=== PATIENT | female | born 1995 | race Caucasian/White ===

== ENCOUNTER 2017-02-07 13:16 | Emergency (ER) | payer MEDICAID ==
[~2017-02-07] VITALS: Ht 160 cm; Wt 93.4 kg
[~2017-02-07 13:16] MED LIST: BACL10TA PO; CEFD300C16 PO; CYCL-97 PO; DIPH25TA82; HYDR-3812 PO; IBP600T1 PO; IBUP-1773 PO; KETO-22 PO; NAPR-248 PO; NAPR550T PO; NIFE30TA82 PO; NITR-65 PO; ONDAN4ODT PO; PHEN200T27 PO; PREN1TAB19 PO; PREN1TAB86 PO; PRO AIR; SERT50TA PO
--- OUTSIDE RECORDS SUMMARY | 2017-02-07 13:24 | XMS REPORT ---
Author Author JENNIFER DOVE [facility] eClinicalWorks Address Unknown Phone Unavailable Care Team Providers Care Circle Cutting Saw Operator Name Role Phone JENNIFER DOVE CP Unavailable Allergies No Known Allergies Problems Problem Type Condition Code Onset Dates Condition Status Problem Normal in multigravida in second trimester Z34.82 Active Problem care, subsequent in first trimester Z34.81 Active Problem Normal in multigravida in third trimester Z34.83 Active Medications No Known Medications Results No Known Results Summary Purpose eClinicalWorks Submission
--- OUTSIDE RECORDS SUMMARY | 2017-02-07 13:26 | XMS REPORT ---
Author Author DARREN RICHARDS [facility] eClinicalWorks Address Unknown Phone Unavailable Care Team Providers Care Toll Test Worker Name Role Phone DARREN RICHARDS CP Unavailable Allergies No Known Allergies Problems Problem Type Condition Code Onset Dates Condition Status Problem Unspecified contraceptive management V25.9 Active Problem Anxiety state, unspecified 300.00 Active Problem examination or test, positive result V72.42 Active Problem care, subsequent in first trimester Z34.81 Active Problem Excessive or frequent menstruation 626.2 Active Problem Supervision of normal first V22.0 Active Problem Acute bronchitis 466.0 Active Problem Acute upper respiratory infections of unspecified site 465.9 Active Problem Normal in multigravida in second trimester Z34.82 Active Problem Uterine size date discrepancy, unspecified as to episode of care or not applicable 649.60 Active Problem Nondependent amphetamine or related acting sympathomimetic abuse, 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 Problem Screening of Streptococcus B V28.6 Active Problem DTAP TEST V06.1 Active Problem Depressive disorder, not elsewhere classified 311 Active Problem 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 Problem Other malaise and fatigue 780.79 Active Problem Need for prophylactic vaccination and inoculation, Influenza V04.81 Active Problem Dysuria 788.1 Active Problem Urinary tract infection, site not specified 599.0 Active Problem Oligohydramnios, unspecified as to episode of care 658.00 Active Problem Threatened premature labor, unspecified as to episode of care 644.00 Active Problem Abdominal pain, other specified site 789.09 Active Problem Encounter for long-term (current) use of other medications V58.69 Active Medications No Known Medications Results No Known Results Summary Purpose eClinicalWorks Submission
--- OUTSIDE RECORDS SUMMARY | 2017-02-07 13:27 | XMS REPORT ---
Author Author JENNIFER DOVE [facility] eClinicalWorks Address Unknown Phone Unavailable Care Team Providers Care Baking Factory Worker Name Role Phone JENNIFER DOVE CP Unavailable [...]
--- NOTE | 2017-02-07 13:28 | ED EENT ---
History of Present Illness General Chief Complaint: Dental Problems/Pain Stated Complaint: L SIDE TOOTH POSS INFECTION Source: patient Exam Limitations: no limitations History of Present Illness Time seen by provider: 13:24 Initial Comments To ER with left upper molar pain for the past 3-4 days. She has a bad taste in her mouth and states that she is able to squeeze a foul-smelling material out when she presses next to the tooth which is very tender. There is no swelling to the face. She has not sought care with her dentist. Timing/Duration: gradual Severity: moderate Location: dental Associated Symptoms: denies symptoms Allergies and Home Medications Allergies Coded Allergies: No Known Drug Allergies (Unverified , 04/22/15) Home Medications Amoxicillin 500 Mg Capsule, 500 MG PO TID, #21 Prescribed by: CHILANGO KOCH on 02/07/17 1329 Hydrocodone/Acetaminophen 1 Each Tablet, 1 EACH PO Q6H PRN for BREAKTHROUGH PAIN , #5 Prescribed by: CHILANGO KOCH on 02/07/17 1329 Review of Systems Constitutional: see HPI Eyes: No Symptoms Reported Ears: No Symptoms Reported Nose: no symptoms reported Mouth: see HPI, pain Throat: no symptoms reported Respiratory: no symptoms reported Cardiovascular: no symptoms reported Past Sxuuoyn-Litdyt-Qqtlze Hx Patient Social History Alcohol Use: Denies Use Recreational Drug Use: No Type Used: Cigarettes Recent Foreign Travel: No Contact w/Someone Who Travel: No Recent Hopitalizations: No Immunizations Up To Date Tetanus Booster (TDap): Less than 5yrs Date of Influenza Vaccine: Jan 02, 2016 Seasonal Allergies Seasonal Allergies: No Surgeries History of Surgeries: No Respiratory History of Respiratory Disorde: No Cardiovascular History of Cardiac Disorders: No Neurological History of Neurological Disord: No Reproductive System Hx Reproductive Disorders: Yes Sexually Transmitted Disease: No HIV/AIDS: No Female Reproductive Disorders: Menstrual Problems Gastrointestinal History of Gastrointestinal Di: No Musculoskeletal History of Musculoskeletal Dis: No Endocrine History of Endocrine Disorders: No Cancer History of Cancer: No Psychosocial History of Psychiatric Problem: No Behavioral Health Disorders: Anxiety, Depression Integumentary History of Skin or Integumenta: No Blood Transfusions History of Blood Disorders: No Adverse Reaction to a Blood Tr: No Family Medical History Significant Family History: No Pertinent Family Hx Family Medial History: Patient reports no known family medical history. Physical Exam Vital Signs Vital Sign - Last 12Hours 02/07/17 13:23 Temp 98.5 Pulse 97 Resp 16 B/P (MAP) 132/88 Pulse Ox 98 O2 Delivery Room Air General Appearance: WD/WN, no apparent distress Eyes: bilateral eye normal inspection, bilateral eye PERRL, bilateral eye EOMI Ears: bilateral ear auricle normal, bilateral ear canal normal, bilateral ear TM normal Mouth/Throat: normal mouth inspection, dental tenderness (there is no fluctuant buccal or gingival abscess) Neck: non-tender, full range of motion Cardiovascular: regular rate, rhythm, no murmur Respiratory: normal breath sounds, no respiratory distress, no accessory muscle use Gastrointestinal: normal bowel sounds, non tender Neurologic/Psychiatric: alert, normal mood/affect, oriented x 3 There is no facial swelling Progress/Results/Core Measures Results/Orders Vital Signs/I&O Vital Sign - Last 12Hours 02/07/17 13:23 Temp 98.5 Pulse 97 Resp 16 B/P (MAP) 132/88 Pulse Ox 98 O2 Delivery Room Air Departure Impression Impression: Primary Impression: Dental caries Disposition: HOME, SELF-CARE Condition: Stable Departure-Patient Inst. Decision time for Depature: 13:27 Referrals: [facility] (PCP) Primary Care Physician DARREN RICHARDS DO (Family) Primary Care Physician Patient Instructions: Dental Pain (DC) Add. Discharge Instructions: 1. Return to ER for any concerns 2. Call your dentist on Thursday morning to make an appointment to be seen 3. All discharge instructions reviewed with patient and/or family. Voiced understanding. Scripts Amoxicillin (Amoxicillin) 500 Mg Capsule 500 MG PO TID, #21 CAP Prov: CHILANGO KOCH CORPORATE AUDITOR 02/07/17 Hydrocodone/Acetaminophen ([place] 5-325 Tablet) 1 Each Tablet 1 EACH PO Q6H Y for BREAKTHROUGH PAIN, #5 TAB Prov: CHILANGO KOCH CORPORATE AUDITOR 02/07/17 CHILANGO KOCH CORPORATE AUDITOR Feb 07, 2017 13:28
[2017-02-07] MEDS ORDERED: HYDR-757 PO (13:29)
[2017-02-07] MEDS ORDERED: AMOX500C2 PO (13:29)
--- OUTSIDE RECORDS SUMMARY | 2017-02-07 13:29 | XMS REPORT ---
Author Author JENNIFER DOVE [facility] Address [address] [place] [address] Care Team Providers Care Store Person Name Role Phone JENNIFER DOVE Unavailable PROBLEMS Type Condition ICD9-CM Code [id number] Code Onset Dates Condition Status SNOMED Code Problem Normal in multigravida in third trimester Z34.83 Active 33068573 Problem Normal in multigravida in second trimester Z34.82 Active 62598493 Problem care, subsequent in first trimester Z34.81 Active 966174664 ALLERGIES No Information SOCIAL HISTORY Never Assessed PLAN OF CARE VITAL SIGNS MEDICATIONS Unknown Medications RESULTS No Results PROCEDURES No Known procedures IMMUNIZATIONS No Known Immunizations MEDICAL (GENERAL) HISTORY Type Description Date Hospitalization History past child
--- OUTSIDE RECORDS SUMMARY | 2017-02-07 13:29 | XMS REPORT ---
Author Author DARREN RICHARDS Organization [facility] Address [address] [place] [address] Care Team Providers Care Health Diagnostics Teacher Name Role Phone RICHARDSDARREN Unavailable PROBLEMS Type Condition ICD9-CM Code [id number] Code Onset Dates Condition Status SNOMED Code Problem Normal in multigravida in third trimester Z34.83 Active 63208117 Problem Normal in multigravida in second trimester Z34.82 Active 85128011 Assessment 35 weeks gestation of Z3A.35 14 Dec, 2015 Active 47746128 Assessment screening for streptococcus B Z36 14 Dec, 2015 Active 198614857 Problem care, subsequent in first trimester Z34.81 Active 525225797 Assessment Normal in multigravida in third trimester Z34.83 14 Dec, 2015 Active 86844623 ALLERGIES Substance Reaction Event Type Date Status Depo-provera 150 Mg/ml Suspension Unknown Non Drug Allergy Dec, Active SOCIAL HISTORY No smoking Hx information available PLAN OF CARE VITAL SIGNS Height 64 in 2015-12-26 Weight 218.5 lbs 2015-12-26 Heart Rate 92 bpm 2015-12-26 Respiratory Rate 22 2015-12-26 BMI 37.505 kg/m2 2015-12-26 Blood pressure systolic 104 mmHg 2015-12-26 Blood pressure diastolic 80 mmHg 2015-12-26 MEDICATIONS Medication Instructions Dosage Frequency Start Date End Date Duration Status 28-0.8 MG Orally daily 1 24h Jun, Active Keflex ... Active RESULTS Name Result Date Reference Range UA OB DIP (IN HOUSE) 2015-12-26 Glucose negative Protein trace CULTURE, GROUP B STREP (VAGINAL) 2015-12-26 Strep Gp B Culture Positive Negative PROCEDURES Procedure Date Ordered Related Diagnosis Body Site LAB NOT BILLED BY [facility] Dec 26, 2015 Office Visit, Est Pt., Level 3 Dec 26, 2015 URINE-NO MICRO Dec 26, 2015 IMMUNIZATIONS No Known Immunizations
[2017-02-07 13:32] VITALS: BP 132/88
--- OUTSIDE RECORDS SUMMARY | 2017-02-07 13:32 | XMS REPORT ---
Author Author DARREN RICHARDS [facility] Address [address] [place] [address] Care Team Providers Care Home Appliance Installer Name Role Phone DARREN RICHARDS Unavailable PROBLEMS Type Condition ICD9-CM Code [id number] Code Onset Dates Condition Status SNOMED Code Problem Normal in multigravida in third trimester Z34.83 Active 32686183 Problem Normal in multigravida in second trimester Z34.82 Active 18253574 Problem care, subsequent in first trimester Z34.81 Active 988402552 ALLERGIES Unknown Allergies SOCIAL HISTORY No smoking Hx information available PLAN OF CARE VITAL SIGNS MEDICATIONS Unknown Medications RESULTS No Results PROCEDURES No Known procedures IMMUNIZATIONS No Known Immunizations
--- OUTSIDE RECORDS SUMMARY | 2017-02-07 13:32 | XMS REPORT ---
Author DARREN Hsieh [facility] eClinicalWorks Address Unknown Phone Unavailable Care Team Providers Care Vice President Payment Name Role Phone DARREN RICHARDS CP Unavailable [...]
--- OUTSIDE RECORDS SUMMARY | 2017-02-07 13:32 | XMS REPORT ---
Author DARREN Hsieh [facility] eClinicalWorks Address Unknown Phone Unavailable Care Team Providers Care Turkey Egg Gatherer Name Role Phone DARREN RICHARDS CP Unavailable Allergies No Known Allergies Problems Problem Type Condition Code Onset Dates Condition Status Assessment 27 weeks gestation of Z3A.27 Active Problem Encounter for long-term (current) use of other medications V58.69 Active Assessment Normal in multigravida in third trimester Z34.83 Active Problem Unspecified contraceptive management V25.9 Active Problem Acute upper respiratory infections of unspecified site 465.9 Active Problem examination or test, positive result V72.42 Active Problem Nondependent amphetamine or related acting sympathomimetic abuse, 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 Problem Anxiety state, unspecified 300.00 Active Problem Normal in multigravida in second trimester Z34.82 Active Problem care, subsequent in first trimester Z34.81 Active Problem Other malaise and fatigue 780.79 Active Problem Excessive or frequent menstruation 626.2 Active Problem Normal in multigravida in third trimester Z34.83 Active Problem Acute bronchitis 466.0 Active Problem DTAP TEST V06.1 Active Problem Uterine size date discrepancy, unspecified as to episode of care or not applicable 649.60 Active Problem Supervision of normal first V22.0 Active Problem Screening of Streptococcus B V28.6 Active Problem 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 Problem Oligohydramnios, unspecified as to episode of care 658.00 Active Problem Need for prophylactic vaccination and inoculation, Influenza V04.81 Active Problem Depressive disorder, not elsewhere classified 311 Active Problem Urinary tract infection, site not specified 599.0 Active Problem Threatened premature labor, unspecified as to episode of care 644.00 Active Problem Abdominal pain, other specified site 789.09 Active Problem Dysuria 788.1 Active Medications Medication Code System Code Instructions Start Date End Date Status Dosage [facility] 2001 [id number] 28-0.8 MG Orally daily July 02, 2015 1 Procedures Procedure Coding System Code Date Office Visit, Est Pt., Level 3 CPT-4 35654 October 29, 2015 URINE-NO MICRO CPT-4 87768 October 29, [address] [facility] C[facility]-4 NOBLL October 29, 2015 VENIPUNCT, ROUTINE* CPT-4 14941 October 29, 2015 Vital Signs Date/Time: October 29, 2015 Cardiac Monitoring Heart Rate 72 bpm Weight 204.4 lbs Height 64 in Blood Pressure Diastolic 76 mmHg Blood Pressure Systolic 120 mmHg Results No Known Results Summary Purpose eClinicalWorks Submission
--- OUTSIDE RECORDS SUMMARY | 2017-02-07 13:34 | XMS REPORT ---
Author DARREN Hsieh [facility] eClinicalWorks Address Unknown Phone Unavailable Care Team Providers Care Cash Shortage Investigator Name Role Phone DARREN RICHARDS CP Unavailable [...]
--- OUTSIDE RECORDS SUMMARY | 2017-02-07 13:34 | XMS REPORT ---
Author DARREN Hsieh [facility] eClinicalWorks Address Unknown Phone Unavailable Care Team Providers Care Ambulance Mechanic Name Role Phone DARREN RICHARDS CP Unavailable Allergies, Adverse Reactions, Alerts Substance Reaction Event Type Depo-provera 150 Mg/ml Suspension Info Not Available Non Drug Allergy Problems Problem Type Condition Code Onset Dates Condition Status Problem Normal in multigravida in second trimester Z34.82 Active Problem care, subsequent in first trimester Z34.81 Active Problem Normal in multigravida in third trimester Z34.83 Active Assessment 31 weeks gestation of Z3A.31 Active Assessment Encounter for immunization Z23 Active Assessment Normal in multigravida in third trimester Z34.83 Active Assessment Normal in multigravida in second trimester Z34.82 Active Medications Medication Code System Code Instructions Start Date End Date Status Dosage [facility] [address] 28-0.8 MG Orally daily July 02, 2015 1 Procedures Procedure Coding System Code Date URINE-NO MICRO CPT-4 45579 Nov 26, 2015 TDAP (BOOSTRIX) CPT-4 58503 Nov 26, 2015 Office Visit, Est Pt., Level 3 CPT-4 49564 Nov 26, 2015 SINGLE IMMUNIZATION ADMIN CPT-4 01573 Nov 26, 2015 Vital Signs Date/Time: Nov 26, 2015 Cardiac Monitoring Heart Rate 76 bpm Weight 208.7 lbs Height 64 in BMI 35.823 Index Blood Pressure Diastolic 68 mmHg Blood Pressure Systolic 112 mmHg Results No Known Results Immunizations Vaccine Administration Date TDAP (BOOSTRIX) Nov 26, 2015 Summary Purpose eClinicalWorks Submission
--- OUTSIDE RECORDS SUMMARY | 2017-02-07 13:36 | XMS REPORT ---
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 Problem Anxiety state, unspecified 300.00 Active Problem Normal in multigravida in second trimester Z34.82 Active Problem Other malaise and fatigue 780.79 Active Problem care, subsequent in first trimester Z34.81 Active Problem Excessive or frequent menstruation 626.2 Active Problem Acute bronchitis 466.0 Active Problem Normal in multigravida in third trimester Z34.83 Active Problem DTAP TEST V06.1 Active Problem [...] (current) use of other medications V58.69 Active Problem Acute upper respiratory infections of unspecified site 465.9 Active Problem Dysuria 788.1 Active Problem Unspecified contraceptive management V25.9 Active Medications No Known Medications Results No Known Results Summary Purpose eClinicalWorks Submission
--- OUTSIDE RECORDS SUMMARY | 2017-02-07 13:36 | XMS REPORT ---
Author Author DARREN RICHARDS [facility] eClinicalWorks Address Unknown Phone Unavailable Care Team Providers Care Edger Automatic Name Role Phone DARREN RICHARDS CP Unavailable [...]
--- OUTSIDE RECORDS SUMMARY | 2017-02-07 13:36 | XMS REPORT ---
Author Author KATHY LUJAN Organization [facility] Address [address] [place] [address] Care Team Providers Care Concrete Mixing Truck Driver Name Role Phone KATHY LUJAN Unavailable PROBLEMS Type Condition ICD9-CM Code [id number] Code Onset Dates Condition Status SNOMED Code Problem Normal in multigravida in third trimester Z34.83 Active 17574082 Problem Normal in multigravida in second trimester Z34.82 Active 85529809 Problem care, subsequent in first trimester Z34.81 Active 032511396 ALLERGIES Substance Reaction Event Type Date Status Depo-provera 150 Mg/ml Suspension Unknown Non Drug Allergy Apr, Active SOCIAL HISTORY No smoking Hx information available PLAN OF CARE Activity Details Follow Up prn with PCP Jamie Reason: VITAL SIGNS Height 64 in 2016-04-22 Weight 202 lbs 2016-04-22 Temperature 98.1 degrees Fahrenheit 2016-04-22 Heart Rate 90 bpm 2016-04-22 Respiratory Rate 20 2016-04-22 BMI 34.67 kg/m2 2016-04-22 Blood pressure systolic 96 mmHg 2016-04-22 Blood pressure diastolic 64 mmHg 2016-04-22 MEDICATIONS Unknown Medications RESULTS No Results PROCEDURES Procedure Date Ordered Related Diagnosis Body Site Office Visit, Est Pt., Level 3 Apr 22, 2016 IMMUNIZATIONS No Known Immunizations
--- OUTSIDE RECORDS SUMMARY | 2017-02-07 13:38 | XMS REPORT ---
Author Author DARREN RICHARDS [facility] eClinicalWorks Address Unknown Phone Unavailable Care Team Providers Care Lead Refiner Name Role Phone DARREN RICHARDS CP Unavailable [...]
--- OUTSIDE RECORDS SUMMARY | 2017-02-07 13:38 | XMS REPORT ---
Author Author DARREN RICHARDS [facility] Address [address] [place] [address] Care Team Providers Care Family Resource Management Specialist Name Role Phone DARREN RICHARDS Unavailable PROBLEMS Type Condition ICD9-CM Code [id number] Code Onset Dates Condition Status SNOMED Code Problem Normal in multigravida in third trimester Z34.83 Active 62393678 Problem Normal in multigravida in second trimester Z34.82 Active 81599338 Problem care, subsequent in first trimester Z34.81 Active 190535449 ALLERGIES Unknown Allergies SOCIAL HISTORY No smoking Hx information available PLAN OF CARE VITAL SIGNS MEDICATIONS Unknown Medications RESULTS No Results PROCEDURES No Known procedures IMMUNIZATIONS No Known Immunizations
--- OUTSIDE RECORDS SUMMARY | 2017-02-07 13:38 | XMS REPORT ---
Author DARREN Hsieh [facility] eClinicalWorks Address Unknown Phone Unavailable Care Team Providers Care Game Designer/Creative Director Name Role Phone DARREN RICHARDS CP Unavailable [...] Z34.83 Active Assessment Normal in multigravida in third trimester Z34.83 Active Assessment 33 weeks gestation of Z3A.33 Active Medications Medication Code System Code Instructions Start Date End Date Status Dosage [facility] [id number] 28-0.8 MG Orally daily July 02, 2015 1 Procedures Procedure Coding System Code Date URINE-NO MICRO CPT-4 07992 Dec 10, 2015 Office Visit, Est Pt., Level 3 CPT-4 59502 Dec 10, 2015 Vital Signs Date/Time: Dec 10, 2015 Cardiac Monitoring Heart Rate 90 bpm Weight 212.7 lbs Height 64 in BMI 36.51 Index Blood Pressure Diastolic 70 mmHg Blood Pressure Systolic 110 mmHg Results No Known Results Summary Purpose eClinicalWorks Submission
--- OUTSIDE RECORDS SUMMARY | 2017-02-07 13:38 | XMS REPORT ---
Author Author DARREN RICHARDS [facility] Address [address] [place] [address] Care Team Providers Care Vacuum Drier Operator Name Role Phone RICHARDSDARREN Unavailable PROBLEMS Type Condition ICD9-CM Code [id number] Code Onset Dates Condition Status SNOMED Code Problem Normal in multigravida in third trimester Z34.83 Active 28539085 Problem Normal in multigravida in second trimester Z34.82 Active 50213374 Assessment 36 weeks gestation of Z3A.36 Dec, Active 12599721 Assessment Encounter for immunization Z23 Dec, Active 275455819 Problem care, subsequent in first trimester Z34.81 Active 026560619 Assessment Normal in multigravida in third trimester Z34.83 Dec, Active 30009010 ALLERGIES Unknown Allergies SOCIAL HISTORY No smoking Hx information available PLAN OF CARE VITAL SIGNS Height 64 in 2016-01-02 Weight 256.6 lbs 2016-01-02 Heart Rate 82 bpm 2016-01-02 Respiratory Rate 20 2016-01-02 BMI 44.045 kg/m2 2016-01-02 Blood pressure systolic 120 mmHg 2016-01-02 Blood pressure diastolic 68 mmHg 2016-01-02 MEDICATIONS Medication Instructions Dosage Frequency Start Date End Date Duration Status 28-0.8 MG Orally daily 1 24h Jun, Active RESULTS Name Result Date Reference Range UA OB DIP (IN HOUSE) 2016-01-02 Glucose negative Protein trace PROCEDURES Procedure Date Ordered Related Diagnosis Body Site URINE-NO MICRO Jan 02, 2016 Office Visit, Est Pt., Level 3 Jan 02, 2016 SINGLE IMMUNIZATION ADMIN Jan 02, 2016 FLUARIX QUAD P-FREE 3 AND UP .50 2016 Jan 02, 2016 IMMUNIZATIONS Vaccine Route Administration Date Status FLUARIX QUAD P-FREE 3 AND UP .50 2015 IM Intramuscular Jan 02, 2016 Administered
--- OUTSIDE RECORDS SUMMARY | 2017-02-07 13:40 | XMS REPORT ---
Author Author RICKIE ADAMS [facility] eClinicalWorks Address Unknown Phone Unavailable Care Team Providers Care Hvac Field Service Technician Name Role Phone RICKIE ADAMS CP Unavailable Allergies No Known Allergies Problems Problem Type Condition ICD-9 Code Onset Dates Condition Status Problem Threatened premature labor, unspecified as to episode of care 644.00 Active Problem Unspecified contraceptive management V25.9 Active Problem Encounter for long-term (current) use of other medications V58.69 Active Problem Screening of Streptococcus B V28.6 Active Problem Acute upper respiratory infections of unspecified site 465.9 Active Problem DTAP TEST V06.1 Active Assessment Dental examination V72.2 Active Problem Supervision of normal first V22.0 Active Problem Anxiety state, unspecified 300.00 Active Problem examination or test, positive result V72.42 Active Problem Uterine size date discrepancy, unspecified as to episode of care or not applicable 649.60 Active Problem Nondependent amphetamine or related acting sympathomimetic abuse, 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 Problem Other malaise and fatigue 780.79 Active Problem Need for prophylactic vaccination and inoculation, Influenza V04.81 Active Problem Acute bronchitis 466.0 Active Problem Excessive or frequent menstruation 626.2 Active Problem Oligohydramnios, unspecified as to episode of care 658.00 Active Problem Abdominal pain, other specified site 789.09 Active Problem Depressive disorder, not elsewhere classified 311 Active Problem Dysuria 788.1 Active Problem 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
--- OUTSIDE RECORDS SUMMARY | 2017-02-07 13:40 | XMS REPORT ---
Author Author JENNIFER DOVE [facility] eClinical[employer] Address Unknown Phone Unavailable Care Team Providers Care Frozen Pie Maker Name Role Phone JENNIFER DOVE CP Unavailable [...]
--- OUTSIDE RECORDS SUMMARY | 2017-02-07 13:40 | XMS REPORT ---
Author DARREN Hsieh [facility] e[employer] Address Unknown Phone Unavailable Care Team Providers Care Correctional Case Manager Name Role Phone DARREN RICHARDS CP Unavailable [...]
== END 2017-02-07 13:31 | disposition home or self-care (01) ==
LOC: EDUNIT# 13:16 → ER 13:19
DX: K02.9 Dental caries, unspecified (principal); F41.9 Anxiety disorder, unspecified; F32.9 Major depressive disorder, single episode, unspecified
CPT/HCPCS: 99282

== ENCOUNTER 2017-09-28 17:39 | Emergency (ER) | payer MEDICAID ==
[~2017-09-28] VITALS: Ht 160 cm; Wt 77.6 kg
[~2017-09-28 17:39] MED LIST changes: +ACHD5005 PO; +AMOX500C2 PO; -HYDR-3812 PO; +HYDR-757 PO
--- OUTSIDE RECORDS SUMMARY | 2017-09-28 17:45 | XMS REPORT ---
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 Name Role Phone RADHA FINNEGAN Unavailable PROBLEMS Type Condition ICD9-CM Code EOX42-AK Code Onset Dates Condition Status SNOMED Code Problem Normal in multigravida in third trimester Z34.83 Active 47509895 Problem Normal in multigravida in second trimester Z34.82 Active 81858642 Problem care, subsequent in first trimester Z34.81 Active [id number] ALLERGIES No Information ENCOUNTERS Encounter Location Date Diagnosis [facility] [id number] [place] [address] 50243- 3076 Apr, [facility] [id number] [place] [address] 18655- 7560 Jan, Encounter for immunization Z23 [facility] [address] [address]85- 5335 Jul, [facility] [id number] [place] [address] 94907- 4395 Apr, [facility] [id number] [place] [address] 44875- 3776 Apr, Left ear pain H92.02 [facility] [id number] [place] [address] 53733- 6303 Mar, [facility] [address] [address]- 0096 Feb, [facility] [id number] [place] [address] 18799- 4521 Jan, [facility] [id number] [place] [address] 07256- 1726 Jan, [facility] [address] [id number] [address] 6326 Jan, [facility] [address], [place] [address] 89[address] Dec, [facility] [address], [place] [address] 7727 Dec, Normal in multigravida in third trimester Z34.83 ; 36 weeks gestation of Z3A.36 and Encounter for immunization Z23 [facility] [address], [place] [address] 6[address] Dec, [facility] [address] [place] [address] 48974- 0926 Dec, Normal in multigravida in third trimester Z34.83 ; 35 weeks gestation of Z3A.35 and screening for streptococcus B Z36 [address], [place] [address] 8[address] Dec, [facility] [address], [place] [address] 8423 Nov, Normal in multigravida in third trimester Z34.83 and 33 weeks gestation of Z3A.33 [facility] [place] [address] [id number] [place] [address] Nov [facility] [address], [place] [address] 9[address] Nov, [facility] [address] [id number], [place] [address] 8391 Nov, Normal in multigravida in third trimester Z34.83 ; Normal in multigravida in second trimester Z34.82 ; 31 weeks gestation of Z3A.31 and Encounter for immunization Z23 [facility] [address] [id number], [place] [address] 0841 Oct, ENDY [place] [address] [id number] [place] [address] Oct [address] [address], [place] [address] 6104 Oct, Normal in multigravida in third trimester Z34.83 and 27 weeks gestation of Z3A.27 [facility] [address] [id number] [place] [address] Sep [place] [id number] [place] [address] 06647- 6803 Sep, Normal in multigravida in second trimester Z34.82 and 23 weeks gestation of Z3A.23 [facility] [address] [id number] [place] [address] August [address] [address] [place] [address] 24584- 2637 August, Normal in multigravida in second trimester Z34.82 and 18 weeks gestation of Z3A.18 [facility] [address] [id number] [place] [address] Jul [facility] [address] [place] [address] 83567 -8643 Jul, Nausea R11.0 [address] [address] [place] [address] 34015- 8778 Jul, [facility] [address] [id number] [place] [address] Jun [facility] [address] [place] [address] 84630- 3709 Jun, with 10 completed weeks gestation Z3A.10 ; Encounter for immunization Z23 ; care, subsequent in first trimester Z34.81 ; BMI 35.0-35.9,adult Z68.35 ; Tobacco use affecting in first trimester, antepartum O99.331 ; Nausea R11.0 and Supervision of normal first teen in first trimester Z34.01 [address] [address] [place] [address] 54506- 7680 May, test positive Z32.01 [facility] [address] [id number] [id number] Oct, Dental examination V72.2 [facility] [address] [id number] [address] Oct, [facility] [address] [facility] [id number], [place] [address] 3551 Jul, [facility] [address] [id number], [place] [address] 3249 Jul, [facility] [address] [facility] [id number] [place] [address] 30302- 4241 Apr, [facility] [address] [id number], [place] [address] 6007 Apr, [facility] [address], [place] [address] 5054 Jan, [facility] [address] [facility] [id number], [place] [address]- 2843 Jan, [facility] [address], [place] [address]- 9537 Jan, [facility] [id number], [place] [address] 3484 August, [facility] [address] [facility] [id number], [place] [address] 2818 August, [facility] [address] [facility] [id number], [place] [address] 8478 August, [facility] [address] [facility] [id number] 6320 August, [facility] [address] [facility] [id number], [place] [address]- 5288 May, [facility] [address] [id number], [place] [address] May, [facility] [place] [facility] [address] [id number] [place] [address]- 5435 Feb, [facility] [place] [facility] [address] [id number] [place] [address]- 4044 Feb, [facility] [place] [facility] [address] [id number] [place] [address]- 0144 Feb, [facility] [place] [facility] [address] [id number] [place] [address]- 2519 Feb, [facility] [place] [facility] [address] [id number] [place] [address]- 0762 Jan, [facility] [place] [facility] [address] [id number] [place] [address]- 2726 Jan, [facility] [place] [facility] [address] [id number] [place] [address]- 9128 Dec, [facility] [place] [facility] [address] [id number] [place] [address]- 0105 Dec, [facility] [place] [facility] [address] [id number] [place] [address]- 9773 Dec, [facility] [place] [facility] [address] [id number] [place] [address]- 9034 Dec, [facility] [place] [facility] [address] [id number], [place] [address]- 6552 Dec, [facility] [place] [facility] [address] [id number], [place] [address]- 4274 Nov, [facility] [place] [facility] [address] [id number] [place] [address]- 9295 Sep, [facility] [place] [facility] [address] [id number], [place] [address]- 8126 Sep, [facility] [place] [facility] [address] [id number] [place] [address]- 9999 August, [facility] [place] [facility] [address] [id number] [place] [address]- 4342 29 Aug, 2012 [facility] [address] [id number] [place] [address]- 9945 16 Aug, 2012 [facility] [address] [id number] [place] [address]- 6321 25 Jul, 2012 [facility] [address] [id number] [place] [address]- 2106 Jul, [facility] [address] [id number] [place] [address]- 3599 18 Jul, 2012 [facility] [address] [id number] [place] [address]- 0993 Jul, [facility] [address] [id number] [place] [address]- 4060 10 Jul, 2012 [facility] [address] [id number] [place] [address]- 7060 08 Jul, 2012 [facility] [address] [id number] [place] [address]- 0390 06 Jul, 2012 [facility] [address] [id number] [place] [address]- 0398 03 Jul, 2012 [facility] [address] [id number] [place] [address]- 6013 26 Jun, 2012 [facility] [address] [id number] [place] [address]- 7769 20 Jun, 2012 [facility] [address] [id number] [place] [address]- 8709 20 Jun, 2012 [facility] [address] [id number] [place] [address]- 4573 19 Jun, 2012 [facility] [address] [id number] [place] [address]- 8686 18 Jun, 2012 [facility] [address] [id number] [place] [address]- 1597 15 Jun, 2012 [facility] [address] [id number] [place] [address]- 0214 14 Jun, 2012 [facility] [place] [facility] [address] [id number] [place] [address]- 0555 07 Jun, 2012 [facility] [place] [facility] [address] [id number] [place] [address]- 9147 06 Jun, 2012 [facility] [place] [facility] [address] [id number] [place] [address]- 2070 06 Jun, 2012 [facility] [place] [facility] [address] [id number] [place] [address]- 0221 May, [facility] [place] [facility] [address] [id number] [place] [address]- 3324 06 May, 2012 [facility] [address] [id number] [place] [address]- 3516 May, [facility] [place] [facility] [address] [id number] [place] [address]- 5528 Apr, [facility] [place] [facility] [address] [id number] [place] [address]- 3654 Apr, [facility] [place] [facility] [address] [id number] [place] [address]- 8682 17 Apr, 2012 [facility] [place] [facility] [address] [id number] [place] [address]- 4843 16 Apr, 2012 [facility] [place] [facility] [address] [id number] [place] [address]- 1623 16 Apr, 2012 [facility] [place] [facility] [address] [id number] [place] [address]- 1137 Apr, [facility] [place] [facility] [address] [id number] [place] [address]- 0254 09 Apr, 2012 [facility] [place] [facility] [address] [id number] [place] [address]- 1179 27 Mar, 2012 [facility] [place] [facility] [address] [id number] [place] [address]- 5013 Mar, [facility] [place] [facility] [address] [id number] [place] [address]- 3288 Feb, [facility] [place] [facility] [address] [id number] [place] [address]- 1836 Feb, [facility] [place] [facility] [address] [id number] [place] [address]- 1018 Feb, [facility] [place] [facility] [address] [id number] [place] [address]- 7775 Feb, [facility] [place] [facility] [address] [id number] [place] [address]- 3172 Feb, [facility] [place] [facility] [address] [id number] [place] [address]- 6235 Feb, [facility] [place] [facility] [address] [id number] [place] [address]- 1402 Feb, [facility] [place] [facility] [address] [id number] [place] [address]- 8817 Jan, [facility] [place] [facility] [address] [id number] [place] [address]- 2110 Jan, [facility] [place] [facility] [address] [id number] [place] [address]- 1120 Jan, [facility] [place] [facility] [address] [id number], [place] [address]- 9370 Jan, [facility] [place] [facility] [address] [id number], [place] [address]- 1054 Jan, [facility] [place] [facility] [address] [id number] [place] [address]- 5075 Jan, [facility] [place] [facility] [address] [id number] [place] [address]- 1764 Jan, [facility] [place] [facility] [address] [id number] [place] [address]- 4432 Jan, [facility] [place] [facility] [address] [id number] [place] [address]- 3232 Jan, [facility] [place] [facility] [address] [id number] [place] [address]- 4284 Jan, [facility] [place] [facility] [address] [id number] [place] [address]- 0656 Jan, [facility] [place] [facility] [address] [id number] [place] [address]- 8933 Jan, [facility] [place] [facility] [address] [id number] [place] [address]- 8626 Jan, [facility] [place] [facility] [address] [id number] [place] [address]- 7988 Jan, [facility] [place] [facility] [address] [id number] [place] [address]- 2001 Dec, [facility] [place] [facility] [address] [id number] [place] [address]- 0526 16 May, 2011 [facility] [place] [facility] [address] [id number] [place] [address]- 8689 May, [facility] [place] [facility] [address] [id number] [place] [address]- 5650 Mar, [facility] [place] [facility] [address] [facility] [id number] [place] [address]- 4711 16 Mar, 2011 [facility] [place] [facility] [address] [id number] [place] [address]- 6004 16 Mar, 2011 [facility] [place] [facility] [address] [id number] [place] [address]- 2457 14 Mar, 2011 [facility] [place] [facility] [address] [id number] [place] [address]- 4320 Feb, [facility] [place] [facility] [address] [facility] [id number] [place] [address]- 2546 Feb, [facility] [place] [facility] [address] [id number] [place] [address]- 2875 Feb, [facility] [place] [facility] [address] [id number] [place] [address]- 4325 07 Feb, 2011 [facility] [place] [facility] [address] [id number] [place] [address]- 7154 14 Dec, 2010 [facility] [place] [facility] [address] [id number] [place] [address]- 2899 16 Aug, 2010 [facility] [place] [facility] [address] [id number] [place] [address]- 6347 12 Jul, 2010 [facility] [place] [facility] [address] [id number] [place] [address]- 1787 14 Jun, 2010 [facility] [place] [facility] [address] [id number] [place] [address]- 8238 20 Feb, 2010 [facility] [place] [facility] [address] [id number] [place] [address]- 9000 18 Feb, 2010 [facility] [place] [facility] [address] [id number] [place] [address]- 0820 18 Feb, 2010 [facility] [place] [facility] [address] [id number] [place] [address]- 9224 10 Feb, 2010 [facility] [place] [facility] [address] [id number] [place] [address]- 8024 10 Feb, 2010 [facility] [place] [facility] [address] [id number] [place] [address]- 5836 21 Jan, 2010 [facility] [place] [facility] [address] [id number] [place] [address]- 7334 16 Jul, 2009 [facility] [place] [facility] [address] [id number] [place] [address]- 3211 12 Jul, 2009 [facility] [place] [facility] [address] [id number] [place] [address]- 8582 12 Jun, 2009 [facility] [place] [facility] [address] [id number] [place] [address]- 0921 11 Jun, 2009 [facility] [place] [facility] [address] [facility] [id number] [place] [address]98 Mar, [facility] [address] [facility] [id number] [place] [address]- 1898 Nov, IMMUNIZATIONS Vaccine Route Administration Date Status FLUARIX QUAD (3 AND UP) 2017 IM Intramuscular Jan 21, 2017 Administered SOCIAL HISTORY Never Assessed REASON FOR VISIT Flu shot PLAN OF CARE VITAL SIGNS MEDICATIONS Unknown Medications RESULTS No Results PROCEDURES Procedure Date Ordered Result Body Site FLUARIX QUAD (3 & UP)-GSK-2014Jan 21, 2017 SINGLE IMMUNIZATION ADMIN Jan 21, 2017 INSTRUCTIONS MEDICATIONS ADMINISTERED No Known Medications MEDICAL (GENERAL) HISTORY Type Description Date Hospitalization History past child
--- OUTSIDE RECORDS SUMMARY | 2017-09-28 17:50 | XMS REPORT | Continuity of Care Document ---
Author Author [facility] Address Unknown Phone Unavailable Allergies Active Description Code Type Severity Reaction Onset Reported/Identified Relationship to Patient Clinical Status Yes codeine Drug Allergy 07/15/2010 Yes codeine Drug Allergy N/A N/A 07/15/2010 Yes Depo-Provera 150 mg/mL Suspension Drug Allergy N/A N/A 05/24/2013 Yes codeine [id number] Drug Allergy Moderate N/A 09/26/2013 Yes No Known Drug Allergies [id number] Drug Allergy Unknown N/A 04/22/2015 Medications There is no data. Problems Date Dx Coded Attending Type Code Diagnosis Diagnosed By 02/09/2008 DARREN RICHARDS DO 782.1 Rash 02/09/2008 DARREN RICHARDS DO 919.4 Insect Bite Nonvenomous Of Other Multiple And Unspecified Sites Without Infection 02/09/2008 782.1 Rash 02/09/2008 919.4 Insect Bite Nonvenomous Of Other Multiple And Unspecified Sites Without Infection 02/09/2008 782.1 Rash 02/09/2008 919.4 Insect Bite Nonvenomous Of Other Multiple And Unspecified Sites Without Infection 02/09/2008 DARREN RICHARDS DO 782.1 Rash 02/09/2008 DARREN RICHARDS DO 919.4 Insect Bite Nonvenomous Of Other Multiple And Unspecified Sites Without Infection 02/09/2008 782.1 Rash 02/09/2008 919.4 Insect Bite Nonvenomous Of Other Multiple And Unspecified Sites Without Infection 02/09/2008 782.1 Rash 02/09/2008 919.4 Insect Bite Nonvenomous Of Other Multiple And Unspecified Sites Without Infection 02/09/2008 782.1 Rash 02/09/2008 919.4 Insect Bite Nonvenomous Of Other Multiple And Unspecified Sites Without Infection 02/09/2008 782.1 Rash 02/09/2008 919.4 Insect Bite Nonvenomous Of Other Multiple And Unspecified Sites Without Infection 02/09/2008 JASMIN DELOEN APRNIDI A 782.1 Rash 02/09/2008 JASMIN DELEON APRNIDI A 919.4 Insect Bite Nonvenomous Of Other Multiple And Unspecified Sites Without Infection 02/09/2008 RICHARDS DO DARREN K 782.1 Rash 02/09/2008 RICHARDS DO DARREN K 919.4 Insect Bite Nonvenomous Of Other Multiple And Unspecified Sites Without Infection 02/09/2008 782.1 Rash 02/09/2008 919.4 Insect Bite Nonvenomous Of Other Multiple And Unspecified Sites Without Infection 02/09/2008 RICHARDS DO DARREN K 782.1 Rash 02/09/2008 RICHARDS DO DARREN K 919.4 Insect Bite Nonvenomous Of Other Multiple And Unspecified Sites Without Infection 02/09/2008 782.1 Rash 02/09/2008 919.4 Insect Bite Nonvenomous Of Other Multiple And Unspecified Sites Without Infection 02/09/2008 782.1 Rash 02/09/2008 919.4 Insect Bite Nonvenomous Of Other Multiple And Unspecified Sites Without Infection 02/09/2008 782.1 Rash 02/09/2008 919.4 Insect Bite Nonvenomous Of Other Multiple And Unspecified Sites Without Infection 02/09/2008 782.1 Rash 02/09/2008 919.4 Insect Bite Nonvenomous Of Other Multiple And Unspecified Sites Without Infection 02/09/2008 782.1 Rash 02/09/2008 919.4 Insect Bite Nonvenomous Of Other Multiple And Unspecified Sites Without Infection 02/09/2008 782.1 Rash 02/09/2008 919.4 Insect Bite Nonvenomous Of Other Multiple And Unspecified Sites Without Infection 02/09/2008 782.1 Rash 02/09/2008 919.4 Insect Bite Nonvenomous Of Other Multiple And Unspecified Sites Without Infection 02/09/2008 ELADIO WARD APRN 782.1 Rash 02/09/2008 ELADIO WARD APRN 919.4 Insect Bite Nonvenomous Of Other Multiple And Unspecified Sites Without Infection 02/09/2008 ELADIO WARD APRN 782.1 Rash 02/09/2008 ELADIO WARD APRN 919.4 Insect Bite Nonvenomous Of Other Multiple And Unspecified Sites Without Infection 02/09/2008 DARREN RICHARDS DO K 782.1 Rash 02/09/2008 DARREN RICHARDS DO K 919.4 Insect Bite Nonvenomous Of Other Multiple And Unspecified Sites Without Infection 02/09/2008 PANCHO LOCATION ANALYST, MANNY A 782.1 Rash 02/09/2008 PANCHO LOCATION ANALYST, MANNY A 919.4 Insect Bite Nonvenomous Of Other Multiple And Unspecified Sites Without Infection 02/09/2008 PANCHO LOCATION ANALYST, MANNY A 782.1 Rash 02/09/2008 PANCHO LOCATION ANALYST, MANNY A 919.4 Insect Bite Nonvenomous Of Other Multiple And Unspecified Sites Without Infection 02/09/2008 PANCHO LOCATION ANALYST, MANNY A 782.1 Rash 02/09/2008 PANCHO LOCATION ANALYST, MANNY A 919.4 Insect Bite Nonvenomous Of Other Multiple And Unspecified Sites Without Infection 02/09/2008 PANCHO LOCATION ANALYST, MANNY A 782.1 Rash 02/09/2008 PANCHO LOCATION ANALYST, MANNY A 919.4 Insect Bite Nonvenomous Of Other Multiple And Unspecified Sites Without Infection 07/10/2008 DARREN RICHARDS DO 719.47 Ankle Joint Pain 07/10/2008 719.47 Ankle Joint Pain 07/10/2008 719.47 Ankle Joint Pain 07/10/2008 DARREN RICHARDS DO 719.47 Ankle Joint Pain 07/10/2008 719.47 Ankle Joint Pain 07/10/2008 719.47 Ankle Joint Pain 07/10/2008 719.47 Ankle Joint Pain 07/10/2008 719.47 Ankle Joint Pain 07/10/2008 PANCHO VICTOR MANNY A 719.47 Ankle Joint Pain 07/10/2008 DARREN RICHARDS DO 719.47 Ankle Joint Pain 07/10/2008 719.47 Ankle Joint Pain 07/10/2008 DARREN RICHARDS DO 719.47 Ankle Joint Pain 07/10/2008 719.47 Ankle Joint Pain 07/10/2008 719.47 Ankle Joint Pain 07/10/2008 719.47 Ankle Joint Pain 07/10/2008 719.47 Ankle Joint Pain 07/10/2008 719.47 Ankle Joint Pain 07/10/2008 719.47 Ankle Joint Pain 07/10/2008 719.47 Ankle Joint Pain 07/10/2008 ELADIO WARD APRN 719.47 Ankle Joint Pain 07/10/2008 ELADIO WARD APRN 719.47 Ankle Joint Pain 07/10/2008 DARREN RICHARDS DO 719.47 Ankle Joint Pain 07/10/2008 MANNY DELEON APRN A 719.47 Ankle Joint Pain 07/10/2008 MANNY DELEON APRN A 719.47 Ankle Joint Pain 07/10/2008 MANNY DELEON APRN A 719.47 Ankle Joint Pain 07/10/2008 MANNY DELEON APRN A 719.47 Ankle Joint Pain 07/18/2008 DARREN RICHARDS DO 845.00 Ankle Strain 07/18/2008 845.00 Ankle Strain 07/18/2008 845.00 Ankle Strain 07/18/2008 DARREN RICHARDS DO 845.00 Ankle Strain 07/18/2008 845.00 Ankle Strain 07/18/2008 845.00 Ankle Strain 07/18/2008 845.00 Ankle Strain 07/18/2008 845.00 Ankle Strain 07/18/2008 MANNY DELEON APRN A 845.00 Ankle Strain 07/18/2008 DARREN RICHARDS DO 845.00 Ankle Strain 07/18/2008 845.00 Ankle Strain 07/18/2008 DARREN RICHARDS DO 845.00 Ankle Strain 07/18/2008 845.00 Ankle Strain 07/18/2008 845.00 Ankle Strain 07/18/2008 845.00 Ankle Strain 07/18/2008 845.00 Ankle Strain 07/18/2008 845.00 Ankle Strain 07/18/2008 845.00 Ankle Strain 07/18/2008 845.00 Ankle Strain 07/18/2008 ELADIO WARD APRN 845.00 Ankle Strain 07/18/2008 ELADIO WARD APRN 845.00 Ankle Strain 07/18/2008 DARREN RICHARDS DO 845.00 Ankle Strain 07/18/2008 MANNY DELEON APRN A 845.00 Ankle Strain 07/18/2008 PANCHO VICTOR, MANNY A 845.00 Ankle Strain 07/18/2008 MANNY DELEON APRN A 845.00 Ankle Strain 07/18/2008 PANCHO VICTOR, MANNY A 845.00 Ankle Strain 09/08/2008 DARREN RICHARDS DO 845.03 TIBIOFIBULAR (LIGAMENT) SPRAIN DISTAL 09/08/2008 845.03 TIBIOFIBULAR (LIGAMENT) SPRAIN DISTAL 09/08/2008 845.03 TIBIOFIBULAR (LIGAMENT) SPRAIN DISTAL 09/08/2008 DARREN RICHARDS DO 845.03 TIBIOFIBULAR (LIGAMENT) SPRAIN DISTAL 09/08/2008 845.03 TIBIOFIBULAR (LIGAMENT) SPRAIN DISTAL 09/08/2008 845.03 TIBIOFIBULAR (LIGAMENT) SPRAIN DISTAL 09/08/2008 845.03 TIBIOFIBULAR (LIGAMENT) SPRAIN DISTAL 09/08/2008 845.03 TIBIOFIBULAR (LIGAMENT) SPRAIN DISTAL 09/08/2008 MANNY DELEON APRN A 845.03 TIBIOFIBULAR (LIGAMENT) SPRAIN DISTAL 09/08/2008 DARREN RICHARDS DO 845.03 TIBIOFIBULAR (LIGAMENT) SPRAIN DISTAL 09/08/2008 845.03 TIBIOFIBULAR (LIGAMENT) SPRAIN DISTAL 09/08/2008 DARREN RICHARDS DO 845.03 TIBIOFIBULAR (LIGAMENT) SPRAIN DISTAL 09/08/2008 845.03 TIBIOFIBULAR (LIGAMENT) SPRAIN DISTAL 09/08/2008 845.03 TIBIOFIBULAR (LIGAMENT) SPRAIN DISTAL 09/08/2008 845.03 TIBIOFIBULAR (LIGAMENT) SPRAIN DISTAL 09/08/2008 845.03 TIBIOFIBULAR (LIGAMENT) SPRAIN DISTAL 09/08/2008 845.03 TIBIOFIBULAR (LIGAMENT) SPRAIN DISTAL 09/08/2008 845.03 TIBIOFIBULAR (LIGAMENT) SPRAIN DISTAL 09/08/2008 845.03 TIBIOFIBULAR (LIGAMENT) SPRAIN DISTAL 09/08/2008 ELADIO WARD APRN 845.03 TIBIOFIBULAR (LIGAMENT) SPRAIN DISTAL 09/08/2008 SYLVIA ELADIO VICTOR 845.03 TIBIOFIBULAR (LIGAMENT) SPRAIN DISTAL 09/08/2008 DARREN RICHARDS DO 845.03 TIBIOFIBULAR (LIGAMENT) SPRAIN DISTAL 09/08/2008 PANCHO LOCATION ANALYST, MANNY A 845.03 TIBIOFIBULAR (LIGAMENT) SPRAIN DISTAL 09/08/2008 PANCHO LOCATION ANALYST, MANNY A 845.03 TIBIOFIBULAR (LIGAMENT) SPRAIN DISTAL 09/08/2008 PANCHO LOCATION ANALYST, MANNY A 845.03 TIBIOFIBULAR (LIGAMENT) SPRAIN DISTAL 09/08/2008 PANCHO LOCATION ANALYST, MANNY A 845.03 TIBIOFIBULAR (LIGAMENT) SPRAIN DISTAL 11/29/2008 DARREN RICHARDS DO V03.89 MENINGOCOCCAL, OTHER SPECIFIED SINGLE BACTERIAL DISEASE 11/29/2008 DARREN RICHARDS DO V05.3 HEPATITIS VIRAL/ALL 11/29/2008 DARREN RICHARDS DO V06.5 DT, TETANUS-DIPHTHERIA [Td] ,TDAP 11/29/2008 DARREN RICHARDS DO V20.2 Preventive Medicine Establ. Patient Checkup Adolescent 12-17 11/29/2008 V03.89 MENINGOCOCCAL , OTHER SPECIFIED SINGLE BACTERIAL DISEASE 11/29/2008 V05.3 HEPATITIS VIRAL/ALL 11/29/2008 V06.5 DT, TETANUS- DIPHTHERIA [Td] ,TDAP 11/29/2008 V20.2 Preventive Medicine Establ. Patient Checkup Adolescent 12-17 11/29/2008 V03.89 MENINGOCOCCAL , OTHER SPECIFIED SINGLE BACTERIAL DISEASE 11/29/2008 V05.3 HEPATITIS VIRAL/ALL 11/29/2008 V06.5 DT, TETANUS- DIPHTHERIA [Td] ,TDAP 11/29/2008 V20.2 Preventive Medicine Establ. Patient Checkup Adolescent 12-17 11/29/2008 DARREN RICHARDS DO V03.89 MENINGOCOCCAL, OTHER SPECIFIED SINGLE BACTERIAL DISEASE 11/29/2008 DARREN RICHARDS DO V05.3 HEPATITIS VIRAL/ALL 11/29/2008 DARREN RICHARDS DO V06.5 DT, TETANUS-DIPHTHERIA [Td] ,TDAP 11/29/2008 DARREN RICHARDS DO V20.2 Preventive Medicine Establ. Patient Checkup Adolescent 12-17 11/29/2008 V03.89 MENINGOCOCCAL , OTHER SPECIFIED SINGLE BACTERIAL DISEASE 11/29/2008 V05.3 HEPATITIS VIRAL/ALL 11/29/2008 V06.5 DT, TETANUS- DIPHTHERIA [Td] ,TDAP 11/29/2008 V20.2 Preventive Medicine Establ. Patient Checkup Adolescent 12-17 11/29/2008 V03.89 MENINGOCOCCAL , OTHER SPECIFIED SINGLE BACTERIAL DISEASE 11/29/2008 V05.3 HEPATITIS VIRAL/ALL 11/29/2008 V06.5 DT, TETANUS- DIPHTHERIA [Td] ,TDAP 11/29/2008 V20.2 Preventive Medicine Establ. Patient Checkup Adolescent 12-17 11/29/2008 V03.89 MENINGOCOCCAL , OTHER SPECIFIED SINGLE BACTERIAL DISEASE 11/29/2008 V05.3 HEPATITIS VIRAL/ALL 11/29/2008 V06.5 DT, TETANUS- DIPHTHERIA [Td] ,TDAP 11/29/2008 V20.2 Preventive Medicine Establ. Patient Checkup Adolescent 12-17 11/29/2008 V03.89 MENINGOCOCCAL , OTHER SPECIFIED SINGLE BACTERIAL DISEASE 11/29/2008 V05.3 HEPATITIS VIRAL/ALL 11/29/2008 V06.5 DT, TETANUS- DIPHTHERIA [Td] ,TDAP 11/29/2008 V20.2 Preventive Medicine Establ. Patient Checkup Adolescent 12-17 11/29/2008 PANCHO LOCATION ANALYST, MANNY A V03.89 MENINGOCOCCAL, OTHER SPECIFIED SINGLE BACTERIAL DISEASE 11/29/2008 PANCHO LOCATION ANALYST, MANNY A V05.3 HEPATITIS VIRAL/ALL 11/29/2008 PANCHO LOCATION ANALYST, MANNY A V06.5 DT, TETANUS-DIPHTHERIA [Td] ,TDAP 11/29/2008 PANCHO LOCATION ANALYST, MANNY A V20.2 Preventive Medicine Establ. Patient Checkup Adolescent 12-17 11/29/2008 DARREN RICHARDS DO V03.89 MENINGOCOCCAL, OTHER SPECIFIED SINGLE BACTERIAL DISEASE 11/29/2008 DARREN RICHARDS DO V05.3 HEPATITIS VIRAL/ALL 11/29/2008 DARREN RICHARDS DO V06.5 DT, TETANUS-DIPHTHERIA [Td] ,TDAP 11/29/2008 DARREN RICHARDS DO V20.2 Preventive Medicine Establ. Patient Checkup Adolescent 12-17 11/29/2008 V03.89 MENINGOCOCCAL , OTHER SPECIFIED SINGLE BACTERIAL DISEASE 11/29/2008 V05.3 HEPATITIS VIRAL/ALL 11/29/2008 V06.5 DT, TETANUS- DIPHTHERIA [Td] ,TDAP 11/29/2008 V20.2 Preventive Medicine Establ. Patient Checkup Adolescent 12-17 11/29/2008 DARREN RICHARDS DO V03.89 MENINGOCOCCAL, OTHER SPECIFIED SINGLE BACTERIAL DISEASE 11/29/2008 DARREN RICHARDS DO V05.3 HEPATITIS VIRAL/ALL 11/29/2008 DARREN RICHARDS DO V06.5 DT, TETANUS-DIPHTHERIA [Td] ,TDAP 11/29/2008 DARREN RICHARDS DO V20.2 Preventive Medicine Establ. Patient Checkup Adolescent 12-17 11/29/2008 V03.89 MENINGOCOCCAL , OTHER SPECIFIED SINGLE BACTERIAL DISEASE 11/29/2008 V05.3 HEPATITIS VIRAL/ALL 11/29/2008 V06.5 DT, TETANUS- DIPHTHERIA [Td] ,TDAP 11/29/2008 V20.2 Preventive Medicine Establ. Patient Checkup Adolescent 12-17 11/29/2008 V03.89 MENINGOCOCCAL , OTHER SPECIFIED SINGLE BACTERIAL DISEASE 11/29/2008 V05.3 HEPATITIS VIRAL/ALL 11/29/2008 V06.5 DT, TETANUS- DIPHTHERIA [Td] ,TDAP 11/29/2008 V20.2 Preventive Medicine Establ. Patient Checkup Adolescent 12-17 11/29/2008 V03.89 MENINGOCOCCAL , OTHER SPECIFIED SINGLE BACTERIAL DISEASE 11/29/2008 V05.3 HEPATITIS VIRAL/ALL 11/29/2008 V06.5 DT, TETANUS- DIPHTHERIA [Td] ,TDAP 11/29/2008 V20.2 Preventive Medicine Establ. Patient Checkup Adolescent 12-17 11/29/2008 V03.89 MENINGOCOCCAL , OTHER SPECIFIED SINGLE BACTERIAL DISEASE 11/29/2008 V05.3 HEPATITIS VIRAL/ALL 11/29/2008 V06.5 DT, TETANUS- DIPHTHERIA [Td] ,TDAP 11/29/2008 V20.2 Preventive Medicine Establ. Patient Checkup Adolescent 12-17 11/29/2008 V03.89 MENINGOCOCCAL , OTHER SPECIFIED SINGLE BACTERIAL DISEASE 11/29/2008 V05.3 HEPATITIS VIRAL/ALL 11/29/2008 V06.5 DT, TETANUS- DIPHTHERIA [Td] ,TDAP 11/29/2008 V20.2 Preventive Medicine Establ. Patient Checkup Adolescent 12-17 11/29/2008 V03.89 MENINGOCOCCAL , OTHER SPECIFIED SINGLE BACTERIAL DISEASE 11/29/2008 V05.3 HEPATITIS VIRAL/ALL 11/29/2008 V06.5 DT, TETANUS- DIPHTHERIA [Td] ,TDAP 11/29/2008 V20.2 Preventive Medicine Establ. Patient Checkup Adolescent 12-17 11/29/2008 V03.89 MENINGOCOCCAL , OTHER SPECIFIED SINGLE BACTERIAL DISEASE 11/29/2008 V05.3 HEPATITIS VIRAL/ALL 11/29/2008 V06.5 DT, TETANUS- DIPHTHERIA [Td] ,TDAP 11/29/2008 V20.2 Preventive Medicine Establ. Patient Checkup Adolescent 12-17 11/29/2008 ELADIO WARD APRN V03.89 MENINGOCOCCAL, OTHER SPECIFIED SINGLE BACTERIAL DISEASE 11/29/2008 ELADIO WARD APRN V05.3 HEPATITIS VIRAL/ALL 11/29/2008 ELADIO WARD APRN V06.5 DT, TETANUS-DIPHTHERIA [Td] ,TDAP 11/29/2008 ELADIO WARD APRN V20.2 Preventive Medicine Establ. Patient Checkup Adolescent 12-17 11/29/2008 ELADIO WARD APRN V03.89 MENINGOCOCCAL, OTHER SPECIFIED SINGLE BACTERIAL DISEASE 11/29/2008 ELADIO WARD APRN V05.3 HEPATITIS VIRAL/ALL 11/29/2008 ELADIO WARD APRN V06.5 DT, TETANUS-DIPHTHERIA [Td] ,TDAP 11/29/2008 ELADIO WARD APRN V20.2 Preventive Medicine Establ. Patient Checkup Adolescent 12-17 11/29/2008 DARREN RICHARDS DO V03.89 MENINGOCOCCAL, OTHER SPECIFIED SINGLE BACTERIAL DISEASE 11/29/2008 DARREN RICHARDS DO V05.3 HEPATITIS VIRAL/ALL 11/29/2008 DARREN RICHARDS DO V06.5 DT, TETANUS-DIPHTHERIA [Td] ,TDAP 11/29/2008 DARREN RICHARDS DO V20.2 Preventive Medicine Establ. Patient Checkup Adolescent 12-17 11/29/2008 MANNY DELEON APRN A V03.89 MENINGOCOCCAL, OTHER SPECIFIED SINGLE BACTERIAL DISEASE 11/29/2008 JASMIN DELEON APRNIDI A V05.3 HEPATITIS VIRAL/ALL 11/29/2008 JASMIN DELEON APRNIDI A V06.5 DT, TETANUS-DIPHTHERIA [Td] ,TDAP 11/29/2008 PANCHO VICTOR, MANNY A V20.2 Preventive Medicine Establ. Patient Checkup Adolescent 12-17 11/29/2008 MANNY DELEON APRN A V03.89 MENINGOCOCCAL, OTHER SPECIFIED SINGLE BACTERIAL DISEASE 11/29/2008 PACNHO VICTOR, MANNY A V05.3 HEPATITIS VIRAL/ALL 11/29/2008 PANCHO VICTOR, MANNY A V06.5 DT, TETANUS-DIPHTHERIA [Td] ,TDAP 11/29/2008 PANCHO VICTOR MANNY A V20.2 Preventive Medicine Establ. Patient Checkup Adolescent 12-17 11/29/2008 MANNY DELEON APRN A V03.89 MENINGOCOCCAL, OTHER SPECIFIED SINGLE BACTERIAL DISEASE 11/29/2008 JASMIN DELEON APRNIDI A V05.3 HEPATITIS VIRAL/ALL 11/29/2008 PANCHO RAYN, MANNY A V06.5 DT, TETANUS-DIPHTHERIA [Td] ,TDAP 11/29/2008 PANCHO VICTOR MANNY A V20.2 Preventive Medicine Establ. Patient Checkup Adolescent 12-17 11/29/2008 JASMIN DELEON APRNIDI A V03.89 MENINGOCOCCAL, OTHER SPECIFIED SINGLE BACTERIAL DISEASE 11/29/2008 PANCHO RAYN, MANNY A V05.3 HEPATITIS VIRAL/ALL 11/29/2008 PANCHO RAYN, MANNY A V06.5 DT, TETANUS-DIPHTHERIA [Td] ,TDAP 11/29/2008 PANCHO VICTOR MANNY A V20.2 Preventive Medicine Establ. Patient Checkup Adolescent 12-17 12/13/2008 DARREN RICHRADS DO 079.99 VIRAL SYNDROME 12/13/2008 079.99 VIRAL SYNDROME 12/13/2008 079.99 VIRAL SYNDROME 12/13/2008 RICHARDS DARREN GONZALEZ 079.99 VIRAL SYNDROME 12/13/2008 079.99 VIRAL SYNDROME 12/13/2008 079.99 VIRAL SYNDROME 12/13/2008 079.99 VIRAL SYNDROME 12/13/2008 079.99 VIRAL SYNDROME 12/13/2008 MANNY DELEON APRN A 079.99 VIRAL SYNDROME 12/13/2008 SUSIE GONZALEZDARREN K 079.99 VIRAL SYNDROME 12/13/2008 079.99 VIRAL SYNDROME 12/13/2008 SUSIE GONZALEZDARREN K 079.99 VIRAL SYNDROME 12/13/2008 079.99 VIRAL SYNDROME 12/13/2008 079.99 VIRAL SYNDROME 12/13/2008 079.99 VIRAL SYNDROME 12/13/2008 079.99 VIRAL SYNDROME 12/13/2008 079.99 VIRAL SYNDROME 12/13/2008 079.99 VIRAL SYNDROME 12/13/2008 079.99 VIRAL SYNDROME 12/13/2008 ELADIO WARD APRN 079.99 VIRAL SYNDROME 12/13/2008 ELADIO WARD APRN 079.99 VIRAL SYNDROME 12/13/2008 RICHARDS DARREN GONZALEZ K 079.99 VIRAL SYNDROME 12/13/2008 PANCHO VICTOR, MANNY A 079.99 VIRAL SYNDROME 12/13/2008 PANCHO VICTOR, MANNY A 079.99 VIRAL SYNDROME 12/13/2008 PANCHO VICTOR, MANNY A 079.99 VIRAL SYNDROME 12/13/2008 PANCHO VICTOR MANNY A 079.99 VIRAL SYNDROME 03/19/2009 DARREN RICHARDS DO 465.9 ACUTE UPPER RESPIRATORY INFECTIONS OF UNSPECIFIED SITE 03/19/2009 465.9 ACUTE UPPER RESPIRATORY INFECTIONS OF UNSPECIFIED SITE 03/19/2009 465.9 ACUTE UPPER RESPIRATORY INFECTIONS OF UNSPECIFIED SITE 03/19/2009 DARREN RICHARDS DO 465.9 ACUTE UPPER RESPIRATORY INFECTIONS OF UNSPECIFIED SITE 03/19/2009 465.9 ACUTE UPPER RESPIRATORY INFECTIONS OF UNSPECIFIED SITE 03/19/2009 465.9 ACUTE UPPER RESPIRATORY INFECTIONS OF UNSPECIFIED SITE 03/19/2009 465.9 ACUTE UPPER RESPIRATORY INFECTIONS OF UNSPECIFIED SITE 03/19/2009 465.9 ACUTE UPPER RESPIRATORY INFECTIONS OF UNSPECIFIED SITE 03/19/2009 PANCHO LOCATION ANALYST, MANNY A 465.9 ACUTE UPPER RESPIRATORY INFECTIONS OF UNSPECIFIED SITE 03/19/2009 RICHARDS DO, DARREN K 465.9 ACUTE UPPER RESPIRATORY INFECTIONS OF UNSPECIFIED SITE 03/19/2009 465.9 ACUTE UPPER RESPIRATORY INFECTIONS OF UNSPECIFIED SITE 03/19/2009 RICHARDS DO, DARREN K 465.9 ACUTE UPPER RESPIRATORY INFECTIONS OF UNSPECIFIED SITE 03/19/2009 465.9 ACUTE UPPER RESPIRATORY INFECTIONS OF UNSPECIFIED SITE 03/19/2009 465.9 ACUTE UPPER RESPIRATORY INFECTIONS OF UNSPECIFIED SITE 03/19/2009 465.9 ACUTE UPPER RESPIRATORY INFECTIONS OF UNSPECIFIED SITE 03/19/2009 465.9 ACUTE UPPER RESPIRATORY INFECTIONS OF UNSPECIFIED SITE 03/19/2009 465.9 ACUTE UPPER RESPIRATORY INFECTIONS OF UNSPECIFIED SITE 03/19/2009 465.9 ACUTE UPPER RESPIRATORY INFECTIONS OF UNSPECIFIED SITE 03/19/2009 465.9 ACUTE UPPER RESPIRATORY INFECTIONS OF UNSPECIFIED SITE 03/19/2009 ELADIO WARD APRN 465.9 ACUTE UPPER RESPIRATORY INFECTIONS OF UNSPECIFIED SITE 03/19/2009 ELADIO WARD APRN 465.9 ACUTE UPPER RESPIRATORY INFECTIONS OF UNSPECIFIED SITE 03/19/2009 EDDA RICHARDS DOA K 465.9 ACUTE UPPER RESPIRATORY INFECTIONS OF UNSPECIFIED SITE 03/19/2009 PANCHO VICTOR MANNY A 465.9 ACUTE UPPER RESPIRATORY INFECTIONS OF UNSPECIFIED SITE 03/19/2009 JASMIN DELEON APRNIDI A 465.9 ACUTE UPPER RESPIRATORY INFECTIONS OF UNSPECIFIED SITE 03/19/2009 PANCHO VICTOR MANNY A 465.9 ACUTE UPPER RESPIRATORY INFECTIONS OF UNSPECIFIED SITE 03/19/2009 JASMIN DELEON APRNIDI A 465.9 ACUTE UPPER RESPIRATORY INFECTIONS OF UNSPECIFIED SITE 05/16/2009 EDDA RICHARDS DOA K 486 Pneumonia Unspecified 05/16/2009 486 Pneumonia Unspecified 05/16/2009 486 Pneumonia Unspecified 05/16/2009 RICHARDS DO DARREN K 486 Pneumonia Unspecified 05/16/2009 486 Pneumonia Unspecified 05/16/2009 486 Pneumonia Unspecified 05/16/2009 486 Pneumonia Unspecified 05/16/2009 486 Pneumonia Unspecified 05/16/2009 PANCHO VICTOR MANNY A 486 Pneumonia Unspecified 05/16/2009 SUSIE GONZALEZ DARREN K 486 Pneumonia Unspecified 05/16/2009 486 Pneumonia Unspecified 05/16/2009 SUSIE GONZALEZ DARREN K 486 Pneumonia Unspecified 05/16/2009 486 Pneumonia Unspecified 05/16/2009 486 Pneumonia Unspecified 05/16/2009 486 Pneumonia Unspecified 05/16/2009 486 Pneumonia Unspecified 05/16/2009 486 Pneumonia Unspecified 05/16/2009 486 Pneumonia Unspecified 05/16/2009 486 Pneumonia Unspecified 05/16/2009 ELADIO WARD APRN 486 Pneumonia Unspecified 05/16/2009 ELADIO WARD APRN 486 Pneumonia Unspecified 05/16/2009 DARREN RICHARDS DO 486 Pneumonia Unspecified 05/16/2009 PANCHO LOCATION ANALYST, MANNY A 486 Pneumonia Unspecified 05/16/2009 PANCHO LOCATION ANALYST, MANNY A 486 Pneumonia Unspecified 05/16/2009 PANCHO LOCATION ANALYST, MANNY A 486 Pneumonia Unspecified 05/16/2009 PANCHO LOCATION ANALYST, MANNY A 486 Pneumonia Unspecified 06/21/2009 DARREN RICHARDS DO 133.0 SCABIES 06/21/2009 133.0 SCABIES 06/21/2009 133.0 SCABIES 06/21/2009 DARREN RICHARDS DO 133.0 SCABIES 06/21/2009 133.0 SCABIES 06/21/2009 133.0 SCABIES 06/21/2009 133.0 SCABIES 06/21/2009 133.0 SCABIES 06/21/2009 MANNY DELEON APRN A 133.0 SCABIES 06/21/2009 DARREN RICHARDS DO 133.0 SCABIES 06/21/2009 133.0 SCABIES 06/21/2009 DARREN RICHARDS DO 133.0 SCABIES 06/21/2009 133.0 SCABIES 06/21/2009 133.0 SCABIES 06/21/2009 133.0 SCABIES 06/21/2009 133.0 SCABIES 06/21/2009 133.0 SCABIES 06/21/2009 133.0 SCABIES 06/21/2009 133.0 SCABIES 06/21/2009 ELADIO WARD APRN 133.0 SCABIES 06/21/2009 ELADIO WARD APRN 133.0 SCABIES 06/21/2009 DARERN RICHARDS DO 133.0 SCABIES 06/21/2009 PANCHO LOCATION ANALYST, MANNY A 133.0 SCABIES 06/21/2009 PANCHO LOCATION ANALYST, MANNY A 133.0 SCABIES 06/21/2009 PANCHO LOCATION ANALYST, MANNY A 133.0 SCABIES 06/21/2009 PANCHO LOCATION ANALYST, MANNY A 133.0 SCABIES 06/22/2009 DARREN RICHARDS DO 719.43 Joint Pain, Localized In The Wrist 06/22/2009 719.43 Joint Pain, Localized In The Wrist 06/22/2009 719.43 Joint Pain, Localized In The Wrist 06/22/2009 DARREN RICHARDS DO 719.43 Joint Pain, Localized In The Wrist 06/22/2009 719.43 Joint Pain, Localized In The Wrist 06/22/2009 719.43 Joint Pain, Localized In The Wrist 06/22/2009 719.43 Joint Pain, Localized In The Wrist 06/22/2009 719.43 Joint Pain, Localized In The Wrist 06/22/2009 MANNY DELEON APRN A 719.43 Joint Pain, Localized In The Wrist 06/22/2009 DARREN RICHARDS DO K 719.43 Joint Pain, Localized In The Wrist 06/22/2009 719.43 Joint Pain, Localized In The Wrist 06/22/2009 DARREN RICHARDS DO K 719.43 Joint Pain, Localized In The Wrist 06/22/2009 719.43 Joint Pain, Localized In The Wrist 06/22/2009 719.43 Joint Pain, Localized In The Wrist 06/22/2009 719.43 Joint Pain, Localized In The Wrist 06/22/2009 719.43 Joint Pain, Localized In The Wrist 06/22/2009 719.43 Joint Pain, Localized In The Wrist 06/22/2009 719.43 Joint Pain, Localized In The Wrist 06/22/2009 719.43 Joint Pain, Localized In The Wrist 06/22/2009 ELADIO WARD APRN 719.43 Joint Pain, Localized In The Wrist 06/22/2009 ELADIO WARD APRN 719.43 Joint Pain, Localized In The Wrist 06/22/2009 DARREN RICHARDS DO 719.43 Joint Pain, Localized In The Wrist 06/22/2009 MANNY DELEON APRN A 719.43 Joint Pain, Localized In The Wrist 06/22/2009 PANCHO LOCATION ANALYST, MANNY A 719.43 Joint Pain, Localized In The Wrist 06/22/2009 PANCHO LOCATION ANALYST, MANNY A 719.43 Joint Pain, Localized In The Wrist 06/22/2009 PANCHO LOCATION ANALYST, MANNY A 719.43 Joint Pain, Localized In The Wrist 07/06/2009 DARREN RICHARDS DO 382.00 Otitis Media Acute Without Spontaneous Rupture Eardrum 07/06/2009 382.00 Otitis Media Acute Without Spontaneous Rupture Eardrum 07/06/2009 382.00 Otitis Media Acute Without Spontaneous Rupture Eardrum 07/06/2009 DARREN RICHARDS DO 382.00 Otitis Media Acute Without Spontaneous Rupture Eardrum 07/06/2009 382.00 Otitis Media Acute Without Spontaneous Rupture Eardrum 07/06/2009 382.00 Otitis Media Acute Without Spontaneous Rupture Eardrum 07/06/2009 382.00 Otitis Media Acute Without Spontaneous Rupture Eardrum 07/06/2009 382.00 Otitis Media Acute Without Spontaneous Rupture Eardrum 07/06/2009 PANCHO VICTOR, MANNY A 382.00 Otitis Media Acute Without Spontaneous Rupture Eardrum 07/06/2009 DARREN RICHARDS DO 382.00 Otitis Media Acute Without Spontaneous Rupture Eardrum 07/06/2009 382.00 Otitis Media Acute Without Spontaneous Rupture Eardrum 07/06/2009 DARREN RICHARDS DO 382.00 Otitis Media Acute Without Spontaneous Rupture Eardrum 07/06/2009 382.00 Otitis Media Acute Without Spontaneous Rupture Eardrum 07/06/2009 382.00 Otitis Media Acute Without Spontaneous Rupture Eardrum 07/06/2009 382.00 Otitis Media Acute Without Spontaneous Rupture Eardrum 07/06/2009 382.00 Otitis Media Acute Without Spontaneous Rupture Eardrum 07/06/2009 382.00 Otitis Media Acute Without Spontaneous Rupture Eardrum 07/06/2009 382.00 Otitis Media Acute Without Spontaneous Rupture Eardrum 07/06/2009 382.00 Otitis Media Acute Without Spontaneous Rupture Eardrum 07/06/2009 ELADIO WARD APRN 382.00 Otitis Media Acute Without Spontaneous Rupture Eardrum 07/06/2009 ELADIO WARD APRN 382.00 Otitis Media Acute Without Spontaneous Rupture Eardrum 07/06/2009 DARREN RICHARDS DO 382.00 Otitis Media Acute Without Spontaneous Rupture Eardrum 07/06/2009 PANCHO LOCATION ANALYST, MANNY A 382.00 Otitis Media Acute Without Spontaneous Rupture Eardrum 07/06/2009 PANCHO LOCATION ANALYST, MANNY A 382.00 Otitis Media Acute Without Spontaneous Rupture Eardrum 07/06/2009 PANCHO LOCATION ANALYST, MANNY A 382.00 Otitis Media Acute Without Spontaneous Rupture Eardrum 07/06/2009 PANCHO LOCATION ANALYST, MANNY A 382.00 Otitis Media Acute Without Spontaneous Rupture Eardrum 07/17/2009 DARREN RICHARDS DO V05.4 VARICELLA, CHICKENPOX 07/17/2009 V05.4 VARICELLA, CHICKENPOX 07/17/2009 V05.4 VARICELLA, CHICKENPOX 07/17/2009 DARREN RICHARDS DO V05.4 VARICELLA, CHICKENPOX 07/17/2009 V05.4 VARICELLA, CHICKENPOX 07/17/2009 V05.4 VARICELLA, CHICKENPOX 07/17/2009 V05.4 VARICELLA, CHICKENPOX 07/17/2009 V05.4 VARICELLA, CHICKENPOX 07/17/2009 [facility] VALENT[facility], MANNY A V05.4 VARICELLA, CHICKENPOX 07/17/2009 DARREN RICHARDS DO V05.4 VARICELLA, CHICKENPOX 07/17/2009 V05.4 VARICELLA, CHICKENPOX 07/17/2009 DARREN RICHARDS DO V05.4 VARICELLA, CHICKENPOX 07/17/2009 V05.4 VARICELLA, CHICKENPOX 07/17/2009 V05.4 VARICELLA, CHICKENPOX 07/17/2009 V05.4 VARICELLA, CHICKENPOX 07/17/2009 V05.4 VARICELLA, CHICKENPOX 07/17/2009 V05.4 VARICELLA, CHICKENPOX 07/17/2009 V05.4 VARICELLA, CHICKENPOX 07/17/2009 V05.4 VARICELLA, CHICKENPOX 07/17/2009 ELADIO WARD APRN V05.4 VARICELLA, CHICKENPOX 07/17/2009 ELADIO WARD APRN V05.4 VARICELLA, CHICKENPOX 07/17/2009 DARREN RICHARDS DO V05.4 VARICELLA, CHICKENPOX 07/17/2009 [facility] LOCATION ANALYST, MANNY A V05.4 VARICELLA, CHICKENPOX 07/17/2009 PANCHO VICTOR, MANNY A V05.4 VARICELLA, CHICKENPOX 07/17/2009 PANCHO VICTOR, MANNY A V05.4 VARICELLA, CHICKENPOX 07/17/2009 PANCHO VICTOR, MANNY A V05.4 VARICELLA, CHICKENPOX 07/23/2009 DARREN RICHARDS DO 780.4 Dizziness 07/23/2009 DARREN RICHARDS DO 780.79 Feelings Of Weakness 07/23/2009 780.4 Dizziness 07/23/2009 780.79 Feelings Of Weakness 07/23/2009 780.4 Dizziness 07/23/2009 780.79 Feelings Of Weakness 07/23/2009 DARREN RICHARDS DO 780.4 Dizziness 07/23/2009 DARREN RICHARDS DO 780.79 Feelings Of Weakness 07/23/2009 780.4 Dizziness 07/23/2009 780.79 Feelings Of Weakness 07/23/2009 780.4 Dizziness 07/23/2009 780.79 Feelings Of Weakness 07/23/2009 780.4 Dizziness 07/23/2009 780.79 Feelings Of Weakness 07/23/2009 780.4 Dizziness 07/23/2009 780.79 Feelings Of Weakness 07/23/2009 PANCHO VICTOR MANNY A 780.4 Dizziness 07/23/2009 PANCHO VICTOR MANNY A 780.79 Feelings Of Weakness 07/23/2009 DARREN RICHARDS DO 780.4 Dizziness 07/23/2009 DARREN RICHARDS DO 780.79 Feelings Of Weakness 07/23/2009 780.4 Dizziness 07/23/2009 780.79 Feelings Of Weakness 07/23/2009 DARREN RICHARDS DO 780.4 Dizziness 07/23/2009 DARREN RICHARDS DO 780.79 Feelings Of Weakness 07/23/2009 780.4 Dizziness 07/23/2009 780.79 Feelings Of Weakness 07/23/2009 780.4 Dizziness 07/23/2009 780.79 Feelings Of Weakness 07/23/2009 780.4 Dizziness 07/23/2009 780.79 Feelings Of Weakness 07/23/2009 780.4 Dizziness 07/23/2009 780.79 Feelings Of Weakness 07/23/2009 780.4 Dizziness 07/23/2009 780.79 Feelings Of Weakness 07/23/2009 780.4 Dizziness 07/23/2009 780.79 Feelings Of Weakness 07/23/2009 780.4 Dizziness 07/23/2009 780.79 Feelings Of Weakness 07/23/2009 ELADIO WARD APRN 780.4 Dizziness 07/23/2009 ELADIO WARD APRN 780.79 Feelings Of Weakness 07/23/2009 ELADIO WARD APRN 780.4 Dizziness 07/23/2009 ELADIO WARD APRN 780.79 Feelings Of Weakness 07/23/2009 DARREN RICHARDS DO 780.4 Dizziness 07/23/2009 DARREN RICHARDS DO 780.79 Feelings Of Weakness 07/23/2009 PANCHO LOCATION ANALYST, MANNY A 780.4 Dizziness 07/23/2009 PANCHO LOCATION ANALYST, MANNY A 780.79 Feelings Of Weakness 07/23/2009 PANCHO LOCATION ANALYST, MANNY A 780.4 Dizziness 07/23/2009 PANCHO LOCATION ANALYST, MANNY A 780.79 Feelings Of Weakness 07/23/2009 PANCHO LOCATION ANALYST, MANNY A 780.4 Dizziness 07/23/2009 PANCHO LOCATION ANALYST, MANNY A 780.79 Feelings Of Weakness 07/23/2009 PANCHO LOCATION ANALYST, MANNY A 780.4 Dizziness 07/23/2009 PANCHO LOCATION ANALYST, MANNY A 780.79 Feelings Of Weakness 07/27/2009 DARREN RICHARDS DO 251.1 HYPERINSULINISM 07/27/2009 251.1 HYPERINSULINISM 07/27/2009 251.1 HYPERINSULINISM 07/27/2009 DARREN RICHARDS DO 251.1 HYPERINSULINISM 07/27/2009 251.1 HYPERINSULINISM 07/27/2009 251.1 HYPERINSULINISM 07/27/2009 251.1 HYPERINSULINISM 07/27/2009 251.1 HYPERINSULINISM 07/27/2009 PANCHO VICTOR, MANNY A 251.1 HYPERINSULINISM 07/27/2009 DARREN RICHARDS DO 251.1 HYPERINSULINISM 07/27/2009 251.1 HYPERINSULINISM 07/27/2009 DARREN RICHARDS DO 251.1 HYPERINSULINISM 07/27/2009 251.1 HYPERINSULINISM 07/27/2009 251.1 HYPERINSULINISM 07/27/2009 251.1 HYPERINSULINISM 07/27/2009 251.1 HYPERINSULINISM 07/27/2009 251.1 HYPERINSULINISM 07/27/2009 251.1 HYPERINSULINISM 07/27/2009 251.1 HYPERINSULINISM 07/27/2009 SYLVIA RAYELADIO Ford 251.1 HYPERINSULINISM 07/27/2009 SYLVIA RAYELADIO Ford 251.1 HYPERINSULINISM 07/27/2009 RICHARDS DO, DARREN K 251.1 HYPERINSULINISM 07/27/2009 PANCHO LOCATION ANALYST, MANNY A 251.1 HYPERINSULINISM 07/27/2009 PANCHO LOCATION ANALYST, MANNY A 251.1 HYPERINSULINISM 07/27/2009 PANCHO LOCATION ANALYST, MANNY A 251.1 HYPERINSULINISM 07/27/2009 PANCHO LOCATION ANALYST, MANNY A 251.1 HYPERINSULINISM 12/11/2009 RICHARDS DO, DARRNE K 787.91 Diarrhea 12/11/2009 RICHARDS DO, DARREN K 789.00 Abdominal Pain Unspecified Site 12/11/2009 787.91 Diarrhea 12/11/2009 789.00 Abdominal Pain Unspecified Site 12/11/2009 787.91 Diarrhea 12/11/2009 789.00 Abdominal Pain Unspecified Site 12/11/2009 RICHARDS DO, DARREN K 787.91 Diarrhea 12/11/2009 RICHARDS DO, DARREN K 789.00 Abdominal Pain Unspecified Site 12/11/2009 787.91 Diarrhea 12/11/2009 789.00 Abdominal Pain Unspecified Site 12/11/2009 787.91 Diarrhea 12/11/2009 789.00 Abdominal Pain Unspecified Site 12/11/2009 787.91 Diarrhea 12/11/2009 789.00 Abdominal Pain Unspecified Site 12/11/2009 787.91 Diarrhea 12/11/2009 789.00 Abdominal Pain Unspecified Site 12/11/2009 PANCHOKODAK VICTOR, MANNY A 787.91 Diarrhea 12/11/2009 PANCHOKODAK RAYN, MANNY A 789.00 Abdominal Pain Unspecified Site 12/11/2009 RICHARDS DO, DARREN K 787.91 Diarrhea 12/11/2009 RICHARDS DO, DARREN K 789.00 Abdominal Pain Unspecified Site 12/11/2009 787.91 Diarrhea 12/11/2009 789.00 Abdominal Pain Unspecified Site 12/11/2009 RICHARDS DO, DARREN K 787.91 Diarrhea 12/11/2009 RICHARDS DO, DARREN K 789.00 Abdominal Pain Unspecified Site 12/11/2009 787.91 Diarrhea 12/11/2009 789.00 Abdominal Pain Unspecified Site 12/11/2009 787.91 Diarrhea 12/11/2009 789.00 Abdominal Pain Unspecified Site 12/11/2009 787.91 Diarrhea 12/11/2009 789.00 Abdominal Pain Unspecified Site 12/11/2009 787.91 Diarrhea 12/11/2009 789.00 Abdominal Pain Unspecified Site 12/11/2009 787.91 Diarrhea 12/11/2009 789.00 Abdominal Pain Unspecified Site 12/11/2009 787.91 Diarrhea 12/11/2009 789.00 Abdominal Pain Unspecified Site 12/11/2009 787.91 Diarrhea 12/11/2009 789.00 Abdominal Pain Unspecified Site 12/11/2009 ELADIO WARD APRN 787.91 Diarrhea 12/11/2009 ELADIO WARD APRN 789.00 Abdominal Pain Unspecified Site 12/11/2009 ELADIO WARD APRN 787.91 Diarrhea 12/11/2009 ELADIO WARD APRN 789.00 Abdominal Pain Unspecified Site 12/11/2009 DARREN RICHARDS DO K 787.91 Diarrhea 12/11/2009 EDDA RICHARDS DOA K 789.00 Abdominal Pain Unspecified Site 12/11/2009 PANCHO LOCATION ANALYST, MANNY A 787.91 Diarrhea 12/11/2009 PANCHO LOCATION ANALYST, MANNY A 789.00 Abdominal Pain Unspecified Site 12/11/2009 PANCHO LOCATION ANALYST, MANNY A 787.91 Diarrhea 12/11/2009 PANCHO LOCATION ANALYST, MANNY A 789.00 Abdominal Pain Unspecified Site 12/11/2009 PANCHO LOCATION ANALYST, MANNY A 787.91 Diarrhea 12/11/2009 PANCHO LOCATION ANALYST, MANNY A 789.00 Abdominal Pain Unspecified Site 12/11/2009 PANCHO LOCATION ANALYST, MANNY A 787.91 Diarrhea 12/11/2009 PANCHO LOCATION ANALYST, MANNY A 789.00 Abdominal Pain Unspecified Site 12/14/2009 Ot 599.0 12/14/2009 Ot 789.09 01/31/2010 DARREN RICHARDS DO K 461.9 Sinusitis Acute 01/31/2010 461.9 Sinusitis Acute 01/31/2010 461.9 Sinusitis Acute 01/31/2010 DARREN RICHARDS DO K 461.9 Sinusitis Acute 01/31/2010 461.9 Sinusitis Acute 01/31/2010 461.9 Sinusitis Acute 01/31/2010 461.9 Sinusitis Acute 01/31/2010 461.9 Sinusitis Acute 01/31/2010 PANCHOKODAK VICTOR, MANNY A 461.9 Sinusitis Acute 01/31/2010 DARREN RICHARDS DO K 461.9 Sinusitis Acute 01/31/2010 461.9 Sinusitis Acute 01/31/2010 RICHARDS DARREN GONZALEZ K 461.9 Sinusitis Acute 01/31/2010 461.9 Sinusitis Acute 01/31/2010 461.9 Sinusitis Acute 01/31/2010 461.9 Sinusitis Acute 01/31/2010 461.9 Sinusitis Acute 01/31/2010 461.9 Sinusitis Acute 01/31/2010 461.9 Sinusitis Acute 01/31/2010 461.9 Sinusitis Acute 01/31/2010 ELADIO WARD APRN 461.9 Sinusitis Acute 01/31/2010 ELADIO WARD APRN D 461.9 Sinusitis Acute 01/31/2010 DARREN RICHARDS DO K 461.9 Sinusitis Acute 01/31/2010 PANCHO LOCATION ANALYST, MANNY A 461.9 Sinusitis Acute 01/31/2010 PANCHO LOCATION ANALYST, MANNY A 461.9 Sinusitis Acute 01/31/2010 PANCHO LOCATION ANALYST, MANNY A 461.9 Sinusitis Acute 01/31/2010 PANCHO LOCATION ANALYST, MANNY A 461.9 Sinusitis Acute 02/20/2010 DARREN RICHARDS DO K 692.9 DERMATITIS CONTACT UNSPECIFIED 02/20/2010 692.9 DERMATITIS CONTACT UNSPECIFIED 02/20/2010 692.9 DERMATITIS CONTACT UNSPECIFIED 02/20/2010 DARREN RICHARDS DO K 692.9 DERMATITIS CONTACT UNSPECIFIED 02/20/2010 692.9 DERMATITIS CONTACT UNSPECIFIED 02/20/2010 692.9 DERMATITIS CONTACT UNSPECIFIED 02/20/2010 692.9 DERMATITIS CONTACT UNSPECIFIED 02/20/2010 692.9 DERMATITIS CONTACT UNSPECIFIED 02/20/2010 PANCHO LOCATION ANALYST, MANNY A 692.9 DERMATITIS CONTACT UNSPECIFIED 02/20/2010 DARREN RICHARDS DO 692.9 DERMATITIS CONTACT UNSPECIFIED 02/20/2010 692.9 DERMATITIS CONTACT UNSPECIFIED 02/20/2010 DARREN RICHARDS DO K 692.9 DERMATITIS CONTACT UNSPECIFIED 02/20/2010 692.9 DERMATITIS CONTACT UNSPECIFIED 02/20/2010 692.9 DERMATITIS CONTACT UNSPECIFIED 02/20/2010 692.9 DERMATITIS CONTACT UNSPECIFIED 02/20/2010 692.9 DERMATITIS CONTACT UNSPECIFIED 02/20/2010 692.9 DERMATITIS CONTACT UNSPECIFIED 02/20/2010 692.9 DERMATITIS CONTACT UNSPECIFIED 02/20/2010 692.9 DERMATITIS CONTACT UNSPECIFIED 02/20/2010 GARTON LOCATION ANALYSTELADIO Ford D 692.9 DERMATITIS CONTACT UNSPECIFIED 02/20/2010 FAVIOTON LEANN VICTORZABETH D 692.9 DERMATITIS CONTACT UNSPECIFIED 02/20/2010 DARREN RICHARDS DO 692.9 DERMATITIS CONTACT UNSPECIFIED 02/20/2010 PANCHO LOCATION ANALYST, MANNY A 692.9 DERMATITIS CONTACT UNSPECIFIED 02/20/2010 PANCHO LOCATION ANALYST, MANNY A 692.9 DERMATITIS CONTACT UNSPECIFIED 02/20/2010 PANCHO LOCATION ANALYST, MANNY A 692.9 DERMATITIS CONTACT UNSPECIFIED 02/20/2010 PANCHO LOCATION ANALYST, MANNY A 692.9 DERMATITIS CONTACT UNSPECIFIED 02/28/2010 DARREN RICHARDS DO V25.40 visit for: contraceptive surveillance 02/28/2010 DARREN RICHARDS DO V72.31 Pelvic Exam (internal) 02/28/2010 DARREN RICHARDS DO V74.5 Visit For: Screening Exam Bact/spirochetal Venereal Disease 02/28/2010 V25.40 visit for: contraceptive surveillance 02/28/2010 V72.31 Pelvic Exam ( internal) 02/28/2010 V74.5 Visit For: Screening Exam Bact/spirochetal Venereal Disease 02/28/2010 V25.40 visit for: contraceptive surveillance 02/28/2010 V72.31 Pelvic Exam ( internal) 02/28/2010 V74.5 Visit For: Screening Exam Bact/spirochetal Venereal Disease 02/28/2010 DARREN RICHARDS DO V25.40 visit for: contraceptive surveillance 02/28/2010 DARREN RICHARDS DO V72.31 Pelvic Exam (internal) 02/28/2010 DARREN RICHARDS DO V74.5 Visit For: Screening Exam Bact/spirochetal Venereal Disease 02/28/2010 V25.40 visit for: contraceptive surveillance 02/28/2010 V72.31 Pelvic Exam ( internal) 02/28/2010 V74.5 Visit For: Screening Exam Bact/spirochetal Venereal Disease 02/28/2010 V25.40 visit for: contraceptive surveillance 02/28/2010 V72.31 Pelvic Exam ( internal) 02/28/2010 V74.5 Visit For: Screening Exam Bact/spirochetal Venereal Disease 02/28/2010 V25.40 visit for: contraceptive surveillance 02/28/2010 V72.31 Pelvic Exam ( internal) 02/28/2010 V74.5 Visit For: Screening Exam Bact/spirochetal Venereal Disease 02/28/2010 V25.40 visit for: contraceptive surveillance 02/28/2010 V72.31 Pelvic Exam ( internal) 02/28/2010 V74.5 Visit For: Screening Exam Bact/spirochetal Venereal Disease 02/28/2010 MANNY DELEON APRN A V25.40 visit for: contraceptive surveillance 02/28/2010 MANNY DELEON APRN A V72.31 Pelvic Exam (internal) 02/28/2010 JASMIN DELEON APRNIDI A V74.5 Visit For: Screening Exam Bact/spirochetal Venereal Disease 02/28/2010 DARREN RICHARDS DO V25.40 visit for: contraceptive surveillance 02/28/2010 DARREN RICHARDS DO V72.31 Pelvic Exam (internal) 02/28/2010 DARREN RICHARDS DO V74.5 Visit For: Screening Exam Bact/spirochetal Venereal Disease 02/28/2010 V25.40 visit for: contraceptive surveillance 02/28/2010 V72.31 Pelvic Exam ( internal) 02/28/2010 V74.5 Visit For: Screening Exam Bact/spirochetal Venereal Disease 02/28/2010 DARREN RICHARDS DO V25.40 visit for: contraceptive surveillance 02/28/2010 DARREN RICHARDS DO V72.31 Pelvic Exam (internal) 02/28/2010 DARREN RICHARDS DO V74.5 Visit For: Screening Exam Bact/spirochetal Venereal Disease 02/28/2010 V25.40 visit for: contraceptive surveillance 02/28/2010 V72.31 Pelvic Exam ( internal) 02/28/2010 V74.5 Visit For: Screening Exam Bact/spirochetal Venereal Disease 02/28/2010 V25.40 visit for: contraceptive surveillance 02/28/2010 V72.31 Pelvic Exam ( internal) 02/28/2010 V74.5 Visit For: Screening Exam Bact/spirochetal Venereal Disease 02/28/2010 V25.40 visit for: contraceptive surveillance 02/28/2010 V72.31 Pelvic Exam ( internal) 02/28/2010 V74.5 Visit For: Screening Exam Bact/spirochetal Venereal Disease 02/28/2010 V25.40 visit for: contraceptive surveillance 02/28/2010 V72.31 Pelvic Exam ( internal) 02/28/2010 V74.5 Visit For: Screening Exam Bact/spirochetal Venereal Disease 02/28/2010 V25.40 visit for: contraceptive surveillance 02/28/2010 V72.31 Pelvic Exam ( internal) 02/28/2010 V74.5 Visit For: Screening Exam Bact/spirochetal Venereal Disease 02/28/2010 V25.40 visit for: contraceptive surveillance 02/28/2010 V72.31 Pelvic Exam ( internal) 02/28/2010 V74.5 Visit For: Screening Exam Bact/spirochetal Venereal Disease 02/28/2010 V25.40 visit for: contraceptive surveillance 02/28/2010 V72.31 Pelvic Exam ( internal) 02/28/2010 V74.5 Visit For: Screening Exam Bact/spirochetal Venereal Disease 02/28/2010 ELADIO WARD APRN V25.40 visit for: contraceptive surveillance 02/28/2010 ELADIO WARD APRN V72.31 Pelvic Exam (internal) 02/28/2010 ELADIO WARD APRN V74.5 Visit For: Screening Exam Bact/spirochetal Venereal Disease 02/28/2010 ELADIO WARD APRN V25.40 visit for: contraceptive surveillance 02/28/2010 ELADIO WARD APRN V72.31 Pelvic Exam (internal) 02/28/2010 ELADIO WARD APRN V74.5 Visit For: Screening Exam Bact/spirochetal Venereal Disease 02/28/2010 DARREN RICHARDS DO V25.40 visit for: contraceptive surveillance 02/28/2010 DARREN RICHARDS DO V72.31 Pelvic Exam (internal) 02/28/2010 DARREN RICHARDS DO V74.5 Visit For: Screening Exam Bact/spirochetal Venereal Disease 02/28/2010 PANCHO VICTOR MANNY A V25.40 visit for: contraceptive surveillance 02/28/2010 PANCHO VICTOR MANNY A V72.31 Pelvic Exam (internal) 02/28/2010 JASMIN DELEON APRNIDI A V74.5 Visit For: Screening Exam Bact/spirochetal Venereal Disease 02/28/2010 PANCHO VICTOR MANNY A V25.40 visit for: contraceptive surveillance 02/28/2010 PANCHO VICTOR MANNY A V72.31 Pelvic Exam (internal) 02/28/2010 PANCHO VICTOR MANNY A V74.5 Visit For: Screening Exam Bact/spirochetal Venereal Disease 02/28/2010 PANCHO VICTOR MANNY A V25.40 visit for: contraceptive surveillance 02/28/2010 PANCHO VICTOR MANNY A V72.31 Pelvic Exam (internal) 02/28/2010 PANCHO VICTOR MANNY A V74.5 Visit For: Screening Exam Bact/spirochetal Venereal Disease 02/28/2010 PANCHO VICTOR MANNY A V25.40 visit for: contraceptive surveillance 02/28/2010 PANCHO VICTOR MANNY A V72.31 Pelvic Exam (internal) 02/28/2010 PANCHO VICTOR MANNY A V74.5 Visit For: Screening Exam Bact/spirochetal Venereal Disease 05/30/2010 DARREN RICHARDS DO V25.49 Surveillance Of Other Contraceptive Method 05/30/2010 V25.49 Surveillance Of Other Contraceptive Method 05/30/2010 V25.49 Surveillance Of Other Contraceptive Method 05/30/2010 DARREN RICHARDS DO V25.49 Surveillance Of Other Contraceptive Method 05/30/2010 V25.49 Surveillance Of Other Contraceptive Method 05/30/2010 V25.49 Surveillance Of Other Contraceptive Method 05/30/2010 V25.49 Surveillance Of Other Contraceptive Method 05/30/2010 V25.49 Surveillance Of Other Contraceptive Method 05/30/2010 MANNY DELEON APRN A V25.49 Surveillance Of Other Contraceptive Method 05/30/2010 DARREN RICHARDS DO V25.49 Surveillance Of Other Contraceptive Method 05/30/2010 V25.49 Surveillance Of Other Contraceptive Method 05/30/2010 DARREN RICHARDS DO V25.49 Surveillance Of Other Contraceptive Method 05/30/2010 V25.49 Surveillance Of Other Contraceptive Method 05/30/2010 V25.49 Surveillance Of Other Contraceptive Method 05/30/2010 V25.49 Surveillance Of Other Contraceptive Method 05/30/2010 V25.49 Surveillance Of Other Contraceptive Method 05/30/2010 V25.49 Surveillance Of Other Contraceptive Method 05/30/2010 V25.49 Surveillance Of Other Contraceptive Method 05/30/2010 V25.49 Surveillance Of Other Contraceptive Method 05/30/2010 ELADIO WARD APRN V25.49 Surveillance Of Other Contraceptive Method 05/30/2010 ELADIO WARD APRN V25.49 Surveillance Of Other Contraceptive Method 05/30/2010 DARREN RICHARDS DO V25.49 Surveillance Of Other Contraceptive Method 05/30/2010 JASMIN DELEON APRNIDI A V25.49 Surveillance Of Other Contraceptive Method 05/30/2010 JASIMN DELEON APRNIDI A V25.49 Surveillance Of Other Contraceptive Method 05/30/2010 JASMIN DELEON APRNIDI A V25.49 Surveillance Of Other Contraceptive Method 05/30/2010 PANCHO VALENTE MANNY A V25.49 Surveillance Of Other Contraceptive Method 06/15/2010 DARREN RICHARDS DO 788.41 Urinary Frequency 06/15/2010 788.41 Urinary Frequency 06/15/2010 788.41 Urinary Frequency 06/15/2010 DARREN RICHARDS DO 788.41 Urinary Frequency 06/15/2010 788.41 Urinary Frequency 06/15/2010 788.41 Urinary Frequency 06/15/2010 788.41 Urinary Frequency 06/15/2010 788.41 Urinary Frequency 06/15/2010 PANCHO LOCATION ANALYST, MANNY A 788.41 Urinary Frequency 06/15/2010 RICHARDS DO, DARREN K 788.41 Urinary Frequency 06/15/2010 788.41 Urinary Frequency 06/15/2010 RICHARDS DO, DARREN K 788.41 Urinary Frequency 06/15/2010 788.41 Urinary Frequency 06/15/2010 788.41 Urinary Frequency 06/15/2010 788.41 Urinary Frequency 06/15/2010 788.41 Urinary Frequency 06/15/2010 788.41 Urinary Frequency 06/15/2010 788.41 Urinary Frequency 06/15/2010 788.41 Urinary Frequency 06/15/2010 ELADIO WARD APRN 788.41 Urinary Frequency 06/15/2010 ELADIO WARD APRN 788.41 Urinary Frequency 06/15/2010 RICHARDS EDDA GONZALEZA K 788.41 Urinary Frequency 06/15/2010 PANCHO VICTOR, MANNY A 788.41 Urinary Frequency 06/15/2010 PANCHO VICTOR MANNY A 788.41 Urinary Frequency 06/15/2010 PANCHO VICTOR MANNY A 788.41 Urinary Frequency 06/15/2010 PANCHO APRN, MANNY A 788.41 Urinary Frequency 06/24/2010 RICHARDS DOEDDAA K 724.2 Lumbago/ Low Back Pain 06/24/2010 724.2 Lumbago/ Low Back Pain 06/24/2010 724.2 Lumbago/ Low Back Pain 06/24/2010 EDDA RICHARDS DOA K 724.2 Lumbago/ Low Back Pain 06/24/2010 724.2 Lumbago/ Low Back Pain 06/24/2010 724.2 Lumbago/ Low Back Pain 06/24/2010 724.2 Lumbago/ Low Back Pain 06/24/2010 724.2 Lumbago/ Low Back Pain 06/24/2010 JASMIN DELEON APRNIDI A 724.2 Lumbago/ Low Back Pain 06/24/2010 RICHARDS DOEDDAA K 724.2 Lumbago/ Low Back Pain 06/24/2010 724.2 Lumbago/ Low Back Pain 06/24/2010 RICHARDS DOEDDAA K 724.2 Lumbago/ Low Back Pain 06/24/2010 724.2 Lumbago/ Low Back Pain 06/24/2010 724.2 Lumbago/ Low Back Pain 06/24/2010 724.2 Lumbago/ Low Back Pain 06/24/2010 724.2 Lumbago/ Low Back Pain 06/24/2010 724.2 Lumbago/ Low Back Pain 06/24/2010 724.2 Lumbago/ Low Back Pain 06/24/2010 724.2 Lumbago/ Low Back Pain 06/24/2010 ELADIO WARD APRN 724.2 Lumbago/ Low Back Pain 06/24/2010 ELADIO WARD APRN 724.2 Lumbago/ Low Back Pain 06/24/2010 DARREN RICHARDS DO 724.2 Lumbago/ Low Back Pain 06/24/2010 MANNY DELEON APRN A 724.2 Lumbago/ Low Back Pain 06/24/2010 MANNY DELEON APRN A 724.2 Lumbago/ Low Back Pain 06/24/2010 MANNY DELEON APRN A 724.2 Lumbago/ Low Back Pain 06/24/2010 MANNY DELEON APRN A 724.2 Lumbago/ Low Back Pain 07/15/2010 DARREN RICHARDS DO 564.00 Constipation 07/15/2010 564.00 Constipation 07/15/2010 564.00 Constipation 07/15/2010 DARREN RICHARDS DO 564.00 Constipation 07/15/2010 564.00 Constipation 07/15/2010 564.00 Constipation 07/15/2010 564.00 Constipation 07/15/2010 564.00 Constipation 07/15/2010 MANNY DELEON APRN 564.00 Constipation 07/15/2010 DARREN RICHARDS DO 564.00 Constipation 07/15/2010 564.00 Constipation 07/15/2010 DARREN RICHARDS DO 564.00 Constipation 07/15/2010 564.00 Constipation 07/15/2010 564.00 Constipation 07/15/2010 564.00 Constipation 07/15/2010 564.00 Constipation 07/15/2010 564.00 Constipation 07/15/2010 564.00 Constipation 07/15/2010 564.00 Constipation 07/15/2010 ELADIO WARD APRN 564.00 Constipation 07/15/2010 ELADIO WARD APRN 564.00 Constipation 07/15/2010 DARREN RICHARDS DO 564.00 Constipation 07/15/2010 PANCHO APRN, MANNY A 564.00 Constipation 07/15/2010 PANCHO LOCATION ANALYST, MANNY A 564.00 Constipation 07/15/2010 PANCHO VALENTE, MANNY A 564.00 Constipation 07/15/2010 PANCHO APRN, MANNY A 564.00 Constipation 07/23/2010 DARREN RICHARDS DO 009.1 Gastroenteritis Infect 07/23/2010 009.1 Gastroenteritis Infect 07/23/2010 009.1 Gastroenteritis Infect 07/23/2010 DARREN RICHARDS DO 009.1 Gastroenteritis Infect 07/23/2010 009.1 Gastroenteritis Infect 07/23/2010 009.1 Gastroenteritis Infect 07/23/2010 009.1 Gastroenteritis Infect 07/23/2010 009.1 Gastroenteritis Infect 07/23/2010 MANNY DELEON APRN A 009.1 Gastroenteritis Infect 07/23/2010 DARREN RICHARDS DO 009.1 Gastroenteritis Infect 07/23/2010 009.1 Gastroenteritis Infect 07/23/2010 DARREN RICHARDS DO 009.1 Gastroenteritis Infect 07/23/2010 009.1 Gastroenteritis Infect 07/23/2010 009.1 Gastroenteritis Infect 07/23/2010 009.1 Gastroenteritis Infect 07/23/2010 009.1 Gastroenteritis Infect 07/23/2010 009.1 Gastroenteritis Infect 07/23/2010 009.1 Gastroenteritis Infect 07/23/2010 009.1 Gastroenteritis Infect 07/23/2010 ELADIO WARD APRN 009.1 Gastroenteritis Infect 07/23/2010 ELADIO WARD APRN 009.1 Gastroenteritis Infect 07/23/2010 DARREN RICHARDS DO 009.1 Gastroenteritis Infect 07/23/2010 MANNY DELEON APRN A 009.1 Gastroenteritis Infect 07/23/2010 MANNY DELEON APRN A 009.1 Gastroenteritis Infect 07/23/2010 MANNY DELEON APRN A 009.1 Gastroenteritis Infect 07/23/2010 MANNY DELEON APRN A 009.1 Gastroenteritis Infect 08/26/2010 DARREN RICHARDS DO 682.6 CELLULITIS AND ABSCESS OF LEG EXCEPT FOOT 08/26/2010 682.6 CELLULITIS AND ABSCESS OF LEG EXCEPT FOOT 08/26/2010 682.6 CELLULITIS AND ABSCESS OF LEG EXCEPT FOOT 08/26/2010 DARREN RICHARDS DO 682.6 CELLULITIS AND ABSCESS OF LEG EXCEPT FOOT 08/26/2010 682.6 CELLULITIS AND ABSCESS OF LEG EXCEPT FOOT 08/26/2010 682.6 CELLULITIS AND ABSCESS OF LEG EXCEPT FOOT 08/26/2010 682.6 CELLULITIS AND ABSCESS OF LEG EXCEPT FOOT 08/26/2010 682.6 CELLULITIS AND ABSCESS OF LEG EXCEPT FOOT 08/26/2010 MANNY DELEON APRN A 682.6 CELLULITIS AND ABSCESS OF LEG EXCEPT FOOT 08/26/2010 DARREN RICHARDS DO 682.6 CELLULITIS AND ABSCESS OF LEG EXCEPT FOOT 08/26/2010 682.6 CELLULITIS AND ABSCESS OF LEG EXCEPT FOOT 08/26/2010 DARREN RICHARDS DO 682.6 CELLULITIS AND ABSCESS OF LEG EXCEPT FOOT 08/26/2010 682.6 CELLULITIS AND ABSCESS OF LEG EXCEPT FOOT 08/26/2010 682.6 CELLULITIS AND ABSCESS OF LEG EXCEPT FOOT 08/26/2010 682.6 CELLULITIS AND ABSCESS OF LEG EXCEPT FOOT 08/26/2010 682.6 CELLULITIS AND ABSCESS OF LEG EXCEPT FOOT 08/26/2010 682.6 CELLULITIS AND ABSCESS OF LEG EXCEPT FOOT 08/26/2010 682.6 CELLULITIS AND ABSCESS OF LEG EXCEPT FOOT 08/26/2010 682.6 CELLULITIS AND ABSCESS OF LEG EXCEPT FOOT 08/26/2010 ELADIO WARD APRN 682.6 CELLULITIS AND ABSCESS OF LEG EXCEPT FOOT 08/26/2010 ELADIO WARD APRN 682.6 CELLULITIS AND ABSCESS OF LEG EXCEPT FOOT 08/26/2010 DARREN RICHARDS DO 682.6 CELLULITIS AND ABSCESS OF LEG EXCEPT FOOT 08/26/2010 JASMIN DELEON APRNIDI A 682.6 CELLULITIS AND ABSCESS OF LEG EXCEPT FOOT 08/26/2010 PANCHO VICTOR MANNY A 682.6 CELLULITIS AND ABSCESS OF LEG EXCEPT FOOT 08/26/2010 JASMIN DELEON APRNIDI A 682.6 CELLULITIS AND ABSCESS OF LEG EXCEPT FOOT 08/26/2010 JASMIN DELEON APRNIDI A 682.6 CELLULITIS AND ABSCESS OF LEG EXCEPT FOOT 11/25/2010 RICHARDS DARREN GONZALEZ V72.41 TEST NEGATIVE RESULT 11/25/2010 V72.41 TEST NEGATIVE RESULT 11/25/2010 V72.41 TEST NEGATIVE RESULT 11/25/2010 RICHARDS DARREN GONZALEZ K V72.41 TEST NEGATIVE RESULT 11/25/2010 V72.41 TEST NEGATIVE RESULT 11/25/2010 V72.41 TEST NEGATIVE RESULT 11/25/2010 V72.41 TEST NEGATIVE RESULT 11/25/2010 V72.41 TEST NEGATIVE RESULT 11/25/2010 PANCHO LOCATION ANALYSTMANNY Ford A V72.41 TEST NEGATIVE RESULT 11/25/2010 RICHARDS DARREN GONZALEZ K V72.41 TEST NEGATIVE RESULT 11/25/2010 V72.41 TEST NEGATIVE RESULT 11/25/2010 RICHARDS DARREN GONZALEZ K V72.41 TEST NEGATIVE RESULT 11/25/2010 V72.41 TEST NEGATIVE RESULT 11/25/2010 V72.41 TEST NEGATIVE RESULT 11/25/2010 V72.41 TEST NEGATIVE RESULT 11/25/2010 V72.41 TEST NEGATIVE RESULT 11/25/2010 V72.41 TEST NEGATIVE RESULT 11/25/2010 V72.41 TEST NEGATIVE RESULT 11/25/2010 V72.41 TEST NEGATIVE RESULT 11/25/2010 ELADIO WARD APRN V72.41 TEST NEGATIVE RESULT 11/25/2010 ELADIO WARD APRN V72.41 TEST NEGATIVE RESULT 11/25/2010 RICHARDS DARREN GONZALEZ K V72.41 TEST NEGATIVE RESULT 11/25/2010 PANCHO VICTOR MANNY A V72.41 TEST NEGATIVE RESULT 11/25/2010 PANCHO LOCATION ANALYSTMANNY Ford A V72.41 TEST NEGATIVE RESULT 11/25/2010 PANCHO LOCATION ANALYSTMANNY Ford A V72.41 TEST NEGATIVE RESULT 11/25/2010 PANCHO VICTOR MANNY A V72.41 TEST NEGATIVE RESULT 12/24/2010 Ot 845.00 12/24/2010 Ot 959.7 12/24/2010 Ot E000.8 12/24/2010 Ot E849.0 12/24/2010 Ot E927.0 01/15/2011 DARREN RICHARDS DO 309.81 AN PTSD 01/15/2011 309.81 AN PTSD 01/15/2011 309.81 AN PTSD 01/15/2011 DARREN RICHARDS DO 309.81 AN PTSD 01/15/2011 309.81 AN PTSD 01/15/2011 309.81 AN PTSD 01/15/2011 309.81 AN PTSD 01/15/2011 309.81 AN PTSD 01/15/2011 MANNY DELEON APRN A 309.81 AN PTSD 01/15/2011 DARREN RICHARDS DO 309.81 AN PTSD 01/15/2011 309.81 AN PTSD 01/15/2011 DARREN RICHARDS DO 309.81 AN PTSD 01/15/2011 309.81 AN PTSD 01/15/2011 309.81 AN PTSD 01/15/2011 309.81 AN PTSD 01/15/2011 309.81 AN PTSD 01/15/2011 309.81 AN PTSD 01/15/2011 309.81 AN PTSD 01/15/2011 309.81 AN PTSD 01/15/2011 ELADIO WARD APRN 309.81 AN PTSD 01/15/2011 ELADIO WARD APRN 309.81 AN PTSD 01/15/2011 DARREN RICHARDS DO 309.81 AN PTSD 01/15/2011 MANNY DELEON APRN A 309.81 AN PTSD 01/15/2011 MANNY DELEON APRN A 309.81 AN PTSD 01/15/2011 MANNY DELEON APRN A 309.81 AN PTSD 01/15/2011 MANNY DELEON APRN A 309.81 AN PTSD 02/21/2011 DARREN RICHARDS DO V25.01 Contraception - Oral Contraception 02/21/2011 DARREN RICHARDS DO V65.45 Std Counseling 02/21/2011 V25.01 Contraception - Oral Contraception 02/21/2011 V65.45 Std Counseling 02/21/2011 V25.01 Contraception - Oral Contraception 02/21/2011 V65.45 Std Counseling 02/21/2011 DARREN RICHARDS DO V25.01 Contraception - Oral Contraception 02/21/2011 DARREN RICHARDS DO V65.45 Std Counseling 02/21/2011 V25.01 Contraception - Oral Contraception 02/21/2011 V65.45 Std Counseling 02/21/2011 V25.01 Contraception - Oral Contraception 02/21/2011 V65.45 Std Counseling 02/21/2011 V25.01 Contraception - Oral Contraception 02/21/2011 V65.45 Std Counseling 02/21/2011 V25.01 Contraception - Oral Contraception 02/21/2011 V65.45 Std Counseling 02/21/2011 MANNY DELEON APRN A V25.01 Contraception - Oral Contraception 02/21/2011 MANNY DELEON APRN A V65.45 Std Counseling 02/21/2011 DARREN RICHARDS DO V25.01 Contraception - Oral Contraception 02/21/2011 DARREN RICHARDS DO V65.45 Std Counseling 02/21/2011 V25.01 Contraception - Oral Contraception 02/21/2011 V65.45 Std Counseling 02/21/2011 DARREN RICHARDS DO V25.01 Contraception - Oral Contraception 02/21/2011 DARREN RICHARDS DO V65.45 Std Counseling 02/21/2011 V25.01 Contraception - Oral Contraception 02/21/2011 V65.45 Std Counseling 02/21/2011 V25.01 Contraception - Oral Contraception 02/21/2011 V65.45 Std Counseling 02/21/2011 V25.01 Contraception - Oral Contraception 02/21/2011 V65.45 Std Counseling 02/21/2011 V25.01 Contraception - Oral Contraception 02/21/2011 V65.45 Std Counseling 02/21/2011 V25.01 Contraception - Oral Contraception 02/21/2011 V65.45 Std Counseling 02/21/2011 V25.01 Contraception - Oral Contraception 02/21/2011 V65.45 Std Counseling 02/21/2011 V25.01 Contraception - Oral Contraception 02/21/2011 V65.45 Std Counseling 02/21/2011 ELADIO WARD APRN V25.01 Contraception - Oral Contraception 02/21/2011 ELADIO WARD APRN V65.45 Std Counseling 02/21/2011 ELADIO WARD APRN V25.01 Contraception - Oral Contraception 02/21/2011 ELADIO WARD APRN V65.45 Std Counseling 02/21/2011 DARREN RICHARDS DO V25.01 Contraception - Oral Contraception 02/21/2011 DARREN RICHARDS DO V65.45 Std Counseling 02/21/2011 PANCHO LOCATION ANALYST, MANNY A V25.01 Contraception - Oral Contraception 02/21/2011 PANCHO LOCATION ANALYST, MANNY A V65.45 Std Counseling 02/21/2011 PANCHO LOCATION ANALYST, MANNY A V25.01 Contraception - Oral Contraception 02/21/2011 PANCHO LOCATION ANALYST, MANNY A V65.45 Std Counseling 02/21/2011 PANCHO LOCATION ANALYST, MANNY A V25.01 Contraception - Oral Contraception 02/21/2011 PANCHO LOCATION ANALYST, MANNY A V65.45 Std Counseling 02/21/2011 PANCHO LOCATION ANALYST, MANNY A V25.01 Contraception - Oral Contraception 02/21/2011 PANCHO RAYN, MANNY A V65.45 Std Counseling 04/28/2011 Ot 723.1 05/28/2011 DARREN RICHARDS DO 599.0 Urinary Tract Infection 05/28/2011 DARREN RICHARDS DO 788.1 Dysuria 05/28/2011 599.0 Urinary Tract Infection 05/28/2011 788.1 Dysuria 05/28/2011 599.0 Urinary Tract Infection 05/28/2011 788.1 Dysuria 05/28/2011 DARREN RICHARDS DO 599.0 Urinary Tract Infection 05/28/2011 DARREN RICHARDS DO 788.1 Dysuria 05/28/2011 599.0 Urinary Tract Infection 05/28/2011 788.1 Dysuria 05/28/2011 599.0 Urinary Tract Infection 05/28/2011 788.1 Dysuria 05/28/2011 599.0 Urinary Tract Infection 05/28/2011 788.1 Dysuria 05/28/2011 599.0 Urinary Tract Infection 05/28/2011 788.1 Dysuria 05/28/2011 PANCHO MANNY VICTOR A 599.0 Urinary Tract Infection 05/28/2011 PANCHO MANNY VICTOR A 788.1 Dysuria 05/28/2011 DARREN RICHARDS DO 599.0 Urinary Tract Infection 05/28/2011 DARREN RICHARDS DO 788.1 Dysuria 05/28/2011 599.0 Urinary Tract Infection 05/28/2011 788.1 Dysuria 05/28/2011 RICHARDS DO, DARREN K 599.0 Urinary Tract Infection 05/28/2011 SUSIE GONZALEZ, DARREN K 788.1 Dysuria 05/28/2011 599.0 Urinary Tract Infection 05/28/2011 788.1 Dysuria 05/28/2011 599.0 Urinary Tract Infection 05/28/2011 788.1 Dysuria 05/28/2011 599.0 Urinary Tract Infection 05/28/2011 788.1 Dysuria 05/28/2011 599.0 Urinary Tract Infection 05/28/2011 788.1 Dysuria 05/28/2011 599.0 Urinary Tract Infection 05/28/2011 788.1 Dysuria 05/28/2011 599.0 Urinary Tract Infection 05/28/2011 788.1 Dysuria 05/28/2011 599.0 Urinary Tract Infection 05/28/2011 788.1 Dysuria 05/28/2011 ELADIO WARD APRN 599.0 Urinary Tract Infection 05/28/2011 ELADIO WARD APRN 788.1 Dysuria 05/28/2011 ELADIO WARD APRN 599.0 Urinary Tract Infection 05/28/2011 ELADIO WARD APRN 788.1 Dysuria 05/28/2011 SUSIE DARREN GONZALEZ K 599.0 Urinary Tract Infection 05/28/2011 SUSIE GONZALEZDARREN K 788.1 Dysuria 05/28/2011 PANCHO LOCATION ANALYST, MANNY A 599.0 Urinary Tract Infection 05/28/2011 PANCHO LOCATION ANALYST, MANNY A 788.1 Dysuria 05/28/2011 PANCHO LOCATION ANALYST, MANYN A 599.0 Urinary Tract Infection 05/28/2011 PANCHO LOCATION ANALYST, MANNY A 788.1 Dysuria 05/28/2011 PANCHO LOCATION ANALYST, MANNY A 599.0 Urinary Tract Infection 05/28/2011 PANCHO LOCATION ANALYST, MANNY A 788.1 Dysuria 05/28/2011 PANCHO LOCATION ANALYST, MANNY A 599.0 Urinary Tract Infection 05/28/2011 PANCHO LOCATION ANALYST, MANNY A 788.1 Dysuria 09/18/2011 Ot 724.2 LUMBAGO 10/09/2011 Ot 590.80 PYELONEPHRITIS NOS 10/09/2011 Ot 595.9 CYSTITIS NOS 10/09/2011 Ot 788.1 DYSURIA 12/25/2011 SUSIE GONZALEZDARREN V72.42 Test Positive Result 12/25/2011 V72.42 Test Positive Result 12/25/2011 V72.42 Test Positive Result 12/25/2011 SUSIE GONZALEZDARREN V72.42 Test Positive Result 12/25/2011 V72.42 Test Positive Result 12/25/2011 V72.42 Test Positive Result 12/25/2011 V72.42 Test Positive Result 12/25/2011 V72.42 Test Positive Result 12/25/2011 MANNY DELEON APRN A V72.42 Test Positive Result 12/25/2011 SUSIE GONZALEZDARREN V72.42 Test Positive Result 12/25/2011 V72.42 Test Positive Result 12/25/2011 SUSIE GONZALEZDARREN V72.42 Test Positive Result 12/25/2011 V72.42 Test Positive Result 12/25/2011 V72.42 Test Positive Result 12/25/2011 V72.42 Test Positive Result 12/25/2011 V72.42 Test Positive Result 12/25/2011 V72.42 Test Positive Result 12/25/2011 V72.42 Test Positive Result 12/25/2011 V72.42 Test Positive Result 12/25/2011 ELADIO WARD APRN V72.42 Test Positive Result 12/25/2011 ELADIO WARD APRN V72.42 Test Positive Result 12/25/2011 SUSIE DARREN GONZALEZ V72.42 Test Positive Result 12/25/2011 JASMIN DELEON APRNIDI A V72.42 Test Positive Result 12/25/2011 JASMIN DELEON APRNIDI A V72.42 Test Positive Result 12/25/2011 PANCHO VICTOR MANNY A V72.42 Test Positive Result 12/25/2011 PANCHO VICTOR MANNY A V72.42 Test Positive Result 01/12/2012 RICHARDS DARREN GONZALEZ V22.0 , NORMAL FIRST 01/12/2012 V22.0 , NORMAL FIRST 01/12/2012 V22.0 , NORMAL FIRST 01/12/2012 SUSIE GONZALEZ DARREN Davidson V22.0 , NORMAL FIRST 01/12/2012 V22.0 , NORMAL FIRST 01/12/2012 V22.0 , NORMAL FIRST 01/12/2012 V22.0 , NORMAL FIRST 01/12/2012 V22.0 , NORMAL FIRST 01/12/2012 PANCHO LOCATION ANALYST, MANNY A V22.0 , NORMAL FIRST 01/12/2012 SUSIE GONZALEZDARREN V22.0 , NORMAL FIRST 01/12/2012 V22.0 , NORMAL FIRST 01/12/2012 SUSIE GONZALEZ DARREN Davidson V22.0 , NORMAL FIRST 01/12/2012 V22.0 , NORMAL FIRST 01/12/2012 V22.0 , NORMAL FIRST 01/12/2012 V22.0 , NORMAL FIRST 01/12/2012 V22.0 , NORMAL FIRST 01/12/2012 V22.0 , NORMAL FIRST 01/12/2012 V22.0 , NORMAL FIRST 01/12/2012 V22.0 , NORMAL FIRST 01/12/2012 GARTON LOCATION ANALYST, ELADIO D V22.0 , NORMAL FIRST 01/12/2012 GARTON LOCATION ANALYST, ELADIO D V22.0 , NORMAL FIRST 01/12/2012 SUSIE DODARREN K V22.0 , NORMAL FIRST 01/12/2012 PANCHO LOCATION ANALYST, MANNY A V22.0 , NORMAL FIRST 01/12/2012 PANCHO LOCATION ANALYST, MANNY A V22.0 , NORMAL FIRST 01/12/2012 PANCHO LOCATION ANALYST, MANNY A V22.0 , NORMAL FIRST 01/12/2012 PANCHO LOCATION ANALYST, MANNY A V22.0 , NORMAL FIRST 02/02/2012 RICHARDS DODARREN V04.81 FLU SHOT 02/02/2012 V04.81 FLU SHOT 02/02/2012 V04.81 FLU SHOT 02/02/2012 RICHARDS DODARREN V04.81 FLU SHOT 02/02/2012 V04.81 FLU SHOT 02/02/2012 V04.81 FLU SHOT 02/02/2012 V04.81 FLU SHOT 02/02/2012 V04.81 FLU SHOT 02/02/2012 PANCHO LOCATION ANALYST, MANNY A V04.81 FLU SHOT 02/02/2012 DARREN RICHARDS DO V04.81 FLU SHOT 02/02/2012 V04.81 FLU SHOT 02/02/2012 DARREN RICHARDS DO V04.81 FLU SHOT 02/02/2012 V04.81 FLU SHOT 02/02/2012 V04.81 FLU SHOT 02/02/2012 V04.81 FLU SHOT 02/02/2012 V04.81 FLU SHOT 02/02/2012 V04.81 FLU SHOT 02/02/2012 V04.81 FLU SHOT 02/02/2012 V04.81 FLU SHOT 02/02/2012 FAVIOELADIO KOHLER APRN V04.81 FLU SHOT 02/02/2012 ELADIO WARD APRN V04.81 FLU SHOT 02/02/2012 DARREN RICHARDS DO V04.81 FLU SHOT 02/02/2012 PANCHO LOCATION ANALYST, MANNY A V04.81 FLU SHOT 02/02/2012 PANCHOKODAK RAYN, MANNY A V04.81 FLU SHOT 02/02/2012 PANCHOKODAK RAYN, MANNY A V04.81 FLU SHOT 02/02/2012 PANCHO LOCATION ANALYST, MANNY A V04.81 FLU SHOT 02/11/2012 DARREN RICHARDS DO 465.9 Upper Respiratory Infection 02/11/2012 465.9 Upper Respiratory Infection 02/11/2012 465.9 Upper Respiratory Infection 02/11/2012 DARREN RICHARDS DO 465.9 Upper Respiratory Infection 02/11/2012 465.9 Upper Respiratory Infection 02/11/2012 465.9 Upper Respiratory Infection 02/11/2012 465.9 Upper Respiratory Infection 02/11/2012 465.9 Upper Respiratory Infection 02/11/2012 PANCHOKODAK VICTOR, MANNY A 465.9 Upper Respiratory Infection 02/11/2012 DARREN RICHARDS DO 465.9 Upper Respiratory Infection 02/11/2012 465.9 Upper Respiratory Infection 02/11/2012 DARREN RICHARDS DO 465.9 Upper Respiratory Infection 02/11/2012 465.9 Upper Respiratory Infection 02/11/2012 465.9 Upper Respiratory Infection 02/11/2012 465.9 Upper Respiratory Infection 02/11/2012 465.9 Upper Respiratory Infection 02/11/2012 465.9 Upper Respiratory Infection 02/11/2012 465.9 Upper Respiratory Infection 02/11/2012 465.9 Upper Respiratory Infection 02/11/2012 ELADIO WARD APRN 465.9 Upper Respiratory Infection 02/11/2012 ELADIO WARD APRN 465.9 Upper Respiratory Infection 02/11/2012 SUSIE GONZALEZ DARREN Lety 465.9 Upper Respiratory Infection 02/11/2012 PANCHO LOCATION ANALYST, MANNY A 465.9 Upper Respiratory Infection 02/11/2012 PANCHO LOCATION ANALYST, MANNY A 465.9 Upper Respiratory Infection 02/11/2012 PANCHO LOCATION ANALYST, MANNY A 465.9 Upper Respiratory Infection 02/11/2012 PANCHO LOCATION ANALYST, MANNY A 465.9 Upper Respiratory Infection 04/21/2012 649.60 UTERINE SIZE DATE DISCREPANCY - LGA 04/21/2012 DARREN RICHARDS DO 649.60 UTERINE SIZE DATE DISCREPANCY - LGA 04/21/2012 649.60 UTERINE SIZE DATE DISCREPANCY - LGA 04/21/2012 649.60 UTERINE SIZE DATE DISCREPANCY - LGA 04/21/2012 649.60 UTERINE SIZE DATE DISCREPANCY - LGA 04/21/2012 649.60 UTERINE SIZE DATE DISCREPANCY - LGA 04/21/2012 JASMIN DELEON APRNIDI A 649.60 UTERINE SIZE DATE DISCREPANCY - LGA 04/21/2012 DARREN RICHARDS DO 649.60 UTERINE SIZE DATE DISCREPANCY - LGA 04/21/2012 649.60 UTERINE SIZE DATE DISCREPANCY - LGA 04/21/2012 RICHARDS DARREN GONZALEZ 649.60 UTERINE SIZE DATE DISCREPANCY - LGA 04/21/2012 649.60 UTERINE SIZE DATE DISCREPANCY - LGA 04/21/2012 649.60 UTERINE SIZE DATE DISCREPANCY - LGA 04/21/2012 649.60 UTERINE SIZE DATE DISCREPANCY - LGA 04/21/2012 649.60 UTERINE SIZE DATE DISCREPANCY - LGA 04/21/2012 649.60 UTERINE SIZE DATE DISCREPANCY - LGA 04/21/2012 649.60 UTERINE SIZE DATE DISCREPANCY - LGA 04/21/2012 649.60 UTERINE SIZE DATE DISCREPANCY - LGA 04/21/2012 ELADIO WARD APRN 649.60 UTERINE SIZE DATE DISCREPANCY - LGA 04/21/2012 ELADIO WARD APRN 649.60 UTERINE SIZE DATE DISCREPANCY - LGA 04/21/2012 DARREN RICHARDS DO 649.60 UTERINE SIZE DATE DISCREPANCY - LGA 04/21/2012 PANCHOLogan VICTOR MANNY A 649.60 UTERINE SIZE DATE DISCREPANCY - LGA 04/21/2012 PANCHO LOCATION ANALYST, MANNY A 649.60 UTERINE SIZE DATE DISCREPANCY - LGA 04/21/2012 PANCHO LOCATION ANALYST, MANNY A 649.60 UTERINE SIZE DATE DISCREPANCY - LGA 04/21/2012 PANCHO LOCATION ANALYST, MANNY A 649.60 UTERINE SIZE DATE DISCREPANCY - LGA 04/28/2012 DARREN RICHARDS DO 789.09 ABDOMINAL PAIN OTHER SPECIFIED SITE 04/28/2012 789.09 ABDOMINAL PAIN OTHER SPECIFIED SITE 04/28/2012 789.09 Abdominal Pain Other Specified Site 04/28/2012 789.09 Abdominal Pain Other Specified Site 04/28/2012 789.09 Abdominal Pain Other Specified Site 04/28/2012 MANNY DELEON APRN A 789.09 Abdominal Pain Other Specified Site 04/28/2012 DARREN RICHARDS DO 789.09 Abdominal Pain Other Specified Site 04/28/2012 789.09 Abdominal Pain Other Specified Site 04/28/2012 DARREN RICHARDS DO 789.09 Abdominal Pain Other Specified Site 04/28/2012 789.09 Abdominal Pain Other Specified Site 04/28/2012 789.09 Abdominal Pain Other Specified Site 04/28/2012 789.09 Abdominal Pain Other Specified Site 04/28/2012 789.09 Abdominal Pain Other Specified Site 04/28/2012 789.09 Abdominal Pain Other Specified Site 04/28/2012 789.09 Abdominal Pain Other Specified Site 04/28/2012 789.09 Abdominal Pain Other Specified Site 04/28/2012 ELADIO WARD APRN 789.09 Abdominal Pain Other Specified Site 04/28/2012 ELADIO WARD APRN 789.09 Abdominal Pain Other Specified Site 04/28/2012 DARREN RICHARDS DO 789.09 Abdominal Pain Other Specified Site 04/28/2012 JASMIN DELEON APRNIDI A 789.09 Abdominal Pain Other Specified Site 04/28/2012 PANCHOJASMIN CANDELARIO APRNIDI A 789.09 Abdominal Pain Other Specified Site 04/28/2012 PANCHOKODAK VICTOR MANNY A 789.09 Abdominal Pain Other Specified Site 04/28/2012 PANCHO LOCATION ANALYST, MANNY A 789.09 Abdominal Pain Other Specified Site 05/11/2012 466.0 BRONCHITIS, ACUTE 05/11/2012 466.0 Bronchitis, Acute 05/11/2012 466.0 Bronchitis, Acute 05/11/2012 466.0 Bronchitis, Acute 05/11/2012 PANCHOKODAK RAYN, MANNY A 466.0 Bronchitis, Acute 05/11/2012 DARREN RICHARDS DO 466.0 Bronchitis, Acute 05/11/2012 466.0 Bronchitis, Acute 05/11/2012 DARREN RICHARDS DO 466.0 Bronchitis, Acute 05/11/2012 466.0 Bronchitis, Acute 05/11/2012 466.0 Bronchitis, Acute 05/11/2012 466.0 Bronchitis, Acute 05/11/2012 466.0 Bronchitis, Acute 05/11/2012 466.0 Bronchitis, Acute 05/11/2012 466.0 Bronchitis, Acute 05/11/2012 466.0 Bronchitis, Acute 05/11/2012 ELADIO WARD APRN 466.0 Bronchitis, Acute 05/11/2012 ELADIO WARD APRN 466.0 Bronchitis, Acute 05/11/2012 DARREN RICHARDS DO 466.0 Bronchitis, Acute 05/11/2012 PANCHO RAYN, MANNY A 466.0 Bronchitis, Acute 05/11/2012 PANCHO LOCATION ANALYST, MANNY A 466.0 Bronchitis, Acute 05/11/2012 PANCHO LOCATION ANALYST, MANNY A 466.0 Bronchitis, Acute 05/11/2012 PANCHO LOCATION ANALYST, MANNY A 466.0 Bronchitis, Acute 05/19/2012 V06.1 TDAP DX 05/19/2012 V06.1 TDAP DX 05/19/2012 V06.1 TDAP DX 05/19/2012 PANCHO RAYN, MANNY A V06.1 TDAP DX 05/19/2012 DARREN RICHARDS DO V06.1 TDAP DX 05/19/2012 V06.1 TDAP DX 05/19/2012 RICHARDS DARREN GONZALEZ V06.1 TDAP DX 05/19/2012 V06.1 TDAP DX 05/19/2012 V06.1 TDAP DX 05/19/2012 V06.1 TDAP DX 05/19/2012 V06.1 TDAP DX 05/19/2012 V06.1 TDAP DX 05/19/2012 V06.1 TDAP DX 05/19/2012 V06.1 TDAP DX 05/19/2012 ELADIO WARD APRN V06.1 TDAP DX 05/19/2012 ELADIO WARD APRN V06.1 TDAP DX 05/19/2012 DARREN RICHARDS DO V06.1 TDAP DX 05/19/2012 PANCHO VICTOR, MANNY A V06.1 TDAP DX 05/19/2012 PANCHO VICTOR, MANNY A V06.1 TDAP DX 05/19/2012 JASMIN DELEON APRNIDI A V06.1 TDAP DX 05/19/2012 JASMIN DELEON APRNIDI A V06.1 TDAP DX 06/03/2012 311 DEPRESSIVE DISORDER NOT ELSEWHERE CLASSIFIED 06/03/2012 311 DEPRESSIVE DISORDER NOT ELSEWHERE CLASSIFIED 06/03/2012 MANNY DELEON APRN A 311 DEPRESSIVE DISORDER NOT ELSEWHERE CLASSIFIED 06/03/2012 DARREN RICHARDS DO 311 DEPRESSIVE DISORDER NOT ELSEWHERE CLASSIFIED 06/03/2012 311 DEPRESSIVE DISORDER NOT ELSEWHERE CLASSIFIED 06/03/2012 DARREN RICHARDS DO 311 DEPRESSIVE DISORDER NOT ELSEWHERE CLASSIFIED 06/03/2012 311 DEPRESSIVE DISORDER NOT ELSEWHERE CLASSIFIED 06/03/2012 311 DEPRESSIVE DISORDER NOT ELSEWHERE CLASSIFIED 06/03/2012 311 DEPRESSIVE DISORDER NOT ELSEWHERE CLASSIFIED 06/03/2012 311 DEPRESSIVE DISORDER NOT ELSEWHERE CLASSIFIED 06/03/2012 311 DEPRESSIVE DISORDER NOT ELSEWHERE CLASSIFIED 06/03/2012 311 DEPRESSIVE DISORDER NOT ELSEWHERE CLASSIFIED 06/03/2012 311 DEPRESSIVE DISORDER NOT ELSEWHERE CLASSIFIED 06/03/2012 ELADIO WARD APRN 311 DEPRESSIVE DISORDER NOT ELSEWHERE CLASSIFIED 06/03/2012 ELADIO WARD APRN 311 DEPRESSIVE DISORDER NOT ELSEWHERE CLASSIFIED 06/03/2012 DARREN RICHARDS DO 311 DEPRESSIVE DISORDER NOT ELSEWHERE CLASSIFIED 06/03/2012 MANNY DELEON APRN A 311 DEPRESSIVE DISORDER NOT ELSEWHERE CLASSIFIED 06/03/2012 MANNY DELEON APRN A 311 DEPRESSIVE DISORDER NOT ELSEWHERE CLASSIFIED 06/03/2012 MANNY DELEON APRN A 311 DEPRESSIVE DISORDER NOT ELSEWHERE CLASSIFIED 06/03/2012 JASMIN DELEON APRNIDI A 311 DEPRESSIVE DISORDER NOT ELSEWHERE CLASSIFIED 06/24/2012 DARREN RICHARDS DO Lety 644.00 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 06/24/2012 644.00 Threatened Premature Labor Unspecified As To Episode Of Care 06/24/2012 DARREN RICHARDS DO Lety 644.00 Threatened Premature Labor Unspecified As To Episode Of Care 06/24/2012 644.00 Threatened Premature Labor Unspecified As To Episode Of Care 06/24/2012 644.00 Threatened Premature Labor Unspecified As To Episode Of Care 06/24/2012 644.00 Threatened Premature Labor Unspecified As To Episode Of Care 06/24/2012 644.00 Threatened Premature Labor Unspecified As To Episode Of Care 06/24/2012 644.00 Threatened Premature Labor Unspecified As To Episode Of Care 06/24/2012 644.00 Threatened Premature Labor Unspecified As To Episode Of Care 06/24/2012 644.00 Threatened Premature Labor Unspecified As To Episode Of Care 06/24/2012 ELADIO WARD APRN 644.00 Threatened Premature Labor Unspecified As To Episode Of Care 06/24/2012 ELADIO WARD APRN 644.00 Threatened Premature Labor Unspecified As To Episode Of Care 06/24/2012 SUSIE GONZALEZ DARREN K 644.00 Threatened Premature Labor Unspecified As To Episode Of Care 06/24/2012 PANCHOMANNY CANDELARIO APRN A 644.00 Threatened Premature Labor Unspecified As To Episode Of Care 06/24/2012 PANCHO VICTOR, MANNY A 644.00 Threatened Premature Labor Unspecified As To Episode Of Care 06/24/2012 PANCHO VICTOR MANNY A 644.00 Threatened Premature Labor Unspecified As To Episode Of Care 06/24/2012 PANCHO VICTOR MANNY A 644.00 Threatened Premature Labor Unspecified As To Episode Of Care 07/02/2012 Ot 644.03 THRT SRIDHAR LABOR-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 07/02/2012 Ot 649.03 TOBACCO USE DISOR COMP PREG/CHILDBIRTH/P 07/14/2012 V28.6 GBS SCREENING 07/14/2012 V28.6 GBS SCREENING 07/14/2012 V28.6 Gbs Screening 07/14/2012 V28.6 Gbs Screening 07/14/2012 V28.6 Gbs Screening 07/14/2012 V28.6 Gbs Screening 07/14/2012 V28.6 Gbs Screening 07/14/2012 ELADIO WARD APRN V28.6 Gbs Screening 07/14/2012 ELADIO WARD APRN V28.6 Gbs Screening 07/14/2012 DARREN RICHARDS DO V28.6 Gbs Screening 07/14/2012 PANCHOKODAK VICTOR MANNY A V28.6 Gbs Screening 07/14/2012 PANCHOJASMIN CANDELARIO APRNIDI A V28.6 Gbs Screening 07/14/2012 PANCHOJASMIN CANDELARIO APRNIDI A V28.6 Gbs Screening 07/14/2012 JASMIN DELEON APRNIDI A V28.6 Gbs Screening 07/29/2012 658.00 OLIGOHYDRAMNIOS 07/29/2012 658.00 OLIGOHYDRAMNIOS 07/29/2012 658.00 OLIGOHYDRAMNIOS 07/29/2012 658.00 OLIGOHYDRAMNIOS 07/29/2012 ELADIO WARD APRN 658.00 OLIGOHYDRAMNIOS 07/29/2012 ELADIO WARD APRN 658.00 OLIGOHYDRAMNIOS 07/29/2012 DARREN RICHARDS DO 658.00 OLIGOHYDRAMNIOS 07/29/2012 JASMIN DELEON APRNIDI A 658.00 OLIGOHYDRAMNIOS 07/29/2012 JASMIN DELEON APRNIDI A 658.00 OLIGOHYDRAMNIOS 07/29/2012 MANNY DELEON APRN A 658.00 OLIGOHYDRAMNIOS 07/29/2012 MANNY DELEON APRN A 658.00 OLIGOHYDRAMNIOS 08/06/2012 DARREN RICHARDS DO Ot 649.01 TOBACCO USE DISORDER COMP PREG/CHILDBIRT 08/06/2012 DARREN RICHARDS DO Ot 664.01 DEL W 1 DEG LACERAT-DEL 08/06/2012 DARREN RICHARDS DO Ot V27.0 DELIVER-SINGLE LIVEBORN 11/24/2012 V25.9 CONTRACEPTION MANAGEMENT 11/24/2012 V58.69 LONG-TERM ( CURRENT) USE OF OTHER MEDICATIONS 11/24/2012 ELADIO WARD APRN V25.9 CONTRACEPTION MANAGEMENT 11/24/2012 ELADIO WARD APRN V58.69 LONG-TERM (CURRENT) USE OF OTHER MEDICATIONS 11/24/2012 ELADIO WARD APRN V25.9 CONTRACEPTION MANAGEMENT 11/24/2012 ELADIO WARD APRN V58.69 LONG-TERM (CURRENT) USE OF OTHER MEDICATIONS 11/24/2012 EDDA RICHARDS DOA K V25.9 CONTRACEPTION MANAGEMENT 11/24/2012 RICHARDS DOEDDAA K V58.69 LONG-TERM (CURRENT) USE OF OTHER MEDICATIONS 11/24/2012 PANCHO LOCATION ANALYST, MANNY A V25.9 CONTRACEPTION MANAGEMENT 11/24/2012 PANCHO LOCATION ANALYST, MANNY A V58.69 LONG-TERM (CURRENT) USE OF OTHER MEDICATIONS 11/24/2012 PANCHO LOCATION ANALYST, MANNY A V25.9 CONTRACEPTION MANAGEMENT 11/24/2012 PANCHO LOCATION ANALYST, MANNY A V58.69 LONG-TERM (CURRENT) USE OF OTHER MEDICATIONS 11/24/2012 PANCHO VALENTE, MANNY A V25.9 CONTRACEPTION MANAGEMENT 11/24/2012 PANCHO APRN, MANNY A V58.69 LONG-TERM (CURRENT) USE OF OTHER MEDICATIONS 11/24/2012 PANCHO LOCATION ANALYST, MANNY A V25.9 CONTRACEPTION MANAGEMENT 11/24/2012 PANCHO APRN, MANNY A V58.69 LONG-TERM (CURRENT) USE OF OTHER MEDICATIONS 12/23/2012 ELADIO WARD APRN 300.00 AN ANXIETY UNSPEC 12/23/2012 ELADIO WARD APRN 305.70 AMPHETA ABUSE 12/23/2012 ELADIO WARD APRN 300.00 AN ANXIETY UNSPEC 12/23/2012 ELADIO WARD APRN 305.70 AMPHETA ABUSE 12/23/2012 EDDA RICHARDS DOA K 300.00 AN ANXIETY UNSPEC 12/23/2012 EDDA RICHARDS DOA K 305.70 AMPHETA ABUSE 12/23/2012 PANCHO VICTOR MANNY A 300.00 AN ANXIETY UNSPEC 12/23/2012 PANCHO VICOTR MANNY A 305.70 AMPHETA ABUSE 12/23/2012 PANCHO VICTOR MANNY A 300.00 AN ANXIETY UNSPEC 12/23/2012 PANCHO VICTOR MANNY A 305.70 AMPHETA ABUSE 12/23/2012 PANCHO LOCATION ANALYST, MANNY A 300.00 AN ANXIETY UNSPEC 12/23/2012 PANCHO LOCATION ANALYST, MANNY A 305.70 AMPHETA ABUSE 12/23/2012 PANCHO LOCATION ANALYST, MANNY A 300.00 AN ANXIETY UNSPEC 12/23/2012 PANCHO LOCATION ANALYST, MANNY A 305.70 AMPHETA ABUSE 03/01/2013 PANCHO LOCATION ANALYST, MANNY A 708.0 ALLERGIC URTICARIA 03/01/2013 PANCHO LOCATION ANALYST, MANNY A 708.0 ALLERGIC URTICARIA 03/01/2013 PANCHO LOCATION ANALYST, MANNY A 708.0 ALLERGIC URTICARIA 03/01/2013 PANCHO LOCATION ANALYST, MANNY A 708.0 ALLERGIC URTICARIA 09/06/2013 PANCHO LOCATION ANALYST, MANNY A 626.2 EXCESSIVE OR FREQUENT MENSTRUATION 09/06/2013 PANCHO LOCATION ANALYST, MANNY A 780.79 OTHER MALAISE AND FATIGUE 09/06/2013 PANCHO LOCATION ANALYST, MANNY A 626.2 EXCESSIVE OR FREQUENT MENSTRUATION 09/06/2013 PANCHO LOCATION ANALYST, MANNY A 780.79 OTHER MALAISE AND FATIGUE 09/26/2013 CHILANGO KOCH LOCATION ANALYST Ot 620.2 OVARIAN CYST NEC/NOS 09/26/2013 CHILANGO KOCH LOCATION ANALYST Ot 626.8 MENSTRUAL DISORDER NEC 04/22/2015 Ot 649.63 04/22/2015 Ot V22.0 04/22/2015 Ot V28.81 04/22/2015 Ot 656.63 04/22/2015 Ot 656.63 04/22/2015 KUSH NIX Ot K04.7 PERIAPICAL ABSCESS WITHOUT SINUS 04/22/2015 KUSH NIX Ot K08.409 PARTIAL LOSS OF TEETH, UNSPECIFIED CAUSE 07/04/2015 Ot 649.63 07/04/2015 Ot V22.0 07/04/2015 Ot V28.81 07/04/2015 Ot 656.63 07/04/2015 Ot 656.63 07/05/2015 ABNER DUBON LOCATION ANALYST Ot Z34.81 07/19/2015 ABNER DUBON LOCATION ANALYST Ot Z34.81 09/04/2015 DARREN RICHARDS DO Ot Z34.82 ENCOUNTER FOR SUPRVSN OF NORMAL PREGNANC 09/04/2015 DARREN RICHARDS DO Ot Z36 ENCOUNTER FOR SCREENING OF MOT 09/06/2015 DARREN RICHARDS DO Ot Z34.82 ENCOUNTER FOR SUPRVSN OF NORMAL PREGNANC 09/06/2015 DARREN RICHARDS DO Ot Z36 ENCOUNTER FOR SCREENING OF MOT 09/17/2015 DARREN RICHARDS DO Ot Z34.82 ENCOUNTER FOR SUPRVSN OF NORMAL PREGNANC 09/17/2015 DARREN RICHARDS DO Ot Z36 ENCOUNTER FOR SCREENING OF MOT 11/06/2015 DARREN RICHARDS DO Ot Z34.83 ENCOUNTER FOR SUPRVSN OF NORMAL PREGNANC 11/23/2015 DARREN RICHARDS DO Ot Z34.83 ENCOUNTER FOR SUPRVSN OF NORMAL PREGNANC 12/04/2015 DARREN RICHARDS DO Ot O99.89 OTH DISEASES AND CONDITIONS COMPL PREG/C 12/04/2015 DARREN RICHARDS DO Ot R10.9 UNSPECIFIED ABDOMINAL PAIN 12/04/2015 DARREN RICHARDS DO Ot Z3A.32 32 WEEKS GESTATION OF 12/18/2015 DARREN RICHARDS DO Ot O47.03 FALSE LABOR BEFORE 37 COMPLETED WEEKS OF 12/18/2015 DARREN RICHARDS DO Ot Z3A.34 34 WEEKS GESTATION OF 12/30/2015 JENNIFER DOVE MD Ot O99.89 OTH DISEASES AND CONDITIONS COMPL PREG/C 12/30/2015 JENNIFER DOVE MD Ot R10.2 PELVIC AND PERINEAL PAIN 12/30/2015 JENNIFER DOVE MD Ot Z3A.36 36 WEEKS GESTATION OF 01/08/2016 JENNIFER DOVE MD Ot O99.89 OTH DISEASES AND CONDITIONS COMPL PREG/C 01/08/2016 JENNIFER DOVE MD Ot R10.2 PELVIC AND PERINEAL PAIN 01/08/2016 JENNIFER DOVE MD Ot Z3A.36 36 WEEKS GESTATION OF 01/08/2016 DARREN RICHARDS DO Ot F17.210 NICOTINE DEPENDENCE, CIGARETTES, UNCOMPL 01/08/2016 DARREN RICHARDS DO Ot O99.334 SMOKING (TOBACCO) COMPLICATING CHILDBIRT 01/08/2016 DARREN RICHARDS DO Ot O99.824 STREPTOCOCCUS B CARRIER STATE COMPLICATI 01/08/2016 DARREN RICHARDS DO Ot Z37.0 SINGLE LIVE 01/08/2016 DARREN RICHARDS DO Ot Z3A.37 37 WEEKS GESTATION OF 02/07/2017 CHILANGO KOCH APRN Ot F32.9 MAJOR DEPRESSIVE DISORDER, SINGLE EPISOD 02/07/2017 CHILANGO KOCH APRN Ot F41.9 ANXIETY DISORDER, UNSPECIFIED 02/07/2017 CHILANGO KOCH APRN Ot K02.9 DENTAL CARIES, UNSPECIFIED 02/07/2017 CHILANGO KOCH LOCATION ANALYST Ot K08.89 OTHER SPECIFIED DISORDERS OF TEETH AND S 02/07/2017 Ot 649.63 UTERINE SIZE DATE DISCREPANCY, ANTEPARTU 02/07/2017 Ot V22.0 SUPERVIS NORMAL 1ST PREG 02/07/2017 Ot V28.81 ENCOUNTER FOR ANATOMIC SURVEY 02/07/2017 Ot 656.63 EXCESS FET GRTH-ANTEPART 02/07/2017 Ot 656.63 EXCESS FET GRTH-ANTEPART 02/07/2017 ABNER DUBON APRN Ot Z34.81 ENCOUNTER FOR SUPRVSN OF NORMAL PREGNANC 02/07/2017 DARREN RICHARDS DO Ot Z34.82 ENCOUNTER FOR SUPRVSN OF NORMAL PREGNANC 02/07/2017 DARREN RICHARDS DO Ot Z36 ENCOUNTER FOR SCREENING OF MOT 02/07/2017 DARREN RICHARDS DO Ot Z34.83 ENCOUNTER FOR SUPRVSN OF NORMAL PREGNANC 02/07/2017 Ot 649.63 UTERINE SIZE DATE DISCREPANCY, ANTEPARTU 02/07/2017 Ot V22.0 SUPERVIS NORMAL 1ST PREG 02/07/2017 Ot V28.81 ENCOUNTER FOR ANATOMIC SURVEY 02/07/2017 Ot 656.63 EXCESS FET GRTH-ANTEPART 02/07/2017 Ot 656.63 EXCESS FET GRTH-ANTEPART 02/07/2017 ABNER DUBON APRN Ot Z34.81 ENCOUNTER FOR SUPRVSN OF NORMAL PREGNANC 02/07/2017 DARREN RICHARDS DO Ot Z34.82 ENCOUNTER FOR SUPRVSN OF NORMAL PREGNANC 02/07/2017 DARREN RICHARDS DO Ot Z36 ENCOUNTER FOR SCREENING OF MOT 02/07/2017 DARREN RICHARDS DO Ot Z34.83 ENCOUNTER FOR SUPRVSN OF NORMAL PREGNANC Procedures Code Description [place] [address] GC/CHLAM PROBE (STATE) 02/02/2012 04010 UA OB DIP 02/02/2012 06253 CULTURE UROGENITAL 02/05/2012 78925 UA OB DIP 02/11/2012 38350 US OB ULTRASOUND 02/12/2012 07686 US OB ULTRASOUND 03/09/2012 27160 UA OB DIP 03/09/2012 64926 US OB ULTRASOUND 03/09/2012 61412 UA OB DIP 04/21/2012 13748 ROUTINE VENIPUNCTURE 04/28/2012 25728 UA LONG DIP 04/28/2012 13104 CBC 04/28/2012 04254 GLUCOSE ARI 1 HOUR 04/28/2012 00178 STREP A (IN-HOUSE) 05/11/2012 01896 UA OB DIP 06/03/2012 65725 ROUTINE VENIPUNCTURE 06/16/2012 99076 UA LONG DIP 06/16/2012 34918 GLUCOSE ARI 1 HOUR 06/16/2012 87737 ROUTINE VENIPUNCTURE 06/17/2012 58106 CMP 06/17/2012 20481 NON-STRESS TEST 06/24/2012 66419 UA W/ CULTURE IF INDICATED 06/24/2012 53005 FIBRONECTIN 06/25/2012 73173 CULTURE UROGENITAL 06/25/2012 64596 UA OB DIP 06/30/2012 23411 UA OB DIP 07/14/2012 16886 CULTURE GROUP B STREP VAG 07/17/2012 85326 UA OB DIP 07/21/2012 05364 US OB - FOLLOW UP 07/26/2012 38822 NON-STRESS TEST 07/29/2012 17021 UA OB DIP 07/29/2012 56051 BIOPHYSICAL PROFILE () W/NST 08/02/2012 73.59 MANUAL ASSIST DELIV NEC 08/04/2012 12466 THERAPUTIC INJ SQ/IM 11/24/2012 J1050 DEPO PROVERA 11/24/2012 67231 URINE TEST (IN- HOUSE) 11/24/2012 88693 URINE DRUG SCREEN (IN-HOUSE ) 12/23/2012 62669 PSYCH DIAG EVAL W/MED SRVCS 01/02/2013 72454 THERAPUTIC INJ SQ/IM 02/22/2013 J1050 DEPO PROVERA 02/22/2013 01012 THERAPUTIC INJ SQ/IM 02/22/2013 J1050 DEPO PROVERA 02/22/2013 68754 URINE TEST (IN- HOUSE) 02/22/2013 31582 URINE TEST (IN- HOUSE) 02/22/2013 01854 TEST, URINE (IN- HOUSE) 05/24/2013 21233 ROUTINE VENIPUNCTURE 09/06/2013 29730 TEST, URINE (IN- HOUSE) 09/06/2013 60884 CBC 09/06/2013 39725 TSH 09/06/2013 [id number] DELIVERY OF PRODUCTS OF CONCEPTION, EXTE 01/07/2016 Results Test Result Range Complete urinalysis with reflex to culture - 12/04/15 11:25 Urine color determination YELLOW NRG Urine clarity determination CLEAR NRG Urine pH measurement by test strip 8 5-9 Specific gravity of urine by test strip 1.010 1.016- 1.022 Urine protein assay by test strip, semi-quantitative NEGATIVE NEGATIVE Urine glucose detection by automated test strip NEGATIVE NEGATIVE Erythrocytes detection in urine sediment by light microscopy NEGATIVE NEGATIVE Urine ketones detection by automated test strip NEGATIVE NEGATIVE Urine nitrite detection by test strip NEGATIVE NEGATIVE Urine total bilirubin detection by test strip NEGATIVE NEGATIVE Urine urobilinogen measurement by automated test strip (mass/volume) NORMAL NORMAL Urine leukocyte esterase detection by dipstick NEGATIVE NEGATIVE Automated urine sediment erythrocyte count by microscopy (number/high power field) NONE NRG Automated urine sediment leukocyte count by microscopy (number/high power field ) NONE NRG Bacteria detection in urine sediment by light microscopy NEGATIVE NRG Squamous epithelial cells detection in urine sediment by light microscopy 10-25 NRG Crystals detection in urine sediment by light microscopy NONE NRG Casts detection in urine sediment by light microscopy NONE NRG Mucus detection in urine sediment by light microscopy NEGATIVE NRG Complete urinalysis with reflex to culture NO NRG Bacterial urine culture - 12/04/15 11:25 URINE CULTURE RESULTS <10,000/ML NRG Complete urinalysis with reflex to culture - 12/18/15 14:05 Urine color determination YELLOW NRG Urine clarity determination SLIGHTLY CLOUDY NRG Urine pH measurement by test strip 7 5-9 Specific gravity of urine by test strip 1.015 1.016- 1.022 Urine protein assay by test strip, semi-quantitative NEGATIVE NEGATIVE Urine glucose detection by automated test strip NEGATIVE NEGATIVE Erythrocytes detection in urine sediment by light microscopy NEGATIVE NEGATIVE Urine ketones detection by automated test strip NEGATIVE NEGATIVE Urine nitrite detection by test strip NEGATIVE NEGATIVE Urine total bilirubin detection by test strip NEGATIVE NEGATIVE Urine urobilinogen measurement by automated test strip (mass/volume) 1 mg/dL NORMAL Urine leukocyte esterase detection by dipstick 1+ NEGATIVE Automated urine sediment erythrocyte count by microscopy (number/high power field) NONE NRG Automated urine sediment leukocyte count by microscopy (number/high power field ) [HPF] NRG Bacteria detection in urine sediment by light microscopy MODERATE NRG Squamous epithelial cells detection in urine sediment by light microscopy 25-50 NRG Crystals detection in urine sediment by light microscopy NONE NRG Casts detection in urine sediment by light microscopy NONE NRG Mucus detection in urine sediment by light microscopy NEGATIVE NRG Complete urinalysis with reflex to culture YES NRG Bacterial urine culture - 12/18/15 14:05 URINE CULTURE RESULTS <10,000/ML NRG Strep Gp B Culture - 12/26/15 12:56 Strep Gp B Culture Positive Negative Complete urinalysis with reflex to culture - 12/30/15 19:00 Urine color determination YELLOW NRG Urine clarity determination CLEAR NRG Urine pH measurement by test strip 6 5-9 Specific gravity of urine by test strip 1.025 1.016- 1.022 Urine protein assay by test strip, semi-quantitative 1+ NEGATIVE Urine glucose detection by automated test strip NEGATIVE NEGATIVE Erythrocytes detection in urine sediment by light microscopy NEGATIVE NEGATIVE Urine ketones detection by automated test strip NEGATIVE NEGATIVE Urine nitrite detection by test strip NEGATIVE NEGATIVE Urine total bilirubin detection by test strip NEGATIVE NEGATIVE Urine urobilinogen measurement by automated test strip (mass/volume) 8 mg/dL NORMAL Urine leukocyte esterase detection by dipstick 1+ NEGATIVE Automated urine sediment erythrocyte count by microscopy (number/high power field) NONE NRG Automated urine sediment leukocyte count by microscopy (number/high power field ) [HPF] NRG Bacteria detection in urine sediment by light microscopy TRACE NRG Squamous epithelial cells detection in urine sediment by light microscopy 25-50 NRG Crystals detection in urine sediment by light microscopy NONE NRG Casts detection in urine sediment by light microscopy NONE NRG Mucus detection in urine sediment by light microscopy SMALL NRG Complete urinalysis with reflex to culture NO NRG Complete urinalysis with reflex to culture - 01/06/16 21:55 Urine color determination YELLOW NRG Urine clarity determination CLEAR NRG Urine pH measurement by test strip 6.5 5-9 Specific gravity of urine by test strip 1.015 1.016- 1.022 Urine protein assay by test strip, semi-quantitative 1+ NEGATIVE Urine glucose detection by automated test strip NEGATIVE NEGATIVE Erythrocytes detection in urine sediment by light microscopy 1+ NEGATIVE Urine ketones detection by automated test strip NEGATIVE NEGATIVE Urine nitrite detection by test strip NEGATIVE NEGATIVE Urine total bilirubin detection by test strip NEGATIVE NEGATIVE Urine urobilinogen measurement by automated test strip (mass/volume) 8 mg/dL NORMAL Urine leukocyte esterase detection by dipstick 2+ NEGATIVE Automated urine sediment erythrocyte count by microscopy (number/high power field) [HPF] NRG Automated urine sediment leukocyte count by microscopy (number/high power field ) [HPF] NRG Bacteria detection in urine sediment by light microscopy MODERATE NRG Squamous epithelial cells detection in urine sediment by light microscopy 25-50 NRG Crystals detection in urine sediment by light microscopy NONE NRG Casts detection in urine sediment by light microscopy NONE NRG Mucus detection in urine sediment by light microscopy NEGATIVE NRG Complete urinalysis with reflex to culture YES NRG Bacterial urine culture - 01/06/16 21:55 URINE CULTURE RESULTS <10,000/ML NRG Complete blood count (CBC) with automated white blood cell (WBC) differential - 01/06/16 22:20 Blood leukocytes automated count (number/volume) 16.1 10*3/uL 4.3-11.0 Blood erythrocytes automated count (number/volume) 4.11 10*6/uL 4.35-5.85 Venous blood hemoglobin measurement (mass/volume) 12.1 g/dL 11.5-16.0 Blood hematocrit (volume fraction) 35 % 35-52 Automated erythrocyte mean corpuscular volume 86 [foz_us] 80-99 Automated erythrocyte mean corpuscular hemoglobin (mass per erythrocyte) 29 pg 25-34 Automated erythrocyte mean corpuscular hemoglobin concentration measurement ( mass/volume) 34 g/dL 32-36 Automated erythrocyte distribution width ratio 14.0 % 10.0-14.5 Automated blood platelet count (count/volume) 201 10*3/uL 130-400 Automated blood platelet mean volume measurement 11.3 [foz_us] 7.4-10.4 Automated blood neutrophils/100 leukocytes 70 % 42-75 Automated blood lymphocytes/100 leukocytes 20 % 12-44 Blood monocytes/100 leukocytes 8 % 0-12 Automated blood eosinophils/100 leukocytes 2 % 0-10 Automated blood basophils/100 leukocytes 0 % 0-10 Blood neutrophils automated count (number/volume) 11.3 10*3 1.8-7.8 Blood lymphocytes automated count (number/volume) 3.3 10*3 1.0-4.0 Blood monocytes automated count (number/volume) 1.2 10*3 0.0-1.0 Automated eosinophil count 0.3 10*3/uL 0.0-0.3 Automated blood basophil count (count/volume) 0.0 10*3/uL 0.0-0.1 Blood type T Indirect antibody screen panel - 01/06/16 22:20 ABO+Rh group BP NRG Transfusion band number [id number] NRG Blood group antibody screen NEGATIVE NRG Blood manual differential performed detection - 01/06/16 22:20 Blood monocytes/100 leukocytes 3 % NRG Manual blood segmented neutrophils/100 leukocytes 76 % NRG Blood band neutrophils/100 leukocytes 1 % NRG Manual blood lymphocytes/100 leukocytes 19 % NRG Manual eosinophils/100 leukocytes in nose 1 % NRG Blood erythrocyte morphology finding identification NORMAL NRG Complete blood count (CBC) with automated white blood cell (WBC) differential - 01/08/16 06:52 Blood leukocytes automated count (number/volume) 12.2 10*3/uL 4.3-11.0 Blood erythrocytes automated count (number/volume) 4.30 10*6/uL 4.35-5.85 Venous blood hemoglobin measurement (mass/volume) 12.8 g/dL 11.5-16.0 Blood hematocrit (volume fraction) 38 % 35-52 Automated erythrocyte mean corpuscular volume 88 [foz_us] 80-99 Automated erythrocyte mean corpuscular hemoglobin (mass per erythrocyte) 30 pg 25-34 Automated erythrocyte mean corpuscular hemoglobin concentration measurement ( mass/volume) 34 g/dL 32-36 Automated erythrocyte distribution width ratio 14.4 % 10.0-14.5 Automated blood platelet count (count/volume) 152 10*3/uL 130-400 Automated blood platelet mean volume measurement 11.3 [foz_us] 7.4-10.4 Automated blood neutrophils/100 leukocytes 69 % 42-75 Automated blood lymphocytes/100 leukocytes 23 % 12-44 Blood monocytes/100 leukocytes 6 % 0-12 Automated blood eosinophils/100 leukocytes 2 % 0-10 Automated blood basophils/100 leukocytes 0 % 0-10 Blood neutrophils automated count (number/volume) 8.4 10*3 1.8-7.8 Blood lymphocytes automated count (number/volume) 2.8 10*3 1.0-4.0 Blood monocytes automated count (number/volume) 0.7 10*3 0.0-1.0 Automated eosinophil count 0.2 10*3/uL 0.0-0.3 Automated blood basophil count (count/volume) 0.0 10*3/uL 0.0-0.1 Encounters ACCT No. Visit Date/Time Discharge Status Pt. Type Provider Facility Loc./Unit Complaint [id number] 09/06/2013 11:23:00 09/06/2013 23:59:59 CLS Outpatient PANCHOKODAK VICTOR MANNY A [id number] 09/06/2013 11:23:00 09/06/2013 23:59:59 CLS Outpatient MANNY DELEON APRN [id number] 05/24/2013 10:02:00 05/24/2013 23:59:59 CLS Outpatient MANNY DELEON APRN [id number] 03/01/2013 15:42:00 03/01/2013 23:59:59 CLS Outpatient MANNY DELEON APRN [id number] 02/22/2013 10:03:00 02/22/2013 23:59:59 CLS Outpatient DARREN RICHARDS DO [id number] 12/23/2012 10:54:00 12/23/2012 23:59:59 CLS Outpatient ELADIO WARD APRN [id number] 12/23/2012 10:54:00 12/23/2012 23:59:59 CLS Outpatient ELADIO WARD APRN [id number] 07/14/2012 15:36:00 07/14/2012 23:59:59 CLS Outpatient [id number] 06/30/2012 14:27:00 06/30/2012 23:59:59 CLS Outpatient [id number] 06/24/2012 15:48:00 06/24/2012 23:59:59 CLS Outpatient DARREN RICHARDS DO [id number] 06/17/2012 11:43:00 06/17/2012 23:59:59 CLS Outpatient PANCHOLogan VICTOR MANNY A [id number] 06/16/2012 09:38:00 06/16/2012 23:59:59 CLS Outpatient [id number] 06/16/2012 09:38:00 06/16/2012 23:59:59 CLS Outpatient [id number] 06/03/2012 10:44:00 06/03/2012 23:59:59 CLS Outpatient [id number] 06/03/2012 10:44:00 06/03/2012 23:59:59 CLS Outpatient SUSIE DARREN GONZALEZ [id number] 05/19/2012 14:41:00 05/19/2012 23:59:59 CLS Outpatient [id number] 05/11/2012 16:57:00 05/11/2012 23:59:59 CLS Outpatient [id number] 04/28/2012 10:36:00 04/28/2012 23:59:59 CLS Outpatient DARREN RICHARDS DO [id number] 04/21/2012 15:17:00 04/21/2012 23:59:59 CLS Outpatient [id number] 03/09/2012 14:18:00 03/09/2012 23:59:59 CLS Outpatient [id number] 02/11/2012 09:51:00 02/11/2012 23:59:59 CLS Outpatient DARREN RICHARDS DO [id number] 11/24/2012 11:07:00 Document Registration [id number] 09/07/2012 12:08:00 Document Registration [id number] 07/29/2012 10:51:00 Document Registration [id number] 07/26/2012 08:04:00 Document Registration [id number] 07/21/2012 14:55:00 Document Registration [id number] 12/29/2015 13:05:00 Document Registration [id number] 01/21/2017 14:20:00 01/21/2017 23:59:59 CLS Outpatient RADHA FINNEGAN APRN [facility] [id number] 02/07/2017 13:19:00 02/07/2017 13:31:00 DIS Emergency CHILANGO KOCH APRN [facility] ER L SIDE TOOTH POSS INFECTION [id number] 01/06/2016 22:17:00 01/08/2016 12:43:00 DIS Inpatient DARREN RICHARDS DO [facility] LD LABOR [id number] 12/30/2015 18:49:00 12/30/2015 20:15:00 DIS Outpatient PETTY RILEY, JENNIFER Ford [facility] WSo PRESSURE/CONTRACTIONS [id number] 12/18/2015 14:00:00 12/18/2015 16:30:00 DIS Outpatient DARREN RICHARDS DO [facility] WSo COMPLAINTS OF CONTRACTIONS [id number] 12/04/2015 11:02:00 12/04/2015 14:25:00 DIS [facility]RUSSO 32 WKS PREG [id number] 11/05/2015 14:02:00 11/05/2015 23:59:59 CLS Outpatient DARREN RICHARDS DO [facility] RAD Z34.83 [id number] 09/04/2015 13:44:00 09/04/2015 23:59:59 CLS Outpatient DARREN RICHARDS DO [facility] RAD SURVEY [id number] 07/04/2015 11:28:00 07/04/2015 23:59:59 CLS Outpatient ABNER DUBON LOCATION ANALYST [facility] RAD DATING [id number] 04/22/2015 18:42:00 04/22/2015 21:10:00 DIS Emergency KUSH NIX [facility] ER DENTAL PAIN/POSS ABSCESS [id number] 09/26/2013 12:26:00 09/26/2013 14:33:00 DIS Emergency CHILANGO KOCH LOCATION ANALYST [facility] ER VAG BLEEDING [id number] 08/04/2012 18:26:00 08/06/2012 11:30:00 DIS Inpatient DARREN RICHARDS DO [facility] WS LABOR [id number] 04/22/2015 18:42:00 Document Registration [id number] 07/28/2012 15:29:00 Document Registration [id number] 07/01/2012 23:10:00 Document Registration [id number] 05/26/2012 14:36:00 Document Registration [id number] 04/19/2012 10:46:00 Document Registration [id number] 03/30/2012 09:59:00 Document Registration [id number] 02/12/2012 11:10:00 Document Registration [id number] 10/09/2011 21:00:00 Document Registration [id number] 09/18/2011 17:01:00 Document Registration [id number] 04/28/2011 14:57:00 Document Registration [id number] 12/24/2010 19:56:00 Document Registration [id number] 12/13/2009 21:50:00 Document Registration
--- NOTE | 2017-09-28 18:23 | ED General ---
General Chief Complaint: Dizziness/Syncope Stated Complaint: DIZZINESS;SORE THROAT Nursing Triage Note: PT STATES DIZZINESS FOR ABOUT 3 DAYS, TIRED, OUT OF BREATH, AND CONGESTION. Nursing Sepsis Screen: No Definite Risk Source of Information: Patient Exam Limitations: No Limitations History of Present Illness Date Seen by Provider: Sep 28, 2017 Time Seen by Provider: 18:21 Initial Comments to ER with complaints of a three-day history of dizziness, nasal congestion, sore throat. She denies fevers or chills. Timing/Duration: 1-2 Days Severity: Moderate Associated Systoms: Cough, Headaches; No Nausea/Vomiting Allergies and Home Medications Allergies Coded Allergies: No Known Drug Allergies (Unverified , 04/22/15) Home Medications Amoxicillin 500 Mg Capsule, 500 MG PO TID Prescribed by: CHILANGO KOCH on 02/07/17 1329 Hydrocodone/Acetaminophen 1 Each Tablet, 1 EACH PO Q6H PRN for BREAKTHROUGH PAIN Prescribed by: CHILANGO KOCH on 02/07/17 1329 Sulfamethoxazole/Trimethoprim 1 Each Tablet, 1 EACH PO BID Prescribed by: CHILANGO KOCH on 09/28/17 1908 Patient Home Medication List Home Medication List Reviewed: Yes Review of Systems Constitutional: see HPI EENTM: see HPI Respiratory: no symptoms reported Cardiovascular: no symptoms reported Genitourinary: no symptoms reported Musculoskeletal: no symptoms reported Skin: no symptoms reported Psychiatric/Neurological: No Symptoms Reported Hematologic/Lymphatic: No Symptoms Reported Immunological/Allergic: no symptoms reported Past Mgabhmv-Ceimce-Qyrfqs Hx Patient Social History Alcohol Use: Denies Use Recreational Drug Use: No Smoking Status: Former Smoker Type Used: Cigarettes Former Smoker, Quit: Jul 12, 2017 2nd Hand Smoke Exposure: Yes Recent Foreign Travel: No Contact w/Someone Who Travel: No Recent Infectious Disease Expo: No Recent Hopitalizations: No Immunizations Up To Date Tetanus Booster (TDap): Less than 5yrs Date of Influenza Vaccine: Jan 02, 2016 Seasonal Allergies Seasonal Allergies: No Past Medical History Surgeries: No Respiratory: No Cardiac: No Neurological: No : No Last Menstrual Period: Sep 27, 2017 Reproductive Disorders: Yes Female Reproductive Disorders: Menstrual Problems Sexually Transmitted Disease: No HIV/AIDS: No Genitourinary: No Gastrointestinal: No Musculoskeletal: No Endocrine: No HEENT: No Cancer: No Psychosocial: Yes Anxiety, Depression Integumentary: No Blood Disorders: No Adverse Reaction/Blood Tranf: No Family Medical History Patient reports no known family medical history. No Pertinent Family Hx Physical Exam Vital Signs Vital Signs - First Documented 09/28/17 17:48 Temp 95.9 Pulse 106 Resp 20 B/P (MAP) 131/94 (106) Pulse Ox 100 O2 Delivery Room Air Capillary Refill : Less Than 3 Seconds General Appearance: No Apparent Distress, WD/WN Eyes: Bilateral Eye Normal Inspection, Bilateral Eye PERRL, Bilateral Eye EOMI HEENT: PERRL/EOMI, TMs Normal, Other (mild pharyngeal erythema) Respiratory: No Accessory Muscle Use, No Respiratory Distress Cardiovascular: Regular Rate, Rhythm, Normal Peripheral Pulses Gastrointestinal: Normal Bowel Sounds, Non Tender, Soft Extremity: Normal Capillary Refill, Normal Inspection Neurologic/Psychiatric: Alert, Oriented x3, No Motor/Sensory Deficits Skin: Normal Color, Warm/Dry, Other (multiple sores to her arms and legs in addition to small areas of bruising 2 arms and legs) Progress/Results/Core Measures Suspected Sepsis Recent Fever Within 48 Hours: No Infection Criteria Present: None New/Unexplained Altered Menta: No Sepsis Screen: No Definite Risk SIRS Temperature:95.9 Pulse: 106 Respiratory Rate: 20 Laboratory Tests 09/28/17 19:07: White Blood Count 9.6 Blood Pressure 131 /94 Mean: 106 Laboratory Tests 09/28/17 19:07: Creatinine 0.65, Platelet Count 252, Total Bilirubin 0.6 Results/Orders Lab Results Laboratory Tests Test 09/28/17 18:20 09/28/17 19:07 Range/Units Urine Color YELLOW Urine Clarity SLIGHTLY CLOUDY Urine pH 6 5-9 Urine Specific [place] 1.015 L 1.016-1.022 Urine Protein NEGATIVE NEGATIVE Urine Glucose (UA) NEGATIVE NEGATIVE Urine Ketones NEGATIVE NEGATIVE Urine Nitrite NEGATIVE NEGATIVE Urine Bilirubin NEGATIVE NEGATIVE Urine Urobilinogen 4 H NORMAL MG/DL Urine Leukocyte Esterase 2+ H NEGATIVE Urine RBC (Auto) 4+ H NEGATIVE Urine RBC 5-10 H /HPF Urine WBC 5-10 H /HPF Urine Squamous Epithelial Cells 10-25 H /HPF Urine Crystals NONE /LPF Urine Bacteria FEW H /HPF Urine Casts NONE /LPF Urine Mucus NEGATIVE /LPF Urine Culture Indicated YES Urine Test NEGATIVE NEGATIVE Urine Opiates Screen NEGATIVE NEGATIVE Urine Oxycodone Screen NEGATIVE NEGATIVE Urine Methadone Screen NEGATIVE NEGATIVE Urine Propoxyphene Screen NEGATIVE NEGATIVE Urine Barbiturates Screen NEGATIVE NEGATIVE Ur Tricyclic Antidepressants Screen NEGATIVE NEGATIVE Urine Phencyclidine Screen NEGATIVE NEGATIVE Urine Amphetamines Screen POSITIVE H NEGATIVE Urine Methamphetamines Screen POSITIVE H NEGATIVE Urine Benzodiazepines Screen NEGATIVE NEGATIVE Urine Cocaine Screen NEGATIVE NEGATIVE Urine Cannabinoids Screen NEGATIVE NEGATIVE White Blood Count 9.6 4.3-11.0 10^3/uL Red Blood Count 4.39 4.35-5.85 10^6/uL Hemoglobin 13.6 11.5-16.0 G/DL Hematocrit 38 35-52 % Mean Corpuscular Volume 86 80-99 FL Mean Corpuscular Hemoglobin 31 25-34 PG Mean Corpuscular Hemoglobin Concent 36 32-36 G/DL Red Cell Distribution Width 13.2 10.0-14.5 % Platelet Count 252 130-400 10^3/uL Mean Platelet Volume 10.4 7.4-10.4 FL Neutrophils (%) (Auto) 61 42-75 % Lymphocytes (%) (Auto) 30 12-44 % Monocytes (%) (Auto) 6 0-12 % Eosinophils (%) (Auto) 3 0-10 % Basophils (%) (Auto) 0 0-10 % Neutrophils # (Auto) 5.8 1.8-7.8 X 10^3 Lymphocytes # (Auto) 2.9 1.0-4.0 X 10^3 Monocytes # (Auto) 0.6 0.0-1.0 X 10^3 Eosinophils # (Auto) 0.3 0.0-0.3 10^3/uL Basophils # (Auto) 0.0 0.0-0.1 10^3/uL Sodium Level 141 135-145 MMOL/L Potassium Level 4.0 3.6-5.0 MMOL/L Chloride Level 108 H 98-107 MMOL/L Carbon Dioxide Level 27 21-32 MMOL/L Anion Gap 6 5-14 MMOL/L Blood Urea Nitrogen 7 7-18 MG/DL Creatinine 0.65 0.60-1.30 MG/DL Estimat Glomerular Filtration Rate > 60 BUN/Creatinine Ratio 11 Glucose Level 83 70-105 MG/DL Calcium Level 8.7 8.5-10.1 MG/DL Total Bilirubin 0.6 0.1-1.0 MG/DL Aspartate Amino Transf (AST/SGOT) 19 5-34 U/L Alanine Aminotransferase (ALT/SGPT) 27 0-55 U/L Alkaline Phosphatase 85 40-136 U/L Total Protein 6.7 6.4-8.2 GM/DL Albumin 3.8 3.2-4.5 GM/DL My Orders Orders - CHILANGO KOCH APRN Cbc With Automated Diff (09/28/17 18:16) Comprehensive Metabolic Panel (09/28/17 18:16) Ua Culture If Indicated (09/28/17 18:16) Drug Screen Stat (Urine) (09/28/17 18:16) Hcg,Qualitative Urine (09/28/17 18:16) Urine Culture (09/28/17 18:20) Vital Signs/I&O 09/28/17 09/28/17 17:48 19:28 Temp 95.9 96.9 Pulse 106 88 Resp 20 20 B/P (MAP) 131/94 (106) 124/88 (106) Pulse Ox 100 100 O2 Delivery Room Air Room Air Capillary Refill : Less Than 3 Seconds Blood Pressure Mean: 106 Departure Impression Primary Impression: Dizziness Additional Impressions: Sore throat Urinary tract infection Disposition: 01 HOME, SELF-CARE Condition: Stable Departure-Patient Inst. Decision time for Depature: 19:07 Referrals: [facility] (PCP) Primary Care Physician DARREN RICHARDS DO (Family) Primary Care Physician Patient Instructions: NO INSTRUCTIONS GIVEN Add. Discharge Instructions: 1. Follow-up with your doctor next week 2. Tylenol and Motrin for pain 3. Antibiotics as directedAll discharge instructions reviewed with patient and/ or family. Voiced understanding. Scripts Sulfamethoxazole/Trimethoprim (Bactrim Ds Tablet) 1 Each Tablet 1 EACH PO BID, #6 TAB Prov: CHILANGO KOCH APRN 09/28/17 CHILANGO KOCH APRN Sep 28, 2017 18:23
[2017-09-28 18:29] LABS: BILIRUBIN,URINE NEGATIVE (NEGATIVE); CLARITY,URINE SLIGHTLY CLOUDY; COLOR,URINE YELLOW; GLUCOSE, URINE (UA) NEGATIVE (NEGATIVE); HCG,QUALITATIVE URINE NEGATIVE (NEGATIVE); KETONES,URINE NEGATIVE (NEGATIVE); LEUKOCYTE ESTERASE ,URINE 2+ (NEGATIVE); NITRITE,URINE NEGATIVE (NEGATIVE); PH,URINE 6 (5-9); PROTEIN,URINE NEGATIVE (NEGATIVE); UROBILINOGEN,URINE 4 MG/DL (NORMAL)
[2017-09-28 18:36] LABS: BACTERIA,URINE FEW /HPF
[2017-09-28 18:37] LABS: AMPHETAMINE SCREEN, URINE POSITIVE (NEGATIVE); BARBITURATE SCREEN URINE NEGATIVE (NEGATIVE); BENZODIAZEPINES SCREEN URINE NEGATIVE (NEGATIVE); CANNABINOID SCREEN, URINE NEGATIVE (NEGATIVE); COCAINE SCREEN URINE NEGATIVE (NEGATIVE); METHADONE STAT NEGATIVE (NEGATIVE); METHAMPHETAMINE SCREEN URINE S POSITIVE (NEGATIVE); OPIATE SCREEN URINE NEGATIVE (NEGATIVE); OXYCODONE STAT NEGATIVE (NEGATIVE); PROPOXYPHENE STAT NEGATIVE (NEGATIVE); TRICYCLIC ANTIDEPRESSANTS SCRE NEGATIVE (NEGATIVE)
[2017-09-28] MEDS ORDERED: SULF1TAB35 PO (19:08)
[2017-09-28 19:19] LABS: BASOPHILS % (AUTO) 0 % (0-10); EOSINOPHILS # (AUTO) 0.3 10^3/uL (0.0-0.3); EOSINOPHILS % (AUTO) 3 % (0-10); HEMATOCRIT 38 % (35-52); HEMOGLOBIN 13.6 G/DL (11.5-16.0); LYMPHOCYTES # (AUTO) 2.9 X 10^3 (1.0-4.0); LYMPHOCYTES % (AUTO) 30 % (12-44); MEAN CORPUSCULAR HEMOGLOBIN 31 PG (25-34); MEAN CORPUSCULAR HGB CONC 36 G/DL (32-36); MEAN CORPUSCULAR VOLUME 86 FL (80-99); MEAN PLATELET VOLUME 10.4 FL (7.4-10.4); MONOCYTES # (AUTO) 0.6 X 10^3 (0.0-1.0); MONOCYTES % (AUTO) 6 % (0-12); NEUTROPHILS # (AUTO) 5.8 X 10^3 (1.8-7.8); NEUTROPHILS % (AUTO) 61 % (42-75); PLATELET COUNT 252 10^3/uL (130-400); RED BLOOD COUNT 4.39 10^6/uL (4.35-5.85); RED CELL DISTRIBUTION WIDTH 13.2 % (10.0-14.5); WHITE BLOOD COUNT 9.6 10^3/uL (4.3-11.0)
[2017-09-28 19:28] VITALS: BP 124/88
[2017-09-28 19:43] LABS: ALANINE AMINOTRANSFERASE 27 U/L (0-55); ALBUMIN 3.8 GM/DL (3.2-4.5); ALKALINE PHOSPHATASE 85 U/L (40-136); BILIRUBIN,TOTAL 0.6 MG/DL (0.1-1.0); BUN/CREATININE RATIO 11; CALCIUM 8.7 MG/DL (8.5-10.1); CARBON DIOXIDE 27 MMOL/L (21-32); CHLORIDE 108 MMOL/L (98-107); CREATININE SERUM 0.65 MG/DL (0.60-1.30); GFR ESTIMATED > 60; GLUCOSE 83 MG/DL (70-105); SODIUM 141 MMOL/L (135-145); TOTAL PROTEIN 6.7 GM/DL (6.4-8.2)
== END 2017-09-28 19:24 | disposition home or self-care (01) ==
LOC: EDUNIT# 17:39 → ER 17:41
DX: N39.0 Urinary tract infection, site not specified (principal); J02.9 Acute pharyngitis, unspecified; R42 Dizziness and giddiness; F41.9 Anxiety disorder, unspecified; F32.9 Major depressive disorder, single episode, unspecified; Z87.891 Personal history of nicotine dependence
CPT/HCPCS: 36415; 80053; 80306; 81000; 84703; 85025; 87088; 99283

== ENCOUNTER 2017-10-23 21:55 | Emergency (ER) | payer MEDICAID ==
[~2017-10-23] VITALS: Ht 160 cm; Wt 77.1 kg
[~2017-10-23 21:55] MED LIST changes: +SULF1TAB35 PO
[2017-10-23 21:59] VITALS: BP 133/90
[2017-10-24] MEDS ORDERED: METR500T PO (09:04)
[2017-10-24] MEDS ORDERED: CIPR-225 PO (09:04)
[2017-10-24] MEDS ORDERED: NAPR-915 PO (09:04)
== END 2017-10-23 22:14 | disposition left against medical advice (07) ==
LOC: EDUNIT# 21:55 → ER 21:56
DX: R10.9 Unspecified abdominal pain (principal); R51 Headache; F41.9 Anxiety disorder, unspecified; F32.9 Major depressive disorder, single episode, unspecified
CPT/HCPCS: 99282

== ENCOUNTER 2017-10-24 06:23 | Emergency (ER) | payer MEDICAID ==
[~2017-10-24] VITALS: Ht 167.6 cm; Wt 68.0 kg
[2017-10-24 06:42] LABS: BASOPHILS % (AUTO) 0 % (0-10); EOSINOPHILS # (AUTO) 0.2 10^3/uL (0.0-0.3); EOSINOPHILS % (AUTO) 1 % (0-10); HEMATOCRIT 39 % (35-52); HEMOGLOBIN 14.1 G/DL (11.5-16.0); LYMPHOCYTES # (AUTO) 3.9 X 10^3 (1.0-4.0); LYMPHOCYTES % (AUTO) 24 % (12-44); MEAN CORPUSCULAR HEMOGLOBIN 31 PG (25-34); MEAN CORPUSCULAR HGB CONC 36 G/DL (32-36); MEAN CORPUSCULAR VOLUME 85 FL (80-99); MEAN PLATELET VOLUME 10.7 FL (7.4-10.4); MONOCYTES # (AUTO) 0.7 X 10^3 (0.0-1.0); MONOCYTES % (AUTO) 5 % (0-12); NEUTROPHILS # (AUTO) 11.4 X 10^3 (1.8-7.8); NEUTROPHILS % (AUTO) 71 % (42-75); PLATELET COUNT 313 10^3/uL (130-400); RED CELL DISTRIBUTION WIDTH 13.1 % (10.0-14.5); WHITE BLOOD COUNT 16.2 10^3/uL (4.3-11.0)
[2017-10-24] MEDS ORDERED: LACTATED RINGERS 1,000 ML IV ONE (06:44)
[2017-10-24] MEDS ORDERED: ONDANSETRON 4 MG/2 ML (SDV) Z0FRAN IVP ONE (06:45)
--- NOTE | 2017-10-24 06:49 | ED Abdominal Pain ---
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 NO CONTROL. ( INCIDENTALLY, PT FIRST STATED SHE HAS NEVER BEEN , THEN LATER STATES SHE HAS HAD 2 CHILDREN ) DOES NOT KNOW IF SHE HAS HAD VAGINAL DISCHARGE OR NOT, BUT DENIES PAIN WITH INTERCOURSE PT WAS IN ER LAST PM FOR THIS SAME PROBLEM, THEN LEFT AMA SHORTLY AFTER ARRIVING IN ER PCP: [facility] Allergies and Home Medications Allergies Coded Allergies: No Known Drug Allergies (Unverified , 04/22/15) Home Medications Amoxicillin 500 Mg Capsule, 500 MG PO TID Prescribed by: CHILANGO KOCH on 02/07/17 1329 Ciprofloxacin HCl 500 Mg Tablet, 500 MG PO BID Prescribed by: CRISTINA CLAROS on 10/24/17 0904 Hydrocodone/Acetaminophen 1 Each Tablet, 1 EACH PO Q6H PRN for BREAKTHROUGH PAIN Prescribed by: CHILANGO KOCH on 02/07/17 1329 Metronidazole 500 Mg Tablet, 500 MG PO QID Prescribed by: CRISTINA CLAROS on 10/24/17 0904 Naproxen 500 Mg Tablet, 500 MG PO BID Prescribed by: CRISTINA CLAROS on 10/24/17 0904 Sulfamethoxazole/Trimethoprim 1 Each Tablet, 1 EACH PO BID Prescribed by: CHILANGO KOCH on 09/28/17 1908 Patient Home Medication List Home Medication List Reviewed: Yes Review of Systems Constitutional: no symptoms reported Respiratory: No Symptoms Reported Cardiovascular: No Symptoms Reported Gastrointestinal: See HPI, Abdominal Pain, Nausea; Denies Vomiting Genitourinary: See HPI Musculoskeletal: no symptoms reported Skin: no symptoms reported Psychiatric/Neurological: No Symptoms Reported Endocrine: No Symptoms Reported Hematologic/Lymphatic: No Symptoms Reported Past Cqxfdxw-Wetfaq-Pxpmdl Hx Patient Social History Alcohol Use: Occasionally Uses (HEAVY AT TIMES) Recreational Drug Use: Yes (THC, + IV METH) Drug of Choice: THC, + IV METH Smoking Status: Current Everyday Smoker (1 PPD) Type Used: Cigarettes 2nd Hand Smoke Exposure: Yes Recent Foreign Travel: No Contact w/Someone Who Travel: No Recent Infectious Disease Expo: No Recent Hopitalizations: No Immunizations Up To Date Tetanus Booster (TDap): Less than 5yrs Date of Influenza Vaccine: Jan 02, 2016 Seasonal Allergies Seasonal Allergies: No Past Medical History Surgeries: No Respiratory: No Cardiac: No Neurological: No Last Menstrual Period: Oct 20, 2017 Hx : 2 Hx Para: 2 Hx Total # of Abortions (Sp): 0 Reproductive Disorders: Yes Female Reproductive Disorders: Menstrual Problems Sexually Transmitted Disease: No HIV/AIDS: No Genitourinary: No Gastrointestinal: No Musculoskeletal: No Endocrine: No HEENT: Yes (POOR DENTITION) Cancer: No Psychosocial: Yes Anxiety, Depression Integumentary: No Blood Disorders: No Adverse Reaction/Blood Tranf: No Family Medical History Patient reports no known family medical history. Physical Exam Vital Signs Vital Signs - First Documented 10/24/17 06:30 Temp 96.9 Pulse 89 Resp 20 B/P (MAP) 125/87 (100) Pulse Ox 96 O2 Delivery Room Air Capillary Refill : Less Than 3 Seconds Height/Weight/BMI Height: 5'6.00" Weight: 150lbs. 0.0oz. 68.522638ov; 39.0 BMI Method:Estimated General Appearance: WD/WN, other (DIRTY, MALODOROUS, VERY DRAMATIC, WAILING, SOBBING--NO TEARS, MOVES SLOWLY AND DRAMATICALLY) HEENT: other (POOR DENTITION) Respiratory: normal breath sounds, no respiratory distress, no accessory muscle use Cardiovascular: regular rate, rhythm, no murmur Gastrointestinal: normal bowel sounds, soft, no organomegaly, no pulsatile mass , guarding (DIFFUSE), tenderness (DIFFUSE TENDERNESS, MOST TENDER IN LLQ); No hernia, No mass Genital/Rectal: other (PROFUSE, FROTHY, YELLOW DISCHARGE, + CMT-MARKED, DIFFUSE UTERINE AND BILATERAL ADNEXAL TENDERNESS) Extremities: normal range of motion, non-tender, normal capillary refill, other (+ TRACK SALAZAR IN AC SPACES) Back: normal inspection, no CVA tenderness 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, no motor/sensory deficits, alert, oriented x 3 Skin: normal color, warm/dry, tattoos/piercings, other (+ TRACK SALAZAR IN AC SPACES) Progress/Results/Core Measures Results/Orders Lab Results Laboratory Tests Test 10/24/17 06:35 10/24/17 06:45 10/24/17 08:57 Range/Units White Blood Count 16.2 H 4.3-11.0 10^3/uL Red Blood Count 4.60 4.35-5.85 10^6/uL Hemoglobin 14.1 11.5-16.0 G/DL Hematocrit 39 35-52 % Mean Corpuscular Volume 85 80-99 FL Mean Corpuscular Hemoglobin 31 25-34 PG Mean Corpuscular Hemoglobin Concent 36 32-36 G/DL Red Cell Distribution Width 13.1 10.0-14.5 % Platelet Count 313 130-400 10^3/uL Mean Platelet Volume 10.7 H 7.4-10.4 FL Neutrophils (%) (Auto) 71 42-75 % Lymphocytes (%) (Auto) 24 12-44 % Monocytes (%) (Auto) 5 0-12 % Eosinophils (%) (Auto) 1 0-10 % Basophils (%) (Auto) 0 0-10 % Neutrophils # (Auto) 11.4 H 1.8-7.8 X 10^3 Lymphocytes # (Auto) 3.9 1.0-4.0 X 10^3 Monocytes # (Auto) 0.7 0.0-1.0 X 10^3 Eosinophils # (Auto) 0.2 0.0-0.3 10^3/uL Basophils # (Auto) 0.0 0.0-0.1 10^3/uL Neutrophils % (Manual) 68 % Lymphocytes % (Manual) 24 % Monocytes % (Manual) 6 % Eosinophils % (Manual) 2 % Blood Morphology Comment NORMAL Sodium Level 135 135-145 MMOL/L Potassium Level 4.5 3.6-5.0 MMOL/L Chloride Level 103 98-107 MMOL/L Carbon Dioxide Level 22 21-32 MMOL/L Anion Gap 10 5-14 MMOL/L Blood Urea Nitrogen 10 7-18 MG/DL Creatinine 0.85 0.60-1.30 MG/DL Estimat Glomerular Filtration Rate > 60 BUN/Creatinine Ratio 12 Glucose Level 124 H 70-105 MG/DL Calcium Level 9.3 8.5-10.1 MG/DL Total Bilirubin 2.9 H 0.1-1.0 MG/DL Aspartate Amino Transf (AST/SGOT) 21 5-34 U/L Alanine Aminotransferase (ALT/SGPT) 14 0-55 U/L Alkaline Phosphatase 94 40-136 U/L Total Protein 7.8 6.4-8.2 GM/DL Albumin 4.1 3.2-4.5 GM/DL Amylase Level 20 L 25-125 U/L Lipase 7 L 8-78 U/L Serum Alcohol < 10 <10 MG/DL Urine Color YELLOW Urine Clarity SLIGHTLY CLOUDY Urine pH 7 5-9 Urine Specific [place] 1.010 L 1.016-1.022 Urine Protein 1+ H NEGATIVE Urine Glucose (UA) NEGATIVE NEGATIVE Urine Ketones NEGATIVE NEGATIVE Urine Nitrite NEGATIVE NEGATIVE Urine Bilirubin NEGATIVE NEGATIVE Urine Urobilinogen 8 H NORMAL MG/DL Urine Leukocyte Esterase 3+ H NEGATIVE Urine RBC (Auto) NEGATIVE NEGATIVE Urine RBC NONE /HPF Urine WBC 25-50 H /HPF Urine Squamous Epithelial Cells 5-10 /HPF Urine Crystals NONE /LPF Urine Bacteria TRACE /HPF Urine Casts NONE /LPF Urine Mucus NEGATIVE /LPF Urine Trichomonas FEW H /HPF Urine Culture Indicated YES Urine Opiates Screen NEGATIVE NEGATIVE Urine Oxycodone Screen NEGATIVE NEGATIVE Urine Methadone Screen NEGATIVE NEGATIVE Urine Propoxyphene Screen NEGATIVE NEGATIVE Urine Barbiturates Screen NEGATIVE NEGATIVE Ur Tricyclic Antidepressants Screen NEGATIVE NEGATIVE Urine Phencyclidine Screen NEGATIVE NEGATIVE Urine Amphetamines Screen POSITIVE H NEGATIVE Urine Methamphetamines Screen POSITIVE H NEGATIVE Urine Benzodiazepines Screen NEGATIVE NEGATIVE Urine Cocaine Screen NEGATIVE NEGATIVE Urine Cannabinoids Screen NEGATIVE NEGATIVE My Orders Orders - CRISTINA CLAROS DO Saline Lock/Iv-Start (10/24/17 06:36) Amylase (10/24/17 06:36) Cbc With Automated Diff (10/24/17 06:36) Comprehensive Metabolic Panel (10/24/17 06:36) Lipase (10/24/17 06:36) Ua Culture If Indicated (10/24/17 06:36) Urine Bedside (10/24/17 06:36) Ondansetron Injection (Zofran Injectio (10/24/17 06:45) Saline Lock/Iv-Start (10/24/17 06:44) Lactated Ringers (Lr 1000 Ml Iv Solution (10/24/17 06:44) Manual Differential (10/24/17 06:35) Ketorolac Injection (Toradol Injection) (10/24/17 07:00) Urine Culture (10/24/17 06:45) Ct Abd/Pelv W (Appendicitis) (10/24/17 07:08) Acute Abd Series (10/24/17 07:08) Alcohol (10/24/17 07:46) Drug Screen Stat (Urine) (10/24/17 07:46) Iohexol Injection (Omnipaque 350 Mg/Ml 1 (10/24/17 08:15) Ns (Ivpb) (Sodium Chloride 0.9%) (10/24/17 08:15) Ceftriaxone Injection (Rocephin Injectio (10/24/17 09:00) Azithromycin Tablet (Zithromax Tablet) (10/24/17 09:00) Neisseria Gonorrhea Swab (10/24/17 08:59) Chlam Dna Probe (10/24/17 08:59) Genital Culture (10/24/17 08:59) Wet Prep (10/24/17 08:59) Christiane Prep (10/24/17 08:59) Medications Given in ED Current Medications Medications Dose Ordered Sig/Camila Route Start Time Stop Time Status Last Admin Dose Admin Iohexol 100 ml ONCE ONCE IV 10/24/17 08:15 10/24/17 08:16 DC 10/24/17 08:32 100 ML Ketorolac Tromethamine 30 mg ONCE ONCE IVP 10/24/17 07:00 10/24/17 07:01 DC 10/24/17 07:11 30 MG Lactated Ringer's 1,000 ml @ 0 mls/hr Q0M ONCE IV 10/24/17 06:44 10/24/17 06:45 DC 10/24/17 06:53 0 MLS/HR Ondansetron HCl 4 mg ONCE ONCE IVP 10/24/17 06:45 10/24/17 06:46 DC 10/24/17 06:53 4 MG Sodium Chloride 250 ml ONCE ONCE IV 10/24/17 08:15 10/24/17 08:16 DC 10/24/17 08:32 80 ML Vital Signs/I&O 10/24/17 06:30 Temp 96.9 Pulse 89 Resp 20 B/P (MAP) 125/87 (100) Pulse Ox 96 O2 Delivery Room Air Blood Pressure Mean: 100 Progress Progress Note : Progress Note PAIN IMPROVED, PATIENT CALMER AFTER TORADOL Diagnostic Imaging Comments CT ABDOMEN/PELVIS--FLUID FILLED LOOPS OF SMALL AND LARGE BOWEL-POSSIBLE ENTERITIS, GAS-FILLED GALLSTONES--NO EVIDENCE OF ACUTE CHOLECYSTITIS ACUTE ABDOMEN XRAYS--FLUID FILLED LOOPS OF SMALL AND LARGE BOWEL, OTHERWISE NO ACUTE PROCESS PER RADIOLOGIST REPORTS @ 0914 Reviewed: Reviewed by Me Departure Impression Primary Impression: PID (pelvic inflammatory disease) Additional Impressions: Trichomonal vaginitis Illicit drug use UTI (urinary tract infection) Disposition: HOME, SELF-CARE Condition: Improved Departure-Patient Inst. Referrals: [facility] (PCP) Primary Care Physician DARREN RICHARDS DO (Family) Primary Care Physician Patient Instructions: Drug Abuse Treatment, Pelvic Inflammatory Disease (DC), Trichomoniasis (DC), Urinary Tract Infection, Adult (DC) Add. Discharge Instructions: NO INTERCOURSE UNTIL YOU ARE RECHECKED AND CLEARED YOUR PARTNER NEEDS TREATED FOLLOW UP WITH [facility] NEXT WEEK FOR RECHECK/FURTHER CARE All discharge instructions reviewed with patient and/or family. Voiced understanding. Scripts Naproxen (Naproxen) 500 Mg Tablet 500 MG PO BID, #20 TAB Prov: CRISTINA CLAROS DO 10/24/17 Metronidazole (Flagyl) 500 Mg Tablet 500 MG PO QID for FOR INFECTION, #40 TAB Prov: CRISTINA CLAROS DO 10/24/17 Ciprofloxacin HCl (Cipro) 500 Mg Tablet 500 MG PO BID, #20 TAB Prov: CRISTINA CLAROS DO 10/24/17 CRISTINA CLAROS DO Oct 24, 2017 06:49
[2017-10-24 06:53] LABS: BILIRUBIN,URINE NEGATIVE (NEGATIVE); CLARITY,URINE SLIGHTLY CLOUDY; COLOR,URINE YELLOW; GLUCOSE, URINE (UA) NEGATIVE (NEGATIVE); KETONES,URINE NEGATIVE (NEGATIVE); LEUKOCYTE ESTERASE ,URINE 3+ (NEGATIVE); NITRITE,URINE NEGATIVE (NEGATIVE); PH,URINE 7 (5-9); PROTEIN,URINE 1+ (NEGATIVE); UROBILINOGEN,URINE 8 MG/DL (NORMAL)
[2017-10-24] MEDS ORDERED: KETOROLAC 30 MG/ML VIAL IVP ONE (07:00)
[2017-10-24 07:04] LABS: ALANINE AMINOTRANSFERASE 14 U/L (0-55); ALBUMIN 4.1 GM/DL (3.2-4.5); ALKALINE PHOSPHATASE 94 U/L (40-136); AMYLASE 20 U/L (25-125); BILIRUBIN,TOTAL 2.9 MG/DL (0.1-1.0); BUN/CREATININE RATIO 12; CALCIUM 9.3 MG/DL (8.5-10.1); CARBON DIOXIDE 22 MMOL/L (21-32); CHLORIDE 103 MMOL/L (98-107); CREATININE SERUM 0.85 MG/DL (0.60-1.30); GFR ESTIMATED > 60; GLUCOSE 124 MG/DL (70-105); LIPASE 7 U/L (8-78); POTASSIUM 4.5 MMOL/L (3.6-5.0); SODIUM 135 MMOL/L (135-145); TOTAL PROTEIN 7.8 GM/DL (6.4-8.2)
[2017-10-24 07:05] LABS: BACTERIA,URINE TRACE /HPF; TRICHOMONAS,URINE FEW /HPF; WBC,URINE 25-50 /HPF
[2017-10-24 07:24] LABS: EOSINOPHILS % (MANUAL) 2 %; LYMPHOCYTES % (MANUAL) 24 %; MONOCYTES % (MANUAL) 6 %; NEUTROPHILS % (MANUAL) 68 %; RBC MORPH NORMAL
[2017-10-24 08:05] LABS: AMPHETAMINE SCREEN, URINE POSITIVE (NEGATIVE); BARBITURATE SCREEN URINE NEGATIVE (NEGATIVE); BENZODIAZEPINES SCREEN URINE NEGATIVE (NEGATIVE); CANNABINOID SCREEN, URINE NEGATIVE (NEGATIVE); COCAINE SCREEN URINE NEGATIVE (NEGATIVE); METHADONE STAT NEGATIVE (NEGATIVE); METHAMPHETAMINE SCREEN URINE S POSITIVE (NEGATIVE); OPIATE SCREEN URINE NEGATIVE (NEGATIVE); OXYCODONE STAT NEGATIVE (NEGATIVE); PROPOXYPHENE STAT NEGATIVE (NEGATIVE); TRICYCLIC ANTIDEPRESSANTS SCRE NEGATIVE (NEGATIVE)
[2017-10-24] MEDS ORDERED: NS 250 ML (IVPB) BAG IV ONE (08:15)
[2017-10-24] MEDS ORDERED: IOHEXOL 350 MG/ML 100 ML (OMNIPAQUE 350) VIAL IV ONE (08:15)
[2017-10-24] MEDS ORDERED: cefTRIAXone INJECTION 1,000 MG in NS (IVPB) 50 ML IV ONE (09:00)
[2017-10-24] MEDS ORDERED: AZITHROMYCIN 250 MG TAB (ZITHROMAX) PO SCH (09:00)
--- NOTE | 2017-10-24 09:00 | Diagnostic Imaging Report ---
EXAMINATION: Abdominal series and PA chest. INDICATION: Abdominal pain. Correlation is made with CT examination the same day. FINDINGS: The lungs appear clear without focal infiltrate or evidence of an effusion. There is no pneumothorax. Heart size and mediastinal contours appear appropriate. Pulmonary vascularity appears within normal limits. No acute osseous abnormality demonstrated. IMPRESSION: The bowel gas pattern appears nonobstructed. There is gas demonstrated throughout the colon. There are no dilated loops of small bowel but the central bowel is relatively gasless compatible with fluid-filled loops of bowel. IMPRESSION: 1. No radiographic evidence of an acute cardio pulmonary process. 2. No evidence of bowel obstruction. Known fluid-filled loops of small bowel on CT are not apparent but there is no evidence to suggest small bowel dilation. Dictated by: Dictated on workstation # [id number]
[2017-10-24] MEDS ORDERED: NAPR-915 PO (09:04)
[2017-10-24] MEDS ORDERED: CIPR-225 PO (09:04)
[2017-10-24] MEDS ORDERED: METR500T PO (09:04)
--- NOTE | 2017-10-24 09:10 | Diagnostic Imaging Report ---
PROCEDURE: CT abdomen and pelvis with contrast, rule out appendicitis. TECHNIQUE: Multiple contiguous axial images were obtained through the abdomen and pelvis after the administration of intravenous contrast. INDICATION: Abdominal pain and nausea. Findings: The visualized lung bases appear clear without infiltrate or evidence of an effusion. The liver demonstrates no evidence of a focal intrahepatic abnormality. There is some gas filled stones present in the gallbladder. There is no evidence of biliary dilatation. Spleen demonstrates no focal abnormality. The pancreas appears unremarkable. There is no adrenal mass. Kidneys enhance normally and appear nonobstructed. Small and large bowel appear normal in caliber without abnormal dilation to suggest obstruction. There are however multiple fluid-filled loops of small bowel. There also appears to be liquid stool within the colon. There appears to be some small bowel mucosal hyperenhancement. Underlying enteritis would be the primary consideration. The appendix is normal. Urinary bladder, uterus and adnexa unremarkable. There is no free fluid. There is no free air or evidence of abscess. No pathologically enlarged lymph nodes. Aorta is normal in caliber. There is no acute or suspicious osseous abnormality. IMPRESSION: 1. Numerous fluid-filled loops of nondilated small bowel as well as liquid stool within the proximal segments of the colon. Findings suggest an underlying enteritis. There is no bowel obstruction. The appendix appears normal. There is no free fluid, free air or abscess. 2. Gas containing gallstones without evidence of biliary dilatation or gallbladder distention. Dictated by: Dictated on workstation # [id number]
[2017-10-24 09:52] VITALS: BP 125/78
== END 2017-10-24 09:52 | disposition home or self-care (01) ==
LOC: EDUNIT# 06:23 → ER 06:26
DX: N73.9 Female pelvic inflammatory disease, unspecified (principal); A59.01 Trichomonal vulvovaginitis; N39.0 Urinary tract infection, site not specified; F41.9 Anxiety disorder, unspecified; F15.10 Other stimulant abuse, uncomplicated; F32.9 Major depressive disorder, single episode, unspecified; F17.210 Nicotine dependence, cigarettes, uncomplicated
CPT/HCPCS: 36415; 74022; 74177; 80053; 80306; 80320; 81000; 82150; 83690; 84703; 85007; 85027; 87070; 87077; 87088; 87210; 87491; 87591; 96365; 96375

== ENCOUNTER 2017-11-26 12:09 | Emergency (ER) | payer MEDICAID ==
[~2017-11-26] VITALS: Ht 160 cm; Wt 77.1 kg
[~2017-11-26 12:09] MED LIST changes: +CIPR-225 PO; +METR500T PO; +NAPR-915 PO
--- NOTE | 2017-11-26 12:30 | ED Abdominal Pain ---
General Stated Complaint: ABD PAIN Source of Information: Patient Exam Limitations: No Limitations History of Present Illness Date Seen by Provider: Nov 26, 2017 Time Seen by Provider: 12:27 Initial Comments To ER with c/o suprapubic abdominal pain and vaginal discharge. She states that her pain today is similar to the pain that she had about a month ago when she was here for PID. She states that she was told she had gonorrhea. She did receive an injection during that visit of Rocephin +1g of azithromycin orally. She was then given prescription for Cipro and Flagyl in the outpatient setting. Timing/Duration: 1 Week, Getting Worse Severity/Quality: Moderate Location: Suprapubic Radiation: No Radiation Activities at Onset: None Associated Symptoms: No Fever/Chills, No Nausea/Vomiting Allergies and Home Medications Allergies Coded Allergies: No Known Drug Allergies (Unverified , 04/22/15) Home Medications Amoxicillin 500 Mg Capsule, 500 MG PO TID Prescribed by: CHILANGO KOCH on 02/07/17 1329 Ciprofloxacin HCl 500 Mg Tablet, 500 MG PO BID Prescribed by: CRISTINA CLAROS on 10/24/17 0904 Doxycycline Monohydrate 100 Mg Tablet, 100 MG PO BID Prescribed by: CHILANGO KOCH on 11/26/17 1305 Hydrocodone/Acetaminophen 1 Each Tablet, 1 EACH PO Q6H PRN for BREAKTHROUGH PAIN Prescribed by: CHILANGO KOCH on 02/07/17 1329 Metronidazole 500 Mg Tablet, 500 MG PO QID Prescribed by: CRISTINA CLAROS on 10/24/17 0904 Naproxen 500 Mg Tablet, 500 MG PO BID Prescribed by: CRISTINA CLAROS on 10/24/17 0904 Sulfamethoxazole/Trimethoprim 1 Each Tablet, 1 EACH PO BID Prescribed by: CHILANGO KOCH on 09/28/17 1908 Review of Systems Constitutional: see HPI; No chills, No fever EENTM: No Symptoms Reported Respiratory: No Symptoms Reported Cardiovascular: No Symptoms Reported Gastrointestinal: See HPI, Abdominal Pain; Denies Constipated, Denies Diarrhea , Denies Nausea, Denies Vomiting Genitourinary: See HPI, Discharge Musculoskeletal: no symptoms reported Skin: no symptoms reported Psychiatric/Neurological: No Symptoms Reported Endocrine: No Symptoms Reported Hematologic/Lymphatic: No Symptoms Reported Past Xybyfcn-Nedehb-Hjjqed Hx Patient Social History Drug of Choice: THC, + IV METH Type Used: Cigarettes 2nd Hand Smoke Exposure: Yes Recent Foreign Travel: No Contact w/Someone Who Travel: No Recent Hopitalizations: No Immunizations Up To Date Tetanus Booster (TDap): Less than 5yrs Date of Influenza Vaccine: Jan 02, 2016 Seasonal Allergies Seasonal Allergies: No Past Medical History Surgeries: No Respiratory: No Cardiac: No Neurological: No Reproductive Disorders: Yes Female Reproductive Disorders: Menstrual Problems Sexually Transmitted Disease: No HIV/AIDS: No Genitourinary: No Gastrointestinal: No Musculoskeletal: No Endocrine: No HEENT: Yes (POOR DENTITION) Cancer: No Psychosocial: Yes Anxiety, Depression Integumentary: No Blood Disorders: No Adverse Reaction/Blood Tranf: No Family Medical History Patient reports no known family medical history. Physical Exam Vital Signs Vital Signs - First Documented 11/26/17 12:16 Temp 98.4 Pulse 116 Resp 18 B/P (MAP) 116/79 (91) Pulse Ox 98 O2 Delivery Room Air Capillary Refill : Height/Weight/BMI Height: 5'6.00" Weight: 150lbs. 0.0oz. [id number]; 39.0 BMI Method:Estimated General Appearance: WD/WN, no apparent distress HEENT: PERRL/EOMI, normal ENT inspection Neck: non-tender, full range of motion Respiratory: normal breath sounds, no respiratory distress, no accessory muscle use Cardiovascular: regular rate, rhythm, no murmur Gastrointestinal: normal bowel sounds, soft, tenderness (suprapubic) Extremities: normal range of motion, non-tender Pelvic: normal external exam, discharge, tender w/ cervical motion (pelvic exam done with RN at the bedside. She does have purulent greenish yellow discharge from the cervix. She was tested positive for gonorrhea 3 weeks ago. There is cervical motion tenderness.) Neurologic/Psychiatric: alert, normal mood/affect, oriented x 3 Skin: normal color, warm/dry Progress/Results/Core Measures Results/Orders Lab Results Laboratory Tests Test 11/26/17 12:35 11/26/17 12:38 Range/Units White Blood Count 11.9 H 4.3-11.0 10^3/uL Red Blood Count 4.87 4.35-5.85 10^6/uL Hemoglobin 14.5 11.5-16.0 G/DL Hematocrit 42 35-52 % Mean Corpuscular Volume 86 80-99 FL Mean Corpuscular Hemoglobin 30 25-34 PG Mean Corpuscular Hemoglobin Concent 35 32-36 G/DL Red Cell Distribution Width 14.0 10.0-14.5 % Platelet Count 254 130-400 10^3/uL Mean Platelet Volume 10.7 H 7.4-10.4 FL Neutrophils (%) (Auto) 71 42-75 % Lymphocytes (%) (Auto) 21 12-44 % Monocytes (%) (Auto) 5 0-12 % Eosinophils (%) (Auto) 2 0-10 % Basophils (%) (Auto) 0 0-10 % Neutrophils # (Auto) 8.4 H 1.8-7.8 X 10^3 Lymphocytes # (Auto) 2.5 1.0-4.0 X 10^3 Monocytes # (Auto) 0.6 0.0-1.0 X 10^3 Eosinophils # (Auto) 0.3 0.0-0.3 10^3/uL Basophils # (Auto) 0.0 0.0-0.1 10^3/uL Sodium Level 137 135-145 MMOL/L Potassium Level 3.5 L 3.6-5.0 MMOL/L Chloride Level 104 98-107 MMOL/L Carbon Dioxide Level 24 21-32 MMOL/L Anion Gap 9 5-14 MMOL/L Blood Urea Nitrogen 7 7-18 MG/DL Creatinine 0.67 0.60-1.30 MG/DL Estimat Glomerular Filtration Rate > 60 BUN/Creatinine Ratio 10 Glucose Level 108 H 70-105 MG/DL Calcium Level 9.7 8.5-10.1 MG/DL Corrected Calcium 9.4 8.5-10.1 MG/DL Total Bilirubin 1.1 H 0.1-1.0 MG/DL Aspartate Amino Transf (AST/SGOT) 9 5-34 U/L Alanine Aminotransferase (ALT/SGPT) 13 0-55 U/L Alkaline Phosphatase 97 40-136 U/L Total Protein 8.1 6.4-8.2 GM/DL Albumin 4.4 3.2-4.5 GM/DL Serum Test, Qualitative NEGATIVE NEGATIVE Urine Color YELLOW Urine Clarity SLIGHTLY CLOUDY Urine pH 6 5-9 Urine Specific [place] 1.020 1.016-1.022 Urine Protein 1+ H NEGATIVE Urine Glucose (UA) NEGATIVE NEGATIVE Urine Ketones NEGATIVE NEGATIVE Urine Nitrite NEGATIVE NEGATIVE Urine Bilirubin NEGATIVE NEGATIVE Urine Urobilinogen 4 H NORMAL MG/DL Urine Leukocyte Esterase 3+ H NEGATIVE Urine RBC (Auto) 2+ H NEGATIVE Urine RBC 2-5 H /HPF Urine WBC >100 H /HPF Urine Squamous Epithelial Cells 10-25 H /HPF Urine Crystals NONE /LPF Urine Bacteria MODERATE H /HPF Urine Casts NONE /LPF Urine Mucus MODERATE H /LPF Urine Trichomonas FEW H /HPF Urine Culture Indicated YES My Orders Orders - CHILANGO KOCH INFORMATION TECHNOLOGY INSTRUCTOR Cbc With Automated Diff (11/26/17 12:23) Comprehensive Metabolic Panel (11/26/17 12:23) Hcg,Qualitative Serum (11/26/17 12:23) Wet Prep (11/26/17 12:23) Neisseria Gonorrhea Swab (11/26/17 12:23) Genital Culture (11/26/17 12:23) Ua Culture If Indicated (11/26/17 12:23) Chlamydia Trachomatis Swab (11/26/17 12:23) Ceftriaxone Injection (Rocephin Injectio (11/26/17 13:15) Azithromycin Tablet (Zithromax Tablet) (11/26/17 13:15) Urine Culture (11/26/17 12:38) Vital Signs/I&O 11/26/17 12:16 Temp 98.4 Pulse 116 Resp 18 B/P (MAP) 116/79 (91) Pulse Ox 98 O2 Delivery Room Air Departure Impression Primary Impression: PID (acute pelvic inflammatory disease) Additional Impression: Urinary tract infection Disposition: HOME, SELF-CARE Condition: Stable Departure-Patient Inst. Decision time for Depature: 13:04 Referrals: [facility]/ (PCP) Primary Care Physician DARREN RICHARDS DO (Family) Primary Care Physician Patient Instructions: Pelvic Inflammatory Disease (DC), Urinary Tract Infection , Adult (DC) Add. Discharge Instructions: 1. Follow-up with your doctor within 3 days for recheck 2. Return to ER for any worsening symptoms such as high fevers 3. Antibiotics as directed starting today. Scripts Metronidazole (Metronidazole) 500 Mg Tablet 2 GM PO ONCE, #4 TAB Prov: CHILANGO KOCH INFORMATION TECHNOLOGY INSTRUCTOR 11/26/17 Doxycycline Monohydrate (Doxycycline Monohydrate) 100 Mg Tablet 100 MG PO BID, #14 TAB Prov: CHILANGO KOCH APRN 11/26/17 CHILANGO KOCH APRN Nov 26, 2017 12:30
[2017-11-26 12:49] LABS: BASOPHILS % (AUTO) 0 % (0-10); EOSINOPHILS # (AUTO) 0.3 10^3/uL (0.0-0.3); EOSINOPHILS % (AUTO) 2 % (0-10); HEMATOCRIT 42 % (35-52); HEMOGLOBIN 14.5 G/DL (11.5-16.0); LYMPHOCYTES # (AUTO) 2.5 X 10^3 (1.0-4.0); LYMPHOCYTES % (AUTO) 21 % (12-44); MEAN CORPUSCULAR HEMOGLOBIN 30 PG (25-34); MEAN CORPUSCULAR HGB CONC 35 G/DL (32-36); MEAN CORPUSCULAR VOLUME 86 FL (80-99); MEAN PLATELET VOLUME 10.7 FL (7.4-10.4); MONOCYTES # (AUTO) 0.6 X 10^3 (0.0-1.0); MONOCYTES % (AUTO) 5 % (0-12); NEUTROPHILS # (AUTO) 8.4 X 10^3 (1.8-7.8); NEUTROPHILS % (AUTO) 71 % (42-75); PLATELET COUNT 254 10^3/uL (130-400); RED BLOOD COUNT 4.87 10^6/uL (4.35-5.85); WHITE BLOOD COUNT 11.9 10^3/uL (4.3-11.0)
[2017-11-26 12:49] LABS: BILIRUBIN,URINE NEGATIVE (NEGATIVE); CLARITY,URINE SLIGHTLY CLOUDY; COLOR,URINE YELLOW; GLUCOSE, URINE (UA) NEGATIVE (NEGATIVE); KETONES,URINE NEGATIVE (NEGATIVE); LEUKOCYTE ESTERASE ,URINE 3+ (NEGATIVE); NITRITE,URINE NEGATIVE (NEGATIVE); PH,URINE 6 (5-9); PROTEIN,URINE 1+ (NEGATIVE); UROBILINOGEN,URINE 4 MG/DL (NORMAL)
[2017-11-26 13:03] LABS: WBC,URINE >100 /HPF
[2017-11-26 13:04] LABS: BACTERIA,URINE MODERATE /HPF; TRICHOMONAS,URINE FEW /HPF
[2017-11-26 13:05] LABS: ALANINE AMINOTRANSFERASE 13 U/L (0-55); ALBUMIN 4.4 GM/DL (3.2-4.5); ALKALINE PHOSPHATASE 97 U/L (40-136); BILIRUBIN,TOTAL 1.1 MG/DL (0.1-1.0); BUN/CREATININE RATIO 10; CALCIUM 9.7 MG/DL (8.5-10.1); CARBON DIOXIDE 24 MMOL/L (21-32); CHLORIDE 104 MMOL/L (98-107); CREATININE SERUM 0.67 MG/DL (0.60-1.30); GFR ESTIMATED > 60; GLUCOSE 108 MG/DL (70-105); POTASSIUM 3.5 MMOL/L (3.6-5.0); SODIUM 137 MMOL/L (135-145); TOTAL PROTEIN 8.1 GM/DL (6.4-8.2)
[2017-11-26] MEDS ORDERED: DOXY100T19 PO (13:05)
[2017-11-26] MEDS ORDERED: METR500T21 PO (13:08)
[2017-11-26] MEDS ORDERED: AZITHROMYCIN 250 MG TAB (ZITHROMAX) PO SCH (13:15)
[2017-11-26] MEDS ORDERED: cefTRIAXone FOR IV USE 1,000 MG in NS (IVPB) 50 ML IV ONE (13:15)
[2017-11-26] MEDS ORDERED: ONDANSETRON 4 MG/2 ML (SDV) Z0FRAN ONE (13:20)
[2017-11-26] MEDS ORDERED: ONDANSETRON 4 MG/2 ML (SDV) Z0FRAN IVP ONE (13:30)
[2017-11-26 13:34] VITALS: BP 112/90
--- OUTSIDE RECORDS SUMMARY | 2017-11-27 11:16 | XMS REPORT | Continuity of Care Document ---
Author Author [facility]ly [facility] Address Unknown Phone Unavailable Allergies Active Description Code Type Severity Reaction Onset Reported/Identified Relationship to Patient Clinical Status Yes codeine Drug Allergy 07/15/2010 Yes codeine Drug Allergy N/A N/A 07/15/2010 Yes Depo-Provera 150 mg/mL Suspension Drug Allergy N/A N/A 05/24/2013 Yes codeine [id number] Drug Allergy Moderate N/A 09/26/2013 Yes No Known Drug Allergies [id number] Drug Allergy Unknown N/A 04/22/2015 Medications There [...] And Unspecified Sites Without Infection 02/09/2008 JASMIN DELEON APRNIDI A 782.1 Rash 02/09/2008 JASMIN DELEON [...] And Unspecified Sites Without Infection 02/09/2008 PANCHO COCONUT BOILER, MANNY A 782.1 Rash 02/09/2008 PANCHO COCONUT BOILER, MANNY A 919.4 Insect Bite Nonvenomous Of Other Multiple And Unspecified Sites Without Infection 02/09/2008 PANCHO COCONUT BOILER, MANNY A 782.1 Rash 02/09/2008 APNCHO COCONUT BOILER, MANNY A 919.4 Insect Bite Nonvenomous Of Other Multiple And Unspecified Sites Without Infection 02/09/2008 PANCHO COCONUT BOILER, MANNY A 782.1 Rash 02/09/2008 PANCHO COCONUT BOILER, MANNY A 919.4 Insect Bite Nonvenomous Of Other Multiple And Unspecified Sites Without Infection 02/09/2008 PANCHO COCONUT BOILER, MANNY A 782.1 Rash 02/09/2008 PANCHO COCONUT BOILER, MANNY A 919.4 Insect Bite Nonvenomous Of Other Multiple And Unspecified Sites Without Infection 07/10/2008 DARREN RICHARDS DO 719.47 Ankle Joint Pain 07/10/2008 719.47 Ankle Joint Pain 07/10/2008 719.47 Ankle Joint Pain 07/10/2008 DARREN RICAHRDS DO 719.47 Ankle Joint Pain 07/10/2008 719.47 [...] 845.03 TIBIOFIBULAR (LIGAMENT) SPRAIN DISTAL 09/08/2008 PANCHO COCONUT BOILER, MANNY A 845.03 TIBIOFIBULAR (LIGAMENT) SPRAIN DISTAL 09/08/2008 PANCHO COCONUT BOILER, MANNY A 845.03 TIBIOFIBULAR (LIGAMENT) SPRAIN DISTAL 09/08/2008 PANCHO COCONUT BOILER, MANNY A 845.03 TIBIOFIBULAR (LIGAMENT) SPRAIN DISTAL 09/08/2008 PANCHO COCONUT BOILER, MANNY A 845.03 TIBIOFIBULAR (LIGAMENT) SPRAIN DISTAL [...] Establ. Patient Checkup Adolescent 12-17 11/29/2008 PANCHO COCONUT BOILER, MANNY A V03.89 MENINGOCOCCAL, OTHER SPECIFIED SINGLE BACTERIAL DISEASE 11/29/2008 PANCHO COCONUT BOILER, MANNY A V05.3 HEPATITIS VIRAL/ALL 11/29/2008 PANCHO COCONUT BOILER, MANNY A V06.5 DT, TETANUS-DIPHTHERIA [Td] ,TDAP 11/29/2008 PANCHO COCONUT BOILER, MANYN A V20.2 Preventive Medicine Establ. Patient Checkup [...] Medicine Establ. Patient Checkup Adolescent 12-17 11/29/2008 ELADOI WARD APRN V03.89 MENINGOCOCCAL, OTHER SPECIFIED SINGLE [...] OTHER SPECIFIED SINGLE BACTERIAL DISEASE 11/29/2008 PANCHO VICTOR, MANNY A V05.3 HEPATITIS VIRAL/ALL 11/29/2008 [...] Establ. Patient Checkup Adolescent 12-17 12/13/2008 DARREN RICHARDS DO 079.99 VIRAL SYNDROME 12/13/2008 079.99 VIRAL [...] RESPIRATORY INFECTIONS OF UNSPECIFIED SITE 03/19/2009 PANCHO COCONUT BOILER, MANNY A 465.9 ACUTE UPPER RESPIRATORY INFECTIONS [...] RICHARDS DO 486 Pneumonia Unspecified 05/16/2009 PANCHO COCONUT BOILER, MANNY A 486 Pneumonia Unspecified 05/16/2009 PANCHO COCONUT BOILER, MANNY A 486 Pneumonia Unspecified 05/16/2009 PANCHO COCONUT BOILER, MANNY A 486 Pneumonia Unspecified 05/16/2009 PANCHO COCONUT BOILER, MANNY A 486 Pneumonia Unspecified 06/21/2009 DARREN [...] 06/21/2009 ELADIO WARD APRN 133.0 SCABIES 06/21/2009 DARREN RICHARDS DO 133.0 SCABIES 06/21/2009 PANCHO COCONUT BOILER, MANNY A 133.0 SCABIES 06/21/2009 PANCHO COCONUT BOILER, MANNY A 133.0 SCABIES 06/21/2009 PANCHO COCONUT BOILER, MANNY A 133.0 SCABIES 06/21/2009 PANCHO COCONUT BOILER, MANNY A 133.0 SCABIES 06/22/2009 DARREN RICHARDS [...] Pain, Localized In The Wrist 06/22/2009 PANCHO COCONUT BOILER, MANNY A 719.43 Joint Pain, Localized In The Wrist 06/22/2009 PANCHO COCONUT BOILER, MANNY A 719.43 Joint Pain, Localized In The Wrist 06/22/2009 PANCHO COCONUT BOILER, MANNY A 719.43 Joint Pain, Localized In [...] Acute Without Spontaneous Rupture Eardrum 07/06/2009 PANCHO COCONUT BOILER, MANNY A 382.00 Otitis Media Acute Without Spontaneous Rupture Eardrum 07/06/2009 PANCHO COCONUT BOILER, MANNY A 382.00 Otitis Media Acute Without Spontaneous Rupture Eardrum 07/06/2009 PANCHO COCONUT BOILER, MANNY A 382.00 Otitis Media Acute Without Spontaneous Rupture Eardrum 07/06/2009 PANCHO COCONUT BOILER, MANNY A 382.00 Otitis Media Acute Without Spontaneous Rupture Eardrum 07/17/2009 DARREN RICHARDS DO V05.4 VARICELLA, CHICKENPOX 07/17/2009 V05.4 VARICELLA, CHICKENPOX 07/17/2009 V05.4 VARICELLA, CHICKENPOX 07/17/2009 DARREN RICHARDS DO V05.4 VARICELLA, CHICKENPOX 07/17/2009 V05.4 VARICELLA, CHICKENPOX 07/17/2009 V05.4 VARICELLA, CHICKENPOX 07/17/2009 V05.4 VARICELLA, CHICKENPOX 07/17/2009 V05.4 VARICELLA, CHICKENPOX 07/17/2009 [facility], MANNY A V05.4 VARICELLA, CHICKENPOX 07/17/2009 [...] DARREN RICHARDS DO V05.4 VARICELLA, CHICKENPOX 07/17/2009 [facility] BOILER, MANNY A V05.4 VARICELLA, CHICKENPOX 07/17/2009 PANCHO [...] DO 780.79 Feelings Of Weakness 07/23/2009 PANCHO COCONUT BOILER, MANNY A 780.4 Dizziness 07/23/2009 PANCHO COCONUT BOILER, MANNY A 780.79 Feelings Of Weakness 07/23/2009 PANCHO COCONUT BOILER, MANNY A 780.4 Dizziness 07/23/2009 PANCHO COCONUT BOILER, MANNY A 780.79 Feelings Of Weakness 07/23/2009 PANCHO COCONUT BOILER, MANNY A 780.4 Dizziness 07/23/2009 PANCHO COCONUT BOILER, MANNY A 780.79 Feelings Of Weakness 07/23/2009 PANCHO COCONUT BOILER, MANNY A 780.4 Dizziness 07/23/2009 PANCHO COCONUT BOILER, MANNY A 780.79 Feelings Of Weakness 07/27/2009 [...] DO, DARREN K 251.1 HYPERINSULINISM 07/27/2009 PANCHO COCONUT BOILER, MANNY A 251.1 HYPERINSULINISM 07/27/2009 PANCHO COCONUT BOILER, MANNY A 251.1 HYPERINSULINISM 07/27/2009 PANCHO COCONUT BOILER, MANNY A 251.1 HYPERINSULINISM 07/27/2009 PANCHO COCONUT BOILER, MANNY A 251.1 HYPERINSULINISM 12/11/2009 RICHARDS DO, DARREN K 787.91 Diarrhea [...] 789.00 Abdominal Pain Unspecified Site 12/11/2009 PANCHO COCONUT BOILER, MANNY A 787.91 Diarrhea 12/11/2009 PANCHO COCONUT BOILER, MANNY A 789.00 Abdominal Pain Unspecified Site 12/11/2009 PANCHO COCONUT BOILER, MANNY A 787.91 Diarrhea 12/11/2009 PANCHO COCONUT BOILER, MANNY A 789.00 Abdominal Pain Unspecified Site 12/11/2009 PANCHO COCONUT BOILER, MANNY A 787.91 Diarrhea 12/11/2009 PANCHO COCONUT BOILER, MANNY A 789.00 Abdominal Pain Unspecified Site 12/11/2009 PANCHO COCONUT BOILER, MANNY A 787.91 Diarrhea 12/11/2009 PANCHO COCONUT BOILER, MANNY A 789.00 Abdominal Pain Unspecified Site [...] DO K 461.9 Sinusitis Acute 01/31/2010 PANCHO COCONUT BOILER, MANNY A 461.9 Sinusitis Acute 01/31/2010 PANCHO COCONUT BOILER, MANNY A 461.9 Sinusitis Acute 01/31/2010 PANCHO COCONUT BOILER, MANNY A 461.9 Sinusitis Acute 01/31/2010 PANCHO COCONUT BOILER, MANNY A 461.9 Sinusitis Acute 02/20/2010 DARREN RICHARDS DO K 692.9 DERMATITIS CONTACT UNSPECIFIED 02/20/2010 692.9 DERMATITIS CONTACT UNSPECIFIED 02/20/2010 692.9 DERMATITIS CONTACT UNSPECIFIED 02/20/2010 DARREN RICHARDS DO K 692.9 DERMATITIS CONTACT UNSPECIFIED 02/20/2010 692.9 DERMATITIS CONTACT UNSPECIFIED 02/20/2010 692.9 DERMATITIS CONTACT UNSPECIFIED 02/20/2010 692.9 DERMATITIS CONTACT UNSPECIFIED 02/20/2010 692.9 DERMATITIS CONTACT UNSPECIFIED 02/20/2010 PANCHO COCONUT BOILER, MANNY A 692.9 DERMATITIS CONTACT UNSPECIFIED 02/20/2010 [...] 02/20/2010 692.9 DERMATITIS CONTACT UNSPECIFIED 02/20/2010 GARTON COCONUT BOILERELADIO Ford D 692.9 DERMATITIS CONTACT UNSPECIFIED 02/20/2010 FAVIOTON LEANN VICTORZABETH D 692.9 DERMATITIS CONTACT UNSPECIFIED 02/20/2010 DARREN RICHARDS DO 692.9 DERMATITIS CONTACT UNSPECIFIED 02/20/2010 PANCHO COCONUT BOILER, MANNY A 692.9 DERMATITIS CONTACT UNSPECIFIED 02/20/2010 PANCHO COCONUT BOILER, MANNY A 692.9 DERMATITIS CONTACT UNSPECIFIED 02/20/2010 PANCHO COCONUT BOILER, MANNY A 692.9 DERMATITIS CONTACT UNSPECIFIED 02/20/2010 PANCHO COCONUT BOILER, MANNY A 692.9 DERMATITIS CONTACT UNSPECIFIED 02/28/2010 [...] Frequency 06/15/2010 788.41 Urinary Frequency 06/15/2010 PANCHO COCONUT BOILER, MANNY A 788.41 Urinary Frequency 06/15/2010 RICHARDS [...] APRN, MANNY A 564.00 Constipation 07/15/2010 PANCHO COCONUT BOILER, MANNY A 564.00 Constipation 07/15/2010 PANCHO VALENTE, [...] 11/25/2010 V72.41 TEST NEGATIVE RESULT 11/25/2010 PANCHO COCONUT BOILERMANNY Ford A V72.41 TEST NEGATIVE RESULT 11/25/2010 [...] A V72.41 TEST NEGATIVE RESULT 11/25/2010 PANCHO COCONUT BOILERMANNY Ford A V72.41 TEST NEGATIVE RESULT 11/25/2010 PANCHO COCONUT BOILERMANNY Ford A V72.41 TEST NEGATIVE RESULT 11/25/2010 [...] RICHARDS DO V65.45 Std Counseling 02/21/2011 PANCHO COCONUT BOILER, MANNY A V25.01 Contraception - Oral Contraception 02/21/2011 PANCHO COCONUT BOILER, MANNY A V65.45 Std Counseling 02/21/2011 PANCHO COCONUT BOILER, MANNY A V25.01 Contraception - Oral Contraception 02/21/2011 PANCHO COCONUT BOILER, MANNY A V65.45 Std Counseling 02/21/2011 PANCHO COCONUT BOILER, MANNY A V25.01 Contraception - Oral Contraception 02/21/2011 PANCHO COCONUT BOILER, MANNY A V65.45 Std Counseling 02/21/2011 PANCHO COCONUT BOILER, MANNY A V25.01 Contraception - Oral Contraception [...] SUSIE GONZALEZDARREN K 788.1 Dysuria 05/28/2011 PANCHO COCONUT BOILER, MANNY A 599.0 Urinary Tract Infection 05/28/2011 PANCHO COCONUT BOILER, MANNY A 788.1 Dysuria 05/28/2011 PANCHO COCONUT BOILER, MANNY A 599.0 Urinary Tract Infection 05/28/2011 PANCHO COCONUT BOILER, MANNY A 788.1 Dysuria 05/28/2011 PANCHO COCONUT BOILER, MANNY A 599.0 Urinary Tract Infection 05/28/2011 PANCHO COCONUT BOILER, MANNY A 788.1 Dysuria 05/28/2011 PANCHO COCONUT BOILER, MANNY A 599.0 Urinary Tract Infection 05/28/2011 PANCHO COCONUT BOILER, MANNY A 788.1 Dysuria 09/18/2011 Ot 724.2 [...] 01/12/2012 V22.0 , NORMAL FIRST 01/12/2012 PANCHO COCONUT BOILER, MANNY A V22.0 , NORMAL FIRST 01/12/2012 [...] 01/12/2012 V22.0 , NORMAL FIRST 01/12/2012 GARTON COCONUT BOILER, ELADIO D V22.0 , NORMAL FIRST 01/12/2012 GARTON COCONUT BOILER, ELADIO D V22.0 , NORMAL FIRST 01/12/2012 SUSIE DODARREN K V22.0 , NORMAL FIRST 01/12/2012 PANCHO COCONUT BOILER, MANNY A V22.0 , NORMAL FIRST 01/12/2012 PANCHO COCONUT BOILER, MANNY A V22.0 , NORMAL FIRST 01/12/2012 PANCHO COCONUT BOILER, MANNY A V22.0 , NORMAL FIRST 01/12/2012 PANCHO COCONUT BOILER, MANNY A V22.0 , NORMAL FIRST 02/02/2012 RICHARDS DODARREN V04.81 FLU SHOT 02/02/2012 V04.81 FLU SHOT 02/02/2012 V04.81 FLU SHOT 02/02/2012 RICHARDS DODARREN V04.81 FLU SHOT 02/02/2012 V04.81 FLU SHOT 02/02/2012 V04.81 FLU SHOT 02/02/2012 V04.81 FLU SHOT 02/02/2012 V04.81 FLU SHOT 02/02/2012 PANCHO COCONUT BOILER, MANNY A V04.81 FLU SHOT 02/02/2012 DARREN [...] RICHARDS DO V04.81 FLU SHOT 02/02/2012 PANCHO COCONUT BOILER, MANNY A V04.81 FLU SHOT 02/02/2012 PANCHOKODAK RAYN, MANNY A V04.81 FLU SHOT 02/02/2012 PANCHOKODAK RAYN, MANNY A V04.81 FLU SHOT 02/02/2012 PANCHO COCONUT BOILER, MANNY A V04.81 FLU SHOT 02/11/2012 DARREN [...] Lety 465.9 Upper Respiratory Infection 02/11/2012 PANCHO COCONUT BOILER, MANNY A 465.9 Upper Respiratory Infection 02/11/2012 PANCHO COCONUT BOILER, MANNY A 465.9 Upper Respiratory Infection 02/11/2012 PANCHO COCONUT BOILER, MANNY A 465.9 Upper Respiratory Infection 02/11/2012 PANCHO COCONUT BOILER, MANNY A 465.9 Upper Respiratory Infection 04/21/2012 [...] SIZE DATE DISCREPANCY - LGA 04/21/2012 PANCHO COCONUT BOILER, MANNY A 649.60 UTERINE SIZE DATE DISCREPANCY - LGA 04/21/2012 PANCHO COCONUT BOILER, MANNY A 649.60 UTERINE SIZE DATE DISCREPANCY - LGA 04/21/2012 PANCHO COCONUT BOILER, MANNY A 649.60 UTERINE SIZE DATE DISCREPANCY [...] 789.09 Abdominal Pain Other Specified Site 04/28/2012 DARERN RICHARDS DO 789.09 Abdominal Pain Other Specified [...] Abdominal Pain Other Specified Site 04/28/2012 PANCHO COCONUT BOILER, MANNY A 789.09 Abdominal Pain Other Specified [...] MANNY A 466.0 Bronchitis, Acute 05/11/2012 PANCHO COCONUT BOILER, MANNY A 466.0 Bronchitis, Acute 05/11/2012 PANCHO COCONUT BOILER, MANNY A 466.0 Bronchitis, Acute 05/11/2012 PANCHO COCONUT BOILER, MANNY A 466.0 Bronchitis, Acute 05/19/2012 V06.1 [...] (CURRENT) USE OF OTHER MEDICATIONS 11/24/2012 PANCHO COCONUT BOILER, MANNY A V25.9 CONTRACEPTION MANAGEMENT 11/24/2012 PANCHO COCONUT BOILER, MANNY A V58.69 LONG-TERM (CURRENT) USE OF OTHER MEDICATIONS 11/24/2012 PANCHO COCONUT BOILER, MANNY A V25.9 CONTRACEPTION MANAGEMENT 11/24/2012 PANCHO COCONUT BOILER, MANNY A V58.69 LONG-TERM (CURRENT) USE OF OTHER MEDICATIONS 11/24/2012 PANCHO VALENTE, MANNY A V25.9 CONTRACEPTION MANAGEMENT 11/24/2012 PANCHO APRN, MANNY A V58.69 LONG-TERM (CURRENT) USE OF OTHER MEDICATIONS 11/24/2012 PANCHO COCONUT BOILER, MANNY A V25.9 CONTRACEPTION MANAGEMENT 11/24/2012 PANCHO APRN, MANNY A V58.69 LONG-TERM (CURRENT) USE OF OTHER MEDICATIONS 12/23/2012 ELADIO WARD APRN 300.00 AN ANXIETY UNSPEC 12/23/2012 ELADIO WARD APRN 305.70 AMPHETA ABUSE 12/23/2012 ELADIO AWRD APRN 300.00 AN ANXIETY UNSPEC 12/23/2012 ELADIO [...] MANNY A 305.70 AMPHETA ABUSE 12/23/2012 PANCHO COCONUT BOILER, MANNY A 300.00 AN ANXIETY UNSPEC 12/23/2012 PANCHO COCONUT BOILER, MANNY A 305.70 AMPHETA ABUSE 12/23/2012 PANCHO COCONUT BOILER, MANNY A 300.00 AN ANXIETY UNSPEC 12/23/2012 PANCHO COCONUT BOILER, MANNY A 305.70 AMPHETA ABUSE 03/01/2013 PANCHO COCONUT BOILER, MANNY A 708.0 ALLERGIC URTICARIA 03/01/2013 PANCHO COCONUT BOILER, MANNY A 708.0 ALLERGIC URTICARIA 03/01/2013 PANCHO COCONUT BOILER, MANNY A 708.0 ALLERGIC URTICARIA 03/01/2013 PANCHO COCONUT BOILER, MANNY A 708.0 ALLERGIC URTICARIA 09/06/2013 PANCHO COCONUT BOILER, MANNY A 626.2 EXCESSIVE OR FREQUENT MENSTRUATION 09/06/2013 PANCHO COCONUT BOILER, MANNY A 780.79 OTHER MALAISE AND FATIGUE 09/06/2013 PANCHO COCONUT BOILER, MANNY A 626.2 EXCESSIVE OR FREQUENT MENSTRUATION 09/06/2013 PANCHO COCONUT BOILER, MANNY A 780.79 OTHER MALAISE AND FATIGUE 09/26/2013 CHILANGO KOCH COCONUT BOILER Ot 620.2 OVARIAN CYST NEC/NOS 09/26/2013 CHILANGO KOCH COCONUT BOILER Ot 626.8 MENSTRUAL DISORDER NEC 04/22/2015 Ot 649.63 04/22/2015 Ot V22.0 04/22/2015 Ot V28.81 04/22/2015 Ot 656.63 04/22/2015 Ot 656.63 04/22/2015 KUSH NIX Ot K04.7 PERIAPICAL ABSCESS WITHOUT SINUS 04/22/2015 KUSH NIX Ot K08.409 PARTIAL LOSS OF TEETH, UNSPECIFIED CAUSE 07/04/2015 Ot 649.63 07/04/2015 Ot V22.0 07/04/2015 Ot V28.81 07/04/2015 Ot 656.63 07/04/2015 Ot 656.63 07/05/2015 ABNER DUBON COCONUT BOILER Ot Z34.81 07/19/2015 ABNER DUBON COCONUT BOILER Ot Z34.81 09/04/2015 DARREN RICHARDS DO Ot [...] K02.9 DENTAL CARIES, UNSPECIFIED 02/07/2017 CHILANGO KOCH APRN Ot K08.89 OTHER SPECIFIED DISORDERS OF TEETH [...] Z34.83 ENCOUNTER FOR SUPRVSN OF NORMAL PREGNANC 09/28/2017 Ot V28.81 ENCOUNTER FOR ANATOMIC SURVEY 09/28/2017 Ot 656.63 EXCESS FET GRTH-ANTEPART 09/28/2017 Ot 656.63 EXCESS FET GRTH-ANTEPART 09/28/2017 ABNER DUBON APRN Ot Z34.81 ENCOUNTER FOR SUPRVSN OF NORMAL PREGNANC 09/28/2017 DARREN RICHARDS DO Ot Z34.82 ENCOUNTER FOR SUPRVSN OF NORMAL PREGNANC 09/28/2017 RICHARDS DARREN GONZALEZ Ot Z36 ENCOUNTER FOR SCREENING OF MOT 09/28/2017 DARREN RICHARDS DO Ot Z34.83 ENCOUNTER FOR SUPRVSN OF NORMAL PREGNANC 09/28/2017 CHILANGO KOCH APRN Ot F32.9 MAJOR DEPRESSIVE DISORDER, SINGLE EPISOD 09/28/2017 CHILANGO KOCH C[employer]ONUT BOILER Ot F41.9 ANXIETY DISORDER, UNSPECIFIED 09/28/2017 CHILANGO KOCH APRN Ot J02.9 ACUTE PHARYNGITIS, UNSPECIFIED 09/28/2017 CHILANGO KOCH APRN Ot N39.0 URINARY TRACT INFECTION, SITE NOT SPECIF 09/28/2017 CHILANGO KOCH COCONUT BOILER Ot R42 DIZZINESS AND GIDDINESS 09/28/2017 CHILANGO KOCH COCONUT BOILER Ot Z87.891 PERSONAL HISTORY OF NICOTINE DEPENDENCE 09/30/2017 CHILANGO KOCH APRN Ot F32.9 MAJOR DEPRESSIVE DISORDER, SINGLE EPISOD 09/30/2017 CHILANGO KOCH COCONUT BOILER Ot F41.9 ANXIETY DISORDER, UNSPECIFIED 09/30/2017 CHILANGO KOCH COCONUT BOILER Ot J02.9 ACUTE PHARYNGITIS, UNSPECIFIED 09/30/2017 CHILANGO KOCH COCONUT BOILER Ot N39.0 URINARY TRACT INFECTION, SITE NOT SPECIF 09/30/2017 CHILANGO KOCH COCONUT BOILER Ot R42 DIZZINESS AND GIDDINESS 09/30/2017 CHILANGO KOCH COCONUT BOILER Ot Z87.891 PERSONAL HISTORY OF NICOTINE DEPENDENCE 10/23/2017 KATERINA RILEY, TANVIR Naqvi Ot F32.9 MAJOR DEPRESSIVE DISORDER, SINGLE EPISOD 10/23/2017 KATERINA RILEY, TANVIR Naqvi Ot F41.9 ANXIETY DISORDER, UNSPECIFIED 10/23/2017 KATERINA RILEY, TANVIR Naqvi Ot R10.9 UNSPECIFIED ABDOMINAL PAIN 10/23/2017 KATERINA RILEY, TANVIR Naqvi Ot R51 HEADACHE 10/24/2017 CRISTINA CLAROS DO Ot 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 10/24/2017 HARLAN GONZALEZ CRISTINA Lety Ot F15.10 OTHER STIMULANT ABUSE, UNCOMPLICATED 10/24/2017 CRISTINA CLAROS DO Ot F17.210 NICOTINE DEPENDENCE, CIGARETTES, UNCOMPL 10/24/2017 HARLAN GONZALEZ CRISTINA Davidson Ot F32.9 MAJOR DEPRESSIVE DISORDER, SINGLE EPISOD 10/24/2017 HARLAN CRISTINA K Ot F41.9 ANXIETY DISORDER, UNSPECIFIED 10/24/2017 HARLAN GONZALEZ CRISTINA Davidson Ot N39.0 URINARY TRACT INFECTION, SITE NOT SPECIF 10/24/2017 HARLAN GONZALEZ CRISTINA Lety Ot N73.9 FEMALE PELVIC INFLAMMATORY DISEASE, UNSP 10/24/2017 HARLAN GONZALEZ CRISTINA Lety Ot R10.32 LEFT LOWER QUADRANT PAIN 10/26/2017 KATERINA RILEY, TANVIR Naqvi Ot F32.9 MAJOR DEPRESSIVE DISORDER, SINGLE EPISOD 10/26/2017 KATERINA RILEY, TANVIR Naqvi Ot F41.9 ANXIETY DISORDER, UNSPECIFIED 10/26/2017 KATERINA RILEY, TANVIR Naqvi Ot R10.9 UNSPECIFIED ABDOMINAL PAIN 10/26/2017 KATERINA RILEY, TANVIR Naqvi Ot R51 HEADACHE Procedures Code Description [place] [address] GC/CHLAM PROBE (STATE) 02/02/2012 74202 UA OB DIP 02/02/2012 81335 CULTURE UROGENITAL 02/05/2012 08069 UA OB DIP 02/11/2012 62912 US OB ULTRASOUND 02/12/2012 72395 US OB ULTRASOUND 03/09/2012 52714 UA OB DIP 03/09/2012 04048 US OB ULTRASOUND 03/09/2012 30912 UA OB DIP 04/21/2012 73432 ROUTINE VENIPUNCTURE 04/28/2012 22735 UA LONG DIP 04/28/2012 69006 CBC 04/28/2012 58893 GLUCOSE ARI 1 HOUR 04/28/2012 61835 STREP A (IN-HOUSE) 05/11/2012 67179 UA OB DIP 06/03/2012 62867 ROUTINE VENIPUNCTURE 06/16/2012 67357 UA LONG DIP 06/16/2012 24943 GLUCOSE ARI 1 HOUR 06/16/2012 23325 ROUTINE VENIPUNCTURE 06/17/2012 69578 CMP 06/17/2012 77531 NON-STRESS TEST 06/24/2012 61481 UA W/ CULTURE IF INDICATED 06/24/2012 62664 FIBRONECTIN 06/25/2012 81344 CULTURE UROGENITAL 06/25/2012 44970 UA OB DIP 06/30/2012 74555 UA OB DIP 07/14/2012 89164 CULTURE GROUP B STREP VAG 07/17/2012 78610 UA OB DIP 07/21/2012 99338 OB - FOLLOW UP 07/26/2012 51057 NON-STRESS TEST 07/29/2012 84651 UA OB DIP 07/29/2012 49307 BIOPHYSICAL PROFILE () W/NST 08/02/2012 73.59 MANUAL ASSIST DELIV NEC 08/04/2012 77565 THERAPUTIC INJ SQ/IM 11/24/2012 J1050 DEPO PROVERA 11/24/2012 43448 URINE TEST (IN- HOUSE) 11/24/2012 64228 URINE DRUG SCREEN (IN-HOUSE ) 12/23/2012 76427 PSYCH DIAG EVAL W/MED SRVCS 01/02/2013 96512 THERAPUTIC INJ SQ/IM 02/22/2013 J1050 DEPO PROVERA 02/22/2013 36971 THERAPUTIC INJ SQ/IM 02/22/2013 J1050 DEPO PROVERA 02/22/2013 55573 URINE TEST (IN- HOUSE) 02/22/2013 18082 URINE TEST (IN- HOUSE) 02/22/2013 02826 TEST, URINE (IN- HOUSE) 05/24/2013 93266 ROUTINE VENIPUNCTURE 09/06/2013 14484 TEST, URINE (IN- HOUSE) 09/06/2013 02910 CBC 09/06/2013 18946 TSH 09/06/2013 [id number] DELIVERY OF PRODUCTS OF CONCEPTION, EXTE 01/07/2016 [...] ABO+Rh group BP NRG Transfusion band number [id number] NRG Blood group antibody screen NEGATIVE NRG [...] blood basophil count (count/volume) 0.0 10*3/uL 0.0-0.1 Urine beta human chorionic gonadotropin (hCG) measurement - 09/28/17 18:20 Urine beta human chorionic gonadotropin (hCG) measurement NEGATIVE NEGATIVE Complete urinalysis with reflex to culture - 09/28/17 18:20 Urine color determination YELLOW NRG Urine clarity determination SLIGHTLY CLOUDY NRG Urine pH measurement by test strip 6 5-9 Specific gravity of urine by test strip 1.015 1.016- 1.022 Urine protein assay by test strip, semi-quantitative NEGATIVE NEGATIVE Urine glucose detection by automated test strip NEGATIVE NEGATIVE Erythrocytes detection in urine sediment by light microscopy 4+ NEGATIVE Urine ketones detection by automated test strip NEGATIVE NEGATIVE Urine nitrite detection by test strip NEGATIVE NEGATIVE Urine total bilirubin detection by test strip NEGATIVE NEGATIVE Urine urobilinogen measurement by automated test strip (mass/volume) 4 mg/dL NORMAL Urine leukocyte esterase detection by dipstick 2+ NEGATIVE Automated urine sediment erythrocyte count by microscopy (number/high power field) [HPF] NRG Automated urine sediment leukocyte count by microscopy (number/high power field ) [HPF] NRG Bacteria detection in urine sediment by light microscopy FEW NRG Squamous epithelial cells detection in urine sediment by light microscopy 10-25 NRG Crystals detection in urine sediment by light microscopy NONE NRG Casts detection in urine sediment by light microscopy NONE NRG Mucus detection in urine sediment by light microscopy NEGATIVE NRG Complete urinalysis with reflex to culture YES NRG Urine drug screening test - 09/28/17 18:20 Urine phencyclidine detection by screening method NEGATIVE NEGATIVE Urine benzodiazepines detection by screening method NEGATIVE NEGATIVE Urine cocaine detection NEGATIVE NEGATIVE Urine amphetamines detection by screening method POSITIVE NEGATIVE Urine methamphetamine detection by screening method POSITIVE NEGATIVE Urine cannabinoids detection by screening method NEGATIVE NEGATIVE Urine opiates detection by screening method NEGATIVE NEGATIVE Urine barbiturates detection NEGATIVE NEGATIVE Screening urine tricyclic antidepressants detection NEGATIVE NEGATIVE Urine methadone detection by screening method NEGATIVE NEGATIVE Urine oxycodone detection NEGATIVE NEGATIVE Urine propoxyphene detection NEGATIVE NEGATIVE Bacterial urine culture - 09/28/17 18:20 Bacterial urine culture SEE COMMEN NRG COLONY COUNT . NRG Complete blood count (CBC) with automated white blood cell (WBC) differential - 09/28/17 19:07 Blood leukocytes automated count (number/volume) 9.6 10*3/uL 4.3-11.0 Blood erythrocytes automated count (number/volume) 4.39 10*6/uL 4.35-5.85 Venous blood hemoglobin measurement (mass/volume) 13.6 g/dL 11.5-16.0 Blood hematocrit (volume fraction) 38 % 35-52 Automated erythrocyte mean corpuscular volume 86 [foz_us] 80-99 Automated erythrocyte mean corpuscular hemoglobin (mass per erythrocyte) 31 pg 25-34 Automated erythrocyte mean corpuscular hemoglobin concentration measurement ( mass/volume) 36 g/dL 32-36 Automated erythrocyte distribution width ratio 13.2 % 10.0-14.5 Automated blood platelet count (count/volume) 252 10*3/uL 130-400 Automated blood platelet mean volume measurement 10.4 [foz_us] 7.4-10.4 Automated blood neutrophils/100 leukocytes 61 % 42-75 Automated blood lymphocytes/100 leukocytes 30 % 12-44 Blood monocytes/100 leukocytes 6 % 0-12 Automated blood eosinophils/100 leukocytes 3 % 0-10 Automated blood basophils/100 leukocytes 0 % 0-10 Blood neutrophils automated count (number/volume) 5.8 10*3 1.8-7.8 Blood lymphocytes automated count (number/volume) 2.9 10*3 1.0-4.0 Blood monocytes automated count (number/volume) 0.6 10*3 0.0-1.0 Automated eosinophil count 0.3 10*3/uL 0.0-0.3 Automated blood basophil count (count/volume) 0.0 10*3/uL 0.0-0.1 Comprehensive metabolic panel - 09/28/17 19:07 Serum or plasma sodium measurement (moles/volume) 141 mmol/L 135-145 Serum or plasma potassium measurement (moles/volume) 4.0 mmol/L 3.6-5.0 Serum or plasma chloride measurement (moles/volume) 108 mmol/L 98-107 Carbon dioxide 27 mmol/L 21-32 Serum or plasma anion gap determination (moles/volume) 6 mmol/L 5-14 Serum or plasma urea nitrogen measurement (mass/volume) 7 mg/dL 7-18 Serum or plasma creatinine measurement (mass/volume) 0.65 mg/dL 0.60-1.30 Serum or plasma urea nitrogen/creatinine mass ratio 11 NRG Serum or plasma creatinine measurement with calculation of estimated glomerular filtration rate > NRG Serum or plasma glucose measurement (mass/volume) 83 mg/dL 70-105 Serum or plasma calcium measurement (mass/volume) 8.7 mg/dL 8.5-10.1 Serum or plasma total bilirubin measurement (mass/volume) 0.6 mg/dL 0.1-1.0 Serum or plasma alkaline phosphatase measurement (enzymatic activity/volume) 85 U/L 40-136 Serum or plasma aspartate aminotransferase measurement (enzymatic activity/ volume) 19 U/L 5-34 Serum or plasma alanine aminotransferase measurement (enzymatic activity/volume ) 27 U/L 0-55 Serum or plasma protein measurement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
== END 2017-11-26 13:34 | disposition home or self-care (01) ==
LOC: EDUNIT# 12:09 → ER 12:13
DX: N73.9 Female pelvic inflammatory disease, unspecified (principal); N39.0 Urinary tract infection, site not specified; F41.9 Anxiety disorder, unspecified; F32.9 Major depressive disorder, single episode, unspecified; F12.10 Cannabis abuse, uncomplicated; F15.10 Other stimulant abuse, uncomplicated; Z77.22 Contact with and (suspected) exposure to environmental tobacco smoke (acute) (chronic)
CPT/HCPCS: 36415; 80053; 81000; 84703; 85025; 87070; 87077; 87088; 87210; 87491; 87591; 99284

== ENCOUNTER 2017-12-25 11:44 | Emergency (ER) | payer MEDICAID ==
[~2017-12-25] VITALS: Ht 160 cm; Wt 77.1 kg
[~2017-12-25 11:44] MED LIST changes: +DOXY100T19 PO; +HYDR-4226 PO; -HYDR-757 PO; +METR500T21 PO
[2017-12-25] MEDS ORDERED: TETANUS,DIPTH,PERTUSS P/F (BOOSTRIX) 0.5 ML VIAL IM ONE (12:15)
[2017-12-25] MEDS ORDERED: LIDOCAINE 1% INJ 20 ML 20 ML VIAL INJ ONE (12:15)
[2017-12-25] MEDS ORDERED: L.E.T. SYRINGE 5 ML TOP ONE (12:15)
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
[2017-12-25] MEDS ORDERED: ALPRAZolam 0.25 MG (XANAX) TAB PO ONE (12:30)
[2017-12-25] MEDS ORDERED: SULF1TAB35 PO (13:19)
[2017-12-25 13:50] VITALS: BP 128/63
== END 2017-12-25 13:48 | disposition home or self-care (01) ==
LOC: EDUNIT# 11:44 → ER 11:45
DX: S61.211A Laceration without foreign body of left index finger without damage to nail, initial encounter (principal); F41.9 Anxiety disorder, unspecified; F32.9 Major depressive disorder, single episode, unspecified; F12.10 Cannabis abuse, uncomplicated; F15.10 Other stimulant abuse, uncomplicated; Z87.891 Personal history of nicotine dependence; W26.0XXA Contact with knife, initial encounter
CPT/HCPCS: 12001; 90471; 90715

== ENCOUNTER 2018-03-17 23:25 | Emergency (ER) | payer MEDICAID ==
[~2018-03-17] VITALS: Ht 160 cm; Wt 77.1 kg
[~2018-03-17 23:25] MED LIST changes: +METR-197 PO; -METR500T21 PO
[2018-03-18 00:01] LABS: CLARITY,URINE SL CLOUDY; COLOR,URINE YELLOW; GLUCOSE, URINE (UA) NEGATIVE (NEGATIVE); KETONES,URINE 1+ (NEGATIVE); LEUKOCYTE ESTERASE ,URINE 3+ (NEGATIVE); NITRITE,URINE POSITIVE (NEGATIVE); PH,URINE 5 (5-9); PROTEIN,URINE 2+ (NEGATIVE); UROBILINOGEN,URINE 8 MG/DL (NORMAL)
[2018-03-18] MEDS ORDERED: KETOROLAC 60 MG/2 ML VIAL IM STA (00:01)
[2018-03-18] MEDS ORDERED: AZITHROMYCIN 250 MG TAB (ZITHROMAX) PO STA (00:01)
[2018-03-18 00:02] LABS: AMPHETAMINE SCREEN, URINE POSITIVE (NEGATIVE); BACTERIA,URINE LARGE /HPF; BARBITURATE SCREEN URINE NEGATIVE (NEGATIVE); BENZODIAZEPINES SCREEN URINE NEGATIVE (NEGATIVE); BILIRUBIN,URINE 1+ (NEGATIVE); CANNABINOID SCREEN, URINE NEGATIVE (NEGATIVE); COCAINE SCREEN URINE NEGATIVE (NEGATIVE); METHADONE STAT NEGATIVE (NEGATIVE); METHAMPHETAMINE SCREEN URINE S POSITIVE (NEGATIVE); OPIATE SCREEN URINE NEGATIVE (NEGATIVE); OXYCODONE STAT NEGATIVE (NEGATIVE); PROPOXYPHENE STAT NEGATIVE (NEGATIVE); RBC,URINE RARE /HPF; TRICYCLIC ANTIDEPRESSANTS SCRE NEGATIVE (NEGATIVE); WBC,URINE 25-50 /HPF
[2018-03-18] MEDS ORDERED: LIDOCAINE 1% INJ 20 ML 20 ML VIAL INJ ONE (00:15)
[2018-03-18] MEDS ORDERED: cefTRIAXone 250 MG/2.5 ML for IV (ROCEPHIN) IM ONE (00:15)
--- NOTE | 2018-03-18 00:18 | ED GU-Female ---
General Chief Complaint: Abdominal/GI Problems Stated Complaint: ABD PAIN Nursing Triage Note: lower abdominal pain Nursing Sepsis Screen: No Definite Risk Source: patient Exam Limitations: no limitations History of Present Illness Date Seen by Provider: Mar 17, 2018 Time Seen by Provider: 22:55 Initial Comments Here with report of vaginal discharge and lower abdominal pain and feels like when she had PID. She was sexually active with her ex who has known case of chlamydia 2 weeks ago. Symptoms have started after that. Does have history of gonorrhea with similar symptoms a few months ago from the same joseph. Timing/Duration: yesterday, getting worse Severity/Quality: burning Location: vaginal, urethral Radiation: suprapubic Activities at Onset: sexual activity Prior Genitourinary Problems: recent trauma Sexual [place] History: less than 2 months ago, single partner Modifying Factors: Improves With Resting; Worsens With Urinating Associated Symptoms: dysuria; No fever/chills, No lower back pain, No nausea/ vomiting; urinary frequency Allergies and Home Medications Allergies Coded Allergies: No Known Drug Allergies (Unverified , 12/25/17) Home Medications No Active Prescriptions or Reported Meds Patient Home Medication List Home Medication List Reviewed: Yes Review of Systems Review of Systems Constitutional: see HPI; No chills, No fever Respiratory: no symptoms reported Cardiovascular: no symptoms reported Gastrointestinal: see HPI; No diarrhea, No vomiting Genitourinary: see HPI : No Musculoskeletal: no symptoms reported Past [id number]-Hpauta-[id number] Hx Past Med/Social Hx: Reviewed Nursing Past Med/Soc Hx Patient Social History Alcohol Use: Denies Use Recreational Drug Use: Yes Drug of Choice: THC, + IV METH Smoking Status: Former Smoker Type Used: Cigarettes Former Smoker, Quit: Jul 12, 2017 2nd Hand Smoke Exposure: Yes Recent Foreign Travel: No Contact w/Someone Who Travel: No Recent Infectious Disease Expo: No Recent Hopitalizations: No Immunizations Up To Date Tetanus Booster (TDap): Unknown Date of Influenza Vaccine: Jan 02, 2016 Seasonal Allergies Seasonal Allergies: No Past Medical History Surgeries: No Respiratory: No Cardiac: No Neurological: No : No Reproductive Disorders: Yes Female Reproductive Disorders: Menstrual Problems, Pelvic Inflammatory Dis Sexually Transmitted Disease: Yes HIV/AIDS: No Genitourinary: No Gastrointestinal: No Musculoskeletal: No Endocrine: No HEENT: Yes (POOR DENTITION) Cancer: No Psychosocial: Yes Anxiety, Depression Integumentary: No Blood Disorders: No Adverse Reaction/Blood Tranf: No Family Medical History Reviewed Nursing Family Hx Patient reports no known family medical history. Physical Exam Vital Signs Vital Signs - First Documented 03/17/18 23:30 Temp 97.5 Pulse 132 Resp 18 B/P (MAP) 119/85 (96) Pulse Ox 100 O2 Delivery Room Air Capillary Refill : Less Than 3 Seconds Height, Weight, BMI Height: 5'3.00" Weight: 170lbs. 0.0oz. [id number]; 39.0 BMI Method:Stated General Appearance: WD/WN, no apparent distress Cardiovascular: no murmur, tachycardia Respiratory: lungs clear, normal breath sounds Gastrointestinal: non tender, soft Extremities: non-tender, normal inspection Neurologic/Psychiatric: alert, oriented x 3 Procedures/Interventions Suture Size: 5-0 Progress/Results/Core Measures Suspected Sepsis Recent Fever Within 48 Hours: No Infection Criteria Present: None New/Unexplained Altered Menta: No Sepsis Screen: No Definite Risk SIRS Temperature:97.5 Pulse: 132 Respiratory Rate: 18 Blood Pressure 119 /85 Mean: 96 Results/Orders Lab Results Laboratory Tests Test 03/17/18 23:35 Range/Units Urine Color YELLOW Urine Clarity SL CLOUDY Urine pH 5 5-9 Urine Specific [place] 1.015 L 1.016-1.022 Urine Protein 2+ H NEGATIVE Urine Glucose (UA) NEGATIVE NEGATIVE Urine Ketones 1+ H NEGATIVE Urine Nitrite POSITIVE H NEGATIVE Urine Bilirubin 1+ H NEGATIVE Urine Urobilinogen 8 H NORMAL MG/DL Urine Leukocyte Esterase 3+ H NEGATIVE Urine RBC (Auto) 2+ H NEGATIVE Urine RBC RARE /HPF Urine WBC 25-50 H /HPF Urine Squamous Epithelial Cells 10-25 H /HPF Urine Crystals NONE /LPF Urine Bacteria LARGE H /HPF Urine Casts NONE /LPF Urine Mucus SMALL H /LPF Urine Culture Indicated YES Urine Opiates Screen NEGATIVE NEGATIVE Urine Oxycodone Screen NEGATIVE NEGATIVE Urine Methadone Screen NEGATIVE NEGATIVE Urine Propoxyphene Screen NEGATIVE NEGATIVE Urine Barbiturates Screen NEGATIVE NEGATIVE Ur Tricyclic Antidepressants Screen NEGATIVE NEGATIVE Urine Phencyclidine Screen NEGATIVE NEGATIVE Urine Amphetamines Screen POSITIVE H NEGATIVE Urine Methamphetamines Screen POSITIVE H NEGATIVE Urine Benzodiazepines Screen NEGATIVE NEGATIVE Urine Cocaine Screen NEGATIVE NEGATIVE Urine Cannabinoids Screen NEGATIVE NEGATIVE My Orders Orders - JORDY LANTIGUA MD Ua Culture If Indicated (03/17/18 23:36) Drug Screen Stat (Urine) (03/17/18 23:36) Urine Bedside (03/17/18 23:41) Ketorolac Injection (Toradol Injection) (03/18/18 00:01) Ceftriaxone For Iv Use (Rocephin For I (03/18/18 00:15) Azithromycin Tablet (Zithromax Tablet) (03/18/18 00:01) Lidocaine 1% Inj 20 Ml (Xylocaine 1% Inj (03/18/18 00:15) Neis Adam Dna Urine Test (03/18/18 00:02) Chlamydia Trachomatis Urine (03/18/18 00:02) Urine Culture (03/17/18 23:35) Vital Signs/I&O 03/17/18 23:30 Temp 97.5 Pulse 132 Resp 18 B/P (MAP) 119/85 (96) Pulse Ox 100 O2 Delivery Room Air Capillary Refill : Less Than 3 Seconds Blood Pressure Mean: 96 Point of Care Testing Urine -Bedside: Negative Progress Note : Progress Note Seen and evaluated. UA ordered. Due to history of sexual contact with person positive for chlamydia we will go I treat. Rocephin 250 mg IM and Zithromax 1 g by mouth. 1215: UA positive so we will treat urinary tract infection as well. Patient did receive ketorolac 60 mg IM for pain. Discharged home with return precautions. Patient verbalize understanding instructions and agreement with plan. Departure Impression Primary Impression: Urinary tract infection Qualified Codes: N30.00 - Acute cystitis without hematuria Additional Impression: STI (sexually transmitted infection) Disposition: 01 HOME, SELF-CARE Condition: Stable Departure-Patient Inst. Decision time for Depature: 00:18 Referrals: [facility] (PCP) Primary Care Physician DARREN RICHARDS DO (Family) Primary Care Physician Patient Instructions: Pelvic Inflammatory Disease (DC), Urinary Tract Infection , Adult (DC), Acute Abdomen (Belly Pain), Adult (DC) Add. Discharge Instructions: All discharge instructions reviewed with patient and/or family. Voiced understanding. You may take ibuprofen 800 mg every 8 hours as needed for fever or pain. You may take Tylenol/acetaminophen 1000 mg every 8 hours as needed for fever or pain. Follow-up with your DrCarolina in a few days for recheck and for test of cure. Return for worse pain, fever, vomiting, weakness, breathing problems or other concerns as needed. Drink plenty of fluids. Scripts Cephalexin (Cephalexin) 500 Mg Tablet 500 MG PO BID, #14 TAB 0 Refills Prov: JORDY LANTIGUA MD 03/18/18 JORDY LANTIGUA MD Mar 18, 2018 00:18
[2018-03-18] MEDS ORDERED: CEPH500T PO (00:21)
[2018-03-18 00:29] VITALS: BP 119/85
== END 2018-03-18 00:28 | disposition home or self-care (01) ==
LOC: EDUNIT# 23:25 → ER 23:26
DX: N39.0 Urinary tract infection, site not specified (principal); A64 Unspecified sexually transmitted disease; F41.9 Anxiety disorder, unspecified; F32.9 Major depressive disorder, single episode, unspecified; F15.10 Other stimulant abuse, uncomplicated; F12.10 Cannabis abuse, uncomplicated; Z87.891 Personal history of nicotine dependence; Z87.448 Personal history of other diseases of urinary system
CPT/HCPCS: 80306; 81000; 84703; 87088; 99284

== ENCOUNTER 2018-04-13 18:28 | Emergency (ER) | payer MEDICAID ==
[~2018-04-13 18:28] MED LIST changes: +CEPH500T PO
--- OUTSIDE RECORDS SUMMARY | 2018-04-13 18:43 | XMS REPORT | Continuity of Care Document ---
Author Author [facility] Address Unknown Phone Unavailable Allergies Active Description Code Type Severity Reaction Onset Reported/Identified Relationship to Patient Clinical Status Yes codeine Drug Allergy 07/15/2010 Yes codeine Drug Allergy N/A N/A 07/15/2010 Yes Depo-Provera 150 mg/mL Suspension Drug Allergy N/A N/A 05/24/2013 Yes codeine [id number] Drug Allergy Moderate N/A 09/26/2013 Yes No Known Drug Allergies [id number] Drug Allergy Unknown N/A 12/25/2017 Medications There is no data. Problems Date [...] And Unspecified Sites Without Infection 02/09/2008 PANCHO STEAM DISTRIBUTION SUPERVISOR, MANNY A 782.1 Rash 02/09/2008 PANCHO STEAM DISTRIBUTION SUPERVISOR, MANNY A 919.4 Insect Bite Nonvenomous Of Other Multiple And Unspecified Sites Without Infection 02/09/2008 PANCHO STEAM DISTRIBUTION SUPERVISOR, MANNY A 782.1 Rash 02/09/2008 PANCHO STEAM DISTRIBUTION SUPERVISOR, MANNY A 919.4 Insect Bite Nonvenomous Of Other Multiple And Unspecified Sites Without Infection 02/09/2008 PANCHO STEAM DISTRIBUTION SUPERVISOR, MANNY A 782.1 Rash 02/09/2008 PANCHO STEAM DISTRIBUTION SUPERVISOR, MANNY A 919.4 Insect Bite Nonvenomous Of Other Multiple And Unspecified Sites Without Infection 02/09/2008 PANCHO STEAM DISTRIBUTION SUPERVISOR, MANNY A 782.1 Rash 02/09/2008 PANCHO STEAM DISTRIBUTION SUPERVISOR, MANNY A 919.4 Insect Bite Nonvenomous Of [...] 845.03 TIBIOFIBULAR (LIGAMENT) SPRAIN DISTAL 09/08/2008 PANCHO STEAM DISTRIBUTION SUPERVISOR, MANNY A 845.03 TIBIOFIBULAR (LIGAMENT) SPRAIN DISTAL 09/08/2008 PANCHO STEAM DISTRIBUTION SUPERVISOR, MANNY A 845.03 TIBIOFIBULAR (LIGAMENT) SPRAIN DISTAL 09/08/2008 PANCHO STEAM DISTRIBUTION SUPERVISOR, MANNY A 845.03 TIBIOFIBULAR (LIGAMENT) SPRAIN DISTAL 09/08/2008 PANCHO STEAM DISTRIBUTION SUPERVISOR, MANNY A 845.03 TIBIOFIBULAR (LIGAMENT) SPRAIN DISTAL [...] Establ. Patient Checkup Adolescent 12-17 11/29/2008 PANCHO STEAM DISTRIBUTION SUPERVISOR, MANNY A V03.89 MENINGOCOCCAL, OTHER SPECIFIED SINGLE BACTERIAL DISEASE 11/29/2008 PANCHO STEAM DISTRIBUTION SUPERVISOR, MANNY A V05.3 HEPATITIS VIRAL/ALL 11/29/2008 PANCHO STEAM DISTRIBUTION SUPERVISOR, MANNY A V06.5 DT, TETANUS-DIPHTHERIA [Td] ,TDAP 11/29/2008 PANCHO STEAM DISTRIBUTION SUPERVISOR, MANNY A V20.2 Preventive Medicine Establ. Patient [...] MENINGOCOCCAL, OTHER SPECIFIED SINGLE BACTERIAL DISEASE 11/29/2008 ELAIDO WARD APRN V05.3 HEPATITIS VIRAL/ALL 11/29/2008 ELADIO WARD APRN V06.5 DT, TETANUS-DIPHTHERIA [Td] ,TDAP 11/29/2008 ELADIO WRAD APRN V20.2 Preventive Medicine Establ. Patient Checkup [...] RESPIRATORY INFECTIONS OF UNSPECIFIED SITE 03/19/2009 PANCHO STEAM DISTRIBUTION SUPERVISOR, MANNY A 465.9 ACUTE UPPER RESPIRATORY INFECTIONS [...] RICHARDS DO 486 Pneumonia Unspecified 05/16/2009 PANCHO STEAM DISTRIBUTION SUPERVISOR, MANNY A 486 Pneumonia Unspecified 05/16/2009 PANCHO STEAM DISTRIBUTION SUPERVISOR, MANNY A 486 Pneumonia Unspecified 05/16/2009 PANCHO STEAM DISTRIBUTION SUPERVISOR, MANNY A 486 Pneumonia Unspecified 05/16/2009 PANCHO STEAM DISTRIBUTION SUPERVISOR, MANNY A 486 Pneumonia Unspecified 06/21/2009 DARREN [...] DARREN RICHARDS DO 133.0 SCABIES 06/21/2009 PANCHO STEAM DISTRIBUTION SUPERVISOR, MANNY A 133.0 SCABIES 06/21/2009 PANCHO STEAM DISTRIBUTION SUPERVISOR, MANNY A 133.0 SCABIES 06/21/2009 PANCHO STEAM DISTRIBUTION SUPERVISOR, MANNY A 133.0 SCABIES 06/21/2009 PANCHO STEAM DISTRIBUTION SUPERVISOR, MANNY A 133.0 SCABIES 06/22/2009 DARREN RICHARDS [...] Pain, Localized In The Wrist 06/22/2009 PANCHO STEAM DISTRIBUTION SUPERVISOR, MANYN A 719.43 Joint Pain, Localized In The Wrist 06/22/2009 PANCHO STEAM DISTRIBUTION SUPERVISOR, MANNY A 719.43 Joint Pain, Localized In The Wrist 06/22/2009 PANCHO STEAM DISTRIBUTION SUPERVISOR, MANNY A 719.43 Joint Pain, Localized In [...] Acute Without Spontaneous Rupture Eardrum 07/06/2009 PANCHO STEAM DISTRIBUTION SUPERVISOR, MANNY A 382.00 Otitis Media Acute Without Spontaneous Rupture Eardrum 07/06/2009 PANCHO STEAM DISTRIBUTION SUPERVISOR, MANNY A 382.00 Otitis Media Acute Without Spontaneous Rupture Eardrum 07/06/2009 PANCHO STEAM DISTRIBUTION SUPERVISOR, MANNY A 382.00 Otitis Media Acute Without Spontaneous Rupture Eardrum 07/06/2009 PANCHO STEAM DISTRIBUTION SUPERVISOR, MANNY A 382.00 Otitis Media Acute Without Spontaneous Rupture Eardrum 07/17/2009 DARREN RICHARDS DO V05.4 VARICELLA, CHICKENPOX 07/17/2009 V05.4 VARICELLA, CHICKENPOX 07/17/2009 V05.4 VARICELLA, CHICKENPOX 07/17/2009 DARREN RICHARDS DO V05.4 VARICELLA, CHICKENPOX 07/17/2009 V05.4 VARICELLA, CHICKENPOX 07/17/2009 V05.4 VARICELLA, CHICKENPOX 07/17/2009 V05.4 VARICELLA, CHICKENPOX 07/17/2009 V05.4 VARICELLA, CHICKENPOX 07/17/2009 [facility] VALENTE, MANNY A V05.4 VARICELLA, CHICKENPOX 07/17/2009 [...] DARREN RICHARDS DO V05.4 VARICELLA, CHICKENPOX 07/17/2009 [facility] STEAM DISTRIBUTION SUPERVISOR, MANNY A V05.4 VARICELLA, CHICKENPOX 07/17/2009 PANCHO [...] DO 780.79 Feelings Of Weakness 07/23/2009 PANCHO STEAM DISTRIBUTION SUPERVISOR, MANNY A 780.4 Dizziness 07/23/2009 PANCHO STEAM DISTRIBUTION SUPERVISOR, MANNY A 780.79 Feelings Of Weakness 07/23/2009 PANCHO STEAM DISTRIBUTION SUPERVISOR, MANNY A 780.4 Dizziness 07/23/2009 PANCHO STEAM DISTRIBUTION SUPERVISOR, MANNY A 780.79 Feelings Of Weakness 07/23/2009 PANCHO STEAM DISTRIBUTION SUPERVISOR, MANNY A 780.4 Dizziness 07/23/2009 PANCHO STEAM DISTRIBUTION SUPERVISOR, MANNY A 780.79 Feelings Of Weakness 07/23/2009 PANCHO STEAM DISTRIBUTION SUPERVISOR, MANNY A 780.4 Dizziness 07/23/2009 PANCHO STEAM DISTRIBUTION SUPERVISOR, MANNY A 780.79 Feelings Of Weakness 07/27/2009 [...] DO, DARREN K 251.1 HYPERINSULINISM 07/27/2009 PANCHO STEAM DISTRIBUTION SUPERVISOR, MANNY A 251.1 HYPERINSULINISM 07/27/2009 PANCHO STEAM DISTRIBUTION SUPERVISOR, MANNY A 251.1 HYPERINSULINISM 07/27/2009 PANCHO STEAM DISTRIBUTION SUPERVISOR, MANNY A 251.1 HYPERINSULINISM 07/27/2009 PANCHO STEAM DISTRIBUTION SUPERVISOR, MANNY A 251.1 HYPERINSULINISM 12/11/2009 RICHARDS DO, [...] 789.00 Abdominal Pain Unspecified Site 12/11/2009 PANCHO STEAM DISTRIBUTION SUPERVISOR, MANNY A 787.91 Diarrhea 12/11/2009 PANCHO STEAM DISTRIBUTION SUPERVISOR, MANNY A 789.00 Abdominal Pain Unspecified Site 12/11/2009 PANCHO STEAM DISTRIBUTION SUPERVISOR, MANNY A 787.91 Diarrhea 12/11/2009 PANCHO STEAM DISTRIBUTION SUPERVISOR, MANNY A 789.00 Abdominal Pain Unspecified Site 12/11/2009 PANCHO STEAM DISTRIBUTION SUPERVISOR, MANNY A 787.91 Diarrhea 12/11/2009 PANCHO STEAM DISTRIBUTION SUPERVISOR, MANNY A 789.00 Abdominal Pain Unspecified Site 12/11/2009 PANCHO STEAM DISTRIBUTION SUPERVISOR, MANNY A 787.91 Diarrhea 12/11/2009 PANCHO STEAM DISTRIBUTION SUPERVISOR, MANNY A 789.00 Abdominal Pain Unspecified Site [...] DO K 461.9 Sinusitis Acute 01/31/2010 PANCHO STEAM DISTRIBUTION SUPERVISOR, MANNY A 461.9 Sinusitis Acute 01/31/2010 PANCHO STEAM DISTRIBUTION SUPERVISOR, MANNY A 461.9 Sinusitis Acute 01/31/2010 PANCHO STEAM DISTRIBUTION SUPERVISOR, MANNY A 461.9 Sinusitis Acute 01/31/2010 PANCHO STEAM DISTRIBUTION SUPERVISOR, MANNY A 461.9 Sinusitis Acute 02/20/2010 DARREN RICHARDS DO K 692.9 DERMATITIS CONTACT UNSPECIFIED 02/20/2010 692.9 DERMATITIS CONTACT UNSPECIFIED 02/20/2010 692.9 DERMATITIS CONTACT UNSPECIFIED 02/20/2010 DARREN RICHARDS DO K 692.9 DERMATITIS CONTACT UNSPECIFIED 02/20/2010 692.9 DERMATITIS CONTACT UNSPECIFIED 02/20/2010 692.9 DERMATITIS CONTACT UNSPECIFIED 02/20/2010 692.9 DERMATITIS CONTACT UNSPECIFIED 02/20/2010 692.9 DERMATITIS CONTACT UNSPECIFIED 02/20/2010 PANCHO STEAM DISTRIBUTION SUPERVISOR, MANNY A 692.9 DERMATITIS CONTACT UNSPECIFIED 02/20/2010 DARRNE RICHARDS DO 692.9 DERMATITIS CONTACT UNSPECIFIED 02/20/2010 692.9 DERMATITIS CONTACT UNSPECIFIED 02/20/2010 DARREN RICHARDS DO K 692.9 DERMATITIS CONTACT UNSPECIFIED 02/20/2010 692.9 DERMATITIS CONTACT UNSPECIFIED 02/20/2010 692.9 DERMATITIS CONTACT UNSPECIFIED 02/20/2010 692.9 DERMATITIS CONTACT UNSPECIFIED 02/20/2010 692.9 DERMATITIS CONTACT UNSPECIFIED 02/20/2010 692.9 DERMATITIS CONTACT UNSPECIFIED 02/20/2010 692.9 DERMATITIS CONTACT UNSPECIFIED 02/20/2010 692.9 DERMATITIS CONTACT UNSPECIFIED 02/20/2010 GARTON STEAM DISTRIBUTION SUPERVISORELADIO Ford D 692.9 DERMATITIS CONTACT UNSPECIFIED 02/20/2010 FAVIOTON LEANN VICTORZABETH D 692.9 DERMATITIS CONTACT UNSPECIFIED 02/20/2010 DARREN RICHARDS DO 692.9 DERMATITIS CONTACT UNSPECIFIED 02/20/2010 PANCHO STEAM DISTRIBUTION SUPERVISOR, MANNY A 692.9 DERMATITIS CONTACT UNSPECIFIED 02/20/2010 PANCHO STEAM DISTRIBUTION SUPERVISOR, MANNY A 692.9 DERMATITIS CONTACT UNSPECIFIED 02/20/2010 PANCHO STEAM DISTRIBUTION SUPERVISOR, MANNY A 692.9 DERMATITIS CONTACT UNSPECIFIED 02/20/2010 PANCHO STEAM DISTRIBUTION SUPERVISOR, MANNY A 692.9 DERMATITIS CONTACT UNSPECIFIED 02/28/2010 [...] Frequency 06/15/2010 788.41 Urinary Frequency 06/15/2010 PANCHO STEAM DISTRIBUTION SUPERVISOR, MANNY A 788.41 Urinary Frequency 06/15/2010 RICHARDS [...] APRN, MANNY A 564.00 Constipation 07/15/2010 PANCHO STEAM DISTRIBUTION SUPERVISOR, MANNY A 564.00 Constipation 07/15/2010 PANCHO VALENTE, [...] 11/25/2010 V72.41 TEST NEGATIVE RESULT 11/25/2010 PANCHO STEAM DISTRIBUTION SUPERVISORMANNY Ford A V72.41 TEST NEGATIVE RESULT 11/25/2010 [...] A V72.41 TEST NEGATIVE RESULT 11/25/2010 PANCHO STEAM DISTRIBUTION SUPERVISORMANNY Ford A V72.41 TEST NEGATIVE RESULT 11/25/2010 PANCHO STEAM DISTRIBUTION SUPERVISORMANNY Ford A V72.41 TEST NEGATIVE RESULT 11/25/2010 [...] RICHARDS DO V65.45 Std Counseling 02/21/2011 PANCHO STEAM DISTRIBUTION SUPERVISOR, MANNY A V25.01 Contraception - Oral Contraception 02/21/2011 PANCHO STEAM DISTRIBUTION SUPERVISOR, MANNY A V65.45 Std Counseling 02/21/2011 PANCHO STEAM DISTRIBUTION SUPERVISOR, MANNY A V25.01 Contraception - Oral Contraception 02/21/2011 PANCHO STEAM DISTRIBUTION SUPERVISOR, MANNY A V65.45 Std Counseling 02/21/2011 PANCHO STEAM DISTRIBUTION SUPERVISOR, MANNY A V25.01 Contraception - Oral Contraception 02/21/2011 PANCHO STEAM DISTRIBUTION SUPERVISOR, MANNY A V65.45 Std Counseling 02/21/2011 PANCHO STEAM DISTRIBUTION SUPERVISOR, MANNY A V25.01 Contraception - Oral Contraception [...] SUSIE GONZALEZDARREN K 788.1 Dysuria 05/28/2011 PANCHO STEAM DISTRIBUTION SUPERVISOR, MANNY A 599.0 Urinary Tract Infection 05/28/2011 PANCHO STEAM DISTRIBUTION SUPERVISOR, MANNY A 788.1 Dysuria 05/28/2011 PANCHO STEAM DISTRIBUTION SUPERVISOR, MANNY A 599.0 Urinary Tract Infection 05/28/2011 PANCHO STEAM DISTRIBUTION SUPERVISOR, MANNY A 788.1 Dysuria 05/28/2011 PANCHO STEAM DISTRIBUTION SUPERVISOR, MANNY A 599.0 Urinary Tract Infection 05/28/2011 PANCHO STEAM DISTRIBUTION SUPERVISOR, MANNY A 788.1 Dysuria 05/28/2011 PANCHO STEAM DISTRIBUTION SUPERVISOR, MANNY A 599.0 Urinary Tract Infection 05/28/2011 PANCHO STEAM DISTRIBUTION SUPERVISOR, MANNY A 788.1 Dysuria 09/18/2011 Ot 724.2 [...] 01/12/2012 V22.0 , NORMAL FIRST 01/12/2012 PANCHO STEAM DISTRIBUTION SUPERVISOR, MANNY A V22.0 , NORMAL FIRST 01/12/2012 [...] 01/12/2012 V22.0 , NORMAL FIRST 01/12/2012 GARTON STEAM DISTRIBUTION SUPERVISOR, ELADIO D V22.0 , NORMAL FIRST 01/12/2012 GARTON STEAM DISTRIBUTION SUPERVISOR, ELADIO D V22.0 , NORMAL FIRST 01/12/2012 SUSIE DODARREN K V22.0 , NORMAL FIRST 01/12/2012 PANCHO STEAM DISTRIBUTION SUPERVISOR, MANNY A V22.0 , NORMAL FIRST 01/12/2012 PANCHO STEAM DISTRIBUTION SUPERVISOR, MANNY A V22.0 , NORMAL FIRST 01/12/2012 PANCHO STEAM DISTRIBUTION SUPERVISOR, MANNY A V22.0 , NORMAL FIRST 01/12/2012 PANCHO STEAM DISTRIBUTION SUPERVISOR, MANNY A V22.0 , NORMAL FIRST 02/02/2012 RICHARDS DODARREN V04.81 FLU SHOT 02/02/2012 V04.81 FLU SHOT 02/02/2012 V04.81 FLU SHOT 02/02/2012 RICHARDS DODARREN V04.81 FLU SHOT 02/02/2012 V04.81 FLU SHOT 02/02/2012 V04.81 FLU SHOT 02/02/2012 V04.81 FLU SHOT 02/02/2012 V04.81 FLU SHOT 02/02/2012 PANCHO STEAM DISTRIBUTION SUPERVISOR, MANNY A V04.81 FLU SHOT 02/02/2012 DARREN [...] RICHARDS DO V04.81 FLU SHOT 02/02/2012 PANCHO STEAM DISTRIBUTION SUPERVISOR, MANNY A V04.81 FLU SHOT 02/02/2012 PANCHOKODAK RAYN, MANNY A V04.81 FLU SHOT 02/02/2012 PANCHOKODAK RAYN, MANNY A V04.81 FLU SHOT 02/02/2012 PANCHO STEAM DISTRIBUTION SUPERVISOR, MANNY A V04.81 FLU SHOT 02/11/2012 DARREN [...] Lety 465.9 Upper Respiratory Infection 02/11/2012 PANCHO STEAM DISTRIBUTION SUPERVISOR, MANNY A 465.9 Upper Respiratory Infection 02/11/2012 PANCHO STEAM DISTRIBUTION SUPERVISOR, MANNY A 465.9 Upper Respiratory Infection 02/11/2012 PANCHO STEAM DISTRIBUTION SUPERVISOR, MANNY A 465.9 Upper Respiratory Infection 02/11/2012 PANCHO STEAM DISTRIBUTION SUPERVISOR, MANNY A 465.9 Upper Respiratory Infection 04/21/2012 [...] UTERINE SIZE DATE DISCREPANCY - LGA 04/21/2012 RICAHRDS DARREN GONZALEZ 649.60 UTERINE SIZE DATE DISCREPANCY [...] SIZE DATE DISCREPANCY - LGA 04/21/2012 PANCHO STEAM DISTRIBUTION SUPERVISOR, MANNY A 649.60 UTERINE SIZE DATE DISCREPANCY - LGA 04/21/2012 PANCHO STEAM DISTRIBUTION SUPERVISOR, MANNY A 649.60 UTERINE SIZE DATE DISCREPANCY - LGA 04/21/2012 PANCHO STEAM DISTRIBUTION SUPERVISOR, MANNY A 649.60 UTERINE SIZE DATE DISCREPANCY [...] 789.09 Abdominal Pain Other Specified Site 04/28/2012 PANHCO STEAM DISTRIBUTION SUPERVISOR, MANNY A 789.09 Abdominal Pain Other Specified [...] MANNY A 466.0 Bronchitis, Acute 05/11/2012 PANCHO STEAM DISTRIBUTION SUPERVISOR, MANNY A 466.0 Bronchitis, Acute 05/11/2012 PANCHO STEAM DISTRIBUTION SUPERVISOR, MANNY A 466.0 Bronchitis, Acute 05/11/2012 PANCHO STEAM DISTRIBUTION SUPERVISOR, MANNY A 466.0 Bronchitis, Acute 05/19/2012 V06.1 TDAP DX 05/19/2012 V06.1 TDAP DX 05/19/2012 V06.1 TDAP DX 05/19/2012 PANCHO RAYN, MANNY A V06.1 TDAP DX 05/19/2012 DARREN RICHARDS DO V06.1 TDAP DX 05/19/2012 V06.1 TDAP DX 05/19/2012 RICHARDS DARERN GONZALEZ V06.1 TDAP DX 05/19/2012 V06.1 TDAP [...] (CURRENT) USE OF OTHER MEDICATIONS 11/24/2012 PANCHO STEAM DISTRIBUTION SUPERVISOR, MANNY A V25.9 CONTRACEPTION MANAGEMENT 11/24/2012 PANCHO STEAM DISTRIBUTION SUPERVISOR, MANNY A V58.69 LONG-TERM (CURRENT) USE OF OTHER MEDICATIONS 11/24/2012 PANCHO STEAM DISTRIBUTION SUPERVISOR, MANNY A V25.9 CONTRACEPTION MANAGEMENT 11/24/2012 PANCHO STEAM DISTRIBUTION SUPERVISOR, MANNY A V58.69 LONG-TERM (CURRENT) USE OF OTHER MEDICATIONS 11/24/2012 PANCHO VALENTE, MANNY A V25.9 CONTRACEPTION MANAGEMENT 11/24/2012 PANCHO APRN, MANNY A V58.69 LONG-TERM (CURRENT) USE OF OTHER MEDICATIONS 11/24/2012 PANCHO STEAM DISTRIBUTION SUPERVISOR, MANNY A V25.9 CONTRACEPTION MANAGEMENT 11/24/2012 PANCHO [...] VICTOR MANNY A 305.70 AMPHETA ABUSE 12/23/2012 PANHCO VICTOR MANNY A 300.00 AN ANXIETY UNSPEC 12/23/2012 PANCHO VICTOR MANNY A 305.70 AMPHETA ABUSE 12/23/2012 PANCHO STEAM DISTRIBUTION SUPERVISOR, MANNY A 300.00 AN ANXIETY UNSPEC 12/23/2012 PANCHO STEAM DISTRIBUTION SUPERVISOR, MANNY A 305.70 AMPHETA ABUSE 12/23/2012 PANCHO STEAM DISTRIBUTION SUPERVISOR, MANNY A 300.00 AN ANXIETY UNSPEC 12/23/2012 PANCHO STEAM DISTRIBUTION SUPERVISOR, MANNY A 305.70 AMPHETA ABUSE 03/01/2013 PANCHO STEAM DISTRIBUTION SUPERVISOR, MANNY A 708.0 ALLERGIC URTICARIA 03/01/2013 PANCHO STEAM DISTRIBUTION SUPERVISOR, MANNY A 708.0 ALLERGIC URTICARIA 03/01/2013 PANCHO STEAM DISTRIBUTION SUPERVISOR, MANNY A 708.0 ALLERGIC URTICARIA 03/01/2013 PANCHO STEAM DISTRIBUTION SUPERVISOR, MANNY A 708.0 ALLERGIC URTICARIA 09/06/2013 PANCHO STEAM DISTRIBUTION SUPERVISOR, MANNY A 626.2 EXCESSIVE OR FREQUENT MENSTRUATION 09/06/2013 PANCHO STEAM DISTRIBUTION SUPERVISOR, MANNY A 780.79 OTHER MALAISE AND FATIGUE 09/06/2013 PANCHO STEAM DISTRIBUTION SUPERVISOR, MANNY A 626.2 EXCESSIVE OR FREQUENT MENSTRUATION 09/06/2013 PANCHO STEAM DISTRIBUTION SUPERVISOR, MANNY A 780.79 OTHER MALAISE AND FATIGUE 09/26/2013 CHILANGO KOCH STEAM DISTRIBUTION SUPERVISOR Ot 620.2 OVARIAN CYST NEC/NOS 09/26/2013 CHILANGO KOCH STEAM DISTRIBUTION SUPERVISOR Ot 626.8 MENSTRUAL DISORDER NEC 04/22/2015 Ot 649.63 04/22/2015 Ot V22.0 04/22/2015 Ot V28.81 04/22/2015 Ot 656.63 04/22/2015 Ot 656.63 04/22/2015 KUSH NIX Ot K04.7 PERIAPICAL ABSCESS WITHOUT SINUS 04/22/2015 KUSH NIX Ot K08.409 PARTIAL LOSS OF TEETH, UNSPECIFIED CAUSE 07/04/2015 Ot 649.63 07/04/2015 Ot V22.0 07/04/2015 Ot V28.81 07/04/2015 Ot 656.63 07/04/2015 Ot 656.63 07/05/2015 ABNER DUBON STEAM DISTRIBUTION SUPERVISOR Ot Z34.81 07/19/2015 ABNER DUBON STEAM DISTRIBUTION SUPERVISOR Ot Z34.81 09/04/2015 DARREN RICHARDS DO Ot [...] DEPRESSIVE DISORDER, SINGLE EPISOD 09/28/2017 CHILANGO KOCH STEAM DISTRIBUTION SUPERVISOR Ot F41.9 ANXIETY DISORDER, UNSPECIFIED 09/28/2017 CHILANGO KOCH APRN Ot J02.9 ACUTE PHARYNGITIS, UNSPECIFIED 09/28/2017 CHILANGO KOCH APRN Ot N39.0 URINARY TRACT INFECTION, SITE NOT SPECIF 09/28/2017 CHILANGO KOCH STEAM DISTRIBUTION SUPERVISOR Ot R42 DIZZINESS AND GIDDINESS 09/28/2017 CHILANGO KOCH STEAM DISTRIBUTION SUPERVISOR Ot Z87.891 PERSONAL HISTORY OF NICOTINE DEPENDENCE 09/30/2017 CHILANGO KOCH APRN Ot F32.9 MAJOR DEPRESSIVE DISORDER, SINGLE EPISOD 09/30/2017 CHILANGO KOCH STEAM DISTRIBUTION SUPERVISOR Ot F41.9 ANXIETY DISORDER, UNSPECIFIED 09/30/2017 CHILANGO KOCH STEAM DISTRIBUTION SUPERVISOR Ot J02.9 ACUTE PHARYNGITIS, UNSPECIFIED 09/30/2017 CHILANGO KOCH STEAM DISTRIBUTION SUPERVISOR Ot N39.0 URINARY TRACT INFECTION, SITE NOT SPECIF 09/30/2017 CHILANGO KOCH STEAM DISTRIBUTION SUPERVISOR Ot R42 DIZZINESS AND GIDDINESS 09/30/2017 CHILANGO KOCH STEAM DISTRIBUTION SUPERVISOR Ot Z87.891 PERSONAL HISTORY OF NICOTINE DEPENDENCE 10/23/2017 KATERINA RILEY, TANVIR Naqvi Ot F32.9 MAJOR DEPRESSIVE DISORDER, SINGLE EPISOD 10/23/2017 KATERINA RILEY, TANVIR Naqvi Ot F41.9 ANXIETY DISORDER, UNSPECIFIED 10/23/2017 KATERINA RILEY, TANVIR Naqvi Ot R10.9 UNSPECIFIED ABDOMINAL PAIN 10/23/2017 KATERINA RILEY, TANVIR Naqvi Ot R51 HEADACHE 10/24/2017 CRISTINA CLAROS DO Ot 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 10/24/2017 CRISTINA CLAROS DO Ot F15.10 OTHER STIMULANT ABUSE, UNCOMPLICATED 10/24/2017 CRISTINA CLAROS DO Ot F17.210 NICOTINE DEPENDENCE, CIGARETTES, UNCOMPL 10/24/2017 CRISTINA CLAROS DO Ot F32.9 MAJOR DEPRESSIVE DISORDER, SINGLE EPISOD 10/24/2017 HARLAN , CRISTINA Davidson Ot F41.9 ANXIETY DISORDER, UNSPECIFIED 10/24/2017 HARLAN CRISTINA GONZALEZ Ot N39.0 URINARY TRACT INFECTION, SITE NOT SPECIF 10/24/2017 CRISTINA CLAROS DO Ot N73.9 FEMALE PELVIC INFLAMMATORY DISEASE, UNSP 10/24/2017 CRISTINA CLAROS DO Ot R10.32 LEFT LOWER QUADRANT PAIN 10/26/2017 KATERINA RILEY, TANVIR Naqvi Ot F32.9 MAJOR DEPRESSIVE DISORDER, SINGLE EPISOD 10/26/2017 KATERINA RILEY, TANVIR Naqvi Ot F41.9 ANXIETY DISORDER, UNSPECIFIED 10/26/2017 KATERINA RILEY, TANVIR Naqvi Ot R10.9 UNSPECIFIED ABDOMINAL PAIN 10/26/2017 KATERINA RILEY, TANVIR Naqvi Ot R51 HEADACHE 11/26/2017 Ot F12.10 CANNABIS ABUSE, UNCOMPLICATED 11/26/2017 Ot F15.10 OTHER STIMULANT ABUSE, UNCOMPLICATED 11/26/2017 Ot F32.9 MAJOR DEPRESSIVE DISORDER, SINGLE EPISOD 11/26/2017 Ot F41.9 ANXIETY DISORDER, UNSPECIFIED 11/26/2017 Ot N39.0 URINARY TRACT INFECTION, SITE NOT SPECIF 11/26/2017 Ot N73.9 FEMALE PELVIC INFLAMMATORY DISEASE, UNSP 11/26/2017 Ot R10.30 LOWER ABDOMINAL PAIN, UNSPECIFIED 11/26/2017 Ot Z77.22 CNTCT W AND EXPSR TO ENVIRON TOBACCO SMO 11/30/2017 Ot F12.10 CANNABIS ABUSE, UNCOMPLICATED 11/30/2017 Ot F15.10 OTHER STIMULANT ABUSE, UNCOMPLICATED 11/30/2017 Ot F32.9 MAJOR DEPRESSIVE DISORDER, SINGLE EPISOD 11/30/2017 Ot F41.9 ANXIETY DISORDER, UNSPECIFIED 11/30/2017 Ot N39.0 URINARY TRACT INFECTION, SITE NOT SPECIF 11/30/2017 Ot N73.9 FEMALE PELVIC INFLAMMATORY DISEASE, UNSP 11/30/2017 Ot R10.30 LOWER ABDOMINAL PAIN, UNSPECIFIED 11/30/2017 Ot Z77.22 CNTCT W AND EXPSR TO ENVIRON TOBACCO SMO 12/25/2017 ELIZABETH BRICEÑO Ot F12.10 CANNABIS ABUSE, UNCOMPLICATED 12/25/2017 ELIZABETH BRICEÑO Ot F15.10 OTHER STIMULANT ABUSE, UNCOMPLICATED 12/25/2017 ELIZABETH BRICEÑO Ot F32.9 MAJOR DEPRESSIVE DISORDER, SINGLE EPISOD 12/25/2017 ELIZABETH BRICEÑO Ot F41.9 ANXIETY DISORDER, UNSPECIFIED 12/25/2017 ELIZABETH BRICEÑO Ot S61.211A LACERATION W/O FB OF L IDX FNGR W/O MELISSA 12/25/2017 ELIZABETH BRICEÑO Ot W26.0XXA CONTACT WITH KNIFE, INITIAL ENCOUNTER 12/25/2017 ELIZABETH BRICEÑO Ot Z87.891 PERSONAL HISTORY OF NICOTINE DEPENDENCE 12/28/2017 ELIZABETH BRICEÑO Ot F12.10 CANNABIS ABUSE, UNCOMPLICATED 12/28/2017 ELIZABETH BRICEÑO Ot F15.10 OTHER STIMULANT ABUSE, UNCOMPLICATED 12/28/2017 ELIZABETH BRICEÑO Ot F32.9 MAJOR DEPRESSIVE DISORDER, SINGLE EPISOD 12/28/2017 ELIZABETH BRICEÑO Ot F41.9 ANXIETY DISORDER, UNSPECIFIED 12/28/2017 ELIZABETH BRICEÑO Ot S61.211A LACERATION W/O FB OF L IDX FNGR W/O MELISSA 12/28/2017 ELIZABETH BRICEÑO Ot W26.0XXA CONTACT WITH KNIFE, INITIAL ENCOUNTER 12/28/2017 ELIZABETH BRICEÑO Ot Z87.891 PERSONAL HISTORY OF NICOTINE DEPENDENCE 03/18/2018 ABNER DUBON APRN Ot Z34.81 ENCOUNTER FOR SUPRVSN OF NORMAL PREGNANC 03/18/2018 DARREN RICHARDS DO Ot Z34.82 ENCOUNTER FOR SUPRVSN OF NORMAL PREGNANC 03/18/2018 DARREN RICHARDS DO Ot Z36 ENCOUNTER FOR SCREENING OF MOT 03/18/2018 DARREN RICHARDS DO Ot Z34.83 ENCOUNTER FOR SUPRVSN OF NORMAL PREGNANC 03/25/2018 GRZEGORZ RILEY, JORDY Moran Ot A64 UNSPECIFIED SEXUALLY TRANSMITTED DISEASE 03/25/2018 JORDY LANTIGUA MD Ot F12.10 CANNABIS ABUSE, UNCOMPLICATED 03/25/2018 JORDY LANTIGUA MD Ot F15.10 OTHER STIMULANT ABUSE, UNCOMPLICATED 03/25/2018 JORDY LANTIGUA MD Ot F32.9 MAJOR DEPRESSIVE DISORDER, SINGLE EPISOD 03/25/2018 JORDY LANTIGUA MD Ot F41.9 ANXIETY DISORDER, UNSPECIFIED 03/25/2018 JORDY LANTIGUA MD Ot N39.0 URINARY TRACT INFECTION, SITE NOT SPECIF 03/25/2018 JORDY LANTIGUA MD Ot N89.8 OTHER SPECIFIED NONINFLAMMATORY DISORDER 03/25/2018 JORDY LANTIGUA MD Ot Z87.448 PERSONAL HISTORY OF OTHER DISEASES OF UR 03/25/2018 JORDY LANTIGUA MD, Ot Z87.891 PERSONAL HISTORY OF NICOTINE DEPENDENCE Procedures Code [place] [address] GC/CHLAM PROBE (STATE) 02/02/2012 84677 UA OB DIP 02/02/2012 39768 CULTURE UROGENITAL 02/05/2012 78742 UA OB DIP 02/11/2012 94778 US OB ULTRASOUND 02/12/2012 29633 US OB ULTRASOUND 03/09/2012 27973 UA OB DIP 03/09/2012 67254 US OB ULTRASOUND 03/09/2012 57252 UA OB DIP 04/21/2012 56750 ROUTINE VENIPUNCTURE 04/28/2012 25509 UA LONG DIP 04/28/2012 88131 CBC 04/28/2012 67110 GLUCOSE ARI 1 HOUR 04/28/2012 86726 STREP A (IN-HOUSE) 05/11/2012 51133 UA OB DIP 06/03/2012 84030 ROUTINE VENIPUNCTURE 06/16/2012 65547 UA LONG DIP 06/16/2012 57345 GLUCOSE ARI 1 HOUR 06/16/2012 31712 ROUTINE VENIPUNCTURE 06/17/2012 39629 CMP 06/17/2012 63615 NON-STRESS TEST 06/24/2012 16363 UA W/ CULTURE IF INDICATED 06/24/2012 43128 FIBRONECTIN 06/25/2012 86656 CULTURE UROGENITAL 06/25/2012 66249 UA OB DIP 06/30/2012 95737 UA OB DIP 07/14/2012 41102 CULTURE GROUP B STREP VAG 07/17/2012 71219 UA OB DIP 07/21/2012 84037 US OB - FOLLOW UP 07/26/2012 36600 NON-STRESS TEST 07/29/2012 63943 UA OB DIP 07/29/2012 22328 BIOPHYSICAL PROFILE () W/NST 08/02/2012 73.59 MANUAL ASSIST DELIV NEC 08/04/2012 81673 THERAPUTIC INJ SQ/IM 11/24/2012 J1050 DEPO PROVERA 11/24/2012 95934 URINE TEST (IN- HOUSE) 11/24/2012 46144 URINE DRUG SCREEN (IN-HOUSE ) 12/23/2012 12808 PSYCH DIAG EVAL W/MED SRVCS 01/02/2013 37812 THERAPUTIC INJ SQ/IM 02/22/2013 J1050 DEPO PROVERA 02/22/2013 00359 THERAPUTIC INJ SQ/IM 02/22/2013 J1050 DEPO PROVERA 02/22/2013 64856 URINE TEST (IN- HOUSE) 02/22/2013 30184 URINE TEST (IN- HOUSE) 02/22/2013 09434 TEST, URINE (IN- HOUSE) 05/24/2013 96563 ROUTINE VENIPUNCTURE 09/06/2013 16418 TEST, URINE (IN- HOUSE) 09/06/2013 00708 CBC 09/06/2013 25912 TSH 09/06/2013 [id number] DELIVERY OF PRODUCTS OF CONCEPTION, EXTE 01/07/2016 [...] ABO+Rh group BP NRG Transfusion band number [id number] NRG Blood group antibody screen NEGATIVE NRG Blood manual differential performed detection - 01/06/16 22:20 Blood monocytes/100 leukocytes 3 % NRG Manual blood segmented neutrophils/100 leukocytes 76 % NRG Blood band neutrophils/100 leukocytes 1 % NRG Manual blood lymphocytes/100 leukocytes 19 % NRG Manual eosinophils/100 leukocytes in nose 1 % NRG Blood erythrocyte morphology finding identification NORMAL NR Complete blood count (CBC) with automated white [...] identification in genital specimen by aerobe culture [id number] NRG FREE TEXT EXTERNAL 3 CALLED TO [place], ER 10/25/[address] NRG Microscopic [...] 08:57 Gonorrhea amp DNA-urine Dectected Not Detected Urine drug screening test - 03/17/18 23:35 Urine phencyclidine detection by screening method NEGATIVE [...] NEGATIVE NEGATIVE Urine propoxyphene detection NEGATIVE NEGATIVE Complete urinalysis with reflex to culture - 03/17/18 23:35 Urine color determination YELLOW NRG Urine clarity determination SL CLOUDY NRG Urine pH measurement by test strip 5 5-9 Specific gravity of urine by test strip 1.015 1.016- 1.022 Urine protein assay by test strip, semi-quantitative 2+ NEGATIVE Urine glucose detection by automated test strip NEGATIVE NEGATIVE Erythrocytes detection in urine sediment by light microscopy 2+ NEGATIVE Urine ketones detection by automated test strip 1+ NEGATIVE Urine nitrite detection by test strip POSITIVE NEGATIVE Urine total bilirubin detection by test strip 1+ NEGATIVE Urine urobilinogen measurement by automated test strip (mass/volume) 8 mg/dL NORMAL Urine leukocyte esterase detection by dipstick 3+ NEGATIVE Automated urine sediment erythrocyte count by microscopy (number/high power field) RARE NRG Automated urine sediment leukocyte count by microscopy (number/high power field ) [HPF] NRG Bacteria detection in urine sediment by light microscopy LARGE NRG Squamous epithelial cells detection in urine sediment by light microscopy 10-25 NRG Crystals detection in urine sediment by light microscopy NONE NRG Casts detection in urine sediment by light microscopy NONE NRG Mucus detection in urine sediment by light microscopy SMALL NRG Complete urinalysis with reflex to culture YES NRG Bacterial urine culture - 03/17/18 23:35 Bacterial urine culture SEE COMMEN NRG COLONY COUNT . NRG Encounters ACCT No. Visit Date/Time Discharge Status Pt. Type Provider Facility Loc./Unit Complaint [id number] 09/06/2013 11:23:00 09/06/2013 23:59:59 CLS Outpatient MANNY DELEON APRN [id number] 09/06/2013 11:23:00 09/06/2013 23:59:59 CLS Outpatient MANNY DELEON APRN [id number] 05/24/2013 10:02:00 05/24/2013 23:59:59 CLS Outpatient MANNY DELEON APRN [id number] 03/01/2013 15:42:00 03/01/2013 23:59:59 CLS Outpatient MANNY DELEON APRN [id number] 02/22/2013 10:03:00 02/22/2013 23:59:59 CLS Outpatient DARREN RICHARDS DO [id number] 12/23/2012 10:54:00 12/23/2012 23:59:59 CLS Outpatient ELADIO WARD APRN [id number] 12/23/2012 10:54:00 12/23/2012 23:59:59 CLS Outpatient ELADIO WARD APRN [id number] 07/14/2012 15:36:00 07/14/2012 23:59:59 CLS Outpatient [id number] 06/30/2012 14:27:00 06/30/2012 23:59:59 CLS Outpatient [id number] 06/24/2012 15:48:00 06/24/2012 23:59:59 CLS Outpatient DARREN RICHARDS DO Lety [id number] 06/17/2012 11:43:00 06/17/2012 23:59:59 CLS Outpatient MANNY DELEON APRN [id number] 06/16/2012 09:38:00 06/16/2012 23:59:59 CLS Outpatient [id number] 06/16/2012 09:38:00 06/16/2012 23:59:59 CLS Outpatient [id number] 06/03/2012 10:44:00 06/03/2012 23:59:59 CLS Outpatient [id number] 06/03/2012 10:44:00 06/03/2012 23:59:59 CLS Outpatient DARREN RICHARDS DO Lety [id number] 05/19/2012 14:41:00 05/19/2012 23:59:59 CLS Outpatient [id number] 05/11/2012 16:57:00 05/11/2012 23:59:59 CLS Outpatient [id number] 04/28/2012 10:36:00 04/28/2012 23:59:59 CLS Outpatient DARREN RICHARDS DO [id number] 04/21/2012 15:17:00 04/21/2012 23:59:59 CLS Outpatient [id number] 03/09/2012 14:18:00 03/09/2012 23:59:59 CLS Outpatient [id number] 02/11/2012 09:51:00 02/11/2012 23:59:59 CLS Outpatient DARREN RICHARDS DO [id number] 11/24/2012 11:07:00 Document Registration [id number] 09/07/2012 12:08:00 Document Registration [id number] 07/29/2012 10:51:00 Document Registration [id number] 07/26/2012 08:04:00 Document Registration [id number] 07/21/2012 14:55:00 Document Registration [id number] 12/29/2015 13:05:00 Document Registration [id number] 03/16/2018 12:20:00 03/16/2018 23:59:59 CLS Outpatient REMI LAC, LUI [facility] [id number] 03/17/2018 23:26:00 03/18/2018 00:28:00 DIS Outpatient GRZEGORZ RILEY, JORDY Moran [facility] ER ABD PAIN [id number] 12/25/2017 11:45:00 12/25/2017 13:48:00 DIS Emergency ELIZABETH BRICEÑO [facility] ER HAND LAC [id number] 10/24/2017 06:26:00 10/24/2017 09:52:00 DIS Emergency HARLANCRISTINA Llanes DO [facility] ER POSS APPENDICITIS [id number] 10/23/2017 21:56:00 10/23/2017 22:14:00 DIS Emergency KATERINA RILEY, TANVIR Naqvi [facility] ER STOMACH CRAMPS/SKIN FEELS HOT [id number] 09/28/2017 17:41:00 09/28/2017 19:24:00 DIS Emergency CHILANGO KOCH APRN [facility] ER DIZZINESS;SORE THROAT [id number] 02/07/2017 13:19:00 02/07/2017 13:31:00 DIS Emergency CHILANGO KOCH APRN [facility] ER L SIDE TOOTH POSS INFECTION [id number] 01/06/2016 22:17:00 01/08/2016 12:43:00 DIS Inpatient DARREN RICHARDS DO [facility] LDRP LABOR [id number] 12/30/2015 18:49:00 12/30/2015 20:15:00 DIS Outpatient PETTY RILEY, JENNIFER Ford [facility] WSo PRESSURE/CONTRACTIONS [id number] 12/18/2015 14:00:00 12/18/2015 16:30:00 DIS Outpatient DARREN RICHARDS DO [facility] COMPLAINTS OF CONTRACTIONS [id number] 12/04/2015 11:02:00 12/04/2015 14:25:00 DIS Outpatient DARREN RICHARDS DO [facility] WSo ABD CRAMPING/RUSSO 32 WKS PREG [id number] 11/05/2015 14:02:00 11/05/2015 23:59:59 CLS Outpatient DARREN RICHARDS DO [facility] RAD Z34.83 [id number] 09/04/2015 13:44:00 09/04/2015 23:59:59 CLS Outpatient DARREN RICHARDS DO [facility] RAD SURVEY [id number] 07/04/2015 11:28:00 07/04/2015 23:59:59 CLS Outpatient ABNER DUBON [employer] SUPER[employer] [facility] RAD DATING [id number] 04/22/2015 18:42:00 04/22/2015 21:10:00 DIS Emergency KUSH NIX [facility] ER DENTAL PAIN/POSS ABSCESS [id number] 09/26/2013 12:26:00 09/26/2013 14:33:00 DIS Emergency CHILANGO KOCH [employer] DIST[employer]ION SUPERVISOR [facility] ER VAG BLEEDING [id number] 08/04/2012 18:26:00 08/06/2012 11:30:00 DIS Inpatient DARREN RICHARDS DO [facility] WS LABOR [id number] 11/26/2017 12:13:00 Document Registration [id number] 04/22/2015 18:42:00 Document Registration [id number] 07/28/2012 15:29:00 Document Registration [id number] 07/01/2012 23:10:00 Document Registration [id number] 05/26/2012 14:36:00 Document Registration [id number] 04/19/2012 10:46:00 Document Registration [id number] 03/30/2012 09:59:00 Document Registration [id number] 02/12/2012 11:10:00 Document Registration [id number] 10/09/2011 21:00:00 Document Registration [id number] 09/18/2011 17:01:00 Document Registration [id number] 04/28/2011 14:57:00 Document Registration [id number] 12/24/2010 19:56:00 Document Registration [id number] 12/13/2009 21:50:00 Document Registration
--- NOTE | 2018-04-13 19:00 | NUR ---
pt not in waiting room
[2018-04-14] MEDS ORDERED: SULF1TAB35 PO (18:21)
[2018-04-14] MEDS ORDERED: ONDA4TAB11 PO (18:21)
== END 2018-04-13 19:00 | disposition left against medical advice (07) ==
LOC: EDUNIT# 18:28 → ER 18:29
DX: R10.9 Unspecified abdominal pain (principal); R11.10 Vomiting, unspecified

== ENCOUNTER 2018-04-14 15:58 | Emergency (ER) | payer MEDICAID ==
[~2018-04-14] VITALS: Ht 160 cm; Wt 74.8 kg
--- NOTE | 2018-04-14 16:20 | NUR ---
NO NEW C/O SINCE TRIAGE.
--- NOTE | 2018-04-14 16:36 | ED General ---
General Chief Complaint: Abdominal/GI Problems Stated Complaint: VOMITTING,FEVER,COGHING Nursing Triage Note: PATIENT STATES THAT SHE HAD ABD PAIN, VOMITING AND NAUSEA FOR 2 DAYS. SHE HAS NOT URINATED SINCE YESTERDAY. STATES SHE CANNOT EVEN KEEP SPRITE DOWN. Nursing Sepsis Screen: No Definite Risk Source of Information: Patient Exam Limitations: No Limitations History of Present Illness Date Seen by Provider: Apr 14, 2018 Time Seen by Provider: 16:33 Initial Comments To ER with reports of nausea vomiting up her abdominal pain. She's had no urine output since 04/12 and no bowel movement since 04/11. Timing/Duration: 2-3 Days Severity: Moderate Associated Systoms: Denies Symptoms Allergies and Home Medications Allergies Coded Allergies: No Known Drug Allergies (Unverified , 12/25/17) Home Medications Ondansetron 4 Mg Tab.rapdis, 4 MG PO Q4H PRN for NAUSEA/VOMITING Prescribed by: CHILANGO KOCH on 04/14/181820 Sulfamethoxazole/Trimethoprim 1 Each Tablet, 1 EACH PO BID Prescribed by: CHILANGO KOCH on 04/14/181820 Patient Home Medication List Home Medication List Reviewed: Yes Review of Systems Review of Systems Constitutional: see HPI, chills, malaise, weakness Respiratory: see HPI, cough Cardiovascular: no symptoms reported Genitourinary: no symptoms reported Musculoskeletal: no symptoms reported Skin: no symptoms reported Psychiatric/Neurological: No Symptoms Reported Past Pcqamab-Nznhvt-Rruzlq Hx Patient Social History Alcohol Use: Denies Use Recreational Drug Use: No Drug of Choice: THC, + IV METH Smoking Status: Current Everyday Smoker Type Used: Cigarettes Former Smoker, Quit: Jul 12, 2017 2nd Hand Smoke Exposure: Yes Recent Foreign Travel: No Contact w/Someone Who Travel: No Recent Infectious Disease Expo: No Recent Hopitalizations: No Immunizations Up To Date Tetanus Booster (TDap): Unknown Date of Influenza Vaccine: Jan 02, 2016 Seasonal Allergies Seasonal Allergies: No Past Medical History Surgeries: No Respiratory: No Cardiac: No Neurological: No Reproductive Disorders: Yes Female Reproductive Disorders: Menstrual Problems, Pelvic Inflammatory Dis Sexually Transmitted Disease: Yes HIV/AIDS: No Genitourinary: No Gastrointestinal: No Musculoskeletal: No Endocrine: No HEENT: Yes (POOR DENTITION) Cancer: No Psychosocial: Yes Anxiety, Depression Integumentary: No Blood Disorders: No Adverse Reaction/Blood Tranf: No Family Medical History Patient reports no known family medical history. Physical Exam Vital Signs Vital Signs - First Documented 04/14/18 16:13 Temp 97.2 Pulse 110 Resp 18 B/P (MAP) 123/90 (101) Pulse Ox 100 Capillary Refill : Less Than 3 Seconds Height, Weight, BMI Height: 5'3.00" Weight: 165lbs. 0oz. 74.879953vq; 39.0 BMI Method:Stated General Appearance: No Apparent Distress, WD/WN Eyes: Bilateral Eye Normal Inspection, Bilateral Eye PERRL, Bilateral Eye EOMI HEENT: PERRL/EOMI, TMs Normal Neck: Full Range of Motion, Normal Inspection Respiratory: Lungs Clear, Normal Breath Sounds, No Accessory Muscle Use, No Respiratory Distress Cardiovascular: Normal Peripheral Pulses, Tachycardia Gastrointestinal: Normal Bowel Sounds, Soft Extremity: Normal Capillary Refill, Normal Inspection, Other (she does have track young over the radial side of the wrist overlying the cephalic vein bilaterally, dorsal aspect of the hands bilaterally and antecubital fossa bilaterally. There is purplish/green ecchymosis over a small area in the left antecubital fossa consistent with recent injection. When questioned about IV drug use patient states "I used to be an IV drug user".) Neurologic/Psychiatric: Alert, Oriented x3 Skin: Normal Color, Warm/Dry Procedures/Interventions Suture Size: 5-0 Progress/Results/Core Measures Suspected Sepsis Recent Fever Within 48 Hours: No Infection Criteria Present: Suspected New Infection New/Unexplained Altered Menta: No Sepsis Screen: No Definite Risk SIRS Temperature:97.2 Pulse: 110 Respiratory Rate: 18 Laboratory Tests 04/14/18 16:29: White Blood Count 14.4H Blood Pressure 123 /90 Mean: 101 Laboratory Tests 04/14/18 16:29: Creatinine 0.72, Platelet Count 310, Total Bilirubin 1.9H Results/Orders Lab Results Laboratory Tests Test 04/14/18 16:29 04/14/18 17:55 Range/Units White Blood Count 14.4 H 4.3-11.0 10^3/uL Red Blood Count 5.65 4.35-5.85 10^6/uL Hemoglobin 16.5 H 11.5-16.0 G/DL Hematocrit 48 35-52 % Mean Corpuscular Volume 85 80-99 FL Mean Corpuscular Hemoglobin 29 25-34 PG Mean Corpuscular Hemoglobin Concent 34 32-36 G/DL Red Cell Distribution Width 14.4 10.0-14.5 % Platelet Count 310 130-400 10^3/uL Mean Platelet Volume 10.6 H 7.4-10.4 FL Neutrophils (%) (Auto) 68 42-75 % Lymphocytes (%) (Auto) 22 12-44 % Monocytes (%) (Auto) 7 0-12 % Eosinophils (%) (Auto) 2 0-10 % Basophils (%) (Auto) 1 0-10 % Neutrophils # (Auto) 9.8 H 1.8-7.8 X 10^3 Lymphocytes # (Auto) 3.2 1.0-4.0 X 10^3 Monocytes # (Auto) 1.1 H 0.0-1.0 X 10^3 Eosinophils # (Auto) 0.3 0.0-0.3 10^3/uL Basophils # (Auto) 0.1 0.0-0.1 10^3/uL Neutrophils % (Manual) 73 % Lymphocytes % (Manual) 23 % Monocytes % (Manual) 4 % Eosinophils % (Manual) 0 % Basophils % (Manual) 0 % Band Neutrophils 0 % Blood Morphology Comment NORMAL Sodium Level 140 135-145 MMOL/L Potassium Level 4.0 3.6-5.0 MMOL/L Chloride Level 101 98-107 MMOL/L Carbon Dioxide Level 26 21-32 MMOL/L Anion Gap 13 5-14 MMOL/L Blood Urea Nitrogen 11 7-18 MG/DL Creatinine 0.72 0.60-1.30 MG/DL Estimat Glomerular Filtration Rate > 60 BUN/Creatinine Ratio 15 Glucose Level 114 H 70-105 MG/DL Calcium Level 9.6 8.5-10.1 MG/DL Corrected Calcium 9.5 8.5-10.1 MG/DL Total Bilirubin 1.9 H 0.1-1.0 MG/DL Aspartate Amino Transf (AST/SGOT) 10 5-34 U/L Alanine Aminotransferase (ALT/SGPT) 11 0-55 U/L Alkaline Phosphatase 95 40-136 U/L Total Protein 7.5 6.4-8.2 GM/DL Albumin 4.1 3.2-4.5 GM/DL Lipase 11 8-78 U/L Serum Test, Qualitative NEGATIVE NEGATIVE Urine Color YELLOW Urine Clarity CLOUDY Urine pH 6.5 5-9 Urine Specific [place] 1.020 1.016-1.022 Urine Protein 2+ H NEGATIVE Urine Glucose (UA) NEGATIVE NEGATIVE Urine Ketones NEGATIVE NEGATIVE Urine Nitrite NEGATIVE NEGATIVE Urine Bilirubin 1+ H NEGATIVE Urine Urobilinogen 4 H NORMAL MG/DL Urine Leukocyte Esterase 3+ H NEGATIVE Urine RBC (Auto) 1+ H NEGATIVE Urine RBC NONE /HPF Urine WBC 10-25 H /HPF Urine Squamous Epithelial Cells >50 H /HPF Urine Crystals NONE /LPF Urine Bacteria LARGE H /HPF Urine Casts NONE /LPF Urine Mucus SMALL H /LPF Urine Culture Indicated YES Urine Opiates Screen NEGATIVE NEGATIVE Urine Oxycodone Screen NEGATIVE NEGATIVE Urine Methadone Screen NEGATIVE NEGATIVE Urine Propoxyphene Screen NEGATIVE NEGATIVE Urine Barbiturates Screen NEGATIVE NEGATIVE Ur Tricyclic Antidepressants Screen NEGATIVE NEGATIVE Urine Phencyclidine Screen NEGATIVE NEGATIVE Urine Amphetamines Screen POSITIVE H NEGATIVE Urine Methamphetamines Screen POSITIVE H NEGATIVE Urine Benzodiazepines Screen NEGATIVE NEGATIVE Urine Cocaine Screen NEGATIVE NEGATIVE Urine Cannabinoids Screen NEGATIVE NEGATIVE My Orders Orders - CHILANGO KOCH STAFF ENGINEER Cbc With Automated Diff (04/14/18 16:31) Comprehensive Metabolic Panel (04/14/18 16:31) Lipase (04/14/18 16:31) Ua Culture If Indicated (04/14/18 16:31) Hcg,Qualitative Serum (04/14/18 16:31) Drug Screen Stat (Urine) (04/14/18 16:31) Iv Heplock-Insert (Order) (04/14/18 16:31) Lactated Ringers (Lr 1000 Ml Iv Solution (04/14/18 16:45) Ondansetron Injection (Zofran Injectio (04/14/18 16:45) Manual Differential (04/14/18 16:29) Urine Culture (04/14/18 17:55) Ceftriaxone For Iv Use (Rocephin For I (04/14/18 18:30) Ct Abdomen/Pelvis W (04/14/18 18:26) Ketorolac Injection (Toradol Injection) (04/14/18 18:30) Iohexol Injection (Omnipaque 350 Mg/Ml 1 (04/14/18 18:30) Contrast Received (Contrast Received) (04/14/18 18:30) Sodium Chloride Flush (Catheter Flush Sy (04/14/18 18:30) Ns (Ivpb) (Sodium Chloride 0.9% Ivpb Bag (04/14/18 18:30) Promethazine Injection (Phenergan Injec (04/14/18 18:45) Ns Iv 1000 Ml (Sodium Chloride 0.9%) (04/14/18 18:45) Medications Given in ED Current Medications Medications Dose Ordered Sig/Camila Route Start Time Stop Time Status Last Admin Dose Admin Ceftriaxone Sodium 1000 mg/ Sodium Chloride 50 ml @ 100 mls/hr ONCE ONCE IV 04/14/18 18:30 04/14/18 18:59 DC 04/14/18 18:35 100 MLS/HR Iohexol 100 ml ONCE ONCE IV 04/14/18 18:30 04/14/18 18:31 DC 04/14/18 19:00 100 ML Ketorolac Tromethamine 15 mg ONCE ONCE IVP 04/14/18 18:30 04/14/18 18:31 DC 04/14/18 18:33 15 MG Ondansetron HCl 8 mg ONCE ONCE IVP 04/14/18 16:45 04/14/18 16:46 DC 04/14/18 16:45 8 MG Promethazine HCl 25 mg ONCE ONCE IVP 04/14/18 18:45 04/14/18 18:46 DC 04/14/18 18:45 12.5 MG Sodium Chloride 10 ml NEEDED PRN IV 04/14/18 18:30 04/14/18 19:00 10 ML Sodium Chloride 100 ml ONCE ONCE IV 04/14/18 18:30 04/14/18 18:31 DC 04/14/18 19:00 80 ML Vital Signs/I&O 04/14/18 16:13 Temp 97.2 Pulse 110 Resp 18 B/P (MAP) 123/90 (101) Pulse Ox 100 Capillary Refill : Less Than 3 Seconds Blood Pressure Mean: 101 Diagnostic Imaging Diagonstic Imaging: CT Comments NAME: NAVI ROQUE [facility] REC#: [id number] PT STATUS: REG ER : 1995 PHYSICIAN: CHILANGO KOCH APRN ADMIT DATE: 04/14/18/ER Draft Date of Exam:04/14/18 CT ABDOMEN/PELVIS W PROCEDURE: CT abdomen and pelvis with contrast. TECHNIQUE: Multiple contiguous axial images were obtained through the abdomen and pelvis after administration of intravenous contrast. INDICATION: Vomiting and fever x2 days. CORRELATION STUDY: 10/24/2017 FINDINGS: LOWER THORAX: Clear. LIVER: Borderline enlarged. No definitive focal lesion. GALLBLADDER: Mildly distended and contains several low-density, likely cholesterol stones. This includes at the level of the neck. No definitive bile duct dilatation. SPLEEN: Unremarkable. PANCREAS: Unremarkable. ADRENAL GLANDS: Unremarkable. KIDNEYS: Normal configuration. No calcification or obstruction. ABDOMINAL AORTA: Unremarkable, nonaneurysmal. GASTROINTESTINAL TRACT: Stomach relatively collapsed. There is rather pronounced gas distention through large portion of the small bowel. There are more decompressed loops of small bowel in the lower abdomen and pelvis. Colon contains stool and gas. The appendix not well-defined. URINARY BLADDER: Unremarkable. REPRODUCTIVE: Uterus does appear to be prominent. There is a complex mass in the right adnexa region likely reflective of ovarian cyst. There is high density fluid within the pelvis and some in the paracolic gutters. OSSEOUS STRUCTURES: No acute abnormality. OTHER: None. IMPRESSION: 1. Probable complex right ovarian cyst. Pelvic fluid is present slightly high density, could be reflective of underlying hemoperitoneum, perhaps a ruptured hemorrhagic cyst. Consideration for pelvic ultrasound evaluation. 2. Rather pronounced diffuse gaseous of the large portion of the small bowel favors probable ileus and/or perhaps enteritis. Given decompressed loops of distal small bowel, possibly of early or partial small bowel obstruction is not excluded at this time. Clinical correlation recommended. 3. Increase in number of likely cholesterol stones including some stones at the level of the gallbladder neck. Dictated on workstation # [id number] Dict: 04/14/181902 Trans: 04/14/181925 [facility] [id number] Interpreted by: CRISTIAN DILLARD DO Electronically signed by: Departure Communication (Admissions) 1935- 1935-patient states she is feeling quite a bit better at this time. Nausea has subsided. Pain has eased. Heart rate down to 100. Blood pressure remains adequate. I discussed admission for observation versus discharge to home with her. Her preference would be to go home. Her vitals are stable with the exception of some slight tachycardia. Instructed her to come back for any lightheadedness, worsening pain or nausea and she agrees. Also advised her to come back tomorrow morning for recheck of hemoglobin and repeat abdominal examination. We do not have ultrasound available tonight so if she has persistent pain in the morning or declining hemoglobin a pelvic ultrasound may be warranted. However she is not unstable enough to warrant transfer for pelvic ultrasound tonight and she states that she does have a history of ovarian cysts that feel like this in the past. Impression Primary Impression: Urinary tract infection Qualified Codes: N30.01 - Acute cystitis with hematuria Additional Impressions: Free fluid in pelvis History of ovarian cyst Disposition: HOME, SELF-CARE Condition: Stable Departure-Patient Inst. Decision time for Depature: 18:19 Referrals: DARREN RICHARDS DO (PCP/Family) Primary Care Physician Patient Instructions: Urinary Tract Infection, Adult (DC) Add. Discharge Instructions: 1. Drink plenty of fluids. Nausea medication as needed. Return to ER for any concerns such as lightheadedness, worsening pain. Antibiotics as directed for the bladder infection. Return to the emergency room tomorrow morning for recheck of labs and repeat abdominal examination. All discharge instructions reviewed with patient and/or family. Voiced understanding. Scripts Ondansetron (Ondansetron Odt) 4 Mg Tab.rapdis 4 MG PO Q4H PRN for NAUSEA/VOMITING, #10 TAB Prov: CHILANGO KOCH APRN 04/14/18 Sulfamethoxazole/Trimethoprim (Bactrim Ds Tablet) 1 Each Tablet 1 EACH PO BID, #10 TAB Prov: CHILANGO KOCH APRN 04/14/18 CHILANGO KOCH APRN Apr 14, 2018 16:36
[2018-04-14 16:37] LABS: BASOPHILS # (AUTO) 0.1 10^3/uL (0.0-0.1); BASOPHILS % (AUTO) 1 % (0-10); EOSINOPHILS # (AUTO) 0.3 10^3/uL (0.0-0.3); EOSINOPHILS % (AUTO) 2 % (0-10); HEMATOCRIT 48 % (35-52); HEMOGLOBIN 16.5 G/DL (11.5-16.0); LYMPHOCYTES # (AUTO) 3.2 X 10^3 (1.0-4.0); LYMPHOCYTES % (AUTO) 22 % (12-44); MEAN CORPUSCULAR HEMOGLOBIN 29 PG (25-34); MEAN CORPUSCULAR HGB CONC 34 G/DL (32-36); MEAN CORPUSCULAR VOLUME 85 FL (80-99); MEAN PLATELET VOLUME 10.6 FL (7.4-10.4); MONOCYTES # (AUTO) 1.1 X 10^3 (0.0-1.0); MONOCYTES % (AUTO) 7 % (0-12); NEUTROPHILS # (AUTO) 9.8 X 10^3 (1.8-7.8); NEUTROPHILS % (AUTO) 68 % (42-75); PLATELET COUNT 310 10^3/uL (130-400); RED BLOOD COUNT 5.65 10^6/uL (4.35-5.85); RED CELL DISTRIBUTION WIDTH 14.4 % (10.0-14.5); WHITE BLOOD COUNT 14.4 10^3/uL (4.3-11.0)
[2018-04-14] MEDS ORDERED: ONDANSETRON 4 MG/2 ML (SDV) Z0FRAN IVP ONE (16:45)
[2018-04-14] MEDS ORDERED: LACTATED RINGERS 1,000 ML IV SCH (16:45)
[2018-04-14 16:55] LABS: ALANINE AMINOTRANSFERASE 11 U/L (0-55); ALBUMIN 4.1 GM/DL (3.2-4.5); ALKALINE PHOSPHATASE 95 U/L (40-136); BILIRUBIN,TOTAL 1.9 MG/DL (0.1-1.0); BUN/CREATININE RATIO 15; CALCIUM 9.6 MG/DL (8.5-10.1); CARBON DIOXIDE 26 MMOL/L (21-32); CHLORIDE 101 MMOL/L (98-107); CREATININE SERUM 0.72 MG/DL (0.60-1.30); GFR ESTIMATED > 60; GLUCOSE 114 MG/DL (70-105); LIPASE 11 U/L (8-78); SODIUM 140 MMOL/L (135-145); TOTAL PROTEIN 7.5 GM/DL (6.4-8.2)
[2018-04-14 17:11] LABS: BAND NEUTROPHILS 0 %; BASOPHILS % (MANUAL) 0 %; EOSINOPHILS % (MANUAL) 0 %; LYMPHOCYTES % (MANUAL) 23 %; MONOCYTES % (MANUAL) 4 %; NEUTROPHILS % (MANUAL) 73 %; RBC MORPH NORMAL
[2018-04-14 18:13] LABS: BACTERIA,URINE LARGE /HPF; CLARITY,URINE CLOUDY; COLOR,URINE YELLOW; GLUCOSE, URINE (UA) NEGATIVE (NEGATIVE); KETONES,URINE NEGATIVE (NEGATIVE); LEUKOCYTE ESTERASE ,URINE 3+ (NEGATIVE); NITRITE,URINE NEGATIVE (NEGATIVE); PH,URINE 6.5 (5-9); PROTEIN,URINE 2+ (NEGATIVE); SQUAMOUS EPITHELIAL CELL,UR >50 /HPF; UROBILINOGEN,URINE 4 MG/DL (NORMAL)
[2018-04-14 18:14] LABS: BILIRUBIN,URINE 1+ (NEGATIVE)
[2018-04-14 18:15] LABS: AMPHETAMINE SCREEN, URINE POSITIVE (NEGATIVE); BARBITURATE SCREEN URINE NEGATIVE (NEGATIVE); BENZODIAZEPINES SCREEN URINE NEGATIVE (NEGATIVE); CANNABINOID SCREEN, URINE NEGATIVE (NEGATIVE); COCAINE SCREEN URINE NEGATIVE (NEGATIVE); METHADONE STAT NEGATIVE (NEGATIVE); METHAMPHETAMINE SCREEN URINE S POSITIVE (NEGATIVE); OPIATE SCREEN URINE NEGATIVE (NEGATIVE); OXYCODONE STAT NEGATIVE (NEGATIVE); PROPOXYPHENE STAT NEGATIVE (NEGATIVE); TRICYCLIC ANTIDEPRESSANTS SCRE NEGATIVE (NEGATIVE)
[2018-04-14] MEDS ORDERED: ONDA4TAB11 PO (18:21)
[2018-04-14] MEDS ORDERED: SULF1TAB35 PO (18:21)
[2018-04-14] MEDS ORDERED: NS 100 ML (IVPB) BAG IV ONE (18:30)
[2018-04-14] MEDS ORDERED: cefTRIAXone FOR IV USE 1,000 MG in NS (IVPB) 50 ML IV ONE (18:30)
[2018-04-14] MEDS ORDERED: CATHETER FLUSH 10 ML SYR IV PRN (18:30)
[2018-04-14] MEDS ORDERED: RECEIVED CONTRAST (Hold Metformin) IV SCH (18:30)
[2018-04-14] MEDS ORDERED: KETOROLAC 30 MG/ML VIAL IVP ONE (18:30)
[2018-04-14] MEDS ORDERED: IOHEXOL 350 MG/ML 100 ML (OMNIPAQUE 350) VIAL IV ONE (18:30)
[2018-04-14] MEDS ORDERED: PROMETHAZINE INJ 25 MG/ML (PHENERGAN) AMP IVP ONE (18:45)
[2018-04-14] MEDS ORDERED: NS IV 1000 ML 1,000 ML IV SCH (18:45)
--- NOTE | 2018-04-14 18:45 | NUR ---
Phenergan 12.5 mg given per Robe Teixeira.
--- NOTE | 2018-04-14 19:08 | NUR ---
REPORT AND CARE OF PATIENT GIVNE TO SANTIAGO
--- NOTE | 2018-04-14 19:26 | Diagnostic Imaging Report ---
PROCEDURE: CT abdomen and pelvis with contrast. TECHNIQUE: Multiple contiguous axial images were obtained through the abdomen and pelvis after administration of intravenous contrast. INDICATION: Vomiting and fever x2 days. CORRELATION STUDY: 10/24/2017 FINDINGS: LOWER THORAX: Clear. LIVER: Borderline enlarged. No definitive focal lesion. GALLBLADDER: Mildly distended and contains several low-density, likely cholesterol stones. This includes at the level of the neck. No definitive bile duct dilatation. SPLEEN: Unremarkable. PANCREAS: Unremarkable. ADRENAL GLANDS: Unremarkable. KIDNEYS: Normal configuration. No calcification or obstruction. ABDOMINAL AORTA: Unremarkable, nonaneurysmal. GASTROINTESTINAL TRACT: Stomach relatively collapsed. There is rather pronounced gas distention through large portion of the small bowel. There are more decompressed loops of small bowel in the lower abdomen and pelvis. Colon contains stool and gas. The appendix not well-defined. URINARY BLADDER: Unremarkable. REPRODUCTIVE: Uterus does appear to be prominent. There is a complex mass in the right adnexa region likely reflective of ovarian cyst. There is high density fluid within the pelvis and some in the paracolic gutters. OSSEOUS STRUCTURES: No acute abnormality. OTHER: None. IMPRESSION: 1. Probable complex right ovarian cyst. Pelvic fluid is present slightly high density, could be reflective of underlying hemoperitoneum, perhaps a ruptured hemorrhagic cyst. Consideration for pelvic ultrasound evaluation. 2. Rather pronounced diffuse gaseous of the large portion of the small bowel favors probable ileus and/or perhaps enteritis. Given decompressed loops of distal small bowel, possibly of early or partial small bowel obstruction is not excluded at this time. Clinical correlation recommended. 3. Increase in number of likely cholesterol stones including some stones at the level of the gallbladder neck. Dictated by: Dictated on workstation # [id number]
[2018-04-14 19:46] VITALS: BP 110/87
== END 2018-04-14 19:48 | disposition home or self-care (01) ==
LOC: EDUNIT# 15:58 → ER 15:59
DX: N39.0 Urinary tract infection, site not specified (principal); R18.8 Other ascites; F41.9 Anxiety disorder, unspecified; F32.9 Major depressive disorder, single episode, unspecified; F12.10 Cannabis abuse, uncomplicated; F15.10 Other stimulant abuse, uncomplicated; Z87.891 Personal history of nicotine dependence; Z87.448 Personal history of other diseases of urinary system
CPT/HCPCS: 36415; 74177; 80053; 80306; 81000; 83690; 84703; 85007; 85027; 87088; 96361; 96365; 96375

== ENCOUNTER 2018-04-15 13:06 | Emergency (ER) | payer MEDICAID | END 2018-04-15 16:50 | disposition home or self-care (01) | LOC: ER 13:06 ==

== ENCOUNTER 2018-04-19 11:38 | Observation (INO) | payer MEDICAID ==
[~2018-04-19] VITALS: Ht 160 cm; Wt 77.1 kg
[~2018-04-19 11:38] MED LIST changes: +ONDA4TAB11 PO
--- OUTSIDE RECORDS SUMMARY | 2018-04-19 11:48 | XMS REPORT | Continuity of Care Document ---
Author Author [facility] Address Unknown Phone Unavailable Allergies Active Description Code Type Severity Reaction Onset Reported/Identified Relationship to Patient Clinical Status Yes codeine Drug Allergy 07/15/2010 Yes codeine Drug Allergy N/A N/A 07/15/2010 Yes Depo-Provera 150 mg/mL Suspension Drug Allergy N/A N/A 05/24/2013 Yes codeine [id number] Drug Allergy Moderate N/A 09/26/2013 Yes No Known Drug Allergies [id number] Drug Allergy Unknown N/A 12/25/2017 Medications There [...] And Unspecified Sites Without Infection 02/09/2008 PANCHO MASSAGE THERAPIST, MANNY A 782.1 Rash 02/09/2008 PANCHO MASSAGE THERAPIST, MANNY A 919.4 Insect Bite Nonvenomous Of Other Multiple And Unspecified Sites Without Infection 02/09/2008 PANCHO MASSAGE THERAPIST, MANNY A 782.1 Rash 02/09/2008 PANCHO MASSAGE THERAPIST, MANNY A 919.4 Insect Bite Nonvenomous Of Other Multiple And Unspecified Sites Without Infection 02/09/2008 PANCHO MASSAGE THERAPIST, MANNY A 782.1 Rash 02/09/2008 PANCHO MASSAGE THERAPIST, MANNY A 919.4 Insect Bite Nonvenomous Of Other Multiple And Unspecified Sites Without Infection 02/09/2008 PANCHO MASSAGE THERAPIST, MANNY A 782.1 Rash 02/09/2008 PANCHO MASSAGE THERAPIST, MANNY A 919.4 Insect Bite Nonvenomous Of [...] APRN 719.47 Ankle Joint Pain 07/10/2008 DARREN RCIHARDS DO 719.47 Ankle Joint Pain 07/10/2008 MANNY [...] 845.03 TIBIOFIBULAR (LIGAMENT) SPRAIN DISTAL 09/08/2008 PANCHO MASSAGE THERAPIST, MANNY A 845.03 TIBIOFIBULAR (LIGAMENT) SPRAIN DISTAL 09/08/2008 PANCHO MASSAGE THERAPIST, MANNY A 845.03 TIBIOFIBULAR (LIGAMENT) SPRAIN DISTAL 09/08/2008 PANCHO MASSAGE THERAPIST, MANNY A 845.03 TIBIOFIBULAR (LIGAMENT) SPRAIN DISTAL 09/08/2008 PANCHO MASSAGE THERAPIST, MANNY A 845.03 TIBIOFIBULAR (LIGAMENT) SPRAIN DISTAL [...] Establ. Patient Checkup Adolescent 12-17 11/29/2008 PANCHO MASSAGE THERAPIST, MANNY A V03.89 MENINGOCOCCAL, OTHER SPECIFIED SINGLE BACTERIAL DISEASE 11/29/2008 PANCHO MASSAGE THERAPIST, MANNY A V05.3 HEPATITIS VIRAL/ALL 11/29/2008 PANCHO MASSAGE THERAPIST, MANNY A V06.5 DT, TETANUS-DIPHTHERIA [Td] ,TDAP 11/29/2008 PANCHO MASSAGE THERAPIST, MANNY A V20.2 Preventive Medicine Establ. Patient [...] RESPIRATORY INFECTIONS OF UNSPECIFIED SITE 03/19/2009 PANCHO MASSAGE THERAPIST, MANNY A 465.9 ACUTE UPPER RESPIRATORY INFECTIONS [...] RICHARDS DO 486 Pneumonia Unspecified 05/16/2009 PANCHO MASSAGE THERAPIST, MANNY A 486 Pneumonia Unspecified 05/16/2009 PANCHO MASSAGE THERAPIST, MANNY A 486 Pneumonia Unspecified 05/16/2009 PANCHO MASSAGE THERAPIST, MANNY A 486 Pneumonia Unspecified 05/16/2009 PANCHO MASSAGE THERAPIST, MANNY A 486 Pneumonia Unspecified 06/21/2009 DARREN [...] DARREN RICHARDS DO 133.0 SCABIES 06/21/2009 PANCHO MASSAGE THERAPIST, MANNY A 133.0 SCABIES 06/21/2009 PANCHO MASSAGE THERAPIST, MANNY A 133.0 SCABIES 06/21/2009 PANCHO MASSAGE THERAPIST, MANNY A 133.0 SCABIES 06/21/2009 PANCHO MASSAGE THERAPIST, MANNY A 133.0 SCABIES 06/22/2009 DARREN RICHARDS [...] Pain, Localized In The Wrist 06/22/2009 PANCHO MASSAGE THERAPIST, MANNY A 719.43 Joint Pain, Localized In The Wrist 06/22/2009 PANCHO MASSAGE THERAPIST, MANNY A 719.43 Joint Pain, Localized In The Wrist 06/22/2009 PANCHO MASSAGE THERAPIST, MANNY A 719.43 Joint Pain, Localized In [...] Acute Without Spontaneous Rupture Eardrum 07/06/2009 PANCHO MASSAGE THERAPIST, MANNY A 382.00 Otitis Media Acute Without Spontaneous Rupture Eardrum 07/06/2009 PANCHO MASSAGE THERAPIST, MANNY A 382.00 Otitis Media Acute Without Spontaneous Rupture Eardrum 07/06/2009 PANCHO MASSAGE THERAPIST, MANNY A 382.00 Otitis Media Acute Without Spontaneous Rupture Eardrum 07/06/2009 PANCHO MASSAGE THERAPIST, MANNY A 382.00 Otitis Media Acute Without Spontaneous Rupture Eardrum 07/17/2009 DARREN RICHARDS DO V05.4 VARICELLA, CHICKENPOX 07/17/2009 V05.4 VARICELLA, CHICKENPOX 07/17/2009 V05.4 VARICELLA, CHICKENPOX 07/17/2009 DARREN RICHARDS DO V05.4 VARICELLA, CHICKENPOX 07/17/2009 V05.4 VARICELLA, CHICKENPOX 07/17/2009 V05.4 VARICELLA, CHICKENPOX 07/17/2009 V05.4 VARICELLA, CHICKENPOX 07/17/2009 V05.4 VARICELLA, CHICKENPOX 07/17/2009 [facility] VALENTE, MANNY A V05.4 VARICELLA, CHICKENPOX 07/17/2009 [...] DARREN RICHARDS DO V05.4 VARICELLA, CHICKENPOX 07/17/2009 [facility] MASSAGE THERAPIST, MANNY A V05.4 VARICELLA, CHICKENPOX 07/17/2009 PANCHO [...] DO 780.79 Feelings Of Weakness 07/23/2009 PANCHO MASSAGE THERAPIST, MANNY A 780.4 Dizziness 07/23/2009 PANCHO MASSAGE THERAPIST, MANNY A 780.79 Feelings Of Weakness 07/23/2009 PANCHO MASSAGE THERAPIST, MANNY A 780.4 Dizziness 07/23/2009 PANCHO MASSAGE THERAPIST, MANNY A 780.79 Feelings Of Weakness 07/23/2009 PANCHO MASSAGE THERAPIST, MNANY A 780.4 Dizziness 07/23/2009 PANCHO MASSAGE THERAPIST, MANNY A 780.79 Feelings Of Weakness 07/23/2009 PANCHO MASSAGE THERAPIST, MANNY A 780.4 Dizziness 07/23/2009 PANCHO MASSAGE THERAPIST, MANNY A 780.79 Feelings Of Weakness 07/27/2009 DARREN RICHARDS DO 251.1 HYPERINSULINISM 07/27/2009 251.1 HYPERINSULINISM 07/27/2009 251.1 HYPERINSULINISM 07/27/2009 DARREN RICHARDS DO 251.1 HYPERINSULINISM 07/27/2009 251.1 HYPERINSULINISM 07/27/2009 251.1 HYPERINSULINISM 07/27/2009 251.1 HYPERINSULINISM 07/27/2009 251.1 HYPERINSULINISM 07/27/2009 PANCHO VICTOR, MANNY A 251.1 HYPERINSULINISM 07/27/2009 DARREN RICHARSD DO 251.1 HYPERINSULINISM 07/27/2009 251.1 HYPERINSULINISM 07/27/2009 DARREN RICHARDS DO 251.1 HYPERINSULINISM 07/27/2009 251.1 HYPERINSULINISM 07/27/2009 251.1 HYPERINSULINISM 07/27/2009 251.1 HYPERINSULINISM 07/27/2009 251.1 HYPERINSULINISM 07/27/2009 251.1 HYPERINSULINISM 07/27/2009 251.1 HYPERINSULINISM 07/27/2009 251.1 HYPERINSULINISM 07/27/2009 SYLVIA RAYELADIO Ford 251.1 HYPERINSULINISM 07/27/2009 SYLVIA RAYELADIO Ford 251.1 HYPERINSULINISM 07/27/2009 RICHARDS DO, DARREN K 251.1 HYPERINSULINISM 07/27/2009 PANCHO MASSAGE THERAPIST, MANNY A 251.1 HYPERINSULINISM 07/27/2009 PANCHO MASSAGE THERAPIST, MANNY A 251.1 HYPERINSULINISM 07/27/2009 PANCHO MASSAGE THERAPIST, MANNY A 251.1 HYPERINSULINISM 07/27/2009 PANCHO MASSAGE THERAPIST, MANNY A 251.1 HYPERINSULINISM 12/11/2009 RICHARDS DO, [...] 789.00 Abdominal Pain Unspecified Site 12/11/2009 PANCHO MASSAGE THERAPIST, MANNY A 787.91 Diarrhea 12/11/2009 PANCHO MASSAGE THERAPIST, MANNY A 789.00 Abdominal Pain Unspecified Site 12/11/2009 PANCHO MASSAGE THERAPIST, MANNY A 787.91 Diarrhea 12/11/2009 PANCHO MASSAGE THERAPIST, MANNY A 789.00 Abdominal Pain Unspecified Site 12/11/2009 PANCHO MASSAGE THERAPIST, MANNY A 787.91 Diarrhea 12/11/2009 PANCHO MASSAGE THERAPIST, MANNY A 789.00 Abdominal Pain Unspecified Site 12/11/2009 PANCHO MASSAGE THERAPIST, MANNY A 787.91 Diarrhea 12/11/2009 PANCHO MASSAGE THERAPIST, MANNY A 789.00 Abdominal Pain Unspecified Site [...] DO K 461.9 Sinusitis Acute 01/31/2010 PANCHO MASSAGE THERAPIST, MANNY A 461.9 Sinusitis Acute 01/31/2010 PANCHO MASSAGE THERAPIST, MANNY A 461.9 Sinusitis Acute 01/31/2010 PANCHO MASSAGE THERAPIST, MANNY A 461.9 Sinusitis Acute 01/31/2010 PANCHO MASSAGE THERAPIST, MANNY A 461.9 Sinusitis Acute 02/20/2010 DARREN RICHARDS DO K 692.9 DERMATITIS CONTACT UNSPECIFIED 02/20/2010 692.9 DERMATITIS CONTACT UNSPECIFIED 02/20/2010 692.9 DERMATITIS CONTACT UNSPECIFIED 02/20/2010 DARREN RICHARDS DO K 692.9 DERMATITIS CONTACT UNSPECIFIED 02/20/2010 692.9 DERMATITIS CONTACT UNSPECIFIED 02/20/2010 692.9 DERMATITIS CONTACT UNSPECIFIED 02/20/2010 692.9 DERMATITIS CONTACT UNSPECIFIED 02/20/2010 692.9 DERMATITIS CONTACT UNSPECIFIED 02/20/2010 PANCHO MASSAGE THERAPIST, MANNY A 692.9 DERMATITIS CONTACT UNSPECIFIED 02/20/2010 [...] 02/20/2010 692.9 DERMATITIS CONTACT UNSPECIFIED 02/20/2010 GARTON MASSAGE THERAPISTELADIO Ford D 692.9 DERMATITIS CONTACT UNSPECIFIED 02/20/2010 FAVIOTON LEANN VICTORZABETH D 692.9 DERMATITIS CONTACT UNSPECIFIED 02/20/2010 DARREN RICHARDS DO 692.9 DERMATITIS CONTACT UNSPECIFIED 02/20/2010 PANCHO MASSAGE THERAPIST, MANNY A 692.9 DERMATITIS CONTACT UNSPECIFIED 02/20/2010 PANCHO MASSAGE THERAPIST, MANNY A 692.9 DERMATITIS CONTACT UNSPECIFIED 02/20/2010 PANCHO MASSAGE THERAPIST, MANNY A 692.9 DERMATITIS CONTACT UNSPECIFIED 02/20/2010 PANCHO MASSAGE THERAPIST, MANNY A 692.9 DERMATITIS CONTACT UNSPECIFIED 02/28/2010 [...] APRN A V72.31 Pelvic Exam (internal) 02/28/2010 JSAMIN DELEON APRNIDI A V74.5 Visit For: Screening [...] Frequency 06/15/2010 788.41 Urinary Frequency 06/15/2010 PANCHO MASSAGE THERAPIST, MANNY A 788.41 Urinary Frequency 06/15/2010 RICHARDS [...] APRN, MANNY A 564.00 Constipation 07/15/2010 PANCHO MASSAGE THERAPIST, MANNY A 564.00 Constipation 07/15/2010 PANCHO VALENTE, [...] 11/25/2010 V72.41 TEST NEGATIVE RESULT 11/25/2010 PANCHO MASSAGE THERAPISTMANNY Ford A V72.41 TEST NEGATIVE RESULT 11/25/2010 [...] A V72.41 TEST NEGATIVE RESULT 11/25/2010 PANCHO MASSAGE THERAPISTMANNY Ford A V72.41 TEST NEGATIVE RESULT 11/25/2010 PANCHO MASSAGE THERAPISTMANNY Ford A V72.41 TEST NEGATIVE RESULT 11/25/2010 [...] RICHARDS DO V65.45 Std Counseling 02/21/2011 PANCHO MASSAGE THERAPIST, MANNY A V25.01 Contraception - Oral Contraception 02/21/2011 PANCHO MASSAGE THERAPIST, MANNY A V65.45 Std Counseling 02/21/2011 PANCHO MASSAGE THERAPIST, MANNY A V25.01 Contraception - Oral Contraception 02/21/2011 PANCHO MASSAGE THERAPIST, MANNY A V65.45 Std Counseling 02/21/2011 PANCHO MASSAGE THERAPIST, MANNY A V25.01 Contraception - Oral Contraception 02/21/2011 PANCHO MASSAGE THERAPIST, MANNY A V65.45 Std Counseling 02/21/2011 PANCHO MASSAGE THERAPIST, MANNY A V25.01 Contraception - Oral Contraception [...] SUSIE GONZALEZDARREN K 788.1 Dysuria 05/28/2011 PANCHO MASSAGE THERAPIST, MANNY A 599.0 Urinary Tract Infection 05/28/2011 PANCHO MASSAGE THERAPIST, MANNY A 788.1 Dysuria 05/28/2011 PANCHO MASSAGE THERAPIST, MANNY A 599.0 Urinary Tract Infection 05/28/2011 PANCHO MASSAGE THERAPIST, MANNY A 788.1 Dysuria 05/28/2011 PANCHO MASSAGE THERAPIST, MANNY A 599.0 Urinary Tract Infection 05/28/2011 PANCHO MASSAGE THERAPIST, MANNY A 788.1 Dysuria 05/28/2011 PANCHO MASSAGE THERAPIST, MANNY A 599.0 Urinary Tract Infection 05/28/2011 PANCHO MASSAGE THERAPIST, MANNY A 788.1 Dysuria 09/18/2011 Ot 724.2 [...] 01/12/2012 V22.0 , NORMAL FIRST 01/12/2012 PANCHO MASSAGE THERAPIST, MANNY A V22.0 , NORMAL FIRST 01/12/2012 [...] 01/12/2012 V22.0 , NORMAL FIRST 01/12/2012 GARTON MASSAGE THERAPIST, ELADIO D V22.0 , NORMAL FIRST 01/12/2012 GARTON MASSAGE THERAPIST, ELADIO D V22.0 , NORMAL FIRST 01/12/2012 SUSIE DODARREN K V22.0 , NORMAL FIRST 01/12/2012 PANCHO MASSAGE THERAPIST, MANNY A V22.0 , NORMAL FIRST 01/12/2012 PANCHO MASSAGE THERAPIST, MANNY A V22.0 , NORMAL FIRST 01/12/2012 PANCHO MASSAGE THERAPIST, MANNY A V22.0 , NORMAL FIRST 01/12/2012 PANCHO MASSAGE THERAPIST, MANNY A V22.0 , NORMAL FIRST 02/02/2012 RICHARDS DODARREN V04.81 FLU SHOT 02/02/2012 V04.81 FLU SHOT 02/02/2012 V04.81 FLU SHOT 02/02/2012 RICHARDS DODARREN V04.81 FLU SHOT 02/02/2012 V04.81 FLU SHOT 02/02/2012 V04.81 FLU SHOT 02/02/2012 V04.81 FLU SHOT 02/02/2012 V04.81 FLU SHOT 02/02/2012 PANCHO MASSAGE THERAPIST, MANNY A V04.81 FLU SHOT 02/02/2012 DARREN [...] RICHARDS DO V04.81 FLU SHOT 02/02/2012 PANCHO MASSAGE THERAPIST, MANNY A V04.81 FLU SHOT 02/02/2012 PANCHOKODAK RAYN, MANNY A V04.81 FLU SHOT 02/02/2012 PANCHOKODAK RAYN, MANNY A V04.81 FLU SHOT 02/02/2012 PANCHO MASSAGE THERAPIST, MANNY A V04.81 FLU SHOT 02/11/2012 DARREN [...] Lety 465.9 Upper Respiratory Infection 02/11/2012 PANCHO MASSAGE THERAPIST, MANNY A 465.9 Upper Respiratory Infection 02/11/2012 PANCHO MASSAGE THERAPIST, MANNY A 465.9 Upper Respiratory Infection 02/11/2012 PANCHO MASSAGE THERAPIST, MANNY A 465.9 Upper Respiratory Infection 02/11/2012 PANCHO MASSAGE THERAPIST, MANNY A 465.9 Upper Respiratory Infection 04/21/2012 [...] SIZE DATE DISCREPANCY - LGA 04/21/2012 PANCHO MASSAGE THERAPIST, MANNY A 649.60 UTERINE SIZE DATE DISCREPANCY - LGA 04/21/2012 PANCHO MASSAGE THERAPIST, MANNY A 649.60 UTERINE SIZE DATE DISCREPANCY - LGA 04/21/2012 PANCHO MASSAGE THERAPIST, MANNY A 649.60 UTERINE SIZE DATE DISCREPANCY [...] Abdominal Pain Other Specified Site 04/28/2012 PANCHO MASSAGE THERAPIST, MANNY A 789.09 Abdominal Pain Other Specified Site 05/11/2012 466.0 BRONCHITIS, ACUTE 05/11/2012 466.0 Bronchitis, Acute 05/11/2012 466.0 Bronchitis, Acute 05/11/2012 466.0 Bronchitis, Acute 05/11/2012 PANCHOKODAK RAYN, MANNY A 466.0 Bronchitis, Acute 05/11/2012 DRAREN RICHARDS DO 466.0 Bronchitis, Acute 05/11/2012 466.0 [...] MANNY A 466.0 Bronchitis, Acute 05/11/2012 PANCHO MASSAGE THERAPIST, MANNY A 466.0 Bronchitis, Acute 05/11/2012 PANCHO MASSAGE THERAPIST, MANNY A 466.0 Bronchitis, Acute 05/11/2012 PANCHO MASSAGE THERAPIST, MANNY A 466.0 Bronchitis, Acute 05/19/2012 V06.1 [...] (CURRENT) USE OF OTHER MEDICATIONS 11/24/2012 PANCHO MASSAGE THERAPIST, MANNY A V25.9 CONTRACEPTION MANAGEMENT 11/24/2012 PANCHO MASSAGE THERAPIST, MANNY A V58.69 LONG-TERM (CURRENT) USE OF OTHER MEDICATIONS 11/24/2012 PANCHO MASSAGE THERAPIST, MANNY A V25.9 CONTRACEPTION MANAGEMENT 11/24/2012 PANCHO MASSAGE THERAPIST, MANNY A V58.69 LONG-TERM (CURRENT) USE OF OTHER MEDICATIONS 11/24/2012 PANCHO VALENTE, MANNY A V25.9 CONTRACEPTION MANAGEMENT 11/24/2012 PANCHO APRN, MANNY A V58.69 LONG-TERM (CURRENT) USE OF OTHER MEDICATIONS 11/24/2012 PANCHO MASSAGE THERAPIST, MANNY A V25.9 CONTRACEPTION MANAGEMENT 11/24/2012 PANCHO [...] MANNY A 305.70 AMPHETA ABUSE 12/23/2012 PANCHO MASSAGE THERAPIST, MANNY A 300.00 AN ANXIETY UNSPEC 12/23/2012 PANCHO MASSAGE THERAPIST, MANNY A 305.70 AMPHETA ABUSE 12/23/2012 PANCHO MASSAGE THERAPIST, MANNY A 300.00 AN ANXIETY UNSPEC 12/23/2012 PANCHO MASSAGE THERAPIST, MANNY A 305.70 AMPHETA ABUSE 03/01/2013 PANCHO MASSAGE THERAPIST, MANNY A 708.0 ALLERGIC URTICARIA 03/01/2013 PANCHO MASSAGE THERAPIST, MANNY A 708.0 ALLERGIC URTICARIA 03/01/2013 PANCHO MASSAGE THERAPIST, MANNY A 708.0 ALLERGIC URTICARIA 03/01/2013 PANCHO MASSAGE THERAPIST, MANNY A 708.0 ALLERGIC URTICARIA 09/06/2013 PANCHO MASSAGE THERAPIST, MANNY A 626.2 EXCESSIVE OR FREQUENT MENSTRUATION 09/06/2013 PANCHO MASSAGE THERAPIST, MANNY A 780.79 OTHER MALAISE AND FATIGUE 09/06/2013 PANCHO MASSAGE THERAPIST, MANNY A 626.2 EXCESSIVE OR FREQUENT MENSTRUATION 09/06/2013 PANCHO MASSAGE THERAPIST, MANNY A 780.79 OTHER MALAISE AND FATIGUE 09/26/2013 CHILANGO KOCH MASSAGE THERAPIST Ot 620.2 OVARIAN CYST NEC/NOS 09/26/2013 CHILANGO KOCH MASSAGE THERAPIST Ot 626.8 MENSTRUAL DISORDER NEC 04/22/2015 Ot 649.63 04/22/2015 Ot V22.0 04/22/2015 Ot V28.81 04/22/2015 Ot 656.63 04/22/2015 Ot 656.63 04/22/2015 KUSH NIX Ot K04.7 PERIAPICAL ABSCESS WITHOUT SINUS 04/22/2015 KUSH NIX Ot K08.409 PARTIAL LOSS OF TEETH, UNSPECIFIED CAUSE 07/04/2015 Ot 649.63 07/04/2015 Ot V22.0 07/04/2015 Ot V28.81 07/04/2015 Ot 656.63 07/04/2015 Ot 656.63 07/05/2015 ABNER DUBON MASSAGE THERAPIST Ot Z34.81 07/19/2015 ABNER DUBON MASSAGE THERAPIST Ot Z34.81 09/04/2015 DARREN RICHARDS DO Ot [...] DEPRESSIVE DISORDER, SINGLE EPISOD 09/28/2017 CHILANGO KOCH MASSAGE THERAPIST Ot F41.9 ANXIETY DISORDER, UNSPECIFIED 09/28/2017 CHILANGO KOCH APRN Ot J02.9 ACUTE PHARYNGITIS, UNSPECIFIED 09/28/2017 CHILANGO KOCH APRN Ot N39.0 URINARY TRACT INFECTION, SITE NOT SPECIF 09/28/2017 CHILANGO KOCH MASSAGE THERAPIST Ot R42 DIZZINESS AND GIDDINESS 09/28/2017 CHILANGO KOCH MASSAGE THERAPIST Ot Z87.891 PERSONAL HISTORY OF NICOTINE DEPENDENCE 09/30/2017 CHILANGO KOCH APRN Ot F32.9 MAJOR DEPRESSIVE DISORDER, SINGLE EPISOD 09/30/2017 CHILANGO KOCH MASSAGE THERAPIST Ot F41.9 ANXIETY DISORDER, UNSPECIFIED 09/30/2017 CHILANGO KOCH MASSAGE THERAPIST Ot J02.9 ACUTE PHARYNGITIS, UNSPECIFIED 09/30/2017 CHILANGO KOCH MASSAGE THERAPIST Ot N39.0 URINARY TRACT INFECTION, SITE NOT SPECIF 09/30/2017 CHILANGO KOCH MASSAGE THERAPIST Ot R42 DIZZINESS AND GIDDINESS 09/30/2017 CHILANGO KOCH MASSAGE THERAPIST Ot Z87.891 PERSONAL HISTORY OF NICOTINE DEPENDENCE [...] OF L IDX FNGR W/O MELISSA 12/28/2017 JERMAINE BRICEÑOIS Ot W26.0XXA CONTACT WITH KNIFE, INITIAL ENCOUNTER 12/28/2017 ELIZABETH BRICEÑO Ot Z87.891 PERSONAL HISTORY OF NICOTINE DEPENDENCE 03/18/2018 GRZEGORZ RILEY, JORDY Moran Ot A64 UNSPECIFIED SEXUALLY TRANSMITTED DISEASE 03/18/2018 JORDY LANTIGUA MD Ot F12.10 CANNABIS ABUSE, UNCOMPLICATED 03/18/2018 JORDY LANTIGUA MD Ot F15.10 OTHER STIMULANT ABUSE, UNCOMPLICATED 03/18/2018 JORDY LANTIGUA MD Ot F32.9 MAJOR DEPRESSIVE DISORDER, SINGLE EPISOD 03/18/2018 JORDY LANTIGUA MD Ot F41.9 ANXIETY DISORDER, UNSPECIFIED 03/18/2018 JORDY LANTIGUA MD Ot N39.0 URINARY TRACT INFECTION, SITE NOT SPECIF 03/18/2018 JORDY LANTIGUA MD Ot N89.8 OTHER SPECIFIED NONINFLAMMATORY DISORDER 03/18/2018 JORDY LANTIGUA MD Ot Z87.448 PERSONAL HISTORY OF OTHER DISEASES OF UR 03/18/2018 JORDY LANTIGUA MD Ot Z87.891 PERSONAL HISTORY OF NICOTINE DEPENDENCE 03/18/2018 ABNER DUBON MASSAGE THERAPIST Ot Z34.81 ENCOUNTER FOR SUPRVSN OF NORMAL PREGNANC 03/18/2018 RICHARDS DO DARREN K Ot Z34.82 ENCOUNTER FOR SUPRVSN OF NORMAL PREGNANC 03/18/2018 RICHARDS DO, DARREN K Ot Z36 ENCOUNTER FOR SCREENING OF MOT 03/18/2018 SUSIE GONZALEZ DARREN K Ot Z34.83 ENCOUNTER FOR SUPRVSN OF NORMAL PREGNANC 03/25/2018 JORDY LANTIGUA MD Ot A64 UNSPECIFIED SEXUALLY TRANSMITTED DISEASE 03/25/2018 [...] OTHER DISEASES OF UR 03/25/2018 JORDY LANTIGUA MD Ot Z87.891 PERSONAL HISTORY OF NICOTINE DEPENDENCE 04/14/2018 ABNER DUBON APRN Ot Z34.81 ENCOUNTER FOR SUPRVSN OF NORMAL PREGNANC 04/14/2018 EDDA RICHARDS DOA K Ot Z34.82 ENCOUNTER FOR SUPRVSN OF NORMAL PREGNANC 04/14/2018 RICHARDS DO DARREN K Ot Z36 ENCOUNTER FOR SCREENING OF MOT 04/14/2018 RICHARDS DO DARREN K Ot Z34.83 ENCOUNTER FOR SUPRVSN OF NORMAL PREGNANC 04/15/2018 NOMAN CLAROS DOA K Ot R10.9 UNSPECIFIED ABDOMINAL PAIN 04/15/2018 CRISTINA CLAROS DO Lety Ot R11.10 VOMITING, UNSPECIFIED 04/16/2018 CHILANGO KOCH APRN Ot F12.10 CANNABIS ABUSE, UNCOMPLICATED 04/16/2018 CHILANGO KOCH APRN Ot F15.10 OTHER STIMULANT ABUSE, UNCOMPLICATED 04/16/2018 CHILANGO KOCH APRN Ot F32.9 MAJOR DEPRESSIVE DISORDER, SINGLE EPISOD 04/16/2018 CHILANGO KOCH APRN Ot F41.9 ANXIETY DISORDER, UNSPECIFIED 04/16/2018 CHILANGO KOCH APRN Ot N39.0 URINARY TRACT INFECTION, SITE NOT SPECIF 04/16/2018 CHILANGO KOCH APRN Ot R11.2 NAUSEA WITH VOMITING, UNSPECIFIED 04/16/2018 CHILANGO KOCH APRN Ot R18.8 OTHER ASCITES 04/16/2018 CHILANGO KOCH APRN Ot Z87.448 PERSONAL HISTORY OF OTHER DISEASES OF UR 04/16/2018 CHILANGO KOCH APRN Ot Z87.891 PERSONAL HISTORY OF NICOTINE DEPENDENCE Procedures Code Description [place] [address] GC/CHLAM PROBE (STATE) 02/02/2012 25790 UA OB DIP 02/02/2012 89263 CULTURE UROGENITAL 02/05/2012 97249 UA OB DIP 02/11/2012 26244 US OB ULTRASOUND 02/12/2012 75557 US OB ULTRASOUND 03/09/2012 70004 UA OB DIP 03/09/2012 55359 US OB ULTRASOUND 03/09/2012 96303 UA OB DIP 04/21/2012 99913 ROUTINE VENIPUNCTURE 04/28/2012 37432 UA LONG DIP 04/28/2012 94233 CBC 04/28/2012 12890 GLUCOSE ARI 1 HOUR 04/28/2012 73895 STREP A (IN-HOUSE) 05/11/2012 04318 UA OB DIP 06/03/2012 63151 ROUTINE VENIPUNCTURE 06/16/2012 72082 UA LONG DIP 06/16/2012 72973 GLUCOSE ARI 1 HOUR 06/16/2012 18961 ROUTINE VENIPUNCTURE 06/17/2012 80520 CMP 06/17/2012 11783 NON-STRESS TEST 06/24/2012 81533 UA W/ CULTURE IF INDICATED 06/24/2012 93117 FIBRONECTIN 06/25/2012 18580 CULTURE UROGENITAL 06/25/2012 41616 UA OB DIP 06/30/2012 90880 UA OB DIP 07/14/2012 71604 CULTURE GROUP B STREP VAG 07/17/2012 47677 UA OB DIP 07/21/2012 98856 OB - FOLLOW UP 07/26/2012 29094 NON-STRESS TEST 07/29/2012 44950 UA OB DIP 07/29/2012 78795 BIOPHYSICAL PROFILE () W/NST 08/02/2012 73.59 MANUAL ASSIST DELIV NEC 08/04/2012 20276 THERAPUTIC INJ SQ/IM 11/24/2012 J1050 DEPO PROVERA 11/24/2012 72122 URINE TEST (IN- HOUSE) 11/24/2012 63254 URINE DRUG SCREEN (IN-HOUSE ) 12/23/2012 59075 PSYCH DIAG EVAL W/MED SRVCS 01/02/2013 53632 THERAPUTIC INJ SQ/IM 02/22/2013 J1050 DEPO PROVERA 02/22/2013 32293 THERAPUTIC INJ SQ/IM 02/22/2013 J1050 DEPO PROVERA 02/22/2013 41440 URINE TEST (IN- HOUSE) 02/22/2013 26314 URINE TEST (IN- HOUSE) 02/22/2013 04999 TEST, URINE (IN- HOUSE) 05/24/2013 45887 ROUTINE VENIPUNCTURE 09/06/2013 53011 TEST, URINE (IN- HOUSE) 09/06/2013 03710 CBC 09/06/2013 97946 TSH 09/06/2013 [id number] DELIVERY OF PRODUCTS OF CONCEPTION, EXTE 01/07/2016 [...] ABO+Rh group BP NRG Transfusion band number [id number] Blood group antibody screen NEGATIVE NRG Blood [...] identification in genital specimen by aerobe culture [id number] NRG FREE TEXT EXTERNAL 3 CALLED TO [facility], ER 10/25/[address] NRG Microscopic [...] automated white blood cell (WBC) differential - 04/14/18 16:29 Blood leukocytes automated count (number/volume) 14.4 10*3/uL 4.3-11.0 Blood erythrocytes automated count (number/volume) 5.65 10*6/uL 4.35-5.85 Venous blood hemoglobin measurement (mass/volume) 16.5 g/dL 11.5-16.0 Blood hematocrit (volume fraction) 48 % 35-52 Automated erythrocyte mean corpuscular volume 85 [foz_us] 80-99 Automated erythrocyte mean corpuscular hemoglobin (mass per erythrocyte) 29 pg 25-34 Automated erythrocyte mean corpuscular hemoglobin concentration measurement ( mass/volume) 34 g/dL 32-36 Automated erythrocyte distribution width ratio 14.4 % 10.0-14.5 Automated blood platelet count (count/volume) 310 10*3/uL 130-400 Automated blood platelet mean volume measurement 10.6 [foz_us] 7.4-10.4 Automated blood neutrophils/100 leukocytes 68 % 42-75 Automated blood lymphocytes/100 leukocytes 22 % 12-44 Blood monocytes/100 leukocytes 7 % 0-12 Automated blood eosinophils/100 leukocytes 2 % 0-10 Automated blood basophils/100 leukocytes 1 % 0-10 Blood neutrophils automated count (number/volume) 9.8 10*3 1.8-7.8 Blood lymphocytes automated count (number/volume) 3.2 10*3 1.0-4.0 Blood monocytes automated count (number/volume) 1.1 10*3 0.0-1.0 Automated eosinophil count 0.3 10*3/uL 0.0-0.3 Automated blood basophil count (count/volume) 0.1 10*3/uL 0.0-0.1 Comprehensive metabolic panel - 04/14/18 16:29 Serum or plasma sodium measurement (moles/volume) 140 mmol/L 135-145 Serum or plasma potassium measurement (moles/volume) 4.0 mmol/L 3.6-5.0 Serum or plasma chloride measurement (moles/volume) 101 mmol/L 98-107 Carbon dioxide 26 mmol/L 21-32 Serum or plasma anion gap determination (moles/volume) 13 mmol/L 5-14 Serum or plasma urea nitrogen measurement (mass/volume) 11 mg/dL 7-18 Serum or plasma creatinine measurement (mass/volume) 0.72 mg/dL 0.60-1.30 Serum or plasma urea nitrogen/creatinine mass ratio 15 NRG Serum or plasma creatinine measurement with calculation of estimated glomerular filtration rate > NRG Serum or plasma glucose measurement (mass/volume) 114 mg/dL 70-105 Serum or plasma calcium measurement (mass/volume) 9.6 mg/dL 8.5-10.1 Serum or plasma total bilirubin measurement (mass/volume) 1.9 mg/dL 0.1-1.0 Serum or plasma alkaline phosphatase measurement (enzymatic activity/volume) 95 U/L 40-136 Serum or plasma aspartate aminotransferase measurement (enzymatic activity/ volume) 10 U/L 5-34 Serum or plasma alanine aminotransferase measurement (enzymatic activity/volume ) 11 U/L 0-55 Serum or plasma protein measurement (mass/volume) 7.5 g/dL 6.4-8.2 Serum or plasma albumin measurement (mass/volume) 4.1 g/dL 3.2-4.5 CALCIUM CORRECTED 9.5 mg/dL 8.5-10.1 Lipase - 04/14/18 16:29 Lipase 11 U/L 8-78 Serum or plasma choriogonadotropin ( test) detection - 04/14/18 16:29 Serum or plasma choriogonadotropin ( test) detection NEGATIVE NEGATIVE Blood manual differential performed detection - 04/14/18 16:29 Blood monocytes/100 leukocytes 4 % NRG Manual blood segmented neutrophils/100 leukocytes 73 % NRG Blood band neutrophils/100 leukocytes 0 % NRG Manual blood lymphocytes/100 leukocytes 23 % NRG Manual eosinophils/100 leukocytes in nose 0 % NRG Manual blood basophils/100 leukocytes 0 % NRG Blood erythrocyte morphology finding identification NORMAL NRG Complete urinalysis with reflex to culture - 04/14/18 17:55 Urine color determination YELLOW NRG Urine clarity determination CLOUDY NRG Urine pH measurement by test strip 6.5 5-9 Specific gravity of urine by test strip 1.020 1.016- 1.022 Urine protein assay by test [...] detection in urine sediment by light microscopy >50 NRG Crystals detection in urine sediment by light microscopy NONE NRG Casts detection in urine sediment by light microscopy NONE NRG Mucus detection in urine sediment by light microscopy SMALL NRG Complete urinalysis with reflex to culture YES NRG Urine drug screening test - 04/14/18 17:55 Urine phencyclidine detection by screening method NEGATIVE [...] detection NEGATIVE NEGATIVE Bacterial urine culture - 04/14/18 17:55 Bacterial urine culture SEE COMMEN NR COLONY COUNT . NRG Complete blood count (CBC) with automated white blood cell (WBC) differential - 04/15/18 14:54 Blood leukocytes automated count (number/volume) 8.3 10*3/uL 4.3-11.0 Blood erythrocytes automated count (number/volume) 4.84 10*6/uL 4.35-5.85 Venous blood hemoglobin measurement (mass/volume) 13.9 g/dL 11.5-16.0 Blood hematocrit (volume fraction) 43 % 35-52 Automated erythrocyte mean corpuscular volume 88 [foz_us] 80-99 Automated erythrocyte mean corpuscular hemoglobin (mass per erythrocyte) 29 pg 25-34 Automated erythrocyte mean corpuscular hemoglobin concentration measurement ( mass/volume) 33 g/dL 32-36 Automated erythrocyte distribution width ratio 14.0 % 10.0-14.5 Automated blood platelet count (count/volume) 224 10*3/uL 130-400 Automated blood platelet mean volume measurement 10.2 [foz_us] 7.4-10.4 Automated blood neutrophils/100 leukocytes 56 % 42-75 Automated blood lymphocytes/100 leukocytes 33 % 12-44 Blood monocytes/100 leukocytes 6 % 0-12 Automated blood eosinophils/100 leukocytes 4 % 0-10 Automated blood basophils/100 leukocytes 1 % 0-10 Blood neutrophils automated count (number/volume) 4.6 10*3 1.8-7.8 Blood lymphocytes automated count (number/volume) 2.7 10*3 1.0-4.0 Blood monocytes automated count (number/volume) 0.5 10*3 0.0-1.0 Automated eosinophil count 0.3 10*3/uL 0.0-0.3 Automated blood basophil count (count/volume) 0.1 10*3/uL 0.0-0.1 Comprehensive metabolic panel - 04/15/18 14:54 Serum or plasma sodium measurement (moles/volume) 141 mmol/L 135-145 Serum or plasma potassium measurement (moles/volume) 3.1 mmol/L 3.6-5.0 Serum or plasma chloride measurement (moles/volume) 103 mmol/L 98-107 Carbon dioxide 28 mmol/L 21-32 Serum or plasma anion gap determination (moles/volume) 10 mmol/L 5-14 Serum or plasma urea nitrogen measurement (mass/volume) 9 mg/dL 7-18 Serum or plasma creatinine measurement (mass/volume) 0.72 mg/dL 0.60-1.30 Serum or plasma urea nitrogen/creatinine mass ratio 13 NRG Serum or plasma creatinine measurement with calculation of estimated glomerular filtration rate > NRG Serum or plasma glucose measurement (mass/volume) 47 mg/dL 70-105 Serum or plasma calcium measurement (mass/volume) 8.6 mg/dL 8.5-10.1 Serum or plasma total bilirubin measurement (mass/volume) 0.9 mg/dL 0.1-1.0 Serum or plasma alkaline phosphatase measurement (enzymatic activity/volume) 81 U/L 40-136 Serum or plasma aspartate aminotransferase measurement (enzymatic activity/ volume) 11 U/L 5-34 Serum or plasma alanine aminotransferase measurement (enzymatic activity/volume ) 12 U/L 0-55 Serum or plasma protein measurement (mass/volume) 6.8 g/dL 6.4-8.2 Serum or plasma albumin measurement (mass/volume) 3.8 g/dL 3.2-4.5 CALCIUM CORRECTED 8.8 mg/dL 8.5-10.1 Serum or plasma amylase measurement (enzymatic activity/volume) - 04/15/18 14: 54 Serum or plasma amylase measurement (enzymatic activity/volume) 32 U /L 25-125 Lipase - 04/15/18 14:54 Lipase 31 U/L 8-78 Capillary blood glucose measurement by glucometer (mass/volume) - 04/15/18 16: 39 Capillary blood glucose measurement by glucometer (mass/volume) 85 mg/dL 70-110 Encounters ACCT No. Visit Date/Time Discharge Status Pt. Type Provider Facility Loc./Unit Complaint [id number] 09/06/2013 11:23:00 09/06/2013 23:59:59 [facility] Outpatient MANNY DELEON APRN [id number] 09/06/2013 11:23:00 09/06/2013 23:59:59 [facility] Outpatient MANNY DELEON APRN [id number] 05/24/2013 10:02:00 05/24/2013 23:59:59 [facility] Outpatient MANNY DELEON APRN [id number] 03/01/2013 15:42:00 03/01/2013 23:59:59 [facility] Outpatient MANNY DELEON APRN [id number] 02/22/2013 10:03:00 02/22/2013 23:59:59 [facility] Outpatient DARREN RICHARDS DO [id number] 12/23/2012 10:54:00 12/23/2012 23:59:59 [facility] Outpatient SYLVIA RAYLogan ELADIO D [id number] 12/23/2012 10:54:00 12/23/2012 23:59:59 [facility] Outpatient SYLVIA RAYELADIO Ford [id number] 07/14/2012 15:36:00 07/14/2012 23:59:59 [facility] Outpatient [id number] 06/30/2012 14:27:00 06/30/2012 23:59:59 [facility] Outpatient [id number] 06/24/2012 15:48:00 06/24/2012 23:59:59 CLS Outpatient DARREN RICHARDS DO [id number] 06/17/2012 11:43:00 06/17/2012 23:59:59 [facility] Outpatient MANNY DELEON APRN [id number] 06/16/2012 09:38:00 06/16/2012 23:59:59 [facility] Outpatient [id number] 06/16/2012 09:38:00 06/16/2012 23:59:59 [facility] Outpatient [id number] 06/03/2012 10:44:00 06/03/2012 23:59:59 [facility] Outpatient [id number] 06/03/2012 10:44:00 06/03/2012 23:59:59 [facility] Outpatient SUSIE GONZALEZDARREN [id number] 05/19/2012 14:41:00 05/19/2012 23:59:59 [facility] Outpatient [id number] 05/11/2012 16:57:00 05/11/2012 23:59:59 CLS Outpatient [id number] 04/28/2012 10:36:00 04/28/2012 23:59:59 CLS Outpatient DARREN RICHARDS DO [id number] 04/21/2012 15:17:00 04/21/2012 23:59:59 [facility] Outpatient [id number] 03/09/2012 14:18:00 03/09/2012 23:59:59 C[facility] Outpatient [id number] 02/11/2012 09:51:00 02/11/2012 23:59:59 CLS Outpatient DARREN RICHARDS DO [id number] 11/24/2012 11:07:00 Document Registration [id number] 09/07/2012 12:08:00 Document Registration [id number] 07/29/2012 10:51:00 Document Registration [id number] 07/26/2012 08:04:00 Document Registration [id number] 07/21/2012 14:55:00 Document Registration [id number] 12/29/2015 13:05:00 Document Registration [id number] 03/16/2018 12:20:00 03/16/2018 23:59:59 CLS Outpatient REMI LAC, [facility] [id number] 04/15/2018 13:06:00 04/15/2018 16:50:00 DIS Emergency ELIZABETH BRICEÑO [facility] ER OVARIAN CYST;FLUID [id number] 04/14/2018 15:59:00 04/14/2018 19:48:00 DIS Outpatient CHILANGO KOCH APRN [facility] ER VOMITTING,FEVER,COGHING [id number] 04/13/2018 18:29:00 04/13/2018 19:00:00 DIS Outpatient CRISTINA CLAROS DO [facility] ER STOMACH PAIN/VOMITING [id number] 03/17/2018 23:26:00 03/18/2018 00:28:00 DIS Emergency JORDY LANTIGUA MD [facility] ER ABD PAIN [id number] 12/25/2017 11:45:00 12/25/2017 13:48:00 DIS Emergency ELIZABETH BRICEÑO [facility] ER HAND LAC [id number] 10/24/2017 06:26:00 10/24/2017 09:52:00 DIS Emergency CRISTINA CLAROS DO [facility] ER POSS APPENDICITIS [id number] 10/23/2017 21:56:00 10/23/2017 22:14:00 DIS Emergency TANVIR BORGES MD [facility] ER STOMACH CRAMPS/SKIN FEELS HOT [id number] 09/28/2017 17:41:00 09/28/2017 19:24:00 DIS Emergency CHILANGO KOCH APRN [facility] ER DIZZINESS;SORE THROAT [id number] 02/07/2017 13:19:00 02/07/2017 13:31:00 DIS Emergency CHILANGO KOCH APRN [facility] ER L SIDE TOOTH POSS INFECTION [id number] 01/06/2016 22:17:00 01/08/2016 12:43:00 DIS Inpatient SUSIE GONZALEZDARREN Lety [facility] LDRP LABOR [id number] 12/30/2015 18:49:00 12/30/2015 20:15:00 DIS Outpatient JENNIFER DOVE MD [facility] WSo PRESSURE/CONTRACTIONS [id number] 12/18/2015 14:00:00 12/18/2015 16:30:00 DIS Outpatient SUSIE GONZALEZ DARREN Lety [facility] WSo COMPLAINTS OF CONTRACTIONS [id number] 12/04/2015 11:02:00 12/04/2015 14:25:00 DIS Outpatient RICHARDS DARREN Lety [facility] WSo ABD CRAMPING/RUSSO 32 WKS PREG [id number] 11/05/2015 14:02:00 11/05/2015 23:59:59 CLS Outpatient DARREN RICHARDS DO [facility] RAD Z34.83 [id number] 09/04/2015 13:44:00 09/04/2015 23:59:59 CLS Outpatient RICHARDS DARREN [facility] RAD SURVEY [id number] 07/04/2015 11:28:00 07/04/2015 23:59:59 CLS Outpatient ABNER DUBON APRN [facility] RAD DATING [id number] 04/22/2015 18:42:00 04/22/2015 21:10:00 DIS Emergency KUSH NIX [facility] ER DENTAL PAIN/POSS ABSCESS [id number] 09/26/2013 12:26:00 09/26/2013 14:33:00 DIS Emergency CHILANGO KOCH APRN [facility] ER VAG BLEEDING [id number] 08/04/2012 18:26:00 08/06/2012 11:30:00 DIS Inpatient DARREN RICHARDS DO [facility] WS LABOR [id number] 11/26/2017 12:13:00 Document Registration [id number] 04/22/2015 18:42:00 Document Registration [id number] 07/28/2012 15:29:00 Document Registration [id number] 07/01/2012 23:10:00 Document Registration [id number] 05/26/2012 14:36:00 Document Registration [id number] 04/19/2012 10:46:00 Document Registration [id number] 03/30/2012 09:59:00 Document Registration [id number] 02/12/2012 11:10:00 Document Registration [id number] 10/09/2011 21:00:00 Document Registration [id number] 09/18/2011 17:01:00 Document Registration [id number] 04/28/2011 14:57:00 Document Registration [id number] 12/24/2010 19:56:00 Document Registration [id number] 12/13/2009 21:50:00 Document Registration
[2018-04-19 12:34] LABS: BILIRUBIN,URINE NEGATIVE (NEGATIVE); CLARITY,URINE VERY CLOUDY; COLOR,URINE YELLOW; GLUCOSE, URINE (UA) NEGATIVE (NEGATIVE); KETONES,URINE NEGATIVE (NEGATIVE); LEUKOCYTE ESTERASE ,URINE 3+ (NEGATIVE); NITRITE,URINE NEGATIVE (NEGATIVE); PH,URINE 6 (5-9); PROTEIN,URINE 1+ (NEGATIVE); UROBILINOGEN,URINE NORMAL (NORMAL)
[2018-04-19 12:46] LABS: RBC,URINE 0-2 /HPF; WBC,URINE 25-50 /HPF
[2018-04-19 12:47] LABS: BACTERIA,URINE LARGE /HPF; TRICHOMONAS,URINE FEW /HPF
[2018-04-19] MEDS ORDERED: NS IV 1000 ML 1,000 ML IV SCH (13:05)
[2018-04-19 13:13] LABS: BASOPHILS # (AUTO) 0.1 10^3/uL (0.0-0.1); BASOPHILS % (AUTO) 0 % (0-10); EOSINOPHILS # (AUTO) 0.3 10^3/uL (0.0-0.3); EOSINOPHILS % (AUTO) 2 % (0-10); HEMATOCRIT 44 % (35-52); HEMOGLOBIN 14.9 G/DL (11.5-16.0); LYMPHOCYTES # (AUTO) 2.5 X 10^3 (1.0-4.0); LYMPHOCYTES % (AUTO) 20 % (12-44); MEAN CORPUSCULAR HEMOGLOBIN 29 PG (25-34); MEAN CORPUSCULAR HGB CONC 34 G/DL (32-36); MEAN CORPUSCULAR VOLUME 86 FL (80-99); MEAN PLATELET VOLUME 10.6 FL (7.4-10.4); MONOCYTES % (AUTO) 8 % (0-12); NEUTROPHILS # (AUTO) 8.5 X 10^3 (1.8-7.8); NEUTROPHILS % (AUTO) 69 % (42-75); PLATELET COUNT 274 10^3/uL (130-400); RED BLOOD COUNT 5.12 10^6/uL (4.35-5.85); WHITE BLOOD COUNT 12.2 10^3/uL (4.3-11.0)
[2018-04-19 13:19] LABS: PROTHROMBIN TIME PATIENT 13.2 SEC (12.2-14.7)
[2018-04-19] MEDS ORDERED: fentaNYL INJECTION 100 MCG/2 ML AMP IVP STA (13:19)
[2018-04-19 13:25] LABS: ALANINE AMINOTRANSFERASE 10 U/L (0-55); ALBUMIN 3.9 GM/DL (3.2-4.5); ALKALINE PHOSPHATASE 81 U/L (40-136); BILIRUBIN,TOTAL 0.6 MG/DL (0.1-1.0); BUN/CREATININE RATIO 12; CALCIUM 9.3 MG/DL (8.5-10.1); CARBON DIOXIDE 23 MMOL/L (21-32); CHLORIDE 104 MMOL/L (98-107); CREATININE SERUM 0.74 MG/DL (0.60-1.30); GFR ESTIMATED > 60; POTASSIUM 4.2 MMOL/L (3.6-5.0); SODIUM 136 MMOL/L (135-145); TOTAL PROTEIN 7.6 GM/DL (6.4-8.2)
[2018-04-19 13:29] LABS: GLUCOSE 60 MG/DL (70-105)
[2018-04-19] MEDS ORDERED: D5 NS 1000 ML IV SOLUTION 1,000 ML IV ONE ×2 (13:35→15:30)
--- NOTE | 2018-04-19 15:44 | ED GU-Female ---
General Chief Complaint: Abdominal/GI Problems Stated Complaint: PID,UTI,ABD PAIN Nursing Triage Note: Patient advises she was seen two days ago and was diagnosed with an ovarian cyst as well as a UTI. She advises the pain had improved but since returned yesterday. She states pain is currently an 8/10 located in both her left upper and lower quadrant. Nursing Sepsis Screen: No Definite Risk History of Present Illness Date Seen by Provider: Apr 19, 2018 Time Seen by Provider: 12:05 Initial Comments 22-year-old female presents for lower abdominal pain. She was seen here on April [address] abdomen and April 15 for similar symptoms with pelvic US. She was started on Bactrim for UTI, she has been taking it as prescribed. She awoke this morning with increased pain and took ibuprofen 400 mg at 7:30. She denies any diarrhea, nausea or vomiting. She had a normal bowel movement yesterday. She denies any vaginal bleeding or other discharge. She was treated with Rocephin and Zithromax for possible gonorrhea exposure in March 2018. She also reports a history of PID in March 2018 that has resolved. She reports her left lower abdomen feels like something is twisting. Timing/Duration: getting worse, intermittent Severity/Quality: moderate (9/10) Location: RLQ, LLQ, vaginal Radiation: none Activities at Onset: none Prior Genitourinary Problems: similar symptoms Sexual [place] History: multiple partners Modifying Factors: Improves With Resting Associated Symptoms: abdominal pain; No loss of bladder control; lower back pain, urinary frequency Allergies and Home Medications Allergies Coded Allergies: No Known Drug Allergies (Unverified , 04/19/18) Home Medications Ondansetron 4 Mg Tab.rapdis, 4 MG PO Q4H PRN for NAUSEA/VOMITING Prescribed by: CHILANGO KOCH on 04/14/181820 Sulfamethoxazole/Trimethoprim 1 Each Tablet, 1 EACH PO BID Prescribed by: CHILANGO KOCH on 04/14/181820 Patient Home Medication List Home Medication List Reviewed: Yes Review of Systems Review of Systems Constitutional: no symptoms reported, see HPI Gastrointestinal: RLQ, LLQ, see HPI, abdominal pain : No (negative hCG) All Other Systemes Reviewed Negative Unless Noted: Yes Past Mhgxhav-Qudltw-Ldtuaq Hx Past Med/Social Hx: Reviewed Nursing Past Med/Soc Hx Patient Social History Alcohol Use: Denies Use Recreational Drug Use: No Drug of Choice: THC, + IV METH Type Used: Cigarettes Former Smoker, Quit: Jul 12, 2017 2nd Hand Smoke Exposure: Yes Recent Foreign Travel: No Contact w/Someone Who Travel: No Recent Infectious Disease Expo: No Recent Hopitalizations: No Immunizations Up To Date Tetanus Booster (TDap): Unknown Date of Influenza Vaccine: Jan 02, 2016 Seasonal Allergies Seasonal Allergies: No Past Medical History Surgeries: No Respiratory: No Cardiac: No Neurological: No Last Menstrual Period: Mar 26, 2018 Reproductive Disorders: Yes Female Reproductive Disorders: Menstrual Problems, Pelvic Inflammatory Dis Sexually Transmitted Disease: Yes HIV/AIDS: No Genitourinary: No Gastrointestinal: No Musculoskeletal: No Endocrine: No HEENT: Yes (POOR DENTITION) Cancer: No Psychosocial: Yes Anxiety, Depression Integumentary: No Blood Disorders: No Adverse Reaction/Blood Tranf: No Family Medical History Patient reports no known family medical history. Physical Exam Vital Signs Vital Signs - First Documented 04/19/18 12:23 Temp 97.9 Pulse 122 Resp 14 B/P (MAP) 127/90 (102) Pulse Ox 99 O2 Delivery Room Air Capillary Refill : Less Than 3 Seconds Height, Weight, BMI Height: 5'3.00" Weight: 170lbs. 0oz. 77.372600pu; 39.0 BMI Method:Stated General Appearance: WD/WN, no apparent distress HEENT: PERRL/EOMI, normal ENT inspection, TMs normal, pharynx normal Neck: non-tender, full range of motion, supple, normal inspection Cardiovascular: normal peripheral pulses, regular rate, rhythm, no murmur Respiratory: chest non-tender, lungs clear, normal breath sounds Gastrointestinal: normal bowel sounds, soft, distended; No guarding, No rebound ; tenderness (bilateral lower quadrants, left greater than right.); No hernia, No mass Pelvic: normal external exam, no masses, discharge (copious, purulent), tender w/ cervical motion; No tender adnexa, No vaginal bleeding Extremities: normal range of motion, non-tender, normal inspection, normal capillary refill Neurologic/Psychiatric: no motor/sensory deficits, alert, normal mood/affect, oriented x 3 Skin: normal color, warm/dry Lymphatic: no adenopathy Focused Exam Lactate Level 04/19/18 13:20: Lactic Acid Level 1.04 Lactic Acid Level Laboratory Tests Test 04/19/18 13:20 Lactic Acid Level 1.04 MMOL/L (0.50-2.00) Procedures/Interventions Suture Size: 5-0 Progress/Results/Core Measures Suspected Sepsis Recent Fever Within 48 Hours: No Infection Criteria Present: Documented Infection New/Unexplained Altered Menta: No Sepsis Screen: No Definite Risk SIRS Temperature:97.9 Pulse: 100 Respiratory Rate: 14 Laboratory Tests 04/19/18 12:50: White Blood Count 12.2H Blood Pressure 127 /90 Mean: 102 04/19/18 13:20: Lactic Acid Level 1.04 Laboratory Tests 04/19/18 12:50: Creatinine 0.74, INR Comment 1.0, Platelet Count 274, Total Bilirubin 0.6 Results/Orders Lab Results Laboratory Tests Test 04/19/18 12:27 04/19/18 12:50 04/19/18 13:20 04/19/18 14:18 Range/Units Urine Color YELLOW Urine Clarity VERY CLOUDY H Urine pH 6 5-9 Urine Specific [place] 1.025 H 1.016-1.022 Urine Protein 1+ H NEGATIVE Urine Glucose (UA) NEGATIVE NEGATIVE Urine Ketones NEGATIVE NEGATIVE Urine Nitrite NEGATIVE NEGATIVE Urine Bilirubin NEGATIVE NEGATIVE Urine Urobilinogen NORMAL NORMAL MG/DL Urine Leukocyte Esterase 3+ H NEGATIVE Urine RBC (Auto) 1+ H NEGATIVE Urine RBC 0-2 /HPF Urine WBC 25-50 H /HPF Urine Squamous Epithelial Cells 10-25 H /HPF Urine Crystals NONE /LPF Urine Bacteria LARGE H /HPF Urine Casts NONE /LPF Urine Mucus NEGATIVE /LPF Urine Trichomonas FEW H /HPF Urine Culture Indicated YES White Blood Count 12.2 H 4.3-11.0 10^3/uL Red Blood Count 5.12 4.35-5.85 10^6/uL Hemoglobin 14.9 11.5-16.0 G/DL Hematocrit 44 35-52 % Mean Corpuscular Volume 86 80-99 FL Mean Corpuscular Hemoglobin 29 25-34 PG Mean Corpuscular Hemoglobin Concent 34 32-36 G/DL Red Cell Distribution Width 14.0 10.0-14.5 % Platelet Count 274 130-400 10^3/uL Mean Platelet Volume 10.6 H 7.4-10.4 FL Neutrophils (%) (Auto) 69 42-75 % Lymphocytes (%) (Auto) 20 12-44 % Monocytes (%) (Auto) 8 0-12 % Eosinophils (%) (Auto) 2 0-10 % Basophils (%) (Auto) 0 0-10 % Neutrophils # (Auto) 8.5 H 1.8-7.8 X 10^3 Lymphocytes # (Auto) 2.5 1.0-4.0 X 10^3 Monocytes # (Auto) 1.0 0.0-1.0 X 10^3 Eosinophils # (Auto) 0.3 0.0-0.3 10^3/uL Basophils # (Auto) 0.1 0.0-0.1 10^3/uL Prothrombin Time 13.2 12.2-14.7 SEC INR Comment 1.0 0.8-1.4 Activated Partial Thromboplast Time 26 24-35 SEC Sodium Level 136 135-145 MMOL/L Potassium Level 4.2 3.6-5.0 MMOL/L Chloride Level 104 98-107 MMOL/L Carbon Dioxide Level 23 21-32 MMOL/L Anion Gap 9 5-14 MMOL/L Blood Urea Nitrogen 9 7-18 MG/DL Creatinine 0.74 0.60-1.30 MG/DL Estimat Glomerular Filtration Rate > 60 BUN/Creatinine Ratio 12 Glucose Level 60 *L 70-105 MG/DL Calcium Level 9.3 8.5-10.1 MG/DL Corrected Calcium 9.4 8.5-10.1 MG/DL Total Bilirubin 0.6 0.1-1.0 MG/DL Aspartate Amino Transf (AST/SGOT) 10 5-34 U/L Alanine Aminotransferase (ALT/SGPT) 10 0-55 U/L Alkaline Phosphatase 81 40-136 U/L C-Reactive Protein High Sensitivity 3.07 H 0.00-0.50 MG/DL Total Protein 7.6 6.4-8.2 GM/DL Albumin 3.9 3.2-4.5 GM/DL Lactic Acid Level 1.04 0.50-2.00 MMOL/L Test 04/19/18 15:36 Range/Units Glucometer 74 70-110 MG/DL Micro Results Microbiology 04/19/18 Genital Culture, Resulted Pending 04/19/18 FRANCESCA Preparation - Final, Resulted 04/19/18 Wet Prep - Final, Resulted My Orders Orders - JOHNNA CORREIA Urine Bedside (04/19/18 11:43) Ua Culture If Indicated (04/19/18 11:43) Urine Culture (04/19/18 12:27) Saline Lock/Iv-Start (04/19/18 13:05) Ns Iv 1000 Ml (Sodium Chloride 0.9%) (04/19/18 13:05) Cbc With Automated Diff (04/19/18 13:05) Comprehensive Metabolic Panel (04/19/18 13:05) Hs C Reactive Protein (04/19/18 13:05) Lactic Acid Analyzer (04/19/18 13:05) Protime With Inr (04/19/18 13:05) Partial Thromboplastin Time (04/19/18 13:05) Fentanyl Injection (Sublimaze Injection (04/19/18 13:19) Saline Lock/Iv-Start (04/19/18 13:35) D5 Ns 1000 Ml Iv Solution (Dextrose 5%/0 (04/19/18 13:35) Wet Prep (04/19/18 14:02) Neisseria Gonorrhea Swab (04/19/18 14:02) Genital Culture (04/19/18 14:02) Francesca Prep (04/19/18 14:02) Chlamydia Trachomatis Swab (04/19/18 14:02) Us Pelvic (Non Ob)[id number] (04/19/18 14:21) Syphilis Antibody Screen (04/19/18 15:07) Accucheck Stat ONCE (04/19/18 15:30) Saline Lock/Iv-Start (04/19/18 15:30) D5 Ns 1000 Ml Iv Solution (Dextrose 5%/0 (04/19/18 15:30) Medications Given in ED Current Medications Medications Dose Ordered Sig/Camila Route Start Time Stop Time Status Last Admin Dose Admin Dextrose/Sodium Chloride 1,000 ml @ 0 mls/hr Q0M ONCE IV 04/19/18 13:35 04/19/18 13:36 DC 04/19/18 13:42 0 MLS/HR Vital Signs/I&O 04/19/18 04/19/18 12:23 15:30 Temp 97.9 Pulse 122 100 Resp 14 14 B/P (MAP) 127/90 (102) 127/90 (102) Pulse Ox 99 99 O2 Delivery Room Air Room Air Capillary Refill : Less Than 3 Seconds Blood Pressure Mean: 102 Point of Care Testing Finger Stick Blood Glucose: 74 Urine -Bedside: Negative Progress Note : Time: 12:05 Progress Note Patient seen and evaluated, recommended labs and fentanyl 25 g IV for pain. Will give normal saline 1 L IV. Pulse in the 120s but afebrile and normotensive. Patient's initial assessment and plan of care discussed with Dr. Bragg, he concurred. 1245 glucose 60, will change IV fluids to D5 normal saline. 1330 recommended pelvic exam, patient agreed with this. Exam normal with the exception of exquisite cervical motion tenderness and purulent discharge. Cultures obtained. Updated Dr. Bragg per patient's exam and results, recommended RPR in addition to otherwise ordered labs. Patient reports improvement in her pain since receiving the fentanyl. 1345 we'll obtain ultrasound of the pelvis, will attempt transvaginal patient unable to tolerate this will do abdominal. 1430 patient did not tolerate transvaginal ultrasound, was completed per abdomen. 4.5 cm cyst or abscess noted on the right ovary and increased free fluid from previous ultrasound done on 04/15/18. Spoke with Dr. Bradley, agreed to admission for observation and IV treatment of PID/UTI. Patient in agreement with this plan of care. [address] Bradley by phone, discussed US results. Request AVIATION MANAGER eval. Will contact breast surgeon AVIATION MANAGER for consult. Accu-Chek [phone] Brown, he will see patient as consult. Diagnostic Imaging Diagonstic Imaging: Ultrasound Plain Films/CT/US/NM/MRI: pelvis Comments NAME: NAVI ROQUE [facility] REC#: [id number] PT STATUS: ADM Ruth : 1995 PHYSICIAN: JONHNA CORREIA ADMIT DATE: 04/19/18 Draft Date of Exam:04/19/18 US PELVIC (NON OB)[id number] INDICATION: Pelvic inflammatory disease, worsening pain. TECHNIQUE: Multiple real time gonzáles scale sonographic images were obtained of the pelvis transabdominally only. CORRELATION STUDY: 04/15/2018. FINDINGS: MEASUREMENTS: Uterus: 8.4 x 4.6 x 4.4 cm. Endometrial Thickness: 10 mm. RIGHT OVARY: Enlarged, 5.8 x 5.0 x 4.3 cm. The uterus and endometrium appearing unremarkable. There is somewhat complex likely cyst seen just superior to the right ovary today, currently measuring at 3.6 x 4.0 x 4.2 cm. A previously demonstrated cyst at the inferior pole is unable to be visualized. There is blood flow to the right ovary. Left ovary is not identified. There is presence of free fluid within the pelvis that appears to be overall somewhat more prominent, perhaps increased from prior study. IMPRESSION: 1. Moderate amount of free fluid within the pelvis does appear to be perhaps slightly increased in amount. 2. There is a somewhat complex approximately 4 cm cystic mass of the right ovary, nonspecific. Findings could be consistent with history of pelvic inflammatory disease with possibility of tubo-ovarian abscess not excluded. 3. Nonvisualization of the left ovary. Dictated on workstation # [id number] Dict: 04/19/18 1535 Trans: 04/19/18 1543 [id number] Interpreted by: CRISTIAN DILLARD DO Electronically signed by: Reviewed: Reviewed by Me, Reviewed/Discussed Departure Impression Primary Impression: Pelvic inflammatory disease (PID) Additional Impressions: UTI (urinary tract infection) Qualified Codes: N30.01 - Acute cystitis with hematuria Right ovarian cyst Abdominal pain Qualified Codes: R10.30 - Lower abdominal pain, unspecified Disposition: ADMITTED INPATIENT Condition: Improved Departure-Patient Inst. Referrals: DARREN RICHARDS DO (PCP/Family) Primary Care Physician JOHNNA CORREIA Apr 19, 2018 15:44
--- OUTSIDE RECORDS SUMMARY | 2018-04-19 15:46 | XMS REPORT | Continuity of Care Document ---
Author Author [facility] Address Unknown Phone Unavailable Allergies Active Description Code Type Severity Reaction Onset Reported/Identified Relationship to Patient Clinical Status Yes codeine Drug Allergy 07/15/2010 Yes codeine Drug Allergy N/A N/A 07/15/2010 Yes Depo-Provera 150 mg/mL Suspension Drug Allergy N/A N/A 05/24/2013 Yes codeine [id number] Drug Allergy Moderate N/A 09/26/2013 Yes No Known Drug Allergies [id number] Drug Allergy Unknown N/A 12/25/2017 Medications There [...] And Unspecified Sites Without Infection 02/09/2008 PANCHO LATEX CASTER, MANNY A 782.1 Rash 02/09/2008 PANCHO LATEX CASTER, MANNY A 919.4 Insect Bite Nonvenomous Of Other Multiple And Unspecified Sites Without Infection 02/09/2008 PANCHO LATEX CASTER, MANNY A 782.1 Rash 02/09/2008 PANCHO LATEX CASTER, MANNY A 919.4 Insect Bite Nonvenomous Of Other Multiple And Unspecified Sites Without Infection 02/09/2008 PANCHO LATEX CASTER, MANNY A 782.1 Rash 02/09/2008 PANCHO LATEX CASTER, MANNY A 919.4 Insect Bite Nonvenomous Of Other Multiple And Unspecified Sites Without Infection 02/09/2008 PANCHO LATEX CASTER, MANNY A 782.1 Rash 02/09/2008 PANCHO LATEX CASTER, MANYN A 919.4 Insect Bite Nonvenomous Of Other [...] 845.03 TIBIOFIBULAR (LIGAMENT) SPRAIN DISTAL 09/08/2008 PANCHO LATEX CASTER, MANNY A 845.03 TIBIOFIBULAR (LIGAMENT) SPRAIN DISTAL 09/08/2008 PANCHO LATEX CASTER, MANNY A 845.03 TIBIOFIBULAR (LIGAMENT) SPRAIN DISTAL 09/08/2008 PANCHO LATEX CASTER, MANNY A 845.03 TIBIOFIBULAR (LIGAMENT) SPRAIN DISTAL 09/08/2008 PANCHO LATEX CASTER, MANNY A 845.03 TIBIOFIBULAR (LIGAMENT) SPRAIN DISTAL [...] Establ. Patient Checkup Adolescent 12-17 11/29/2008 PANCHO LATEX CASTER, MANNY A V03.89 MENINGOCOCCAL, OTHER SPECIFIED SINGLE BACTERIAL DISEASE 11/29/2008 PANCHO LATEX CASTER, MANNY A V05.3 HEPATITIS VIRAL/ALL 11/29/2008 PANCHO LATEX CASTER, MANNY A V06.5 DT, TETANUS-DIPHTHERIA [Td] ,TDAP 11/29/2008 PANCHO LATEX CASTER, MANNY A V20.2 Preventive Medicine Establ. Patient [...] A V05.3 HEPATITIS VIRAL/ALL 11/29/2008 PANCHO RAYN, AMNNY A V06.5 DT, TETANUS-DIPHTHERIA [Td] ,TDAP 11/29/2008 [...] RESPIRATORY INFECTIONS OF UNSPECIFIED SITE 03/19/2009 PANCHO LATEX CASTER, MANNY A 465.9 ACUTE UPPER RESPIRATORY INFECTIONS [...] RICHARDS DO 486 Pneumonia Unspecified 05/16/2009 PANCHO LATEX CASTER, MANNY A 486 Pneumonia Unspecified 05/16/2009 PANCHO LATEX CASTER, MANNY A 486 Pneumonia Unspecified 05/16/2009 PANCHO LATEX CASTER, MANNY A 486 Pneumonia Unspecified 05/16/2009 PANCHO LATEX CASTER, MANNY A 486 Pneumonia Unspecified 06/21/2009 DARREN [...] DARREN RICHARDS DO 133.0 SCABIES 06/21/2009 PANCHO LATEX CASTER, MANNY A 133.0 SCABIES 06/21/2009 PANCHO LATEX CASTER, MANNY A 133.0 SCABIES 06/21/2009 PANCHO LATEX CASTER, MANNY A 133.0 SCABIES 06/21/2009 PANCHO LATEX CASTER, MANNY A 133.0 SCABIES 06/22/2009 DARREN RICHARDS [...] Pain, Localized In The Wrist 06/22/2009 ELADIO WRAD APRN 719.43 Joint Pain, Localized In The Wrist 06/22/2009 DARREN RICHARDS DO 719.43 Joint Pain, Localized In The Wrist 06/22/2009 MANNY DELEON APRN A 719.43 Joint Pain, Localized In The Wrist 06/22/2009 PANCHO LATEX CASTER, MANNY A 719.43 Joint Pain, Localized In The Wrist 06/22/2009 PANCHO LATEX CASTER, MANNY A 719.43 Joint Pain, Localized In The Wrist 06/22/2009 PANCHO LATEX CASTER, MANNY A 719.43 Joint Pain, Localized In [...] Acute Without Spontaneous Rupture Eardrum 07/06/2009 PANCHO LATEX CASTER, MANNY A 382.00 Otitis Media Acute Without Spontaneous Rupture Eardrum 07/06/2009 PANCHO LATEX CASTER, MANNY A 382.00 Otitis Media Acute Without Spontaneous Rupture Eardrum 07/06/2009 PANCHO LATEX CASTER, MANNY A 382.00 Otitis Media Acute Without Spontaneous Rupture Eardrum 07/06/2009 PANCHO LATEX CASTER, MANNY A 382.00 Otitis Media Acute Without Spontaneous Rupture Eardrum 07/17/2009 DARREN RICHARDS DO V05.4 VARICELLA, CHICKENPOX 07/17/2009 V05.4 VARICELLA, CHICKENPOX 07/17/2009 V05.4 VARICELLA, CHICKENPOX 07/17/2009 DARREN RICHARDS DO V05.4 VARICELLA, CHICKENPOX 07/17/2009 V05.4 VARICELLA, CHICKENPOX 07/17/2009 V05.4 VARICELLA, CHICKENPOX 07/17/2009 V05.4 VARICELLA, CHICKENPOX 07/17/2009 V05.4 VARICELLA, CHICKENPOX 07/17/2009 [facility] VALENTE, MANNY A V05.4 VARICELLA, CHICKENPOX [...] DARREN RICHARDS DO V05.4 VARICELLA, CHICKENPOX 07/17/2009 [facility] LATEX CASTER, MANNY A V05.4 VARICELLA, CHICKENPOX 07/17/2009 PANCHO [...] DO 780.79 Feelings Of Weakness 07/23/2009 PANCHO LATEX CASTER, MANNY A 780.4 Dizziness 07/23/2009 PANCHO LATEX CASTER, MANNY A 780.79 Feelings Of Weakness 07/23/2009 PANCHO LATEX CASTER, MANNY A 780.4 Dizziness 07/23/2009 PANCHO LATEX CASTER, MANNY A 780.79 Feelings Of Weakness 07/23/2009 PANCHO LATEX CASTER, MANNY A 780.4 Dizziness 07/23/2009 PANCHO LATEX CASTER, MANNY A 780.79 Feelings Of Weakness 07/23/2009 PANCHO LATEX CASTER, MANNY A 780.4 Dizziness 07/23/2009 PANCHO LATEX CASTER, MANNY A 780.79 Feelings Of Weakness 07/27/2009 [...] DO, DARREN K 251.1 HYPERINSULINISM 07/27/2009 PANCHO LATEX CASTER, MANNY A 251.1 HYPERINSULINISM 07/27/2009 PANCHO LATEX CASTER, MANNY A 251.1 HYPERINSULINISM 07/27/2009 PANCHO LATEX CASTER, MANNY A 251.1 HYPERINSULINISM 07/27/2009 PANCHO LATEX CASTER, MANNY A 251.1 HYPERINSULINISM 12/11/2009 RICHARDS DO, [...] 789.00 Abdominal Pain Unspecified Site 12/11/2009 PANCHO LATEX CASTER, MANNY A 787.91 Diarrhea 12/11/2009 PANCHO LATEX CASTER, MANNY A 789.00 Abdominal Pain Unspecified Site 12/11/2009 PANCHO LATEX CASTER, MANNY A 787.91 Diarrhea 12/11/2009 PANCHO LATEX CASTER, MANNY A 789.00 Abdominal Pain Unspecified Site 12/11/2009 PANCHO LATEX CASTER, MANNY A 787.91 Diarrhea 12/11/2009 PANCHO LATEX CASTER, MANNY A 789.00 Abdominal Pain Unspecified Site 12/11/2009 PANCHO LATEX CASTER, MANNY A 787.91 Diarrhea 12/11/2009 PANCHO LATEX CASTER, MANNY A 789.00 Abdominal Pain Unspecified Site [...] DO K 461.9 Sinusitis Acute 01/31/2010 PANCHO LATEX CASTER, MANNY A 461.9 Sinusitis Acute 01/31/2010 PANCHO LATEX CASTER, MANNY A 461.9 Sinusitis Acute 01/31/2010 PANCHO LATEX CASTER, MANNY A 461.9 Sinusitis Acute 01/31/2010 PANCHO LATEX CASTER, MANNY A 461.9 Sinusitis Acute 02/20/2010 DARREN RICHARDS DO K 692.9 DERMATITIS CONTACT UNSPECIFIED 02/20/2010 692.9 DERMATITIS CONTACT UNSPECIFIED 02/20/2010 692.9 DERMATITIS CONTACT UNSPECIFIED 02/20/2010 DARREN RICHARDS DO K 692.9 DERMATITIS CONTACT UNSPECIFIED 02/20/2010 692.9 DERMATITIS CONTACT UNSPECIFIED 02/20/2010 692.9 DERMATITIS CONTACT UNSPECIFIED 02/20/2010 692.9 DERMATITIS CONTACT UNSPECIFIED 02/20/2010 692.9 DERMATITIS CONTACT UNSPECIFIED 02/20/2010 PANCHO LATEX CASTER, MANNY A 692.9 DERMATITIS CONTACT UNSPECIFIED 02/20/2010 [...] 02/20/2010 692.9 DERMATITIS CONTACT UNSPECIFIED 02/20/2010 GARTON LATEX CASTERELADIO Ford D 692.9 DERMATITIS CONTACT UNSPECIFIED 02/20/2010 FAVIOTON LEANN VICTORZABETH D 692.9 DERMATITIS CONTACT UNSPECIFIED 02/20/2010 DARREN RICHARDS DO 692.9 DERMATITIS CONTACT UNSPECIFIED 02/20/2010 PANCHO LATEX CASTER, MANNY A 692.9 DERMATITIS CONTACT UNSPECIFIED 02/20/2010 PANCHO LATEX CASTER, MANNY A 692.9 DERMATITIS CONTACT UNSPECIFIED 02/20/2010 PANCHO LATEX CASTER, MANNY A 692.9 DERMATITIS CONTACT UNSPECIFIED 02/20/2010 PANCHO LATEX CASTER, MANNY A 692.9 DERMATITIS CONTACT UNSPECIFIED 02/28/2010 [...] Frequency 06/15/2010 788.41 Urinary Frequency 06/15/2010 PANCHO LATEX CASTER, MANNY A 788.41 Urinary Frequency 06/15/2010 RICHARDS [...] APRN, MANNY A 564.00 Constipation 07/15/2010 PANCHO LATEX CASTER, MANNY A 564.00 Constipation 07/15/2010 PANCHO VALENTE, [...] AND ABSCESS OF LEG EXCEPT FOOT 08/26/2010 JSAMIN DELEON APRNIDI A 682.6 CELLULITIS AND ABSCESS [...] 11/25/2010 V72.41 TEST NEGATIVE RESULT 11/25/2010 PANCHO LATEX CASTERMANNY Ford A V72.41 TEST NEGATIVE RESULT 11/25/2010 [...] A V72.41 TEST NEGATIVE RESULT 11/25/2010 PANCHO LATEX CASTERMANNY Ford A V72.41 TEST NEGATIVE RESULT 11/25/2010 PANCHO LATEX CASTERMANNY Ford A V72.41 TEST NEGATIVE RESULT 11/25/2010 [...] APRN A V65.45 Std Counseling 02/21/2011 DARREN RCIHARDS DO V25.01 Contraception - Oral Contraception 02/21/2011 [...] RICHARDS DO V65.45 Std Counseling 02/21/2011 PANCHO LATEX CASTER, MANNY A V25.01 Contraception - Oral Contraception 02/21/2011 PANCHO LATEX CASTER, MANNY A V65.45 Std Counseling 02/21/2011 PANCHO LATEX CASTER, MANNY A V25.01 Contraception - Oral Contraception 02/21/2011 PANCHO LATEX CASTER, MANNY A V65.45 Std Counseling 02/21/2011 PANCHO LATEX CASTER, MANNY A V25.01 Contraception - Oral Contraception 02/21/2011 PANCHO LATEX CASTER, MANNY A V65.45 Std Counseling 02/21/2011 PANCHO LATEX CASTER, MANNY A V25.01 Contraception - Oral Contraception [...] SUSIE GONZALEZDARREN K 788.1 Dysuria 05/28/2011 PANCHO LATEX CASTER, MANNY A 599.0 Urinary Tract Infection 05/28/2011 PANCHO LATEX CASTER, MANNY A 788.1 Dysuria 05/28/2011 PANCHO LATEX CASTER, MANNY A 599.0 Urinary Tract Infection 05/28/2011 PANCHO LATEX CASTER, MANNY A 788.1 Dysuria 05/28/2011 PANCHO LATEX CASTER, MANNY A 599.0 Urinary Tract Infection 05/28/2011 PANCHO LATEX CASTER, MANNY A 788.1 Dysuria 05/28/2011 PANCHO LATEX CASTER, MANNY A 599.0 Urinary Tract Infection 05/28/2011 PANCHO LATEX CASTER, MANNY A 788.1 Dysuria 09/18/2011 Ot 724.2 [...] 01/12/2012 V22.0 , NORMAL FIRST 01/12/2012 PANCHO LATEX CASTER, MANNY A V22.0 , NORMAL FIRST 01/12/2012 [...] 01/12/2012 V22.0 , NORMAL FIRST 01/12/2012 GARTON LATEX CASTER, ELADIO D V22.0 , NORMAL FIRST 01/12/2012 GARTON LATEX CASTER, ELADIO D V22.0 , NORMAL FIRST 01/12/2012 SUSIE DODARREN K V22.0 , NORMAL FIRST 01/12/2012 PANCHO LATEX CASTER, MANNY A V22.0 , NORMAL FIRST 01/12/2012 PANCHO LATEX CASTER, MANNY A V22.0 , NORMAL FIRST 01/12/2012 PANCHO LATEX CASTER, MANNY A V22.0 , NORMAL FIRST 01/12/2012 PANCHO LATEX CASTER, MANNY A V22.0 , NORMAL FIRST 02/02/2012 RICHARDS DODARREN V04.81 FLU SHOT 02/02/2012 V04.81 FLU SHOT 02/02/2012 V04.81 FLU SHOT 02/02/2012 RICHARDS DODARREN V04.81 FLU SHOT 02/02/2012 V04.81 FLU SHOT 02/02/2012 V04.81 FLU SHOT 02/02/2012 V04.81 FLU SHOT 02/02/2012 V04.81 FLU SHOT 02/02/2012 PANCHO LATEX CASTER, MANNY A V04.81 FLU SHOT 02/02/2012 DARREN [...] RICHARDS DO V04.81 FLU SHOT 02/02/2012 PANCHO LATEX CASTER, MANNY A V04.81 FLU SHOT 02/02/2012 PANCHOKODAK RAYN, MANNY A V04.81 FLU SHOT 02/02/2012 PANCHOKODAK RAYN, MANNY A V04.81 FLU SHOT 02/02/2012 PANCHO LATEX CASTER, MANNY A V04.81 FLU SHOT 02/11/2012 DARREN [...] Lety 465.9 Upper Respiratory Infection 02/11/2012 PANCHO LATEX CASTER, MANNY A 465.9 Upper Respiratory Infection 02/11/2012 PANCHO LATEX CASTER, MANNY A 465.9 Upper Respiratory Infection 02/11/2012 PANCHO LATEX CASTER, MANNY A 465.9 Upper Respiratory Infection 02/11/2012 PANCHO LATEX CASTER, MANNY A 465.9 Upper Respiratory Infection 04/21/2012 [...] SIZE DATE DISCREPANCY - LGA 04/21/2012 PANCHO LATEX CASTER, MANNY A 649.60 UTERINE SIZE DATE DISCREPANCY - LGA 04/21/2012 PANCHO LATEX CASTER, MANNY A 649.60 UTERINE SIZE DATE DISCREPANCY - LGA 04/21/2012 PANCHO LATEX CASTER, MANNY A 649.60 UTERINE SIZE DATE DISCREPANCY [...] Abdominal Pain Other Specified Site 04/28/2012 PANCHO LATEX CASTER, MANNY A 789.09 Abdominal Pain Other Specified [...] MANNY A 466.0 Bronchitis, Acute 05/11/2012 PANCHO LATEX CASTER, MANNY A 466.0 Bronchitis, Acute 05/11/2012 PACNHO LATEX CASTER, MANNY A 466.0 Bronchitis, Acute 05/11/2012 PANCHO LATEX CASTER, MANNY A 466.0 Bronchitis, Acute 05/19/2012 V06.1 [...] (CURRENT) USE OF OTHER MEDICATIONS 11/24/2012 PANCHO LATEX CASTER, MANNY A V25.9 CONTRACEPTION MANAGEMENT 11/24/2012 PANCHO LATEX CASTER, MANNY A V58.69 LONG-TERM (CURRENT) USE OF OTHER MEDICATIONS 11/24/2012 PANCHO LATEX CASTER, MANNY A V25.9 CONTRACEPTION MANAGEMENT 11/24/2012 PANCHO LATEX CASTER, MANNY A V58.69 LONG-TERM (CURRENT) USE OF OTHER MEDICATIONS 11/24/2012 PANCHO VALENTE, MANNY A V25.9 CONTRACEPTION MANAGEMENT 11/24/2012 PANCHO APRN, MANNY A V58.69 LONG-TERM (CURRENT) USE OF OTHER MEDICATIONS 11/24/2012 PANCHO LATEX CASTER, MANNY A V25.9 CONTRACEPTION MANAGEMENT 11/24/2012 PANCHO [...] MANNY A 305.70 AMPHETA ABUSE 12/23/2012 PANCHO LATEX CASTER, MANNY A 300.00 AN ANXIETY UNSPEC 12/23/2012 PANCHO LATEX CASTER, MANNY A 305.70 AMPHETA ABUSE 12/23/2012 PANCHO LATEX CASTER, MANNY A 300.00 AN ANXIETY UNSPEC 12/23/2012 PANCHO LATEX CASTER, MANNY A 305.70 AMPHETA ABUSE 03/01/2013 PANCHO LATEX CASTER, MANNY A 708.0 ALLERGIC URTICARIA 03/01/2013 PANCHO LATEX CASTER, MANNY A 708.0 ALLERGIC URTICARIA 03/01/2013 PANCHO LATEX CASTER, MANNY A 708.0 ALLERGIC URTICARIA 03/01/2013 PANCHO LATEX CASTER, MANNY A 708.0 ALLERGIC URTICARIA 09/06/2013 PANCHO LATEX CASTER, MANNY A 626.2 EXCESSIVE OR FREQUENT MENSTRUATION 09/06/2013 PANCHO LATEX CASTER, MANNY A 780.79 OTHER MALAISE AND FATIGUE 09/06/2013 PANCHO LATEX CASTER, MANNY A 626.2 EXCESSIVE OR FREQUENT MENSTRUATION 09/06/2013 PANCHO LATEX CASTER, MANNY A 780.79 OTHER MALAISE AND FATIGUE 09/26/2013 CHILANGO KOCH LATEX CASTER Ot 620.2 OVARIAN CYST NEC/NOS 09/26/2013 CHILANGO KOCH LATEX CASTER Ot 626.8 MENSTRUAL DISORDER NEC 04/22/2015 Ot 649.63 04/22/2015 Ot V22.0 04/22/2015 Ot V28.81 04/22/2015 Ot 656.63 04/22/2015 Ot 656.63 04/22/2015 KUSH NIX Ot K04.7 PERIAPICAL ABSCESS WITHOUT SINUS 04/22/2015 KUSH NIX Ot K08.409 PARTIAL LOSS OF TEETH, UNSPECIFIED CAUSE 07/04/2015 Ot 649.63 07/04/2015 Ot V22.0 07/04/2015 Ot V28.81 07/04/2015 Ot 656.63 07/04/2015 Ot 656.63 07/05/2015 ABNER DUBON LATEX CASTER Ot Z34.81 07/19/2015 ABNER DUBON LATEX CASTER Ot Z34.81 09/04/2015 DARREN RICHARDS DO Ot [...] DEPRESSIVE DISORDER, SINGLE EPISOD 09/28/2017 CHILANGO KOCH LATEX CASTER Ot F41.9 ANXIETY DISORDER, UNSPECIFIED 09/28/2017 CHILANGO KOCH APRN Ot J02.9 ACUTE PHARYNGITIS, UNSPECIFIED 09/28/2017 CHILANGO KOCH APRN Ot N39.0 URINARY TRACT INFECTION, SITE NOT SPECIF 09/28/2017 CHILANGO KOCH LATEX CASTER Ot R42 DIZZINESS AND GIDDINESS 09/28/2017 CHILANGO KOCH LATEX CASTER Ot Z87.891 PERSONAL HISTORY OF NICOTINE DEPENDENCE 09/30/2017 CHILANGO KOCH APRN Ot F32.9 MAJOR DEPRESSIVE DISORDER, SINGLE EPISOD 09/30/2017 CHILANGO KOCH LATEX CASTER Ot F41.9 ANXIETY DISORDER, UNSPECIFIED 09/30/2017 CHILANGO KOCH LATEX CASTER Ot J02.9 ACUTE PHARYNGITIS, UNSPECIFIED 09/30/2017 CHILANGO KOCH LATEX CASTER Ot N39.0 URINARY TRACT INFECTION, SITE NOT SPECIF 09/30/2017 CHILANGO KOCH LATEX CASTER Ot R42 DIZZINESS AND GIDDINESS 09/30/2017 CHILANGO KOCH LATEX CASTER Ot Z87.891 PERSONAL HISTORY OF NICOTINE DEPENDENCE [...] HISTORY OF NICOTINE DEPENDENCE 03/18/2018 ABNER DUBON LATEX CASTER Ot Z34.81 ENCOUNTER FOR SUPRVSN OF NORMAL [...] Procedures Code Description [place] [address] GC/CHLAM PROBE (STATE) 02/02/2012 31320 UA OB DIP 02/02/2012 42724 CULTURE UROGENITAL 02/05/2012 51034 UA OB DIP 02/11/2012 31702 US OB ULTRASOUND 02/12/2012 38993 US OB ULTRASOUND 03/09/2012 54949 UA OB DIP 03/09/2012 31051 US OB ULTRASOUND 03/09/2012 03109 UA OB DIP 04/21/2012 24626 ROUTINE VENIPUNCTURE 04/28/2012 35963 UA LONG DIP 04/28/2012 97253 CBC 04/28/2012 43077 GLUCOSE ARI 1 HOUR 04/28/2012 49180 STREP A (IN-HOUSE) 05/11/2012 55436 UA OB DIP 06/03/2012 06767 ROUTINE VENIPUNCTURE 06/16/2012 94009 UA LONG DIP 06/16/2012 87353 GLUCOSE ARI 1 HOUR 06/16/2012 04107 ROUTINE VENIPUNCTURE 06/17/2012 21282 CMP 06/17/2012 24571 NON-STRESS TEST 06/24/2012 25901 UA W/ CULTURE IF INDICATED 06/24/2012 06752 FIBRONECTIN 06/25/2012 61734 CULTURE UROGENITAL 06/25/2012 81536 UA OB DIP 06/30/2012 34289 UA OB DIP 07/14/2012 79392 CULTURE GROUP B STREP VAG 07/17/2012 84146 UA OB DIP 07/21/2012 24883 OB - FOLLOW UP 07/26/2012 75810 NON-STRESS TEST 07/29/2012 71531 UA OB DIP 07/29/2012 71414 BIOPHYSICAL PROFILE () W/NST 08/02/2012 73.59 MANUAL ASSIST DELIV NEC 08/04/2012 78306 THERAPUTIC INJ SQ/IM 11/24/2012 J1050 DEPO PROVERA 11/24/2012 33254 URINE TEST (IN- HOUSE) 11/24/2012 79306 URINE DRUG SCREEN (IN-HOUSE ) 12/23/2012 43832 PSYCH DIAG EVAL W/MED SRVCS 01/02/2013 10791 THERAPUTIC INJ SQ/IM 02/22/2013 J1050 DEPO PROVERA 02/22/2013 51173 THERAPUTIC INJ SQ/IM 02/22/2013 J1050 DEPO PROVERA 02/22/2013 70762 URINE TEST (IN- HOUSE) 02/22/2013 59754 URINE TEST (IN- HOUSE) 02/22/2013 65709 TEST, URINE (IN- HOUSE) 05/24/2013 90078 ROUTINE VENIPUNCTURE 09/06/2013 15585 TEST, URINE (IN- HOUSE) 09/06/2013 72732 CBC 09/06/2013 77744 TSH 09/06/2013 [id number] DELIVERY OF PRODUCTS OF CONCEPTION, EXTE 01/07/2016 [...] ABO+Rh group BP NRG Transfusion band number [id number] NR Blood group antibody screen NEGATIVE NRG [...] identification in genital specimen by aerobe culture [id number] NRG FREE TEXT EXTERNAL 3 CALLED TO [...] Status Pt. Type Provider Facility Loc./Unit Complaint [id number] 09/06/2013 11:23:00 09/06/2013 23:59:59 [facility] Outpatient MANNY DELEON APRN [id number] 09/06/2013 11:23:00 09/06/2013 23:59:59 [facility] Outpatient MANNY DELEON APRN [id number] 05/24/2013 10:02:00 05/24/2013 23:59:59 [facility]patient MANNY DELEON APRN [id number] 03/01/2013 15:42:00 03/01/2013 23:59:59 [facility] Outpatient MANNY DELEON APRN [id number] 02/22/2013 10:03:00 02/22/2013 23:59:59 [facility] Outpatient DARREN RICHARDS DO [id number] 12/23/2012 10:54:00 12/23/2012 23:59:59 [facility] Outpatient SYLVIA RAYLogan ELADIO D [id number] 12/23/2012 10:54:00 12/23/2012 23:59:59 [facility] Outpatient SYLVIA RAYELADIO Ford [id number] 07/14/2012 15:36:00 07/14/2012 23:59:59 [facility] Outpatient [id number] 06/30/2012 14:27:00 06/30/2012 23:59:59 [facility] Outpatient [id number] 06/24/2012 15:48:00 06/24/2012 23:59:59 CLS Outpatient DARREN RICHARDS DO [id number] 06/17/2012 11:43:00 06/17/2012 23:59:59 [facility] Outpatient MANNY DELEON APRN [id number] 06/16/2012 09:38:00 06/16/2012 23:59:59 [facility] Outpatient [id number] 06/16/2012 09:38:00 06/16/2012 23:59:59 [facility] Outpatient [id number] 06/03/2012 10:44:00 06/03/2012 23:59:59 [facility] Outpatient [id number] 06/03/2012 10:44:00 06/03/2012 23:59:59 [facility] Outpatient SUSIE GONZALEZDARREN [id number] 05/19/2012 14:41:00 05/19/2012 23:59:59 [facility] Outpatient [id number] 05/11/2012 16:57:00 05/11/2012 23:59:59 CLS Outpatient [id number] 04/28/2012 10:36:00 04/28/2012 23:59:59 CLS Outpatient DARREN RICHARDS DO [id number] 04/21/2012 15:17:00 04/21/2012 23:59:59 CLS Outpatient [id number] 03/09/2012 14:18:00 03/09/2012 23:59:59 [facility] Outpatient [id number] 02/11/2012 09:51:00 02/11/2012 23:59:59 CLS Outpatient DARREN RICHARDS DO [id number] 11/24/2012 11:07:00 Document Registration [id number] 09/07/2012 12:08:00 Document Registration [id number] 07/29/2012 10:51:00 Document Registration [id number] 07/26/2012 08:04:00 Document Registration [id number] 07/21/2012 14:55:00 Document Registration [id number] 12/29/2015 13:05:00 Document Registration [id number] 03/16/2018 12:20:00 03/16/2018 23:59:59 CLS Outpatient REMI LAC, [facility] [id number] 04/15/2018 13:06:00 04/15/2018 16:50:00 DIS Emergency ELIZABETH BRICEÑO [facility] [address] ER OVARIAN CYST;FLUID [id number] 04/14/2018 15:59:00 04/14/2018 19:48:00 DIS Outpatient CHILANGO KOCH APRN [facility] [address] ER VOMITTING,FEVER,COGHING [id number] 04/13/2018 18:29:00 04/13/2018 19:00:00 DIS Outpatient CRISTINA CLAROS DO [facility] [address] ER STOMACH PAIN/VOMITING [id number] 03/17/2018 23:26:00 03/18/2018 00:28:00 DIS Emergency JORDY LANTIGUA MD [facility] [address] ER ABD PAIN [id number] 12/25/2017 11:45:00 12/25/2017 13:48:00 DIS Emergency ELIZABETH BRICEÑO [facility] [address] ER HAND LAC [id number] 10/24/2017 06:26:00 10/24/2017 09:52:00 DIS Emergency CRISTINA CLAROS DO [facility] [address] ER POSS APPENDICITIS [id number] 10/23/2017 21:56:00 10/23/2017 22:14:00 DIS Emergency TANVIR BORGES MD [facility] [address] ER STOMACH CRAMPS/SKIN FEELS HOT [id number] 09/28/2017 17:41:00 09/28/2017 19:24:00 DIS Emergency CHILANGO KOCH APRN [facility] [address] ER DIZZINESS;SORE THROAT [id number] 02/07/2017 13:19:00 02/07/2017 13:31:00 DIS Emergency CHILANGO KOCH APRN [facility] [address] ER L SIDE TOOTH POSS INFECTION [id number] 01/06/2016 22:17:00 01/08/2016 12:43:00 DIS Inpatient SUSIE GONZALEZDARREN Lety [facility] [address] LDRP LABOR [id number] 12/30/2015 18:49:00 12/30/2015 20:15:00 DIS Outpatient JENNIFER DOVE MD [facility] [address] WSo PRESSURE/CONTRACTIONS [id number] 12/18/2015 14:00:00 12/18/2015 16:30:00 DIS Outpatient SUSIE GONZALEZ DARREN Lety [facility] [address] WSo COMPLAINTS OF CONTRACTIONS [id number] 12/04/2015 11:02:00 12/04/2015 14:25:00 DIS Outpatient RICHARDS DARREN Lety [facility] [address] WSo ABD CRAMPING/RUSSO 32 WKS PREG [id number] 11/05/2015 14:02:00 11/05/2015 23:59:59 CLS Outpatient DARREN RICHARDS DO [facility] [address] RAD Z34.83 [id number] 09/04/2015 13:44:00 09/04/2015 23:59:59 CLS Outpatient RICHARDS DARREN [facility] [address] RAD SURVEY [id number] 07/04/2015 11:28:00 07/04/2015 23:59:59 CLS Outpatient ABNER DUBON APRN [facility] [address] RAD DATING [id number] 04/22/2015 18:42:00 04/22/2015 21:10:00 DIS Emergency KUSH NIX [facility] [address] ER DENTAL PAIN/POSS ABSCESS [id number] 09/26/2013 12:26:00 09/26/2013 14:33:00 DIS Emergency CHILANGO KOCH APRN [facility] [address] ER VAG BLEEDING [id number] 08/04/2012 18:26:00 08/06/2012 11:30:00 DIS Inpatient DARREN RICHARDS DO [facility] [address] WS LABOR [id number] 11/26/2017 12:13:00 Document Registration [id number] 04/22/2015 18:42:00 Document Registration [id number] 07/28/2012 15:29:00 Document Registration [id number] 07/01/2012 23:10:00 Document Registration [id number] 05/26/2012 14:36:00 Document Registration [id number] 04/19/2012 10:46:00 Document Registration [id number] 03/30/2012 09:59:00 Document Registration [id number] 02/12/2012 11:10:00 Document Registration [id number] 10/09/2011 21:00:00 Document Registration [id number] 09/18/2011 17:01:00 Document Registration [id number] 04/28/2011 14:57:00 Document Registration [id number] 12/24/2010 19:56:00 Document Registration [id number] 12/13/2009 21:50:00 Document Registration
[2018-04-19 15:50] VITALS: BP 113/79
[2018-04-19] MEDS ORDERED: ONDANSETRON 4 MG/2 ML (SDV) Z0FRAN IV PRN (16:00)
[2018-04-19] MEDS ORDERED: ACETAMINOPHEN 325 MG TABLET PO PRN (16:00)
[2018-04-19] MEDS ORDERED: CATHETER FLUSH 10 ML SYR IV PRN (16:00)
[2018-04-19] MEDS ORDERED: fentaNYL INJECTION 100 MCG/2 ML AMP IV PRN (16:00)
--- NOTE | 2018-04-19 16:00 | NUR ---
Windy Roque admitted to room 433-1, with an admitting diagnosis of PID, UTI, and abdominal pain, on 04/19/18 from ED via stretcher, accompanied by staff and friend.WINDY ROQUE introduced to surroundings, call light, bed controls, phone, TV, temperature control, lights, meal times, smoking policy, visitor policy, side rail policy, bathrooms and showers. Patient Rights given to patient in the handbook.WINDY ROQUE verbalizes understanding that [facility] is not responsible for the loss or damage to any personal effects or valuables that are kept in the patients posession during their hospitalization. WINDY ROQUE verbalizes understanding of Interdisciplinary Patient Education. Patient and/or family were informed about the Rapid Response Team and its purpose.
[2018-04-19] MEDS: KETOROLAC 30 MG/ML VIAL IV SCH (16:35)
[2018-04-19] MEDS: D5 NS 1000 ML IV SOLUTION 1,000 ML IV SCH (16:35)
[2018-04-19] MEDS: DOXYCYCLINE 100 MG (VIBRAMYCIN) TABLET PO SCH ×2 (16:48→21:14)
[2018-04-19] MEDS: ceFAZolin 2 GM/50 ML PRE-MIXED IVPB IV SCH (16:48)
[2018-04-19] MEDS: metroNIDAZOLE 500 MG/100 ML IVPB (PRE-MIX) IV SCH (16:48)
[2018-04-19 19:55] VITALS: BP 116/69
[2018-04-20] VITALS: BP 106/52
[2018-04-20] MEDS: metroNIDAZOLE 500 MG/100 ML IVPB (PRE-MIX) IV SCH ×3 (00:13→16:16)
[2018-04-20] MEDS: KETOROLAC 30 MG/ML VIAL IV SCH ×3 (00:13→16:16)
[2018-04-20] MEDS: ceFAZolin 2 GM/50 ML PRE-MIXED IVPB IV SCH ×3 (00:13→16:16)
[2018-04-20] MEDS: D5 NS 1000 ML IV SOLUTION 1,000 ML IV SCH ×2 (02:05→06:27)
[2018-04-20 04:00] VITALS: BP 109/59
[2018-04-20 06:30] LABS: BASOPHILS % (AUTO) 0 % (0-10); EOSINOPHILS # (AUTO) 0.2 10^3/uL (0.0-0.3); EOSINOPHILS % (AUTO) 3 % (0-10); HEMATOCRIT 35 % (35-52); LYMPHOCYTES # (AUTO) 3.2 X 10^3 (1.0-4.0); LYMPHOCYTES % (AUTO) 33 % (12-44); MEAN CORPUSCULAR HGB CONC 34 G/DL (32-36); MEAN CORPUSCULAR VOLUME 87 FL (80-99); MEAN PLATELET VOLUME 10.2 FL (7.4-10.4); MONOCYTES # (AUTO) 0.9 X 10^3 (0.0-1.0); MONOCYTES % (AUTO) 9 % (0-12); NEUTROPHILS # (AUTO) 5.3 X 10^3 (1.8-7.8); NEUTROPHILS % (AUTO) 55 % (42-75); PLATELET COUNT 226 10^3/uL (130-400); RED BLOOD COUNT 4.07 10^6/uL (4.35-5.85); RED CELL DISTRIBUTION WIDTH 13.8 % (10.0-14.5); WHITE BLOOD COUNT 9.6 10^3/uL (4.3-11.0)
[2018-04-20 06:37] LABS: MEAN CORPUSCULAR HEMOGLOBIN 29 PG (25-34)
[2018-04-20 06:58] LABS: ALANINE AMINOTRANSFERASE 10 U/L (0-55); ALBUMIN 3.2 GM/DL (3.2-4.5); ALKALINE PHOSPHATASE 60 U/L (40-136); BILIRUBIN,TOTAL 0.3 MG/DL (0.1-1.0); BUN/CREATININE RATIO 10; CALCIUM 8.1 MG/DL (8.5-10.1); CARBON DIOXIDE 22 MMOL/L (21-32); CHLORIDE 110 MMOL/L (98-107); GFR ESTIMATED > 60; GLUCOSE 100 MG/DL (70-105); POTASSIUM 3.7 MMOL/L (3.6-5.0); SODIUM 139 MMOL/L (135-145); TOTAL PROTEIN 5.5 GM/DL (6.4-8.2)
[2018-04-20 08:00] VITALS: BP 111/66
[2018-04-20] MEDS: DOXYCYCLINE 100 MG (VIBRAMYCIN) TABLET PO SCH (08:38)
--- NOTE | 2018-04-20 09:46 | History & Physicial ([facility]) ---
ROBINA LABOY MED STUDENT 04/20/18 0946: HPI History of Present Illness: Patient is a 22 year old patient admitted for abdominal pain, nausea, and vomiting suspicious for PID. Patient states this pain started roughly 10 days ago and is getting worse. The pain is a twisting pain that migrates around her abdomen, at times on the R, and at times on the L. She reports her pain is getting worse. Associated symptoms included nausea, vomiting, and chills. Denies fever, vaginal bleeding, vaginal discharge, painful urination, hematuria , urgency, and frequency. She went to the ER last week due to the pain and had a CT done. She stated she had a R cyst that burst. She says she was checked for STDs but did not know the results. Patient was diagnosed and treated with gonorrhea in March of 2018. Reports she was given ABX. Per chart review, patient has been treated for PID at least twice in the last year as an outpatient. Labs show she had + gonorrhea in 10/2017 and 11/2017. Patient has had 3 sexual partners in the last year and 12 in her lifetime. Patient previously saw Dr. Hazel for her pregnancies but has not been back in for a check-up since her last (2015). Source: patient Exam Limitations: no limitations Date seen by provider: Apr 20, 2018 Time Seen by Provider: 10:10 Attending Physician Jennifer Dvoe MD PCP Olivia Hazel DO Consult Date of Admission Apr 19, 2018 at 14:30 Home Medications Home Medications Reviewed patient Home Medication Reconciliation performed by pharmacy medication reconciliations plastic process technician and/or nursing. Patients Allergies have been reviewed. Allergies Coded Allergies: No Known Drug Allergies (Unverified , 04/19/18) PCS-Cyklix-Rdsgyr Hx Patient Social History Number of Children: 2 Number of living children: 2 Living Status: lives with father of her children and his mother, 2 children; feels safe at Alcohol Use: Denies Use Recreational Drug Use: No (past drug use) Drug of Choice: THC, + IV METH Smoking Status: Current Everyday Smoker Type Used: Cigarettes 2nd Hand Smoke Exposure: Yes Recent Foreign Travel: No Contact w/other who traveled: No Recent Hopitalizations: No Recent Infectious Disease Expo: No Physical Abuse Screen: No Sexual Abuse: No Immunizations Up To Date Tetanus Booster (TDap): Unknown Date of Influenza Vaccine: Dec 12, 2017 Past Medical History PMH: Tobacco use PSHx: none Family Medical History Significant Family History: No Pertinent Family Hx Family History: Patient reports no known family medical history. Review of Systems ([facility]) Constitutional: chills; No fever Gastrointestinal: abdominal pain (LUQ, LLQ), loss of appetite Genitourinary: see HPI; No discharge, No dysuria, No frequency, No hematuria, No pain Reviewed Test Results Reviewed Test Results Lab Laboratory Tests Test 04/19/18 12:27 04/19/18 12:50 04/19/18 13:20 04/19/18 14:18 Range/Units Urine Color YELLOW Urine Clarity VERY CLOUDY H Urine pH 6 5-9 Urine Specific Williams 1.025 H 1.016-1.022 Urine Protein 1+ H NEGATIVE Urine Glucose (UA) NEGATIVE NEGATIVE Urine Ketones NEGATIVE NEGATIVE Urine Nitrite NEGATIVE NEGATIVE Urine Bilirubin NEGATIVE NEGATIVE Urine Urobilinogen NORMAL NORMAL MG/DL Urine Leukocyte Esterase 3+ H NEGATIVE Urine RBC (Auto) 1+ H NEGATIVE Urine RBC 0-2 /HPF Urine WBC 25-50 H /HPF Urine Squamous Epithelial Cells 10-25 H /HPF Urine Crystals NONE /LPF Urine Bacteria LARGE H /HPF Urine Casts NONE /LPF Urine Mucus NEGATIVE /LPF Urine Trichomonas FEW H /HPF Urine Culture Indicated YES White Blood Count 12.2 H 4.3-11.0 10^3/uL Red Blood Count 5.12 4.35-5.85 10^6/uL Hemoglobin 14.9 11.5-16.0 G/DL Hematocrit 44 35-52 % Mean Corpuscular Volume 86 80-99 FL Mean Corpuscular Hemoglobin 29 25-34 PG Mean Corpuscular Hemoglobin Concent 34 32-36 G/DL Red Cell Distribution Width 14.0 10.0-14.5 % Platelet Count 274 130-400 10^3/uL Mean Platelet Volume 10.6 H 7.4-10.4 FL Neutrophils (%) (Auto) 69 42-75 % Lymphocytes (%) (Auto) 20 12-44 % Monocytes (%) (Auto) 8 0-12 % Eosinophils (%) (Auto) 2 0-10 % Basophils (%) (Auto) 0 0-10 % Neutrophils # (Auto) 8.5 H 1.8-7.8 X 10^3 Lymphocytes # (Auto) 2.5 1.0-4.0 X 10^3 Monocytes # (Auto) 1.0 0.0-1.0 X 10^3 Eosinophils # (Auto) 0.3 0.0-0.3 10^3/uL Basophils # (Auto) 0.1 0.0-0.1 10^3/uL Prothrombin Time 13.2 12.2-14.7 SEC INR Comment 1.0 0.8-1.4 Activated Partial Thromboplast Time 26 24-35 SEC Sodium Level 136 135-145 MMOL/L Potassium Level 4.2 3.6-5.0 MMOL/L Chloride Level 104 98-107 MMOL/L Carbon Dioxide Level 23 21-32 MMOL/L Anion Gap 9 5-14 MMOL/L Blood Urea Nitrogen 9 7-18 MG/DL Creatinine 0.74 0.60-1.30 MG/DL Estimat Glomerular Filtration Rate > 60 BUN/Creatinine Ratio 12 Glucose Level 60 *L 70-105 MG/DL Calcium Level 9.3 8.5-10.1 MG/DL Corrected Calcium 9.4 8.5-10.1 MG/DL Total Bilirubin 0.6 0.1-1.0 MG/DL Aspartate Amino Transf (AST/SGOT) 10 5-34 U/L Alanine Aminotransferase (ALT/SGPT) 10 0-55 U/L Alkaline Phosphatase 81 40-136 U/L C-Reactive Protein High Sensitivity 3.07 H 0.00-0.50 MG/DL Total Protein 7.6 6.4-8.2 GM/DL Albumin 3.9 3.2-4.5 GM/DL Syphilis Serology Non-Reactive Non-Reactive Lactic Acid Level 1.04 0.50-2.00 MMOL/L Test 04/19/18 15:36 04/20/18 06:20 Range/Units Glucometer 74 70-110 MG/DL White Blood Count 9.6 4.3-11.0 10^3/uL Red Blood Count 4.07 L 4.35-5.85 10^6/uL Hemoglobin 12.0 11.5-16.0 G/DL Hematocrit 35 35-52 % Mean Corpuscular Volume 87 80-99 FL Mean Corpuscular Hemoglobin 29 25-34 PG Mean Corpuscular Hemoglobin Concent 34 32-36 G/DL Red Cell Distribution Width 13.8 10.0-14.5 % Platelet Count 226 130-400 10^3/uL Mean Platelet Volume 10.2 7.4-10.4 FL Neutrophils (%) (Auto) 55 42-75 % Lymphocytes (%) (Auto) 33 12-44 % Monocytes (%) (Auto) 9 0-12 % Eosinophils (%) (Auto) 3 0-10 % Basophils (%) (Auto) 0 0-10 % Neutrophils # (Auto) 5.3 1.8-7.8 X 10^3 Lymphocytes # (Auto) 3.2 1.0-4.0 X 10^3 Monocytes # (Auto) 0.9 0.0-1.0 X 10^3 Eosinophils # (Auto) 0.2 0.0-0.3 10^3/uL Basophils # (Auto) 0.0 0.0-0.1 10^3/uL Sodium Level 139 135-145 MMOL/L Potassium Level 3.7 3.6-5.0 MMOL/L Chloride Level 110 H 98-107 MMOL/L Carbon Dioxide Level 22 21-32 MMOL/L Anion Gap 7 5-14 MMOL/L Blood Urea Nitrogen 6 L 7-18 MG/DL Creatinine 0.60 0.60-1.30 MG/DL Estimat Glomerular Filtration Rate > 60 BUN/Creatinine Ratio 10 Glucose Level 100 70-105 MG/DL Calcium Level 8.1 L 8.5-10.1 MG/DL Corrected Calcium 8.7 8.5-10.1 MG/DL Total Bilirubin 0.3 0.1-1.0 MG/DL Aspartate Amino Transf (AST/SGOT) 8 5-34 U/L Alanine Aminotransferase (ALT/SGPT) 10 0-55 U/L Alkaline Phosphatase 60 40-136 U/L Total Protein 5.5 L 6.4-8.2 GM/DL Albumin 3.2 3.2-4.5 GM/DL Radiology 04/19 pelvis US INDICATION: Pelvic inflammatory disease, worsening pain. TECHNIQUE: Multiple real time gonzáles scale sonographic images were obtained of the pelvis transabdominally only. CORRELATION STUDY: 04/15/2018. FINDINGS: MEASUREMENTS: Uterus: 8.4 x 4.6 x 4.4 cm. Endometrial Thickness: 10 mm. RIGHT OVARY: Enlarged, 5.8 x 5.0 x 4.3 cm. The uterus and endometrium appearing unremarkable. There is somewhat complex likely cyst seen just superior to the right ovary today, currently measuring at 3.6 x 4.0 x 4.2 cm. A previously demonstrated cyst at the inferior pole is unable to be visualized. There is blood flow to the right ovary. Left ovary is not identified. There is presence of free fluid within the pelvis that appears to be overall somewhat more prominent, perhaps increased from prior study. IMPRESSION: 1. Moderate amount of free fluid within the pelvis does appear to be perhaps slightly increased in amount. 2. There is a somewhat complex approximately 4 cm cystic mass of the right ovary, nonspecific. Findings could be consistent with history of pelvic inflammatory disease with possibility of tubo-ovarian abscess not excluded. 3. Nonvisualization of the left ovary. pelvic US 04/15 EXAM: US NON OB PELVIS COMP/TRANSVAG INDICATION: Left pelvic pain. COMPARISON: CT abdomen pelvis with IV contrast 04/14/2018. FINDINGS: Normal echogenicity of the uterus which measures 7.3 x 4.7 x 4.2 cm. Normal echogenicity of the endometrial with no focal mass or fluid collection. The endometrium measures up to 0.9 cm. The right ovary measures 4.1 x 3.3 x 2.9 cm. There are several simple appearing cyst in the right ovary, most of which likely represent follicles. The largest simple appearing cyst in the right ovary measures up to 2.4 cm. There is normal flow by color Doppler in the right ovary. The left ovary is not identified. Ovary was seen on the prior CT where it was grossly unremarkable. Moderate amount of free fluid in the pelvis. IMPRESSION: 1. Moderate amount of free fluid in the pelvis. 2. The left ovary is not identified by ultrasound. This was seen on the prior CT where it was grossly unremarkable. 3. There are several simple appearing cyst or follicles in the right ovary. Normal flow by color Doppler in the right ovary. Date of Exam: 04/14/18 CT ABDOMEN/PELVIS W PROCEDURE: CT abdomen and pelvis with contrast. TECHNIQUE: Multiple contiguous axial images were obtained through the abdomen and pelvis after administration of intravenous contrast. INDICATION: Vomiting and fever x2 days. CORRELATION STUDY: 10/24/2017 FINDINGS: LOWER THORAX: Clear. LIVER: Borderline enlarged. No definitive focal lesion. GALLBLADDER: Mildly distended and contains several low-density, likely cholesterol stones. This includes at the level of the neck. No definitive bile duct dilatation. SPLEEN: Unremarkable. PANCREAS: Unremarkable. ADRENAL GLANDS: Unremarkable. KIDNEYS: Normal configuration. No calcification or obstruction. ABDOMINAL AORTA: Unremarkable, nonaneurysmal. GASTROINTESTINAL TRACT: Stomach relatively collapsed. There is rather pronounced gas distention through large portion of the small bowel. There are more decompressed loops of small bowel in the lower abdomen and pelvis. Colon contains stool and gas. The appendix not well-defined. URINARY BLADDER: Unremarkable. REPRODUCTIVE: Uterus does appear to be prominent. There is a complex mass in the right adnexa region likely reflective of ovarian cyst. There is high density fluid within the pelvis and some in the paracolic gutters. OSSEOUS STRUCTURES: No acute abnormality. OTHER: None. IMPRESSION: 1. Probable complex right ovarian cyst. Pelvic fluid is present slightly high density, could be reflective of underlying hemoperitoneum, perhaps a ruptured hemorrhagic cyst. Consideration for pelvic ultrasound evaluation. 2. Rather pronounced diffuse gaseous of the large portion of the small bowel favors probable ileus and/or perhaps enteritis. Given decompressed loops of distal small bowel, possibly of early or partial small bowel obstruction is not excluded at this time. Clinical correlation recommended. 3. Increase in number of likely cholesterol stones including some stones at the level of the gallbladder neck. Physical Exam-([facility]) Physical Exam Vital Signs VS - Last 72 Hours, by Label 04/19/18 04/19/18 04/19/18 04/19/18 12:23 15:30 15:50 18:00 Temp 97.9 98.2 Pulse 122 100 102 Resp 14 14 18 B/P (MAP) 127/90 (102) 127/90 (102) 113/79 (90) Pulse Ox 99 99 99 O2 Delivery Room Air Room Air Room Air Room Air 04/19/18 04/20/18 04/20/18 04/20/18 19:55 00:00 04:00 08:00 Temp 98.9 98.4 98.3 97.9 Pulse 101 113 98 117 Resp 18 16 16 16 B/P (MAP) 116/69 (85) 106/52 (70) 109/59 (76) 111/66 (81) Pulse Ox 100 97 99 95 O2 Delivery Room Air Room Air Room Air Room Air 04/20/18 08:00 O2 Delivery Room Air Capillary Refill : Less Than 3 Seconds General Appearance: no apparent distress Respiratory: chest non-tender, lungs clear, normal breath sounds, no respiratory distress, no accessory muscle use Cardiovascular: no edema, no gallop, no murmur, tachycardia Gastrointestinal: normal bowel sounds, other (mild tenderness in RLQ and RUQ, exquisite tenderness in LLQ and LUQ) Back: no CVA tenderness Extremities: no pedal edema, no calf tenderness Neurologic/Psychiatric: alert, normal mood/affect, oriented x 3 Skin: normal color, warm/dry Assessment/Plan Assessment/Plan Admission Dx pelvic inflammatory disease Admission Status: Observation Assessment & Plan Pelvic Inflammatory Disease with possible R TOA -twisting, worsening abdominal pain, localized in LLQ and LUQ; afebrile, tachycardia -leukocytosis on admission, improved today 12.2 -> 9.6 -recent gonorrhea infection in March 2018 (patient reported it was treated), chart review shows documented + gonorrhea in 10/2017 and 11/2017. -12 lifetime sexual partners; PID treated as an outpatient at least twice in last year -wet prep 04/19/17 showed numerous WBC but no yeast, trich, or clue cells -Gonorrhea/chlamydia pending; RPR non-reactive -pelvic US 04/19 showed moderate amount of free fluid in pelvis; 4 cm. cystic mass on R ovary, TOA cannot be excluded; L ovary not visualized -previous imaging US 04/[address] 04/14 do not show R cystic mass seen on 04/19 pelvic US -on fluids D5NS -receiving ABX: cefazolin IV, metronidazole IV, doxycycline PO -will follow up with [facility] to see if surgery to drain R TOA is indicated UTI -UA showed nitrite -, LE 3+, WBC 25-50, large amount of bacteria, and trichomonas in urine -reflex UCx pending Pain Management -scheduled toradol 30 mg q8h IV -PRN acetominophen 650 mg q6h; fentanyl q4h PRN Nausea/Vomiting -zofran 4 mg q6h PRN Clinical Quality Measures DVT/VTE Risk/Contraindication: Risk Factor Score Per Nursin RFS Level Per Nursing on Admit: 2=Moderate JENNIFER DOVE MD 04/20/18 1615: Home Medications Allergies Coded Allergies: No Known Drug Allergies (Unverified , 04/19/18) WLS-[place]ohik-Tcxtro Hx Family Medical History Family History: Patient reports no known family medical history. Supervisory-Addendum Brief Supervisory Addendum I personally saw and examined Windy today and repeated the history and physical and directed plan of care. Discussed with Dr. Palacio Machine Molder environmental permitting specialist yesterday who saw her and agreed with ABX and no need for surgical intervention. Sepsis on admission with leukocytosis and tachycardia. Leukocytosis resolved and she is feeling better, has not required fentanyl since yesterday pm. Will advance diet per patient request. ROBINA LABOY MED STUDENT Apr 20, 2018 09:46 JENNIFER DOVE MD Apr 20, 2018 16:15
[2018-04-20] MEDS ORDERED: SULF-222 PO (10:11)
[2018-04-20] MEDS ORDERED: ONDA4TAB11 PO (10:11)
[2018-04-20 12:00] VITALS: BP 108/58
[2018-04-20] MEDS ORDERED: METR-197 PO (14:06)
[2018-04-20] MEDS ORDERED: IBUP-1780 PO (14:06)
[2018-04-20] MEDS ORDERED: DOXY100C2 PO (14:06)
[2018-04-20 16:42] VITALS: BP 123/83
[2018-04-20 17:52] VITALS: BP 123/83
--- NOTE | 2018-04-21 11:48 | Discharge Instructions ---
Discharge Inst-[facility] Discharge Medications New, Converted or Re-Newed RX: Transmitted to Pharmacy New Medications: Doxycycline Hyclate (Doxycycline Hyclate) 100 Mg Capsule 100 MG PO BID, #26 CAP 0 Refills Ibuprofen (Ibuprofen) 800 Mg Tablet 800 MG PO Q8H PRN for PAIN, #60 TAB 0 Refills Metronidazole (Metronidazole) 500 Mg Tablet 500 MG PO BID, #26 TAB 0 Refills Continued Medications: Ondansetron (Ondansetron Odt) 4 Mg Tab.rapdis 4 MG PO Q4H PRN for NAUSEA/VOMITING-1ST LINE, TAB Discontinued Medications: Sulfamethoxazole/Trimethoprim (Sulfamethoxazole-Tmp Ds Tablet) 1 Each Tablet 1 TAB PO BID for 5 Days, TAB 5 DAY SUPPLY FILLED 04-14-18 Patient Instructions Goal/Follow Up Appt: Follow up at [facility] with Janel Villafana APRN on 04/29 at 9 am. Return to [facility] For: Fever, inability to keep down antibiotics, uncontrolled pain Activity & Diet Discharge Diet: Regular Diet Activity as Tolerated: Yes JENNIFER DOVE MD Apr 20, 2018 14:08
--- NOTE | 2018-04-21 11:50 | Discharge Summary ---
Diagnosis/Chief Complaint Date of Admission Apr 19, 2018 at 14:30 Date of Discharge Apr 20, 2018 at 18:11 Admission Diagnosis Admission Diagnosis Sepsis due to Pelvic Inflammatory Disease with possible R TOA UTI Discharge Diagnosis Pelvic Inflammatory Disease with possible R TOA -leukocytosis on admission, improved today 12.2 -> 9.6 -recent gonorrhea infection in March 2018 (patient reported it was treated), chart review shows documented + gonorrhea in 10/2017 and 11/2017. -12 lifetime sexual partners; PID treated as an outpatient at least twice in last year -wet prep 04/19/17 showed numerous WBC but no yeast, trich, or clue cells -Gonorrhea/chlamydia negative; RPR non-reactive -pelvic US 04/19 showed moderate amount of free fluid in pelvis; 4 cm. cystic mass on R ovary, TOA cannot be excluded; L ovary not visualized -previous imaging US 04/[address] 04/14 do not show R cystic mass seen on 04/19 pelvic US -received 24 hours IV ABX: cefazolin, metronidazole, and doxycycline PO; consulted Hull Inspector who felt no surgery needed, complete abx and follow-up. Tolerating oral and ready for d/c. UTI -UA showed nitrite -, LE 3+, WBC 25-50, large amount of bacteria, and trichomonas in urine -reflex UCx pending on d/c. Chief Complaint/HPI Chief Complaint/HPI Patient is a 22 year old patient admitted for abdominal pain, nausea, and vomiting suspicious for PID. Patient states this pain started roughly 10 days ago and is getting worse. The pain is a twisting pain that migrates around her abdomen, at times on the R, and at times on the L. She reports her pain is getting worse. Associated symptoms included nausea, vomiting, and chills. Denies fever, vaginal bleeding, vaginal discharge, painful urination, hematuria , urgency, and frequency. She went to the ER last week due to the pain and had a CT done. She stated she had a R cyst that burst. She says she was checked for STDs but did not know the results. Patient was diagnosed and treated with gonorrhea in March of 2018. Reports she was given ABX. Per chart review, patient has been treated for PID at least twice in the last year as an outpatient. Labs show she had + gonorrhea in 10/2017 and 11/2017. Patient has had 3 sexual partners in the last year and 12 in her lifetime. Patient previously saw Dr. Hazel for her pregnancies but has not been back in for a check-up since her last (2016). Discharge Summary-Simple/Stand Consultations Discharge Physical Examination Allergies: Coded Allergies: No Known Drug Allergies (Unverified , 04/19/18) Vitals & I&Os Vital Sign - Last 12Hours Date Time Temp Pulse Resp B/P (MAP) Pulse Ox O2 Delivery O2 Flow Rate FiO2 04/20/18 17:52 113 14 123/83 98 Room Air 04/20/18 16:42 97.0 Intake and Output 04/21/18 00:00 Intake Total 810 ml Balance 810 ml Hospital Course See final discharge diagnosis. Radiology Reviewed 04/19 pelvis US INDICATION: Pelvic inflammatory disease, worsening pain. TECHNIQUE: Multiple real time gonzáles scale sonographic images were obtained of the pelvis transabdominally only. CORRELATION STUDY: 04/15/2018. FINDINGS: MEASUREMENTS: Uterus: 8.4 x 4.6 x 4.4 cm. Endometrial Thickness: 10 mm. RIGHT OVARY: Enlarged, 5.8 x 5.0 x 4.3 cm. The uterus and endometrium appearing unremarkable. There is somewhat complex likely cyst seen just superior to the right ovary today, currently measuring at 3.6 x 4.0 x 4.2 cm. A previously demonstrated cyst at the inferior pole is unable to be visualized. There is blood flow to the right ovary. Left ovary is not identified. There is presence of free fluid within the pelvis that appears to be overall somewhat more prominent, perhaps increased from prior study. IMPRESSION: 1. Moderate amount of free fluid within the pelvis does appear to be perhaps slightly increased in amount. 2. There is a somewhat complex approximately 4 cm cystic mass of the right ovary, nonspecific. Findings could be consistent with history of pelvic inflammatory disease with possibility of tubo-ovarian abscess not excluded. 3. Nonvisualization of the left ovary. pelvic US 04/15 EXAM: US NON OB PELVIS COMP/TRANSVAG INDICATION: Left pelvic pain. COMPARISON: CT abdomen pelvis with IV contrast 04/14/2018. FINDINGS: Normal echogenicity of the uterus which measures 7.3 x 4.7 x 4.2 cm. Normal echogenicity of the endometrial with no focal mass or fluid collection. The endometrium measures up to 0.9 cm. The right ovary measures 4.1 x 3.3 x 2.9 cm. There are several simple appearing cyst in the right ovary, most of which likely represent follicles. The largest simple appearing cyst in the right ovary measures up to 2.4 cm. There is normal flow by color Doppler in the right ovary. The left ovary is not identified. Ovary was seen on the prior CT where it was grossly unremarkable. Moderate amount of free fluid in the pelvis. IMPRESSION: 1. Moderate amount of free fluid in the pelvis. 2. The left ovary is not identified by ultrasound. This was seen on the prior CT where it was grossly unremarkable. 3. There are several simple appearing cyst or follicles in the right ovary. Normal flow by color Doppler in the right ovary. Date of Exam: 04/14/18 CT ABDOMEN/PELVIS W PROCEDURE: CT abdomen and pelvis with contrast. TECHNIQUE: Multiple contiguous axial images were obtained through the abdomen and pelvis after administration of intravenous contrast. INDICATION: Vomiting and fever x2 days. CORRELATION STUDY: 10/24/2017 FINDINGS: LOWER THORAX: Clear. LIVER: Borderline enlarged. No definitive focal lesion. GALLBLADDER: Mildly distended and contains several low-density, likely cholesterol stones. This includes at the level of the neck. No definitive bile duct dilatation. SPLEEN: Unremarkable. PANCREAS: Unremarkable. ADRENAL GLANDS: Unremarkable. KIDNEYS: Normal configuration. No calcification or obstruction. ABDOMINAL AORTA: Unremarkable, nonaneurysmal. GASTROINTESTINAL TRACT: Stomach relatively collapsed. There is rather pronounced gas distention through large portion of the small bowel. There are more decompressed loops of small bowel in the lower abdomen and pelvis. Colon contains stool and gas. The appendix not well-defined. URINARY BLADDER: Unremarkable. REPRODUCTIVE: Uterus does appear to be prominent. There is a complex mass in the right adnexa region likely reflective of ovarian cyst. There is high density fluid within the pelvis and some in the paracolic gutters. OSSEOUS STRUCTURES: No acute abnormality. OTHER: None. IMPRESSION: 1. Probable complex right ovarian cyst. Pelvic fluid is present slightly high density, could be reflective of underlying hemoperitoneum, perhaps a ruptured hemorrhagic cyst. Consideration for pelvic ultrasound evaluation. 2. Rather pronounced diffuse gaseous of the large portion of the small bowel favors probable ileus and/or perhaps enteritis. Given decompressed loops of distal small bowel, possibly of early or partial small bowel obstruction is not excluded at this time. Clinical correlation recommended. 3. Increase in number of likely cholesterol stones including some stones at the level of the gallbladder neck. Discharge Instructions to patient/family Please see electronic discharge instructions given to patient. Discharge Medications Reviewed and agree with Discharge Medication list on patient's Discharge Instruction sheet Clinical Quality Measures DVT/VTE Risk/Contraindication: Risk Factor Score Per Nursin RFS Level Per Nursing on Admit: 1=Low/No VTE PPX JENNIFER DOVE MD Apr 21, 2018 11:50
== END 2018-04-20 17:35 | disposition home or self-care (01) ==
LOC: EDUNIT# 11:38 → ER 11:38 → 4TH 14:30 → UNDOADMOB 14:30 → 4TH 16:40 → UNDODISOB 04-20 18:11
PROVIDERS: ADMIT Family Medicine; ATTEND Family Medicine
DX: A41.9 Sepsis, unspecified organism (principal); N73.9 Female pelvic inflammatory disease, unspecified; N30.01 Acute cystitis with hematuria; F17.210 Nicotine dependence, cigarettes, uncomplicated
CPT/HCPCS: 36415; 76856; 80053; 81000; 82962; 83605; 84703; 85025; 85610; 85730; 86141; 86780; 87070; 87088; 87205; 87210; 87491; 87591; 96361; 96374

== ENCOUNTER 2019-02-21 00:11 | Emergency (ER) | payer MEDICAID, OTHER ==
[~2019-02-21] VITALS: Ht 160 cm; Wt 84.0 kg
[~2019-02-21 00:11] MED LIST changes: +DOXY100C2 PO; +IBUP-1780 PO; +METR-145 PO; -METR-197 PO; +SULF-222 PO
[2019-02-21 00:41] VITALS: BP 138/99
[2019-02-21] MEDS ORDERED: ACETAMINOPHEN 500 MG TAB (TYLENOL) PO ONE (01:45)
[2019-02-21] MEDS ORDERED: LIDOCAINE 2% VISCOUS 15 ML UDC PO ONE (01:45)
--- NOTE | 2019-02-21 01:50 | ED EENT ---
History of Present Illness General Chief Complaint: Dental Problems/Pain Stated Complaint: TOOTH ACHE, NAUSEA Source: patient, family, other Exam Limitations: no limitations History of Present Illness Date Seen by Provider: Feb 21, 2019 Time Seen by Provider: 01:32 Initial Comments The patient presents to ER by private conveyance with chief complaint that for past couple days. Aggressively worsening toothache and swelling over her right anterior molar in the maxilla. She went to the dentist and they put her on clindamycin. She started taking it about 24 hours ago tonight and she feels the swelling is worse today. She had some fevers on the first day but none since. No nausea. No drainage from the mouth. She's been using maximum doses of ibuprofen but no Tylenol. She is having a hard time sleeping because of pain. No viscous lidocaine. Allergies and Home Medications Allergies Coded Allergies: No Known Drug Allergies (Unverified , 04/19/18) Home Medications Doxycycline Hyclate 100 Mg Capsule, 100 MG PO BID Prescribed by: JENNIFER DOVE on 04/20/18 1406 Ibuprofen 800 Mg Tablet, 800 MG PO Q8H PRN for PAIN Prescribed by: JENNIFER DOVE on 04/20/18 1406 Metronidazole 500 Mg Tablet, 500 MG PO BID Prescribed by: JENNIFER DOVE on 04/20/18 1406 Ondansetron 4 Mg Tab.rapdis, 4 MG PO Q4H PRN for NAUSEA/VOMITING-1ST LINE, (Reported) Patient Home Medication List Home Medication List Reviewed: Yes Review of Systems Review of Systems Constitutional: No chills, No diaphoresis Eyes: Denies Blindness, Denies Blurred Vision Ears: Denies Dizziness, Denies Pain Nose: denies clots, denies pain Mouth: see HPI Throat: denies pain, denies swelling Past Enjvsbz-Nerjun-Krmsob Hx Patient Social History Alcohol Use: Denies Use Recreational Drug Use: Yes (past drug use) Drug of Choice: THC, + IV METH Smoking Status: Current Everyday Smoker Type Used: Cigarettes Former Smoker, Quit: Jul 12, 2017 2nd Hand Smoke Exposure: Yes Recent Foreign Travel: No Contact w/Someone Who Travel: No Recent Hopitalizations: No Physical Abuse: No Sexual Abuse: No Mistreated: No Fear: No Immunizations Up To Date Tetanus Booster (TDap): Unknown Date of Influenza Vaccine: Dec 12, 2017 Seasonal Allergies Seasonal Allergies: No Past Medical History Surgeries: No Respiratory: No Cardiac: No Neurological: No Reproductive Disorders: Yes Female Reproductive Disorders: Menstrual Problems, Pelvic Inflammatory Dis Sexually Transmitted Disease: Yes HIV/AIDS: No Genitourinary: No Gastrointestinal: No Musculoskeletal: No Endocrine: No HEENT: Yes (POOR DENTITION) Cancer: No Psychosocial: Yes Anxiety, Depression Integumentary: No Blood Disorders: No Adverse Reaction/Blood Tranf: No Family Medical History Patient reports no known family medical history. No Pertinent Family Hx Physical Exam Height, Weight, BMI Height: 5'3.00" Weight: 170lbs. 1.0oz. [id number]; 30.1 BMI Method:Stated General Appearance: WD/WN, mild distress Eyes: bilateral eye normal inspection, bilateral eye PERRL, bilateral eye EOMI Ears: bilateral ear auricle normal, bilateral ear canal normal Nose: normal inspection; No active bleeding Mouth/Throat: other (extensive dental caries with soft tissue swelling in the right buccal tissues up to the inferior periorbital space. No fluctuance or pointing or drainable abscess visualized.) Neck: non-tender, full range of motion, supple, normal inspection Cardiovascular: normal peripheral pulses, regular rate, rhythm Respiratory: no respiratory distress, no accessory muscle use Procedures/Interventions Suture Size: 5-0 Progress/Results/Core Measures Results/Orders My Orders Orders - MINGO SARKAR Lidocaine 2% Viscous 15 Ml (Xylocaine Vi (02/21/19 01:45) Acetaminophen Tablet (Tylenol Tablet) (02/21/19 01:45) Progress Progress Note : Time: 01:48 Progress Note Tylenol, viscous lidocaine with Hurricaine spray and encourage her to continue the clindamycin. She still having fever or significant worsening of her symptoms after 3 days of antibiotics and she can follow-up with the dentist, primary care or ER. Departure Impression Primary Impression: Dental abscess Additional Impression: Facial cellulitis Disposition: HOME, SELF-CARE Condition: Stable Departure-Patient Inst. Decision time for Depature: 01:48 Referrals: DARREN RICHARDS DO (PCP/Family) Primary Care Physician Patient Instructions: Tooth Abscess (DC) Add. Discharge Instructions: 1000 mg of Tylenol every 8 hours as needed for pain. 800 mg of ibuprofen every 8 hours as needed for pain. If you're still having pain you may use 5 mL of viscous lidocaine on a piece of gauze applied directly to the tooth in question. Heating pads applied outside face will help with the swelling and pain. If you're still having fevers or increasing swelling after 3 days of antibiotics then you need to follow-up with either the dentist, your primary care doctor or after-hours you may return to the ER. All discharge instructions reviewed with patient and/or family. Voiced understanding. MINGO SARKAR Feb 21, 2019 01:50 POS
[2019-02-21] MEDS ORDERED: ONDANSETRON 4 MG (ZOFRAN) ORAL DISSOLVE TAB PO ONE (02:00)
== END 2019-02-21 02:01 | disposition home or self-care (01) ==
LOC: EDUNIT# 00:11 → ER 00:14
DX: K04.7 Periapical abscess without sinus (principal); L03.211 Cellulitis of face; F41.9 Anxiety disorder, unspecified; F32.9 Major depressive disorder, single episode, unspecified; F17.210 Nicotine dependence, cigarettes, uncomplicated
CPT/HCPCS: 99282

== ENCOUNTER 2019-04-10 21:13 | Emergency (ER) | payer OTHER ==
[~2019-04-10] VITALS: Ht 160 cm; Wt 78.0 kg
[2019-04-10 21:59] VITALS: BP 130/84
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
--- NOTE | 2019-04-10 22:46 | NUR ---
TULIO Peralta reported that this pt walked out AMA. Refused to sign a paper. Pt states she "needed to go check on kids"
== END 2019-04-10 22:46 | disposition left against medical advice (07) ==
LOC: EDUNIT# 21:13 → ER 21:15
DX: R51 Headache (principal); F41.9 Anxiety disorder, unspecified; F32.9 Major depressive disorder, single episode, unspecified; Z87.891 Personal history of nicotine dependence; Z77.22 Contact with and (suspected) exposure to environmental tobacco smoke (acute) (chronic); Y04.8XXA Assault by other bodily force, initial encounter
CPT/HCPCS: 84703; 87804

== ENCOUNTER 2020-01-25 14:49 | Emergency (ER) | payer OTHER ==
[~2020-01-25] VITALS: Ht 157.4 cm; Wt 81.8 kg
[~2020-01-25 14:49] MED LIST changes: -DOXY100T19 PO; +DOXY100T31 PO
[2020-01-25] MEDS ORDERED: KETOROLAC 30 MG/ML VIAL IVP ONE (15:15)
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
--- NOTE | 2020-01-25 15:32 | NUR ---
LAB HERE TO DRAW BLOOD.
[2020-01-25] MEDS ORDERED: KETOROLAC 60 MG/2 ML VIAL IM ONE (15:45)
[2020-01-25 16:00] LABS: BASOPHILS # (AUTO) 0.1 10^3/uL (0.0-0.1); BASOPHILS % (AUTO) 0 % (0-10); EOSINOPHILS # (AUTO) 0.1 10^3/uL (0.0-0.3); EOSINOPHILS % (AUTO) 1 % (0-10); HEMATOCRIT 40 % (35-52); HEMOGLOBIN 13.3 g/dL (11.5-16.0); LYMPHOCYTES # (AUTO) 2.7 10^3/uL (1.0-4.0); LYMPHOCYTES % (AUTO) 16 % (12-44); MEAN CORPUSCULAR HEMOGLOBIN 29 pg (25-34); MEAN CORPUSCULAR HGB CONC 33 g/dL (32-36); MEAN CORPUSCULAR VOLUME 87 fL (80-99); MEAN PLATELET VOLUME 10.5 fL (9.0-12.2); MONOCYTES # (AUTO) 0.8 10^3/uL (0.0-1.0); MONOCYTES % (AUTO) 5 % (0-12); NEUTROPHILS % (AUTO) 78 % (42-75); PLATELET COUNT 243 10^3/uL (130-400); WHITE BLOOD COUNT 16.8 10^3/uL (4.3-11.0)
[2020-01-25 16:11] LABS: CHLORIDE 106 MMOL/L (98-107); POTASSIUM 3.5 MMOL/L (3.6-5.0); SODIUM 137 MMOL/L (135-145)
[2020-01-25 16:13] LABS: CALCIUM 8.6 MG/DL (8.5-10.1)
[2020-01-25 16:14] LABS: GLUCOSE 92 MG/DL (70-105); TOTAL PROTEIN 7.3 GM/DL (6.4-8.2)
[2020-01-25 16:15] LABS: CARBON DIOXIDE 21 MMOL/L (21-32)
[2020-01-25 16:16] LABS: BILIRUBIN,TOTAL 1.4 MG/DL (0.1-1.0)
[2020-01-25 16:17] LABS: ALKALINE PHOSPHATASE 88 U/L (40-136)
[2020-01-25 16:18] LABS: CREATININE SERUM 0.67 MG/DL (0.60-1.30); GFR ESTIMATED > 60
[2020-01-25 16:19] LABS: BUN/CREATININE RATIO 12
[2020-01-25 16:21] LABS: ALANINE AMINOTRANSFERASE 9 U/L (0-55)
[2020-01-25 16:33] LABS: EOSINOPHILS % (MANUAL) 2 %; LYMPHOCYTES % (MANUAL) 16 %; MONOCYTES % (MANUAL) 7 %; NEUTROPHILS % (MANUAL) 75 %; RBC MORPH NORMAL
[2020-01-25 16:34] LABS: HYPERSEGMENTED NEUT MODERATE
--- NOTE | 2020-01-25 16:54 | Diagnostic Imaging Report ---
PROCEDURE: US Non-ob pelvis comp/trans. TECHNIQUE: Multiple Real-time grayscale images were obtained of the pelvis in various projections endovaginally. Transabdominal imaging was also performed. INDICATION: Abdominal pain. COMPARISON: 04/19/2018 pelvic sonogram. FINDINGS: The retroverted uterus measures 7.0 x 4.6 x 4.8 cm. Normal-appearing endometrium measuring up to 0.5 cm. The right ovary measures 4.4 x 2.5 x 2.6 cm. The left ovary measures 2.5 x 3.1 x 2.3 cm. Normal-appearing follicles in both ovaries. No mass or cyst within either ovary. Normal flow by color Doppler in both ovaries. No free fluid in the pelvis. IMPRESSION: Normal pelvic ultrasound. Dictated by: Dictated on workstation # [id number]
--- NOTE | 2020-01-25 17:18 | NUR ---
TECH TO ROOM TO OBTAIN UA FROM PATIENT SHE REPORTS SHE URINATED AFTER SONO AND DID NOT GIVE SAMPLE THAT THAT SHE KNEW WAS NEEDED.
[2020-01-25] MEDS ORDERED: ONDA4TAB11 PO (17:38)
[2020-01-25] MEDS ORDERED: ACHD5005 PO (17:38)
[2020-01-25 17:48] VITALS: BP 109/75
== END 2020-01-25 17:48 | disposition home or self-care (01) ==
LOC: EDUNIT# 14:49 → ER 14:50
DX: R10.31 Right lower quadrant pain (principal); F17.210 Nicotine dependence, cigarettes, uncomplicated
CPT/HCPCS: 36415; 76830; 76856; 80053; 84703; 85007; 85027; 86141

== ENCOUNTER 2020-02-15 02:43 | Emergency (ER) | payer SELFPAY ==
[~2020-02-15] VITALS: Ht 157.4 cm; Wt 81.6 kg
[2020-02-15 02:55] VITALS: BP 127/89
[2020-02-15] MEDS ORDERED: LACTATED RINGERS 1,000 ML IV ONE (02:56)
[2020-02-15] MEDS ORDERED: ONDANSETRON 4 MG/2 ML (SDV) Z0FRAN IVP ONE (03:00)
--- NOTE | 2020-02-15 03:02 | ED General ---
General Stated Complaint: ABD PAIN,FEVER Source of Information: Patient (DIFFICULT HISTORIAN--SPEECH RAPID, ERRATIC, MUMBLES AND DIFFICULT TO KEEP ON SUBJECT) History of Present Illness Date Seen by Provider: Feb 15, 2020 Time Seen by Provider: 02:55 Initial Comments PT ARRIVES VIA POV--WANTS WHEELCHAIR ON ARRIVAL PT WITH MULTIPLE COMPLAINTS C/O FEVER OF 101 C/O ABDOMINAL PAIN C/O NAUSEA AND "VOMITED OVER 40 TIMES TONIGHT" SYMPTOMS FOR 3 DAYS PT HAS HAD MULTIPLE VISITS, MANY FOR ABDOMINAL PAIN COMPLAINTS WELL OTHER VARIOUS PAIN COMPLAINTS LAST VISIT 01/25/20 FOR RLQ PAIN, LAB AND ULTRASOUND WERE NORMAL.GIVEN RX FOR Z OFRAN. 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 Allergies and Home Medications Allergies Coded Allergies: No Known Drug Allergies (Unverified , 04/19/18) Home Medications Doxycycline Hyclate 100 Mg Capsule, 100 MG PO BID Prescribed by: JENNIFER DOVE on 04/20/18 1406 Hydrocodone/Acetaminophen 1 Each Tablet, 1 EACH PO Q6H PRN for PAIN-BREAKTHROUGH Prescribed by: MINGO SARKAR on 01/25/20 1739 Ibuprofen 800 Mg Tablet, 800 MG PO Q8H PRN for PAIN Prescribed by: JENNIFER DOVE on 04/20/18 1406 Metronidazole 500 Mg Tablet, 500 MG PO BID Prescribed by: JENNIFER DOVE on 04/20/18 1406 Ondansetron 4 Mg Tab.rapdis, 4 MG PO Q4H PRN for NAUSEA/VOMITING-1ST LINE, (Reported) Ondansetron 4 Mg Tab.rapdis, 4 MG PO Q6H PRN for NAUSEA/VOMITING Prescribed by: MINGO SARKAR on 01/25/20 1738 Review of Systems Review of Systems Constitutional: see HPI, fever Gastrointestinal: see HPI, abdominal pain, nausea Past Pqbdgeo-Iwazqa-Nsaehz Hx Patient Social History Drug of Choice: THC, + IV METH Type Used: Cigarettes 2nd Hand Smoke Exposure: Yes Recent Foreign Travel: No Contact w/Someone Who Travel: No Recent Hopitalizations: No Immunizations Up To Date Tetanus Booster (TDap): Unknown Date of Influenza Vaccine: Dec 12, 2017 Seasonal Allergies Seasonal Allergies: No Past Medical History Surgeries: No Respiratory: No Cardiac: No Neurological: No Reproductive Disorders: Yes Female Reproductive Disorders: Menstrual Problems, Pelvic Inflammatory Dis Sexually Transmitted Disease: Yes HIV/AIDS: No Genitourinary: No Gastrointestinal: No Musculoskeletal: No Endocrine: No HEENT: Yes (POOR DENTITION) Cancer: No Psychosocial: Yes Anxiety, Depression Integumentary: No Blood Disorders: No Adverse Reaction/Blood Tranf: No Family Medical History Patient reports no known family medical history. No Pertinent Family Hx Physical Exam Vital Signs Capillary Refill : Height, Weight, BMI Height: 5'3.00" Weight: 170lbs. 1.0oz. 77.307440ly; 33.00 BMI Method:Stated General Appearance: Other (EXTREMELY DRAMATIC, MOANING AND WAILING, WANTS WHEELCHAIR ON ARRIVAL SPEECH RAPID, ERRATIC, AND MUMBLED, PT VERY DISAGREEABLE TO ALL INTERVENTIONS. ) Respiratory: Normal Breath Sounds Cardiovascular: Regular Rate, Rhythm Gastrointestinal: Soft, Tenderness (DIFFUSE) Extremity: No Pedal Edema Neurologic/Psychiatric: Alert, Oriented x3, Other (BEHAVIOR ABOVE) Skin: Normal Color, Warm/Dry Procedures/Interventions Suture Size: 5-0 Progress/Results/Core Measures Suspected Sepsis SIRS Temperature: Pulse: Respiratory Rate: Blood Pressure / Mean: Results/Orders Lab Results Laboratory Tests Test 02/15/20 03:20 Range/Units Coronavirus 2019 ([facility]) Positive H Negative Micro Results Microbiology 02/15/20 Influenza Types A,B Antigen ([facility]) - Final, Complete My Orders Orders - CRISTINA CLAROS DO Ed Iv/Invasive Line Start (02/15/20 02:56) Urine Bedside (02/15/20 02:56) Monitor-Rhythm Ecg Trace Only (02/15/20 02:56) Chest 1 View, Ap/Pa Only (02/15/20 02:56) Acetaminophen (02/15/20 02:56) Alcohol (02/15/20 02:56) Amylase (02/15/20 02:56) Cbc With Automated Diff (02/15/20 02:56) Comprehensive Metabolic Panel (02/15/20 02:56) Hs C Reactive Protein (02/15/20 02:56) Drug Screen Stat (Urine) (02/15/20 02:56) Lactic Acid Analyzer (02/15/20 02:56) Lipase (02/15/20 02:56) Magnesium (02/15/20 02:56) Monotest (02/15/20 02:56) Procalcitonin (Pct) (02/15/20 02:56) Protime With Inr (02/15/20 02:56) Partial Thromboplastin Time (02/15/20 02:56) Rapid Strep A Screen (02/15/20 02:56) Ua Culture If Indicated (02/15/20 02:56) Blood Culture (02/15/20 02:56) Influenza A And B Antigens (02/15/20 02:56) Erythrocyte Sedimentation Rate (02/15/20 02:56) Ed Iv/Invasive Line Start (02/15/20 02:56) Lactated Ringers (Lr 1000 Ml Iv Solution (02/15/20 02:56) Ondansetron Injection (Zofran Injectio (02/15/20 03:00) LDH (02/15/20 02:56) Covid 19 Inhouse Test (02/15/20 02:56) Vital Signs/I&O Capillary Refill : Progress Note : Progress Note PLACED IN ISOLATION ROOM PPE WORN AT ALL TIMES COVID-19 TESTING PERFORMED REPEATEDLY DEMANDING WATER, YET STATES SHE IS NAUSEATED AND CLAIMS TO HAVE V OMITED "OVER 40 TIMES" TONIGHT. OFFERED HER MOUTH SWABS. 0330---PT WITH RAPIDLY ESCALATING BEHAVIOR--YELLING, SCREAMING, CURSING REFUSES IV OR LAB DRAW, REFUSES TO GIVE UA OR HAVE CATH UA ADVISED PT THAT TESTS WOULD NEED TO BE DONE BASED ON HER COMPLAINTS AND SHE ADAMANTLY REFUSES ALL PT STATES SHE "WOULD RATHER GO FUCKING AT HOME" AMA PAPERS SIGNED AND PT ESCORTED OUT OF ER BY RN [id number]--PT WAS FOUND OUTSIDE OF ER WAITING FOR A RIDE, INFORMED PT OF + COVID-19 RESULTS AND + INFLUENZA A RESULTS. ADVISED HER OF NEED FOR WEARING A MASK THAT COVERS HER NOSE AND MOUTH AT ALL TIMES ( TWO WERE PROVIDED TO PT) AND INFORMED HER OF NEED FOR QUARANTINE OF HERSELF, ALL HOUSEHOLD AND CLOSE CONTACTS FOR A MINIMUM OF 2 WEEKS, UNTIL CLEARED BY HEALTH DEPARTMENT. Departure Impression Primary Impression: Left against medical advice Additional Impressions: COVID-19 virus infection Influenza A Disposition: 07 AGAINST MEDICAL ADVICE Condition: Against Medical Advice Departure-Patient Inst. Referrals: DARREN RICHARDS DO (PCP/Family) Primary Care Physician CRISTINA CLAROS DO Feb 15, 2020 03:02
--- NOTE | 2020-02-15 03:10 | NUR ---
TWO UNSUCCESSFUL ATTEMPTS TO START IV MY THIS RN. PATIENT STATES SHE IS A HARD STICK AND IS NOW REFUSING TO ALLOW IV START. THIS RN ASKS PATIENT IF SHE WILL ALLOW LAB OR ANOTHER CLINICIAN TO DRAW LAB OR START AN IV PATIENT STILL REFUSES. DR CLAROS NOTIFIED.
--- NOTE | 2020-02-15 03:20 | NUR ---
THIS RN IN ROOM, DR CLAROS SPEAKING WITH PATIENT, PATIENT IS REFUSING BLOOD DRAW OR URINE TESTING. PATIENT DID ALLOW FLU AND RAPID COVID TESTING TO BE DONE. PATIENT DISRESPECTFUL TO DR CLAROS AND THIS RN. DR CLAROS INFORMED PATIENT WITHOUT BLOOD AND URINE OR AN IV WE ARE UNABLE TO DO TESTING FOR HER ABDOMINAL PAIN. PATIENT REFUSING PLAN OF CARE AND STATES "IM JUST GOING TO GO TO [place]" DR CLAROS INFORMS PATIENT SHE WILL NEED TO SIGN OUT AMA TO WHICH PATIENT AGREES.
--- NOTE | 2020-02-15 03:30 | NUR ---
THIS RN REMAINS IN ROOM WITH PATIENT TALKING TO HER TO TRY AND ENCOURAGE HER TO STAY AND LET LAB DRAW LABS. PATIENT NOW AGREES TO ALLOW LAB DRAW. AGAIN PATIENT IS ASKED TO PROVIDE URINE SAMPLE, PATIENT BECOMES UPSET AND STATES SHE IS JUST LEAVING AND GOING TO [place]. THIS RN PROVIDED AMA PAPERWORK TO PATIENT. PATIENT CALLS FOR A RIDE AND IS SCREAMING INTO THE PHONE FOR SOMEONE TO PICK HER UP CUSSING AND CALLING DR HARLAN ZARATE. THIS RN TAKES PATIENT IN A WHEELCHAIR ER DOORS TO WAIT FOR HER RIDE.
--- NOTE | 2020-02-15 03:35 | NUR ---
POSITIVE RESLUTS FOR FLU AND COVID REPORTED. DR CLAROS INFORMED. PATIENT IS STILL WAITING FOR HER RIDE. THIS RN ESCORTS DR CLAROS OUT TO INFORM THE PATIENT OF HER POSITIVE RESULTS. ANOTHER MASK PROVIDED TO PATIENT.
--- NOTE | 2020-02-15 07:16 | Diagnostic Imaging Report ---
INDICATION: Febrile. Comparison with 10/24/2017. FINDINGS: Portable chest. The lungs are well-aerated and clear. There is no air-trapping. Heart is not enlarged. No pulmonary edema or hilar adenopathy. No pneumothorax or pleural effusion. No bony abnormalities. IMPRESSION: Negative portable chest. Dictated by: Dictated on workstation # [id number]
== END 2020-02-15 03:30 | disposition left against medical advice (07) ==
LOC: EDUNIT# 02:43 → ER 02:47
DX: U07.1 COVID-19 (principal); Z77.22 Contact with and (suspected) exposure to environmental tobacco smoke (acute) (chronic)
CPT/HCPCS: 71045; 87804; U0002; 87635

== ENCOUNTER 2020-09-22 12:36 | Emergency (ER) | payer SELFPAY ==
[~2020-09-22] VITALS: Ht 160 cm; Wt 81.6 kg
[2020-09-22 12:54] VITALS: BP 137/91
--- NOTE | 2020-09-22 13:12 | ED General ---
General Chief Complaint: General Problems/Pain Stated Complaint: HEADACHE/EAR PAIN DENTAL PAIN Nursing Triage Note: Patient reports R lower dental pain x 3 days, bilateral ear pain for 2 days and a frontal headache this morning. Nursing Sepsis Screen: No Definite Risk Source of Information: Patient Exam Limitations: No Limitations History of Present Illness Date Seen by Provider: Sep 22, 2020 Time Seen by Provider: 13:04 Initial Comments This is a well-appearing 25-year-old female who presents to the ER with complaints of bilateral upper tooth pain and right ear pain x3 days. Has not taken anything for pain prior to arrival. Currently stating 09/20, aching, constant. Denies fever, chills, cough, shortness of breath, nausea, vomiting, diarrhea, dental pain. States last menstrual period was 2 weeks ago. Allergies and Home Medications Allergies Coded Allergies: No Known Drug Allergies (Unverified , 04/19/18) Home Medications Doxycycline Hyclate 100 Mg Capsule, 100 MG PO BID Prescribed by: JENNIFER DOVE on 04/20/18 1406 Hydrocodone/Acetaminophen 1 Each Tablet, 1 EACH PO Q6H PRN for PAIN-BREAKTHROUGH Prescribed by: MINGO SARKAR on 01/25/20 1739 Ibuprofen 800 Mg Tablet, 800 MG PO Q8H PRN for PAIN Prescribed by: JENNIFER DOVE on 04/20/18 1406 Metronidazole 500 Mg Tablet, 500 MG PO BID Prescribed by: JENNIFER DOVE on 04/20/18 1406 Ondansetron 4 Mg Tab.rapdis, 4 MG PO Q4H PRN for NAUSEA/VOMITING-1ST LINE, (Reported) Ondansetron 4 Mg Tab.rapdis, 4 MG PO Q6H PRN for NAUSEA/VOMITING Prescribed by: MINGO SARKAR on 01/25/20 1738 Past Fqmvngx-Lgjfpf-Aqrqjz Hx Patient Social History Alcohol Use: Denies Use Drug of Choice: THC, + IV METH Type Used: Cigarettes Former Smoker, Quit: Jul 12, 2017 2nd Hand Smoke Exposure: Yes Recent Infectious Disease Expo: No Recent Hopitalizations: No Immunizations Up To Date Tetanus Booster (TDap): Unknown Date of Influenza Vaccine: Dec 12, 2017 Seasonal Allergies Seasonal Allergies: No Past Medical History Surgeries: No Respiratory: No Cardiac: No Neurological: No Reproductive Disorders: Yes Female Reproductive Disorders: Menstrual Problems, Pelvic Inflammatory Dis Sexually Transmitted Disease: Yes HIV/AIDS: No Genitourinary: No Gastrointestinal: No Musculoskeletal: No Endocrine: No HEENT: Yes (POOR DENTITION) Cancer: No Psychosocial: Yes Anxiety, Depression Integumentary: No Blood Disorders: No Adverse Reaction/Blood Tranf: No Family Medical History Patient reports no known family medical history. No Pertinent Family Hx SOCIAL HISTORY: -ETOH--"OCCASIONAL" USE, VERY HEAVY AT TIMES -DRUGS--+ IV METH, THC USE -SMOKES 1 PPD Physical Exam Vital Signs Vital Signs - First Documented 09/22/20 12:54 Temp 36.7 Pulse 110 Resp 18 B/P (MAP) 137/91 (106) Pulse Ox 98 Capillary Refill : Less Than 3 Seconds Height, Weight, BMI Height: 5'3.00" Weight: 170lbs. 1.0oz. 77.621876bk; 31.00 BMI Method:Stated Procedures/Interventions Suture Size: 5-0 Progress/Results/Core Measures Suspected Sepsis Recent Fever Within 48 Hours: No Infection Criteria Present: None New/Unexplained Altered Menta: No Sepsis Screen: No Definite Risk SIRS Temperature: Pulse: 110 Respiratory Rate: 18 Blood Pressure 137 /91 Mean: 106 Results/Orders My Orders Orders - JEROME AUGUST APRN Ketorolac Injection (Toradol Injection) (09/22/20 13:15) Medications Given in ED Current Medications Medications Dose Ordered Sig/Camila Route Start Time Stop Time Status Last Admin Dose Admin Ketorolac Tromethamine 60 mg ONCE ONCE IM 09/22/20 13:15 09/22/20 13:16 DC 09/22/20 13:22 60 MG Vital Signs/I&O 09/22/20 12:54 Temp 36.7 Pulse 110 Resp 18 B/P (MAP) 137/91 (106) Pulse Ox 98 Capillary Refill : Less Than 3 Seconds Blood Pressure Mean: 106 Departure Impression Primary Impression: Abscess, dental Additional Impression: Right otitis media Disposition: 01 HOME, SELF-CARE Condition: Improved Departure-Patient Inst. Decision time for Depature: 13:12 Referrals: DARREN RICHARDS DO (PCP/Family) Primary Care Physician Patient Instructions: Dental Pain ED Add. Discharge Instructions: Plan: 1. Follow-up with your dental provider next week. 2. Do warm salt water gargles 3 times a day he can do this after meals. 3. Take antibiotics as directed and complete full course. 4. May take Ibuprofen 600 mg every 6 hours as needed for pain. Take with food. 5. Return for any new, concerning, or worsening symptoms. All discharge instructions reviewed with patient and/or family. Voiced understanding. Scripts Amoxicillin/Potassium Clav (Augmentin 875-125 Tablet) 1 Each Tablet 1 EACH PO BID for 10 Days, #20 TAB 0 Refills Prov: JEROME AUGUST APRN 09/22/20 JEROME AUGUST APRN Sep 22, 2020 13:12
[2020-09-22] MEDS ORDERED: KETOROLAC 60 MG/2 ML VIAL IM ONE (13:15)
[2020-09-22] MEDS ORDERED: AMOX-358 PO (13:41)
== END 2020-09-22 13:26 | disposition home or self-care (01) ==
LOC: EDUNIT# 12:36 → ER 12:39
DX: K04.7 Periapical abscess without sinus (principal); H66.91 Otitis media, unspecified, right ear; F17.210 Nicotine dependence, cigarettes, uncomplicated
CPT/HCPCS: 99284

== ENCOUNTER 2020-10-17 22:27 | Emergency (ER) | payer SELFPAY ==
[~2020-10-17] VITALS: Ht 160 cm; Wt 81.6 kg
[~2020-10-17 22:27] MED LIST changes: +AMOX-358 PO
[2020-10-17 22:52] VITALS: BP 135/97
== END 2020-10-17 23:45 | disposition left against medical advice (07) ==
LOC: EDUNIT# 22:27 → ER 22:29
DX: K08.89 Other specified disorders of teeth and supporting structures (principal)
CPT/HCPCS: 99282

== ENCOUNTER 2020-11-09 16:49 | Emergency (ER) | payer SELFPAY ==
[~2020-11-09] VITALS: Ht 152 cm; Wt 81.8 kg
[~2020-11-09 16:49] MED LIST changes: -SULF1TAB35 PO; +SULF1TAB38 PO
[2020-11-09] MEDS ORDERED: PRED5TAB PO (18:40)
[2020-11-09] MEDS ORDERED: MOME45CR3 TP (18:40)
--- NOTE | 2020-11-09 18:41 | ED Integumentary General ---
General Chief Complaint: Skin/Wound Problems Stated Complaint: RASH ALL OVER Source: patient History of Present Illness Date Seen by Provider: Nov 09, 2020 Time Seen by Provider: 18:33 Initial Comments PT ARRIVES VIA POV FROM HOME PT C/O ITCHY RASH FOR THE LAST 3 DAYS--HAS BEEN CAMPING FOR THE LAST 3 DAYS RASH MORE AROUND ANKLES AND LOWER LEGS, BUT IS ALSO ON UPPER PART OF LEGS, ON ARMS AND BUTTOCKS HAS NOT TAKEN ANYTHING FOR ITCHING NO HISTORY OF SIMILAR HAS NOT SOUGHT CARE UNTIL TONIGHT NO FEVER OR RECENT ILLNESS LMP MID SEPTEMBER. NO CONTROL PCP: [facility] Allergies and Home Medications Allergies Coded Allergies: No Known Drug Allergies (Unverified , 04/19/18) Home Medications Amoxicillin/Potassium Clav 1 Each Tablet, 1 EACH PO BID Prescribed by: JEROME AUGUST on 09/22/20 1341 Doxycycline Hyclate 100 Mg Capsule, 100 MG PO BID Prescribed by: JENNIFER DOVE on 04/20/18 1406 Hydrocodone/Acetaminophen 1 Each Tablet, 1 EACH PO Q6H PRN for PAIN-BREAKTHROUGH Prescribed by: MINGO SARKAR on 01/25/20 1739 Ibuprofen 800 Mg Tablet, 800 MG PO Q8H PRN for PAIN Prescribed by: JENNIFER DOVE on 04/20/18 1406 Metronidazole 500 Mg Tablet, 500 MG PO BID Prescribed by: JENNIFER DOVE on 04/20/18 1406 Mometasone Furoate 45 Gm Cream..g., 45 GM TP TID Prescribed by: CRISTINA CLAROS on 11/09/20 184 Ondansetron 4 Mg Tab.rapdis, 4 MG PO Q4H PRN for NAUSEA/VOMITING-1ST LINE, (Reported) Ondansetron 4 Mg Tab.rapdis, 4 MG PO Q6H PRN for NAUSEA/VOMITING Prescribed by: MINGO SARKAR on 01/25/20 1738 Prednisone 5 Mg Tablet, 5 MG PO UD 12 PILLS DAY 1, THEN DECREASE BY 1 PILL A DAY UNTIL GONE Prescribed by: CRISTINA CLAROS on 11/09/20 1840 Patient Home Medication List Home Medication List Reviewed: Yes Review of Systems Review of Systems Constitutional: no symptoms reported EENTM: no symptoms reported Respiratory: no symptoms reported Cardiovascular: no symptoms reported Gastrointestinal: no symptoms reported Genitourinary: no symptoms reported LMP: Sep 25, 2020 Musculoskeletal: no symptoms reported Skin: see HPI Psychiatric/Neurological: No Symptoms Reported Endocrine: No Symptoms Reported Hematologic/Lymphatic: No Symptoms Reported Past Tzpfxqk-Ubspxq-Rvrgid Hx Immunizations Up To Date Tetanus Booster (TDap): Unknown Seasonal Allergies Seasonal Allergies: No Past Medical History Surgeries: No Respiratory: No Cardiac: No Neurological: No Reproductive Disorders: Yes Female Reproductive Disorders: Menstrual Problems, Pelvic Inflammatory Dis Sexually Transmitted Disease: Yes HIV/AIDS: No Genitourinary: No Gastrointestinal: No Musculoskeletal: No Endocrine: No HEENT: Yes (POOR DENTITION) Cancer: No Psychosocial: Yes Anxiety, Depression Integumentary: No Blood Disorders: No Adverse Reaction/Blood Tranf: No Family Medical History Patient reports no known family medical history. No Pertinent Family Hx SOCIAL HISTORY: -ETOH--"OCCASIONAL" USE, VERY HEAVY AT TIMES -DRUGS--+ IV METH, THC USE -SMOKES 1 PPD Physical Exam Vital Signs Vital Signs - First Documented 11/09/20 18:21 Temp 35.9 Pulse 94 Resp 18 B/P (MAP) 116/86 (96) Pulse Ox 98 O2 Delivery Room Air Capillary Refill : General Appearance: WD/WN, no apparent distress Extremities: no pedal edema Skin: normal color, warm/dry, rash (PATCHY MACULPAPULAR RASH SCATTERED ON LEGS, ARMS AND BUTTOCKS, MOST CONCENTRATED ON LOWER LEGS AND ANKLES--FEW EARLY VESICLES AROUND ANKLES. NO SIGNS OF SECONDARY INFECTION. ) Procedures/Interventions Suture Size: 5-0 Progress/Results/Core Measures Results/Orders My Orders Orders - CRISTINA CLAROS DO Methylprednisolone Sod Succ (Solu-Medrol (11/09/20 18:45) Vital Signs/I&O 11/09/20 18:21 Temp 35.9 Pulse 94 Resp 18 B/P (MAP) 116/86 (96) Pulse Ox 98 O2 Delivery Room Air Departure Impression Primary Impression: Contact dermatitis due to plant Disposition: 01 HOME, SELF-CARE Condition: Stable Departure-Patient Inst. Decision time for Depature: 18:37 Referrals: [facility] (PCP/Family) Primary Care Physician Patient Instructions: Contact Dermatitis (DC), Poison [place], Poison [place], Poison [place] (DC) Add. Discharge Instructions: CLARITIN 10 MG IN AM, BENADRYL 50 MG IN PM NEEDED FOR ITCHING FOLLOW UP WITH [facility] IF SYMPTOMS WORSEN All discharge instructions reviewed with patient and/or family. Voiced understanding. Scripts Mometasone Furoate (Mometasone Furoate) 45 Gm Cream..g. 45 GM TP TID, #1 TUBE Prov: CRISTINA CLAROS DO 11/09/20 CRISTINA CLAROS DO Nov 09, 2020 18:41
[2020-11-09] MEDS ORDERED: methylPREDNISolone 125 MG (Solu-MEDROL) VIAL IM ONE (18:45)
[2020-11-09 19:03] VITALS: BP 116/86
== END 2020-11-09 19:08 | disposition home or self-care (01) ==
LOC: EDUNIT# 16:49 → ER 16:50
DX: L25.5 Unspecified contact dermatitis due to plants, except food (principal); F17.210 Nicotine dependence, cigarettes, uncomplicated
CPT/HCPCS: 99284

== ENCOUNTER 2021-03-18 19:18 | Emergency (ER) | payer SELFPAY ==
[~2021-03-18 19:18] MED LIST changes: -DOXY100C2 PO; +DOXY100C5 PO; +MOME45CR3 TP; +PRED5TAB PO
== END 2021-03-18 20:00 | disposition left against medical advice (07) ==
LOC: EDUNIT# 19:18 → ER 19:19
DX: M79.662 Pain in left lower leg (principal)